=== PATIENT | female | born 1940 | race Caucasian/White ===

== ENCOUNTER 2020-02-05 12:45 | Outpatient (REF) | payer MEDICARE, SELFPAY ==
[2020-02-05 14:11] LABS: MANUAL DIFF FLAG NO
[2020-02-05 14:20] LABS: Basophils Percent Auto 0.7 % (0-2); Eosinophils Absolute Auto 0.3 X10*3/uL (0.0-0.4); Eosinophils Percent Auto 6.1 % (0-4); Hematocrit 43.8 % (37-47); Hemoglobin 13.8 g/dl (12.0-16.0); Imm Gran Abs Auto 0.02 X10*3/uL (0.00-0.03); Imm Gran Pct Auto 0.4 % (0.0-0.4); Lymphocytes Absolute Auto 1.1 X10*3/uL (1.2-4.9); Lymphocytes Percent Auto 19.9 % (20-40); Mean Corpuscular HGB Conc 31.5 g/dl (31.0-35.0); Mean Corpuscular Hemoglobin 29.6 pg (27.0-33.0); Mean Platelet Volume 9.9 fL (9.4-12.3); Monocytes Absolute Auto 0.6 X10*3/uL (0.1-1.2); Monocytes Percent Auto 10.8 % (2-11); Neutrophils Absolute Auto 3.5 X10*3/uL (2.0-8.3); Neutrophils Percent Auto 62.1 % (45-73); Platelet Count 244 X10*3/uL (160-400); Red Blood Count 4.66 X10*6/uL (4.20-5.50); Red Cell Distribution Width 13.2 % (11.0-16.0); White Blood Count 5.6 X10*3/uL (4.8-10.8)
[2020-02-05 14:34] LABS: Alanine Aminotransferase 16 U/L (0-31); Albumin Level 4.1 g/dL (3.5-5.0); Alkaline Phosphatase 67 U/L (39-117); Anion Gap 11 (12-20); Aspartate Amino Transferase 23 U/L (5-31); Bilirubin Total 0.5 mg/dL (0.0-1.0); Blood Urea Nitrogen 30 mg/dL (9-16); Calcium 8.9 mg/dL (8.4-10.2); Carbon Dioxide 28 mmol/L (22-29); Chloride 105 mmol/L (96-108); Cholesterol 236 mg/dL; Estimated Glomerular Filt Rate 53; Glucose Fasting 104 mg/dL (60-99); HDL Cholesterol 44 mg/dL; LDL Cholesterol Calculated 144 mg/dl; Potassium 4.4 mmol/l (3.3-5.1); Sodium 140 mmol/L (135-145); Total Protein 6.6 g/dL (6.5-8.0); Triglycerides 240 mg/dL
[2020-02-05 14:58] LABS: Thyroid Stimulating Hormone 2.05 uIU/mL (0.32-4.0); Vitamin D 25-OH Total 43.3 ng/mL (>30)
== END 2020-02-05 12:46 | disposition home or self-care (01) ==
LOC: HO.HMGCLDS 12:45
PROVIDERS: PCP Internal Medicine; Visit Provider Internal Medicine
DX: I48.0 Paroxysmal atrial fibrillation (principal); E03.9 Hypothyroidism, unspecified; M19.90 Unspecified osteoarthritis, unspecified site
CPT/HCPCS: 36415; 80053; 80061; 82306; 84443; 85025

== ENCOUNTER → 2020-02-19 13:22 | Outpatient (BNVA) | payer MEDICARE, SELFPAY | PROVIDERS: Visit Provider Orthopaedic Surgery | DX: M70.71 Other bursitis of hip, right hip (principal); M54.5 Low back pain | CPT/HCPCS: 20610; J1100 ==

== ENCOUNTER 2020-05-10 14:26 | Outpatient (REF) | payer MEDICARE, OTHER, SELFPAY ==
--- NOTE | ~2020-05-10 | MM_ITS ---
EXAMINATION: MM SCREENING DIGITAL BREAST TOMOSYNTHESIS, BILATERAL CLINICAL INFORMATION: Screening. Asymptomatic. The lifetime risk of breast cancer based on the Tyrer-Cuzick Model is 2%. COMPARISON: Mammography: 05/05/2019, 05/02/2018, 04/26/2017, 04/06/2017 TECHNIQUE: Digital breast tomosynthesis is performed in both the craniocaudal and mediolateral oblique views along with computer-aided detection (CAD). Synthesized 2D images are generated from the tomosynthesis. FINDINGS: There are scattered areas of fibroglandular density (ACR BI-RADS breast composition Category b). There are no significant masses, abnormal calcifications, or other abnormalities. There are scattered bilateral benign round and rim calcifications, greater in number on right. The axilla and skin contours are unremarkable. MM/MM tomosynthesis screening BI IMPRESSION: No mammographic evidence of malignancy. ASSESSMENT: BI-RADS 2: Benign RECOMMENDATION: Routine annual mammography screening. This patient's information was entered into a reminder system with a target due date for their next mammogram.
== END 2020-05-10 14:27 | disposition home or self-care (01) ==
LOC: HO.MAMMO 14:26
PROVIDERS: PCP Internal Medicine; Visit Provider Internal Medicine
DX: Z12.31 Encounter for screening mammogram for malignant neoplasm of breast (principal)
CPT/HCPCS: 77063; 77067

== ENCOUNTER → 2020-06-13 13:46 | Outpatient (REF) | payer BC, SELFPAY ==
--- NOTE | 2020-06-13 13:59 | ECG_ITS ---
Test Reason : H26.9 Blood Pressure : / mmHG Vent. Rate : 065 BPM Atrial Rate : 065 BPM P-R Int : 162 ms QRS Dur : 082 ms QT Int : 406 ms P-R-T Axes : 009 -09 020 degrees QTc Int : 422 ms Normal sinus rhythm Normal ECG When compared with ECG of 18-NOV-2016 11:44, No significant change was found Referred By: Fred Krause Electronically Signed By:JANINA PEREZ MD
== END ==
LOC: HO.CARD 13:46
PROVIDERS: PCP Internal Medicine; Visit Provider Internal Medicine
DX: I48.0 Paroxysmal atrial fibrillation (principal); H26.9 Unspecified cataract
CPT/HCPCS: 93005

== ENCOUNTER 2021-06-06 15:56 | Outpatient (REF) | payer OTHER, SELFPAY ==
--- NOTE | ~2021-06-06 | MM_ITS ---
EXAMINATION: MM SCREENING DIGITAL BREAST TOMOSYNTHESIS, BILATERAL CLINICAL INFORMATION: Screening. Asymptomatic. The lifetime risk of breast cancer based on the Tyrer-Cuzick Model is 1%. COMPARISON: Mammography: 05/10/2020, 05/05/2019, 05/02/2018 TECHNIQUE: Digital breast tomosynthesis is performed in both the craniocaudal and mediolateral oblique views along with computer-aided detection (CAD). Synthesized 2D images are generated from the tomosynthesis. Additional right MLO view is provided. FINDINGS: There are scattered areas of fibroglandular density (ACR BI-RADS breast composition Category b). There are no significant masses, abnormal calcifications, or other abnormalities. Parenchymal pattern is similar to prior studies. There are scattered bilateral punctate round and rim calcifications again seen. Skin contours are smooth. MM/MM tomosynthesis screening BI IMPRESSION: No mammographic evidence of malignancy. ASSESSMENT: BI-RADS 2: Benign RECOMMENDATION: Routine annual mammography screening. This patient's information was entered into a reminder system with a target due date for their next mammogram.
== END 2021-06-06 15:57 | disposition home or self-care (01) ==
LOC: HO.MAMMO 15:56
PROVIDERS: PCP Internal Medicine; Visit Provider Internal Medicine
DX: Z12.31 Encounter for screening mammogram for malignant neoplasm of breast (principal)
CPT/HCPCS: 77063; 77067

== ENCOUNTER 2021-07-04 13:54 | Outpatient (REF) | payer OTHER, SELFPAY ==
[2021-07-04 16:27] LABS: MANUAL DIFF FLAG NO
[2021-07-04 16:31] LABS: Basophils Percent Auto 0.5 % (0-2); Eosinophils Absolute Auto 0.2 X10*3/uL (0.0-0.4); Eosinophils Percent Auto 3.8 % (0-4); Hematocrit 41.4 % (37.0-47.0); Hemoglobin 13.2 g/dl (12.0-16.0); Imm Gran Abs Auto 0.01 X10*3/uL (0.00-0.03); Imm Gran Pct Auto 0.2 % (0.0-0.4); Lymphocytes Percent Auto 16.5 % (20-40); Mean Corpuscular HGB Conc 31.9 g/dl (31.0-35.0); Mean Corpuscular Hemoglobin 29.5 pg (27.0-33.0); Mean Corpuscular Volume 92.6 fL (80.0-98.0); Mean Platelet Volume 10.3 fL (9.4-12.3); Monocytes Absolute Auto 0.6 X10*3/uL (0.1-1.2); Monocytes Percent Auto 9.4 % (2-11); Neutrophils Absolute Auto 4.4 x10*3/uL (2.0-8.3); Neutrophils Percent Auto 69.6 % (45-73); Platelet Count 235 X10*3/uL (160-400); Red Blood Count 4.47 X10*6/uL (4.20-5.50); Red Cell Distribution Width 13.5 % (11.0-16.0); White Blood Count 6.3 X10*3/uL (4.8-10.8)
[2021-07-04 16:46] LABS: Alanine Aminotransferase 12 U/L (0-31); Albumin Level 4.2 g/dL (3.5-5.0); Alkaline Phosphatase 66 U/L (39-117); Anion Gap 10 (12-20); Aspartate Amino Transferase 19 U/L (5-31); Bilirubin Total 0.6 mg/dL (0.0-1.0); Blood Urea Nitrogen 27 mg/dL (9-16); Calcium 9.4 mg/dL (8.4-10.2); Carbon Dioxide 28 mmol/L (22-29); Chloride 108 mmol/L (96-108); Cholesterol 244 mg/dL; Estimated Glomerular Filt Rate 55; Glucose Fasting 106 mg/dL (60-99); HDL Cholesterol 44 mg/dL; LDL Cholesterol Calculated 145 mg/dl; Potassium 4.5 mmol/L (3.3-5.1); Sodium 141 mmol/L (135-145); Total Protein 6.7 g/dL (6.5-8.0); Triglycerides 275 mg/dL
[2021-07-04 17:08] LABS: Thyroid Stimulating Hormone 1.63 uIU/mL (0.32-4.0); Vitamin D 25-OH Total 58.8 ng/mL (>30)
== END 2021-07-04 13:55 | disposition home or self-care (01) ==
LOC: HO.HMGCLDS 13:54
PROVIDERS: PCP Internal Medicine; Visit Provider Internal Medicine
DX: I48.0 Paroxysmal atrial fibrillation (principal); E03.9 Hypothyroidism, unspecified; M19.90 Unspecified osteoarthritis, unspecified site
CPT/HCPCS: 36415; 80053; 80061; 82306; 84443; 85025

== ENCOUNTER 2021-10-19 18:45 | Emergency (ER) | payer OTHER, SELFPAY ==
--- NOTE | ~2021-10-19 | CT_ITS ---
EXAM: CT scan of the head and cervical spine. INDICATION: Reason for Exam fall, head strike TECHNIQUE: A noncontrast CT scan was performed from the skull base to the vertex. A noncontrast CT scan of the cervical spine was performed from the base of the skull through T1 at 2.5 mm and 1.25 mm collimation. Coronal and sagittal reformats were obtained at the acquisition workstation. This CT examination was performed using dose optimization techniques as appropriate, variously including the following: *Automated exposure control *Adjustment of mA and/or kV according to patient size (this includes techniques or standardized protocols for targeted exams where dose is matched to indication/reason for exam; i.e. extremities or head) *Use of iterative reconstruction technique DLP: 686 and 395 mGy-cm COMPARISON: None FINDINGS: Head: There is no evidence of acute intracranial hemorrhage or territorial infarction. Pack-white matter differentiation is preserved. No abnormal mass effect or midline shift. No extra-axial fluid collections. Relatively pronounced atrophy particularly frontal lobes. No abnormal attenuation is demonstrated within the brain parenchyma. Scattered periventricular and deep white matter hypodensities consistent with microangiopathy. The ventricles and sulcal spaces are proportional without hydrocephalus. Proportional prominence of the ventricles and sulcal spaces. No acute osseous or soft tissue abnormalities. The mastoid air cells and visualized portions of the paranasal sinuses are well aerated. Cervical Spine: Mild degenerative disc disease most pronounced at C6-C7. Narrowing. Apophyseal joints throughout without subluxation. Posterior elements appear intact. The atlantooccipital and atlantoaxial articulations remain well aligned. Straightening of the normal cervical lordosis. Otherwise, there is anatomic alignment of the vertebral bodies and posterior elements. No evidence of acute fracture or subluxation.. There is no prevertebral soft tissue swelling. The thyroid gland and remaining cervical soft tissues are normal in appearance. The lung apices demonstrate no abnormalities. CT/CT cervical spine wo con IMPRESSION: No acute intracranial pathology. No acute fracture subluxation cervical spine.
[2021-10-19 19:18] VITALS: BP 153/69; PULSE 58; RESP 18; TEMP 36.8; O2SAT 95; BMI 29.7
--- NOTE | 2021-10-19 20:16 | ED.GENADULT ---
HPI - General Adult General Chief complaint: Wound/Laceration Stated complaint: Finger Lac R Hand Injury 10/19/21 Time Seen by Provider: 10/19/21 19:01 Source: patient Mode of arrival: ambulatory Limitations: no limitations History of Present Illness HPI narrative: Patient is an 81 year old female presenting to the emergency department today with a right hand laceration after a fall. Patient states that she fell and struck her head and then caught the webbing between her 2nd and 3rd digits of her right hand on the corner of the door frame. Patient denies any loss of consciousness with the incident. Patient denies any dizziness, lightheadedness, abdominal pain, nausea, vomiting, fever, chills, blurry vision, double vision, loss of vision, chest pain, difficulty breathing, shortness of breath, back pain, night sweats, pain with urination, increased urinary frequency, increased urinary urgency, blood in her urine or stool, syncope or a near syncopal episode, bowel incontinence, bladder incontinence, bowel retention, bladder retention, or any other complaints at this time. Onset (ago): hour(s) Location: right and upper extremity Radiation: non-radiation Severity: mild Severity scale (1-10): 3 Quality: dull Pain Consistency: constant Relieving factors: none Exacerbating factors: none Associated symptoms: denies other symptoms Treatments prior to arrival: none Related Data Home Medications Medication Instructions Recorded Confirmed bupropion HCl 300 mg 24 hr tablet, 300 mg PO QAM 02/19/20 02/19/20 extended release celecoxib 200 mg capsule 200 mg PO DAILY 02/19/20 02/19/20 duloxetine 60 mg capsule,delayed 60 mg PO DAILY 02/19/20 02/19/20 release levothyroxine 75 mcg tablet 75 mcg PO DAILY 02/19/20 02/19/20 metoprolol succinate 100 mg 100 mg PO DAILY 02/19/20 02/19/20 tablet,extended release 24 hr warfarin 2.5 mg tablet 2.5 mg PO Q OTHER DAY 02/19/20 02/19/20 Previous Rx's Medication Instructions Recorded doxycycline hyclate 100 mg tablet 100 mg PO BID 7 days #14 tabs 10/19/21 Allergies Allergy/AdvReac Type Severity Reaction Status Date / Time hydromorphone [From DILAUDID] Allergy Unknown HOT FLASH Verified 10/19/21 19:18 meperidine [From DEMEROL] Allergy Unknown HOT FLASH Verified 10/19/21 19:18 penicillin V Allergy Unknown Unknown Verified 10/19/21 19:18 Penicillins [PENICILLINS] Allergy Unknown RASH Verified 10/19/21 19:18 Albuterol Allergy Unknown Unknown Uncoded 02/19/20 15:33 Review of Systems Constitutional: Constitutional: Reports no additional constitutional complaints, Denies chills, Denies fever(s) and Denies night sweats Eyes: Eyes: Reports no additional eye complaints, Denies blurry vision, Denies change in vision, Denies diplopia, Denies eye discharge, Denies loss of vision and Denies eye pain ENT: Denies dizziness Cardiovascular: Cardiovascular: Reports no additional cardiovascular complaints, Denies chest pain, Denies lightheadedness, Denies Loss of Consciousness and Denies dyspnea Respiratory: Respiratory: Reports no additional respiratory complaints and Denies dyspnea Gastrointestinal: Gastrointestinal: Reports no additional gastrointestinal complaints, Denies abdominal pain, Denies melena, Denies hematochezia, Denies change in bowel habits and Denies change in stool character Genitourinary: Genitourinary: Denies hematuria, Denies urinary frequency, Denies dysuria, Denies urinary incontinence, Denies urinary hesitancy and Denies urinary urgency Musculoskeletal: Musculoskeletal: Reports no additional musculoskeletal complaints, Denies numbness and Denies tingling Integumentary/Breasts: Comments: laceration to the right hand between the 2nd and 3rd digits Neurologic: Denies dizziness, Denies loss of vision, Denies numbness and Denies tingling Psychiatric: Psychiatric: Reports no additional psychiatric complaints Endocrine: Endocrine: Reports no additional endocrine complaints Hematologic/Lymphatic: Hematologic/Lymphatic: Reports no additional hematologic/lymphatic complaints Allergic/Immunologic: Allergic/Immunologic: Reports no additional allergic/immunologic complaints [facility] Past Medical History Attestation statement: The following information was validated with the patient. 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 right knee replacement (~2014) Social History Social History Advance Directives: No Advance Directives Information Provided: No Current occupational status: retired Current occupation: Right Handed Physical Exam ED Vital Signs: Vital Signs - 24 hr 10/19/21 19:18 Temperature 98.3 F Pulse Rate 58 Respiratory Rate 18 Blood Pressure 153/69 H Pulse Oximetry 95 Oxygen Delivery Method Room Air BMI result Body Mass Index 29.7 Const General: cooperative, no acute distress, alert and awake Nutritional Appearance: well nourished Orientation/consciousness: patient oriented x3 Limitations: no limitations HENMT Head: Yes normal to inspection and Yes atraumatic Ears: hearing grossly normal bilaterally and external ears normal General nose exam: Normal external nose present, no nasal discharge noted and no epistaxis Face and sinus: Yes normal facial exam, No abrasion and No laceration Mouth: Normal oral and palatal mucosa present, no drooling and no muffled voice Eyes General: appearance normal, both eyes and all related structures Periorbital: periorbital findings normal Eyelids: Yes eyelids normal Conjunctivae: conjunctivae normal Pupils: Equal, round and reactive pupils present EOM: EOMs intact bilaterally Neck Neck: Yes normal visual inspection, Yes full ROM and Yes no lymphadenopathy Chest Chest palpation & inspection: normal inspection of the chest Resp Effort & Inspection: normal respiratory effort and able to speak in complete sentences Auscultation: clear to auscultation bilaterally Cardio Rate: regular rate Rhythm: regular rhythm GI Inspection: Yes normal to inspection Skin Other: 3.5cm laceration to the web space between the 2nd and 3rd digits, no active bleeding Neuro General: patient oriented x3 and moves all extremities Cranial nerves: Yes Equal, round and reactive pupils present Cognition (Neuro): normal cognition Motor exam (neuro): 5/5 motor strength present throughout Sensory Exam: Normal double simultaneous stimulation for sensation Coordination: [id number] test normal Extrem General: Yes full ROM and Yes capillary refill normal Psych Appearance: grossly normal Mental Status: mental status grossly normal Affect: normal affect Attitude: cooperative Thought process: Normal thought process present Thought content: Normal thought content present Insight: Good insight present (Psych) Procedures Laceration Laceration 1: Site: other (hand) Side (If applicable): right Size (cm): 3.5 Description: linear Depth: simple, single layer Local Anesthetic: lidocaine 1% Amount of anesthesia used (mL): 5 Pre-repair: wound explored, irrigated extensively and deep structures intact Skin layer closed with: other (prolene) Size (cm): 6-0 Number of sutures: 7 Technique: simple, interrupted Medical Decision Making MDM Narrative Medical decision making narrative: Patient is an 81 year old female presenting to the emergency department today with a right hand laceration after a fall. Patient's physical exam showed a 3.5cm laceration to the web space between the 2nd and 3rd digits, with no active bleeding. Patient's head and C-Spine CTs showed no acute process. I explained my physical exam findings as well as all test results to the patient. I answered all questions asked by the patient. Patient's laceration was repaired, per procedure note, without incident. I stressed the importance of the patient taking her medication as prescribed. I stressed the importance of the patient following up with her primary care provider. I stressed the importance of the patient returning to the emergency department immediately if her symptoms were to worsen or if she were to develop any dizziness, shortness of breath, difficulty breathing, chest pain, blurry vision, loss of vision, nausea, vomiting, abdominal pain, fever, chills, back pain, or any other complaints. Patient verbalized agreement and understanding with this treatment plan and discharge. Differential Diagnosis Differential Diagnosis: laceration, fall Medical Records Medical records reviewed: Yes I reviewed the patient's medical records. Imaging Data Head and C-Spine CT: Attestation: I personally reviewed and interpreted this imaging study as follows: My impression: No acute process. Radiologist's impression: EXAM: CT scan of the head and cervical spine. INDICATION: Reason for Exam fall, head strike TECHNIQUE: A noncontrast CT scan was performed from the skull base to the vertex. A noncontrast CT scan of the cervical spine was performed from the base of the skull through T1 at 2.5 mm and 1.25 mm collimation. Coronal and sagittal reformats were obtained at the acquisition workstation. This CT examination was performed using dose optimization techniques as appropriate, variously including the following: *Automated exposure control *Adjustment of mA and/or kV according to patient size (this includes techniques or standardized protocols for targeted exams where dose is matched to indication/reason for exam; i.e. extremities or head) *Use of iterative reconstruction technique DLP: 686 and 395 ? mGy-cm COMPARISON: None FINDINGS: Head: There is no evidence of acute intracranial hemorrhage or territorial infarction. Pack-white matter differentiation is preserved. No abnormal mass effect or midline shift. No extra-axial fluid collections. Relatively pronounced atrophy particularly frontal lobes. No abnormal attenuation is demonstrated within the brain parenchyma. Scattered periventricular and deep white matter hypodensities consistent with microangiopathy.? The ventricles and sulcal spaces are proportional without hydrocephalus. ?Proportional prominence of the ventricles and sulcal spaces. No acute osseous or soft tissue abnormalities. The mastoid air cells and visualized portions of the paranasal sinuses are well aerated. Cervical Spine: Mild degenerative disc disease most pronounced at C6-C7. Narrowing. Apophyseal joints throughout without subluxation. Posterior elements appear intact. The atlantooccipital and atlantoaxial articulations remain well aligned. Straightening of the normal cervical lordosis. Otherwise, there is anatomic alignment of the vertebral bodies and posterior elements. No evidence of acute fracture or subluxation.. There is no prevertebral soft tissue swelling. The thyroid gland and remaining cervical soft tissues are normal in appearance. The lung apices demonstrate no abnormalities. CT/CT head/brain wo con IMPRESSION: No acute intracranial pathology. No acute fracture subluxation cervical spine. Dictated By: Garret Herrera MD Signed By: Electronically signed by Garret Herrera MD 10/19/212115 Discharge Plan Discharge Clinical Impression: Hand laceration Patient Disposition: Home, Self-Care Instructions: Care For Your Stitches (ED), Laceration (ED) Additional Instructions: Do NOT soak the sutured area. Perform daily dressing changes and daily wound checks. Have your sutures removed in 10-14 days. Follow up with your primary care provider. Return to the emergency department immediately if your symptoms worsen or if you develop any dizziness, shortness of breath, difficulty breathing, chest pain, blurry vision, loss of vision, nausea, vomiting, abdominal pain, fever, chills, back pain, or any other complaints. Prescriptions: New doxycycline hyclate 100 mg tablet 100 mg PO BID 7 Days Qty: 14 0RF No Action duloxetine 60 mg capsule,delayed release(DR/EC) 60 mg PO DAILY celecoxib 200 mg capsule 200 mg PO DAILY bupropion HCl 300 mg tablet extended release 24 hr 300 mg PO QAM levothyroxine 75 mcg tablet 75 mcg PO DAILY metoprolol succinate 100 mg tablet extended release 24 hr 100 mg PO DAILY warfarin 2.5 mg tablet 2.5 mg PO Q OTHER DAY Rx Instructions: on odd numbered days Referrals: Fred Krause DO [Primary Care Provider] - (Follow up with your PCP. ) Print Language: Greenlandic
--- NOTE | 2021-10-19 20:46 | PC.NURSE ---
Per verbal order from RADAMES Encinas, soak pt.'s hand in a small bucket of Sterile Water for ten minutes. Pt.'s hand just started to soak
[2021-10-19] MEDS: Lidocaine HCl 1 % MPF 5 ML VIAL SUBCUT (20:51)
--- NOTE | 2021-10-19 20:52 | PC.NURSE ---
Med scanned and left at bed side for provider. Pt's hand left to soak in sterile water until 2054.
--- NOTE | 2021-10-19 20:55 | PC.NURSE ---
Pt's hand removed from water. Provider made aware that pt is ready for procedure.
--- NOTE | 2021-10-19 21:21 | PC.NURSE ---
RADAMES Donovan at bedside right now suturing pt.'s finger
[2021-10-19] MEDS: Diphth,Pertus(ACell),Tet Adult 0.5 ML SYRINGE IM (21:40)
--- NOTE | 2021-10-19 22:16 | PC.NURSE ---
Pt. refused set of vitals prior to discharge
== END 2021-10-19 22:19 | disposition home or self-care (01) ==
PROVIDERS: Emergency Provider Internal Medicine; PCP Internal Medicine
DX: S61.411A Laceration without foreign body of right hand, initial encounter (principal); R51.9 Headache, unspecified; M54.2 Cervicalgia; S60.511A Abrasion of right hand, initial encounter; W01.0XXA Fall on same level from slipping, tripping and stumbling without subsequent striking against object, initial encounter; Y93.9 Activity, unspecified; Y92.9 Unspecified place or not applicable; Y99.9 Unspecified external cause status; Z79.899 Other long term (current) drug therapy
CPT/HCPCS: 12002; 70450; 72125; 90471; 90715; 96372; 99282; 99284

== ENCOUNTER 2021-10-28 14:21 | Emergency (ER) | payer OTHER, SELFPAY | END 2021-10-28 16:17 | disposition left against medical advice (07) | PROVIDERS: Emergency Provider Emergency Medicine; PCP Internal Medicine | DX: Z48.00 Encounter for change or removal of nonsurgical wound dressing (principal) ==

== ENCOUNTER 2022-01-13 15:38 | Outpatient (REF) | payer OTHER, SELFPAY ==
--- NOTE | ~2022-01-13 | XR_ITS ---
EXAMINATION: XR KNEE, RIGHT CLINICAL INFORMATION: Arthritis. Knee replacement. COMPARISON: Previous x-ray 2018 TECHNIQUE: Two views of the right knee. FINDINGS: There is a 2 component right knee replacement in satisfactory position. No fracture or dislocation or x-ray evidence of loosening. Small joint effusion. Mild atherosclerotic disease. XR/XR knee RT 2V IMPRESSION: Satisfactory appearance of right knee replacement.
== END 2022-01-13 15:39 | disposition home or self-care (01) ==
LOC: HO.HMGCX 15:38
PROVIDERS: PCP Internal Medicine; Visit Provider Internal Medicine
DX: M19.90 Unspecified osteoarthritis, unspecified site (principal)
CPT/HCPCS: 73560

== ENCOUNTER 2022-02-06 14:01 | Outpatient (REF) | payer OTHER, SELFPAY ==
[2022-02-06 16:23] LABS: MANUAL DIFF FLAG NO
[2022-02-06 16:25] LABS: Basophils Percent Auto 0.6 % (0-2); Eosinophils Absolute Auto 0.3 X10*3/uL (0.0-0.4); Eosinophils Percent Auto 5.5 % (0-4); Hematocrit 40.8 % (37.0-47.0); Hemoglobin 12.8 g/dl (12.0-16.0); Imm Gran Abs Auto 0.01 X10*3/uL (0.00-0.03); Imm Gran Pct Auto 0.2 % (0.0-0.4); Lymphocytes Absolute Auto 1.1 X10*3/uL (1.2-4.9); Lymphocytes Percent Auto 18.1 % (20-40); Mean Corpuscular HGB Conc 31.4 g/dl (31.0-35.0); Mean Corpuscular Hemoglobin 28.8 pg (27.0-33.0); Mean Corpuscular Volume 91.9 fL (80.0-98.0); Mean Platelet Volume 10.4 fL (9.4-12.3); Monocytes Absolute Auto 0.6 X10*3/uL (0.1-1.2); Monocytes Percent Auto 10.3 % (2-11); Neutrophils Absolute Auto 4.1 x10*3/uL (2.0-8.3); Neutrophils Percent Auto 65.3 % (45-73); Platelet Count 257 X10*3/uL (160-400); Red Blood Count 4.44 X10*6/uL (4.20-5.50); Red Cell Distribution Width 14.4 % (11.0-16.0); White Blood Count 6.2 X10*3/uL (4.8-10.8)
[2022-02-06 16:43] LABS: Alanine Aminotransferase 12 U/L (0-31); Alkaline Phosphatase 98 U/L (39-117); Anion Gap 13 (12-20); Aspartate Amino Transferase 20 U/L (5-31); Bilirubin Total 0.5 mg/dL (0.0-1.0); Blood Urea Nitrogen 26 mg/dL (9-16); Calcium 9.4 mg/dL (8.4-10.2); Carbon Dioxide 26 mmol/L (22-29); Chloride 108 mmol/L (96-108); Cholesterol 163 mg/dL; Estimated Glomerular Filt Rate 48; Glucose Fasting 106 mg/dL (60-99); HDL Cholesterol 48 mg/dL; LDL Cholesterol Calculated 96 mg/dl; Potassium 4.9 mmol/L (3.3-5.1); Sodium 142 mmol/L (135-145); Total Protein 6.7 g/dL (6.5-8.0); Triglycerides 98 mg/dL
[2022-02-06 17:02] LABS: Thyroid Stimulating Hormone 1.15 uIU/mL (0.32-4.0)
== END 2022-02-06 14:02 | disposition home or self-care (01) ==
LOC: HO.HMGCLDS 14:01
PROVIDERS: PCP Internal Medicine; Visit Provider Internal Medicine
DX: Z00.00 Encounter for general adult medical examination without abnormal findings (principal); I48.0 Paroxysmal atrial fibrillation; E03.9 Hypothyroidism, unspecified; E78.00 Pure hypercholesterolemia, unspecified; M19.90 Unspecified osteoarthritis, unspecified site; G31.84 Mild cognitive impairment of uncertain or unknown etiology
CPT/HCPCS: 36415; 80053; 80061; 84443; 85025

== ENCOUNTER → 2022-04-07 14:02 | Outpatient (BNVA) | payer OTHER, SELFPAY | PROVIDERS: PCP Internal Medicine; Visit Provider Student in an Organized Health Care Education/Training Program | DX: Z13.89 Encounter for screening for other disorder (principal) ==

== ENCOUNTER 2022-04-21 14:00 | Outpatient (RCR) | payer OTHER, SELFPAY ==
--- NOTE | 2022-04-14 14:21 | MHC.PT.EP ---
[facility] [place] Office [place] Office [place] Office [address] [phone] F: [phone] F: [phone] F: [phone] F: [phone] Physical Therapy Plan of Care Date of Evaluation: Date of Surgery: none Diagnosis: bilateral shoulder pain Assessment: Patient is an 81 year old R handed female who presents with s/s consistent with bilateral shoulder pain. She is retired but enjoys staying active around the house and in the community. Patient past medical history includes AFib. Current impairments include pain, posture, ROM, strength, activity tolerance and functional mobility. Functional limitations include decreased ability to sleep, reach, push, pull, carry, and lift. Patient is motivated with good rehab potential. Skilled PT will address impairments and functional limitations in order to achieve goals. Frequency and Duration: The patient will be seen 2x/week for 5 weeks Short Term Goals: I with HEP - 2 weeks AAROM full - 3 weeks improved postural awarensss - 3 weeks min pec tightness b/l - 3 weeks Correction Goals: AROM full - 5 weeks pain free ADLs - 5 weeks SPADI 40/130 or less - 5 weeks Treatment Plan: Modalities to reduce pain, spasms and effusion. Manual therapy to restore motion and function. Therapeutic exercise to improve strength and flexibility. Neuromuscular re-education for posture and balance. Therapeutic activities to return to functional activities of daily living. Electronically signed by: Dylan Barcenas PT Please sign and return to therapist. Thank you for your referral.
--- NOTE | 2022-06-05 09:16 | MHC.PT.DC ---
[facility] [place] Office [place] Office [place] Office [address] Brenda Echols [address] [phone] F: [phone] F: [phone] F: [phone] F: [phone] Physical Therapy Discharge Report Diagnosis: bilateral shoulder pain Date of Surgery: none Date of Evaluation: 04/14/22 Date of Discharge: 05/16/22 Treatments to Date: 2 Cancellations to Date: No Shows to Date: Discharge Status: Improved Function Independent with HEP Discharge Summary: 04/21/22: pt happy with progress and HEP thus far. needs redirection at times. 04/17: Pt reported she is feeling not to bad this afternoon; She presented with her bands and HEP. Pt demonstrates early compliance with home program; receptive to therapy. Pt declined HP. Reviewed and progressed HEP. Patient is an 81 year old R handed female who presents with s/s consistent with bilateral shoulder pain. She is retired but enjoys staying active around the house and in the community. Patient past medical history includes AFib. Current impairments include pain, posture, ROM, strength, activity tolerance and functional mobility. Functional limitations include decreased ability to sleep, reach, push, pull, carry, and lift. Patient is motivated with good rehab potential. Skilled PT will address impairments and functional limitations in order to achieve goals. Electronically signed by: Dylan Barcenas, PT Please sign and return to therapist. Thank you for your referral.
== END 2022-06-05 09:16 | disposition home or self-care (01) ==
LOC: HO.PTCHIC 14:00
PROVIDERS: PCP Internal Medicine; Visit Provider Student in an Organized Health Care Education/Training Program
DX: M12.811 Other specific arthropathies, not elsewhere classified, right shoulder (principal); M12.812 Other specific arthropathies, not elsewhere classified, left shoulder
CPT/HCPCS: 97110; 97162

== ENCOUNTER 2022-05-04 11:13 | Outpatient (REF) | payer OTHER, SELFPAY ==
--- NOTE | ~2022-05-04 | XR_ITS ---
EXAMINATION: XR KNEE, RIGHT XR KNEE, LEFT XR KNEE AP STANDING CLINICAL INFORMATION: Pain. COMPARISON: Prior radiographs, most recently 01/13/2022. TECHNIQUE: Four views of the right knee. Four views of the left knee. AP bilateral standing view of the knees was obtained. FINDINGS: Prosthetic components of the bilateral total knee arthroplasties are appropriately aligned, without periprosthetic fracture or lucency. No component migration. No joint effusion. XR/XR knee LT 2V IMPRESSION: Appropriate alignment of the bilateral total knee arthroplasties, without evidence of complications.
--- NOTE | ~2022-05-04 | XR_ITS ---
EXAMINATION: XR KNEE, RIGHT XR KNEE, LEFT XR KNEE AP STANDING CLINICAL INFORMATION: Pain. COMPARISON: Prior radiographs, most recently 01/13/2022. TECHNIQUE: Four views of the right knee. Four views of the left knee. AP bilateral standing view of the knees was obtained. FINDINGS: Prosthetic components of the bilateral total knee arthroplasties are appropriately aligned, without periprosthetic fracture or lucency. No component migration. No joint effusion. XR/XR knee RT 2V IMPRESSION: Appropriate alignment of the bilateral total knee arthroplasties, without evidence of complications.
--- NOTE | ~2022-05-04 | XR_ITS ---
EXAMINATION: XR KNEE, RIGHT XR KNEE, LEFT XR KNEE AP STANDING CLINICAL INFORMATION: Pain. COMPARISON: Prior radiographs, most recently 01/13/2022. TECHNIQUE: Four views of the right knee. Four views of the left knee. AP bilateral standing view of the knees was obtained. FINDINGS: Prosthetic components of the bilateral total knee arthroplasties are appropriately aligned, without periprosthetic fracture or lucency. No component migration. No joint effusion. XR/XR knee standing BI IMPRESSION: Appropriate alignment of the bilateral total knee arthroplasties, without evidence of complications.
== END 2022-05-04 11:14 | disposition home or self-care (01) ==
LOC: HO.HOSX 11:13
PROVIDERS: Visit Provider Orthopaedic Surgery
DX: M25.561 Pain in right knee (principal); Z96.653 Presence of artificial knee joint, bilateral
CPT/HCPCS: 73560; 73565

== ENCOUNTER 2022-05-04 13:54 | Outpatient (REF) | payer OTHER, SELFPAY ==
[2022-05-04 17:38] LABS: Vitamin B12 421 pg/mL (200-900)
== END 2022-05-04 13:55 | disposition home or self-care (01) ==
LOC: HO.HMGCLDS 13:54
PROVIDERS: PCP Internal Medicine; Visit Provider Internal Medicine
DX: E03.9 Hypothyroidism, unspecified (principal); G31.84 Mild cognitive impairment of uncertain or unknown etiology; E78.00 Pure hypercholesterolemia, unspecified; I48.0 Paroxysmal atrial fibrillation
CPT/HCPCS: 36415; 82607; 82746

== ENCOUNTER 2022-06-17 13:34 | Outpatient (REF) | payer OTHER, SELFPAY ==
--- NOTE | ~2022-06-17 | MM_ITS ---
EXAMINATION: MM SCREENING DIGITAL BREAST TOMOSYNTHESIS, BILATERAL CLINICAL INFORMATION: Screening. Asymptomatic. The lifetime risk of breast cancer based on the Tyrer-Cuzick Model is 1.2%. COMPARISON: Mammography: June 06, 2021 and studies dating back to April 06, 2017 TECHNIQUE: Digital breast tomosynthesis is performed in both the craniocaudal and mediolateral oblique views along with computer-aided detection (CAD). Synthesized 2D images are generated from the tomosynthesis. FINDINGS: There are scattered areas of fibroglandular density (ACR BI-RADS breast composition Category b). There are no significant masses, abnormal calcifications, or other abnormalities. MM/MM tomosynthesis screening BI IMPRESSION: No significant changes from prior exam. ASSESSMENT: BI-RADS 1: Negative RECOMMENDATION: Routine annual mammography screening. This patient's information was entered into a reminder system with a target due date for their next mammogram.
== END 2022-06-17 13:35 | disposition home or self-care (01) ==
LOC: HO.MAMMO 13:34
PROVIDERS: PCP Internal Medicine; Visit Provider Internal Medicine
DX: Z12.31 Encounter for screening mammogram for malignant neoplasm of breast (principal)
CPT/HCPCS: 77063; 77067

== ENCOUNTER 2022-10-29 14:02 | Outpatient (AMB) | payer OTHER, SELFPAY ==
--- NOTE | 2022-10-29 14:09 | MHC.OFFVIS ---
Intake Vital Signs 10/29/22 14:10 Height 5 ft 5 in Weight 180 lb BMI 30.0 Intake Visit Reasons: ov- Right knee pain Intake Note: Shira is an 82 year old female who presents today for a follow up of her right knee pain. Hx of bilateral TKAs. Patient reports that the right knee is very painful and feels that the pain is getting worse. She feels that there is grit under the patella, she has increased pain with use. She has pain even with simple ROM. Allergies hydromorphone [From DILAUDID] Allergy (Unknown, Verified 05/04/22 13:23) HOT FLASH meperidine [From DEMEROL] Allergy (Unknown, Verified 05/04/22 13:23) HOT FLASH penicillin V Allergy (Unknown, Verified 05/04/22 13:23) Unknown Penicillins [PENICILLINS] Allergy (Unknown, Verified 05/04/22 13:23) RASH Albuterol Allergy (Unknown, Uncoded 04/07/22 14:23) Unknown HPI ov- Right knee pain HPI Details Shira is an 81 year old woman here to discuss her ongoing right knee pain. She has a Hx of bilateral TKAs, her right in 2014 and her left on 12/08/16. She says her knee pain has worsened in the last few months, and she feels a sensation of grit under her kneecap. She says she cannot bear weight on her knee without pain, and she feels limited in her daily activity. She is unable to use stairs or stand from a seated position without pain, and she finds it difficult to walk her dog. She thinks this is affecting her gait as she has noticed some stiffness in her right hip, which wasnt present before. \ She is on Warfarin [facility] Medical History (Updated 04/07/22 @ 16:26 by Jamey Stevenson MD) Afib Bursitis of right hip Low back pain Pseudogout Surgical History (Updated 10/30/22 @ 15:24 by Wilner Gómez MD) History of bunionectomy History of total left knee replacement (~2017) History of total right knee replacement (~2014) Family History Mother No problems noted. Father Lung cancer Social History Household Members: None Alcohol intake: current Alcohol intake frequency: does not drink Patient Tobacco Use Status: Never used Tobacco Current occupational status: retired Current occupation: Right Handed Review of Systems Const All systems reviewed & are unremarkable except as noted in HPI and below Physical Exam Vital Signs: BMI result Body Mass Index 30.0 Const General: no acute distress and alert Orientation/consciousness: patient oriented x3 Neuro General: patient oriented x3 Extrem Other: Right Knee: Retropatellar TTP No effusion Psych Appearance: grossly normal Affect: normal affect Attitude: cooperative Results Reviewed Results Reviewed: I personally reviewed relevant radiographs. Bilaterl total knee arthroplasty in expected post operative position with no hardware complications or evidence of loosening. Unresurfaced right patella Assessment & Plan Assessment & Plan (1) Right knee pain: Code(s): M25.561 - Pain in right knee Plan: This is an 81 year old woman with ~9 months worsening right knee pain and a Hx of bilateral TKAs. 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 She has pain with weight-bearing activities, worse with using stairs, standing from a seated position, or walking her dog. She feels limited in her ADLs by her pain. I discussed treatment options, including surgery vs a referral to our non-operative colleagues in Pain Management. She would like to proceed with injections at this time. I referred her to Dr. Patel in Pain Management for further treatment. If her symptoms persist we can discuss surgery. She can follow up prn. (2) History of bilateral knee replacement: Comment: R - 2014, L - 2016 Code(s): Z96.653 - Presence of artificial knee joint, bilateral (3) History of total right knee replacement: Onset Date: ~2014 Code(s): Z96.651 - Presence of right artificial knee joint Plan Scribed for Wilner Gómez MD by Uday Francois, medical technician assistant, on 10/29/22 at 2:20 PM, EST. Orders: Referrals Pain Management Referral Z96.651 - Presence of right artificial knee joint Coding Level of Care Code Est Pt Level 4 (28443) Diagnoses Right knee pain M25.561 History of bilateral knee replacement Z96.653 History of total right knee replacement Z96.651
== END 2022-10-29 14:32 | disposition home or self-care (01) ==
PROVIDERS: PCP Internal Medicine; Visit Provider Orthopaedic Surgery
DX: M25.561 Pain in right knee (principal); Z96.653 Presence of artificial knee joint, bilateral
CPT/HCPCS: 99214

== ENCOUNTER → 2022-10-29 14:02 | Outpatient (BNVA) | payer OTHER, SELFPAY | PROVIDERS: PCP Internal Medicine; Visit Provider Orthopaedic Surgery ==

== ENCOUNTER 2022-11-23 14:55 | Outpatient (AMB) | payer OTHER, SELFPAY ==
[2022-11-23 14:58] VITALS: BP 105/62; PULSE 62; RESP 14; O2SAT 97; BMI 29.5
--- NOTE | 2022-11-23 14:58 | A.OFFVIS_ITS ---
Intake Vital Signs 11/23/22 14:58 Height 5 ft 5 in Weight 177 lb BMI 29.5 BP 105/62 Blood Pressure Location Lt radial Position Sitting Respiration 14 Pulse 62 Pulse Source Pulse Oximeter Pulse Oximetry (%) 97 Oxygen Delivery Method Room Air Intake Visit Reasons: RT KNEE NERVE BLOCK RER BY DR SWEENEY Allergies hydromorphone [From DILAUDID] Allergy (Unknown, Verified 11/23/22 15:03) HOT FLASH Penicillins [PENICILLINS] Allergy (Unknown, Verified 11/23/22 15:03) RASH Albuterol Allergy (Unknown, Uncoded 11/23/22 15:03) Unknown Medication List - Last Reconciled 11/23/22 by Venus Dupree LPN atorvastatin 10 mg PO DAILY bupropion HCl 300 mg PO QAM [CBD Drops PO .qd] celecoxib 200 mg PO BID cholecalciferol (vitamin D3) 25 mcg PO DAILY diclofenac sodium 1% (Voltaren Arthritis Pain) 2 grams topical QID duloxetine 60 mg PO DAILY levothyroxine 75 mcg PO DAILY metoprolol succinate ER 100 mg PO DAILY omeprazole 20 mg PO DAILY timolol maleate 0.5% 1 drp ophthalmic (eye) BID trazodone 50 mg PO BEDTIME warfarin 2.5 mg PO Q OTHER DAY HPI RT KNEE NERVE BLOCK RER BY DR SWEENEY HPI Details 82-year-old female is presenting today for an evaluation of knee pain. The patient had left knee replacement surgery by Dr. Sweeney on 12/08/16. She had a total right knee replacement in [address] Ramses Samuels at [place], [place]. The patient states that, per Dr. Sweeney, surgical interventions or nerve blocks are the possible treatment options at this point. The patient has been experiencing knee pain for the past few months. Her pain is localized on the lateral side of her leg and around her kneecap. She is unable to bear weight on her knee without pain. She states that her pain is limiting her daily activity. She is unable to use stairs or stand from seated positions. She has difficulty walking her dog. [facility] Medical History (Updated 04/07/22 @ 16:26 by Jamey Stevenson MD) Afib Bursitis of right hip Low back pain Pseudogout Surgical History (Updated 10/30/22 @ 15:24 by Wilner Sweeney MD) History of bunionectomy History of total left knee replacement (~2016) History of total right knee replacement (~2014) Family History Mother No problems noted. Father Lung cancer Social History Household Members: None Alcohol intake: current Alcohol intake frequency: does not drink Patient Tobacco Use Status: Never used Tobacco Current occupational status: retired Current occupation: Right Handed Review of Systems Const All systems reviewed & are unremarkable except as noted in HPI and below Physical Exam Vital Signs: Last Vital Signs Pulse 62 11/23/22 14:58 Resp 14 11/23/22 14:58 BP 105/62 11/23/22 14:58 Pulse Ox 97 11/23/22 14:58 Oxygen Delivery Method Room Air 11/23/22 14:58 BMI result Body Mass Index 29.5 General: Appears afebrile. Alert and oriented. Mood and affect appropriate. Follows and participates in conversation appropriately. Respiratory effort is unlabored. Able to transition from sit to stand unassisted. Ambulates with bilaterally normal heel strike and toe off. Manual manipulation of the patella reproduces a clicking/crepitus within the p atella that reproduces her usual pain. No particular tenderness to palpation around the right knee joint. Mild tenderness lateral to the patella. Office Procedures Nerve Block Details: Superior lateral genicular nerve block, Right - Ultrasound Guided After obtaining written consent, pre-procedure blood pressure and heart rate were stable and recorded in the nursing record. The patient was placed supine on the table. The area overlying the peripheral nerves was widely prepped with c hloraprep and allowed to dry. Using ultrasound, the appropriate landmarks were identified. A 25 gauge 1.5 inch hypodermic needle was advanced under ultrasound guidance to the appropriate landmark for the right lateral superior genicular nerve. Aspiration was negative for heme and synovial fluid. 2 cc of bupivacaine 0.5% was injected around the targeted nerve. The needle was removed, skin cleansed and a sterile bandage was applied. The patient tolerated the procedure well and no complications were encountered. Following the procedure the patient's vital signs were stable. The patient was discharged home in good condition with post-procedural instructions. Time Out: Immediately prior to the procedure, the following was verbally confirmed that there is a signed consent form and that the correct patient, planned procedure, site and side are consistent with documentation and that necessary equipment and/or blood products are available prior to the start of the case. A permanent ultrasound image was stored. Complications: none EBL: <5 cc 88010 - Geniculate (knee) Procedure code (CPT) selection complete Results Reviewed Results Reviewed: No imaging is available for review. Assessment & Plan Assessment & Plan (1) History of total right knee replacement: Onset Date: ~2014 Code(s): Z96.651 - Presence of right artificial knee joint (2) Right knee pain: Code(s): M25.561 - Pain in right knee Plan 82-year-old female with a prior history of right total knee arthroplasty with subsequent clicking and pain of her right patella referred to us for evaluation by Dr. Sweeney. I do not think she would benefit from nerve stimulation because of a very particular pain generator within her patella that is unlikely to respond to a neuropathic intervention. I did do a superolateral genicular nerve block to see how much pain relief she might get from that; if she gets excellent response to this 1 injection, we can consider ablation of the right superior lateral genicular nerve alone. However if she does not get a good diagnostic response, I told her that her options would be limited in the nonsurgical domain. We also discussed and agreed that we operating/revising a prior TKA could very well lead to new pain generators within the joint so careful consideration will need to be made regarding any decision to proceed with a revision surgery. Patient expressed understanding. Scribed for Dr. Patel by Jose Sampson, medical information officer, on 11/23/2022. I, Dr. Patel, have personally reviewed and agree with the information entered by the scribe. Coding Level of Care Code New Pt Level 4 (08014) Diagnoses History of total right knee replacement Z96.651 Right knee pain M25.561 CPT Codes Nerve Block - Nerve Block 8: 82017 - Geniculate (knee) ([id number])
== END 2022-11-23 15:57 | disposition home or self-care (01) ==
PROVIDERS: PCP Internal Medicine; Visit Provider Internal Medicine
DX: M25.561 Pain in right knee (principal); Z96.651 Presence of right artificial knee joint
CPT/HCPCS: 64450

== ENCOUNTER → 2022-11-23 14:55 | Outpatient (BNVA) | payer OTHER, SELFPAY | PROVIDERS: PCP Internal Medicine; Visit Provider Internal Medicine | DX: T84.84XA Pain due to internal orthopedic prosthetic devices, implants and grafts, initial encounter (principal); Z96.651 Presence of right artificial knee joint | CPT/HCPCS: 64450 ==

== ENCOUNTER 2022-12-28 13:50 | Outpatient (AMB) | payer OTHER, SELFPAY ==
--- NOTE | 2022-12-28 13:51 | A.OFFVIS_ITS ---
Intake Vital Signs 12/28/22 13:54 Height 5 ft 5 in Weight 171 lb BMI 28.5 BP 141/77 H Blood Pressure Location Lt radial Position Sitting Respiration 14 Pulse 67 Pulse Source Pulse Oximeter Pulse Oximetry (%) 94 Oxygen Delivery Method Room Air Intake Visit Reasons: Increasing Sharp Knee Pains Allergies hydromorphone [From DILAUDID] Allergy (Unknown, Verified 12/28/22 13:56) HOT FLASH Penicillins [PENICILLINS] Allergy (Unknown, Verified 12/28/22 13:56) RASH Albuterol Allergy (Unknown, Uncoded 12/28/22 13:56) Unknown Medication List - Last Reconciled 12/28/22 by Venus Dupree LPN atorvastatin 10 mg PO DAILY bupropion HCl 300 mg PO QAM [CBD Drops PO .qd] celecoxib 200 mg PO BID cholecalciferol (vitamin D3) 25 mcg PO DAILY diclofenac sodium 1% (Voltaren Arthritis Pain) 2 grams topical QID duloxetine 60 mg PO DAILY levothyroxine 75 mcg PO DAILY metoprolol succinate ER 100 mg PO DAILY omeprazole 20 mg PO DAILY timolol maleate 0.5% 1 drp ophthalmic (eye) BID trazodone 50 mg PO BEDTIME warfarin 2.5 mg PO Q OTHER DAY HPI Increasing Sharp Knee Pains HPI Details 82-year-old female who presents today to the office for an increasing sharp knee pain. The patient reports 80% relief from the diagnostic injection, lasting 1 day. She continued to have some clicking related pain under her patella that did not completely resolve. She is interested in trialing genicular nerve RFA at that right superior lateral site, even if it gives her 50% relief. Past procedure: 11/23/22: Superior lateral genicular ner ve block, Right - Ultrasound Guided: 80% relief. [facility] Medical History (Updated 12/29/22 @ 15:06 by Hans Patel MD) Pseudogout Low back pain Bursitis of right hip Afib Surgical History (Updated 10/30/22 @ 15:24 by Wilner Gómez MD) History of total right knee replacement (~2014) History of bunionectomy History of total left knee replacement (~2017) Family History Mother No problems noted. Father Lung cancer Social History Household Members: None Alcohol intake: current Alcohol intake frequency: does not drink Patient Tobacco Use Status: Never used Tobacco Current occupational status: retired Current occupation: Right Handed Review of Systems Const All systems reviewed & are unremarkable except as noted in HPI and below Physical Exam Vital Signs: Last Vital Signs Pulse 67 12/28/22 13:54 Resp 14 12/28/22 13:54 BP 141/77 H 12/28/22 13:54 Pulse Ox 94 12/28/22 13:54 Oxygen Delivery Method Room Air 12/28/22 13:54 BMI result Body Mass Index 28.5 General: Appears afebrile. Alert and oriented. Mood and affect appropriate. Follows and participates in conversation appropriately. Respiratory effort is unlabored. Able to transition from sit to stand unassisted. Ambulates with bilaterally normal heel strike and toe off. The patient continues to have a tender point at the superior lateral aspect of the patella Results Reviewed Results Reviewed: No imaging is available for review. Assessment & Plan Assessment & Plan (1) Right knee pain: Code(s): M25.561 - Pain in right knee Qualifiers: Chronicity: chronic Qualified Code(s): M25.561 - Pain in right knee; G89.29 - Other chronic pain Plan Will schedule her for a right superolateral genicular nerve ablation under local anesthesia. Discussed the risks and benefits of the procedure with the patient in detail. All questions were answered. The patient is on board with the plan. She does not have any medial knee tenderness or pain so I do not see a need for targeting the medial genicular nerves. Justification for interventional therapy: ? Patient with average pain > 6/10 ? Patient has exhausted conservative therapy ? Patient unable to tolerate physical therapy due to pain Scribed for Dr. Patel by Jose Sampson, medical center director, on 12/28/2022. I, Dr. Patel, have personally reviewed and agree with the information entered by the scribe. Coding Level of Care Code Est Pt Level 3 (40119) Diagnoses Chronic pain of right knee M25.561; G89.29 Chronicity: chronic
[2022-12-28 13:54] VITALS: BP 141/77; PULSE 67; RESP 14; O2SAT 94; BMI 28.5
== END 2022-12-28 14:19 | disposition home or self-care (01) ==
PROVIDERS: PCP Internal Medicine; Visit Provider Internal Medicine
DX: M25.561 Pain in right knee (principal); G89.29 Other chronic pain
CPT/HCPCS: 99213

== ENCOUNTER → 2022-12-28 13:50 | Outpatient (BNVA) | payer OTHER, SELFPAY | PROVIDERS: PCP Internal Medicine; Visit Provider Internal Medicine ==

== ENCOUNTER 2023-02-22 12:53 | Outpatient (REF) | payer OTHER, SELFPAY ==
[2023-02-22 16:12] LABS: MANUAL DIFF FLAG NO
[2023-02-22 16:26] LABS: Basophils Percent Auto 0.7 % (0-2); Eosinophils Absolute Auto 0.3 X10*3/uL (0.0-0.4); Eosinophils Percent Auto 5.3 % (0-4); Hematocrit 40.7 % (37.0-47.0); Hemoglobin 12.9 g/dl (12.0-16.0); Imm Gran Abs Auto 0.02 X10*3/uL (0.00-0.03); Imm Gran Pct Auto 0.4 % (0.0-0.4); Lymphocytes Percent Auto 17.3 % (20-40); Mean Corpuscular HGB Conc 31.7 g/dl (31.0-35.0); Mean Corpuscular Hemoglobin 29.6 pg (27.0-33.0); Mean Corpuscular Volume 93.3 fL (80.0-98.0); Mean Platelet Volume 10.3 fL (9.4-12.3); Monocytes Absolute Auto 0.6 X10*3/uL (0.1-1.2); Monocytes Percent Auto 10.2 % (2-11); Neutrophils Absolute Auto 3.8 x10*3/uL (2.0-8.3); Neutrophils Percent Auto 66.1 % (45-73); Platelet Count 223 X10*3/uL (160-400); Red Blood Count 4.36 X10*6/uL (4.20-5.50); Red Cell Distribution Width 13.5 % (11.0-16.0); White Blood Count 5.7 X10*3/uL (4.8-10.8)
[2023-02-22 16:51] LABS: Alanine Aminotransferase 13 U/L (0-31); Albumin Level 3.9 g/dL (3.5-5.0); Alkaline Phosphatase 58 U/L (39-117); Anion Gap 11 (12-20); Aspartate Amino Transferase 21 U/L (5-31); Bilirubin Total 0.5 mg/dL (0.0-1.0); Blood Urea Nitrogen 27 mg/dL (9-16); Calcium 9.5 mg/dL (8.4-10.2); Carbon Dioxide 25 mmol/L (22-29); Chloride 110 mmol/L (96-108); Cholesterol 150 mg/dL (<200); Estimated Glomerular Filt Rate 49; Glucose Fasting 114 mg/dL (60-99); HDL Cholesterol 38 mg/dL (>40); LDL Cholesterol Calculated 76 mg/dL (<100); Potassium 4.2 mmol/L (3.3-5.1); Sodium 142 mmol/L (135-145); Total Protein 6.7 g/dL (6.5-8.0); Triglycerides 182 mg/dL (<150)
[2023-02-22 17:00] LABS: Thyroid Stimulating Hormone 0.97 uIU/mL (0.32-4.0)
== END 2023-02-22 12:54 | disposition home or self-care (01) ==
LOC: HO.HMGCLDS 12:53
PROVIDERS: PCP Internal Medicine; Visit Provider Internal Medicine
DX: I48.0 Paroxysmal atrial fibrillation (principal); E03.9 Hypothyroidism, unspecified; E78.00 Pure hypercholesterolemia, unspecified; M19.90 Unspecified osteoarthritis, unspecified site
CPT/HCPCS: 36415; 80053; 80061; 82306; 84443; 85025

== ENCOUNTER 2023-03-10 11:56 | Day surgery (SDC) | payer OTHER, SELFPAY ==
--- NOTE | ~2023-03-10 | FL_ITS ---
EXAMINATION: XR FLUOROSCOPY WITH IMAGES CLINICAL INFORMATION: Right superior lateral genicular RFA. COMPARISON: Right knee x-ray April 2022 TECHNIQUE: Fluoroscopy Supervised By: Dr. Hans Patel. Fluoroscopy Time: 19.6 seconds. Cumulative Dose: 3.46 mGy. DAP: Not available on machine. Images: 6. FINDINGS: Images demonstrate needle placement adjacent to the distal lateral and anterior right femur. There is a right replacement. FL/FL guidance in OR IMPRESSION: Fluoroscopy guidance for pain management procedure
[2023-03-10 12:26] VITALS: BMI 32.0
[2023-03-10 12:30] VITALS: BP 136/86; PULSE 61; RESP 16; TEMP 37.1; O2SAT 96
[2023-03-10] MEDS: Clindamycin HCL 300 MG CAPSULE 600 MG PO (12:42)
[2023-03-10 13:40] VITALS: BP 149/56; PULSE 62; RESP 18; TEMP 36.8; O2SAT 96
--- NOTE | 2023-03-10 15:09 | MHC.SHP ---
Pre-Procedural Eval Section A Date of Service: 03/10/23 The patient is an INPATIENT: No Changes since office visit: Yes Patient answered all questions The History & Physical has been completed within 30 days and I have reviewed it.: No Section B Chief Complaint: Pain in right knee Relevant Family History (Specify if Yes): No Relevant Social History: None Present Medications: see Short Stay Collaborative assessment Medical History: No relevant PMH History of Previous Operations: Relevant previous surgery/procedure and date(s) (TKA) Allergies: Allergies Allergy/AdvReac Type Severity Reaction Status Date / Time hydromorphone [From DILAUDID] Allergy Unknown HOT FLASH Verified 03/10/23 12:29 Penicillins [PENICILLINS] Allergy Unknown RASH Verified 03/10/23 12:29 Albuterol Allergy Unknown FACE Uncoded 03/10/23 12:29 SWELLING Review of Systems Sugical H&P ROS: Negative: Constitution, Cardiovascular and Respiratory Exam Surgical H&P Exam: Normal: HEENT, Normal: Heart and Normal: Lungs Plan Diagnosis/Plan: Unchanged I have reviewed the history and physical and performed a pertinent physical examination on my patient. No changes have occurred unless specified. Time Spent With Patient Time: Total time managing care of this patient today ____ minutes.
--- NOTE | 2023-03-10 15:09 | PM.OP ---
Brief Operative Note Date of Service: 03/10/23 Pre-op diagnosis: Right knee pain Post-op diagnosis: same Procedure: Right superior lateral genicular nerve radiofrequency ablation Implants: None Surgeon: Hans Patel MD Anesthesia: local Was an [employer] Worker used for this Procedure?: No Estimated blood loss (mL): 1 Pathology: none sent Condition: stable Disposition: same day
--- NOTE | 2023-03-10 15:10 | W.PM.OPN ---
Operative Note Operative Note Date of Service: 03/10/23 Narrative: Genicular Nerve RFL - fluoroscopic guided - superior lateral genicular nerve radiofrequency lesioning After obtaining written consent, pre-procedure blood pressure and heart rate were stable and recorded in the nursing record. Standard monitors were applied. Oral clindamycin 600 mg was given prior to the procedure. The patient was placed supine on the fluoroscopy table. The area overlying the peripheral nerve was widely prepped with chloraprep, allowed to dry and sterilely draped. Using fluoroscopy, the appropriate landmarks were identified. The skin overlying the target was anesthetized with 0.5% lidocaine. A 18 gauge 100 mm radiofrequency needle was advanced under fluoroscopic guidance to the appropriate landmark of the peripheral nerve. Verification using lateral and AP views. Aspiration was negative for heme and synovial fluid. Impedences were verified under 600 ohms. Motor testing (2 Hz) confirmed needle placement within the appropriate voltage thresholds. The site was injected with 0.5 ml 2% preservative-free lidocaine. Radiofrequency lesioning was performed for 90 seconds at 90 deg Celcius. The needle was removed, skin cleansed and a sterile bandage was applied. The patient tolerated the procedure well and no complications were encountered. Following the procedure the patient's vital signs were stable. The patient was discharged home in good condition with post-procedural instructions. Time Out: Immediately prior to the procedure, the following was verbally confirmed that there is a signed consent form and that the correct patient, planned procedure, site and side are consistent with documentation and that necessary equipment and/or blood products are available prior to the start of the case. Complications: none EBL: <5 cc
== END 2023-03-10 14:17 | disposition home or self-care (01) ==
PROVIDERS: PCP Internal Medicine; Visit Provider Internal Medicine
PROC: (CPT 64624; principal; 2023-03-10 13:50)
DX: M25.561 Pain in right knee (principal); G89.29 Other chronic pain; M11.261 Other chondrocalcinosis, right knee; Z96.653 Presence of artificial knee joint, bilateral; M54.50 Low back pain, unspecified; M70.71 Other bursitis of hip, right hip; I48.91 Unspecified atrial fibrillation; Z79.01 Long term (current) use of anticoagulants; Z79.899 Other long term (current) drug therapy; Z88.0 Allergy status to penicillin; Z88.8 Allergy status to other drugs, medicaments and biological substances
CPT/HCPCS: 64624

== ENCOUNTER → 2023-03-10 11:56 | Outpatient (BNV) | payer OTHER, SELFPAY | PROVIDERS: PCP Internal Medicine; Visit Provider Internal Medicine | DX: M25.561 Pain in right knee (principal) | CPT/HCPCS: 64624 ==

== ENCOUNTER 2023-04-09 08:43 | Outpatient (AMB) | payer OTHER, SELFPAY ==
--- NOTE | 2023-04-09 08:46 | MHC.OFFVIS ---
Intake Vital Signs 04/09/23 08:48 Height 5 ft 2 in Weight 174 lb BMI 31.8 BP 127/64 Blood Pressure Location Lt brachial Position Sitting Respiration 12 Pulse 61 Pulse Source Pulse Oximeter Pulse Oximetry (%) 98 Oxygen Delivery Method Room Air Intake Visit Reasons: s/p Right superior lateral genicular RFA/lvm Allergies hydromorphone [From DILAUDID] Allergy (Unknown, Verified 04/09/23 08:49) HOT FLASH Penicillins [PENICILLINS] Allergy (Unknown, Verified 04/09/23 08:49) RASH Albuterol Allergy (Unknown, Uncoded 04/09/23 08:49) FACE SWELLING Medication List - Last Reconciled 04/09/23 by Venus Dupree LPN atorvastatin 10 mg PO DAILY bupropion HCl 300 mg PO QAM [CBD Drops PO .qd] celecoxib 200 mg PO BID cholecalciferol (vitamin D3) 25 mcg PO DAILY diclofenac sodium 1% (Voltaren Arthritis Pain) 2 grams topical QID duloxetine 60 mg PO DAILY levothyroxine 75 mcg PO DAILY metoprolol succinate ER 100 mg PO DAILY omeprazole 20 mg PO DAILY timolol maleate 0.5% 1 drp ophthalmic (eye) BID trazodone 50 mg PO BEDTIME warfarin 2.5 mg PO Q OTHER DAY HPI s/p Right superior lateral genicular RFA/lvm HPI Details 82-year-old female who presents today to the office for a status post right superior lateral genicular RFA. The patient reports 80% relief in her right knee pain following the procedure. Her excruciating pain is resolved. She continues to have some clicking sensations that is bothersome when she flexes her knee or climbing upstairs during walking. It is not as bothersome. Past procedures: 03/10/23: Genicular Nerve RFL - fluoroscopic guided - superior lateral genicular nerve radiofrequency lesionin-80% relief. 11/23/22: Superior lateral genicular nerve block, Right - Ultrasound Guided: 80% relief. [facility] Medical History (Updated 12/29/22 @ 15:06 by Hans Patel MD) Pseudogout Low back pain Bursitis of right hip Afib Surgical History (Updated 10/30/22 @ 15:24 by Wilner Gómez MD) History of total right knee replacement (~2014) History of bunionectomy History of total left knee replacement (~2017) Family History Mother No problems noted. Father Lung cancer Social History Household Members: None Alcohol intake: current Alcohol intake frequency: holidays/special occasions only Patient Tobacco Use Status: Former Tobacco user Tobacco use type: Cigarette Current occupational status: retired Current occupation: Right Handed Review of Systems Const All systems reviewed & are unremarkable except as noted in HPI and below Physical Exam Vital Signs: Last Vital Signs Pulse 61 04/09/23 08:48 Resp 12 04/09/23 08:48 BP 127/64 04/09/23 08:48 Pulse Ox 98 04/09/23 08:48 Oxygen Delivery Method Room Air 04/09/23 08:48 BMI result Body Mass Index 31.8 General: Appears afebrile. Alert and oriented. Mood and affect appropriate. Follows and participates in conversation appropriately. Respiratory effort is unlabored. Able to transition from sit to stand unassisted. Ambulates with bilaterally normal heel strike and toe off. Results Reviewed Results Reviewed: No imaging is available for review. Assessment & Plan Assessment & Plan (1) History of total right knee replacement: Onset Date: ~2014 Code(s): Z96.651 - Presence of right artificial knee joint (2) Right knee pain: Code(s): M25.561 - Pain in right knee Qualifiers: Chronicity: chronic Qualified Code(s): M25.561 - Pain in right knee; G89.29 - Other chronic pain Plan She is interested in managing residual symptoms expectantly, since they are not very bothersome. If her symptoms start to get worse in the terms of interfering with her activities, she will follow up as needed. Scribed for Dr. Patel by Jose Sampson, spanish medical interpreter, on 04/09/2023. I, Dr. Patel, have personally reviewed and agree with the information entered by the scribe. Coding Level of Care Code Est Pt Level 3 (07547) Diagnoses History of total right knee replacement Z96.651 Chronic pain of right knee M25.561; G89.29 Chronicity: chronic
[2023-04-09 08:48] VITALS: BP 127/64; PULSE 61; RESP 12; O2SAT 98; BMI 31.8
== END 2023-04-09 09:11 | disposition home or self-care (01) ==
PROVIDERS: PCP Internal Medicine; Visit Provider Internal Medicine
DX: Z96.651 Presence of right artificial knee joint (principal); M25.561 Pain in right knee; G89.29 Other chronic pain
CPT/HCPCS: 99213

== ENCOUNTER → 2023-04-09 08:43 | Outpatient (BNVA) | payer OTHER, SELFPAY | PROVIDERS: PCP Internal Medicine; Visit Provider Internal Medicine ==

== ENCOUNTER 2023-06-21 12:06 | Outpatient (REF) | payer OTHER, SELFPAY ==
--- NOTE | ~2023-06-21 | XR_ITS ---
X-ray bilateral knees CLINICAL HISTORY: Pain. COMPARISON: Radiograph bilateral knees to 09/15/2022. TECHNIQUE: Lateral and sunrise views of both knees, AP standing view of both knees. FINDINGS: Bilateral knee arthroplasties. No evidence of periprosthetic fracture or hardware complication. No acute fractures or malalignment. No joint effusion. Redemonstration of scattered vascular calcifications. XR/XR knee LT 3V IMPRESSION: 1. No acute fractures or malalignment. 2. Bilateral knee arthroplasties without evidence of hardware complication.
--- NOTE | ~2023-06-21 | XR_ITS ---
X-ray bilateral knees CLINICAL HISTORY: Pain. COMPARISON: Radiograph bilateral knees to 09/15/2022. TECHNIQUE: Lateral and sunrise views of both knees, AP standing view of both knees. FINDINGS: Bilateral knee arthroplasties. No evidence of periprosthetic fracture or hardware complication. No acute fractures or malalignment. No joint effusion. Redemonstration of scattered vascular calcifications. XR/XR knee RT 3V IMPRESSION: 1. No acute fractures or malalignment. 2. Bilateral knee arthroplasties without evidence of hardware complication.
== END 2023-06-21 12:07 | disposition home or self-care (01) ==
LOC: HO.HOSX 12:06
PROVIDERS: Visit Provider Orthopaedic Surgery
DX: Z96.653 Presence of artificial knee joint, bilateral (principal)
CPT/HCPCS: 73562; J0665; J1100

== ENCOUNTER 2023-06-21 13:29 | Outpatient (AMB) | payer OTHER, SELFPAY ==
--- NOTE | 2023-06-21 13:39 | MHC.OFFVIS ---
Intake Vital Signs 06/21/23 13:44 Height 5 ft 2 in Weight 174 lb BMI 31.8 Intake Visit Reasons: OV-right knee follow up-wants to get checked again Intake Note: Shira is an 82 year old female who presents today for a follow up of her right knee pain. Hx of bilateral TKAs. 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 She had a Geniculate RFL with Dr. Patel on 03/20/23 Patient reports that she is having pain with bending that has increased over the last year. She does not feel stable when walking. Allergies hydromorphone [From DILAUDID] Allergy (Unknown, Verified 06/21/23 13:45) HOT FLASH Penicillins [PENICILLINS] Allergy (Unknown, Verified 06/21/23 13:45) RASH Albuterol Allergy (Unknown, Uncoded 06/21/23 13:45) FACE SWELLING HPI OV-right knee follow up-wants to get checked again HPI Details Shira had a right TKA ~10 years ago at an [facility] and has ongoing anterior right knee pain. This has been present for years and is getting worse. She would like to continue to be active and engage in daily activities without pain. She has pain with standing from a seated position and pain with stairs. She feels it is limiting her daily activities and diminishes her quality of life. She did have a genicular done which was only minimally helpful. [facility] Medical History Pseudogout Low back pain Bursitis of right hip Afib Surgical History History of total right knee replacement (~2014) History of bunionectomy History of total left knee replacement (~2017) Family History Mother No problems noted. Father Lung cancer Social History Household Members: None Alcohol intake: current Alcohol intake frequency: holidays/special occasions only Patient Tobacco Use Status: Former Tobacco user Tobacco use type: Cigarette Current occupational status: retired Current occupation: Right Handed Physical Exam Vital Signs: BMI result Body Mass Index 31.8 Const General: cooperative, healthy appearing, no acute distress, well developed and alert HEENT Head: Yes normal to inspection, Yes normocephalic and Yes atraumatic Mouth: moist mucous membranes Eyes General: appearance normal, both eyes and all related structures EOM: EOMs intact bilaterally Chest Other: no audible wheezing. Resp Other: No audible wheezing Effort & Inspection: normal respiratory effort Back/Spine/Pelvis Cervical Spine: normal cervical lordosis Skin General skin exam: no rashes or lesions noted Neuro General: no focal motor deficits Extrem Other: Right knee retropatellar TTP that is not present on the left. Psych Appearance: grossly normal and well kempt Mental Status: mental status grossly normal Speech and movement: Normal speech and movement present Affect: normal affect Attitude: cooperative Results Reviewed Results Reviewed: I personally reviewed relevant radiographs. Progressive lateralization and degenerative changes of the patella on the right. The tibial and femoral components appear in satisfactory alignment with no evidence of loosening or hardware complications. 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 I recommend patellar resurfacing. This has been worsening and decreases her QOL. She has not improved with activity modification and NSAIDs and progressive radiographic deterioration is present. I discussed this with her. It is relatively straightforward and a far quicker recovery than with a TKA. She is worried about her age but I reassured her that the surgery is less significant that a TKA. I discussed the risks benefits and alternatives including but not limited to the risk of pain, infection, stiffness, need for further surgery as well as potential medical complications such as blood clots, pulmonary embolism and cardiac complications. She expressed understanding and we will proceed forward accordingly. We will begin the pre operative clearance process and I will see her back with our Nurse Navigator closer to surgery and when she has seen her PMD. Orders: Orders XR knee standing BI 06/21/23 M25.569 - Pain in unspecified knee Coding Level of Care Code Est Pt Level 4 (43926) Diagnoses History of total right knee replacement Z96.651
[2023-06-21 13:44] VITALS: BMI 31.8
== END 2023-06-21 14:12 | disposition home or self-care (01) ==
PROVIDERS: PCP Internal Medicine; Visit Provider Orthopaedic Surgery
DX: M25.561 Pain in right knee (principal); Z96.653 Presence of artificial knee joint, bilateral
CPT/HCPCS: 99214

== ENCOUNTER 2023-06-23 12:51 | Outpatient (REF) | payer OTHER, SELFPAY ==
--- NOTE | ~2023-06-23 | MM_ITS ---
EXAMINATION: MM SCREENING DIGITAL BREAST TOMOSYNTHESIS, BILATERAL CLINICAL INFORMATION: Screening. Asymptomatic. COMPARISON: Mammography: This study is compared with prior exams dating back to 2019. TECHNIQUE: Digital breast tomosynthesis is performed in both the craniocaudal and mediolateral oblique views along with computer-aided detection (CAD). Synthesized 2D images are generated from the tomosynthesis. FINDINGS: There are scattered areas of fibroglandular density (ACR BI-RADS breast composition Category b). There are no significant masses, abnormal calcifications, or other abnormalities. Bilateral, benign calcifications are present. MM/MM tomosynthesis screening BI IMPRESSION: No mammographic evidence of malignancy. ASSESSMENT: BI-RADS BI-RADS 2 - Benign Findings RECOMMENDATION: Routine annual mammography screening. 1 year F/U This examination should not preclude the clinical evaluation of a suspicious palpable abnormality. This patient's information was entered into a reminder system with a target due date for their next mammogram.
== END 2023-06-23 12:52 | disposition home or self-care (01) ==
LOC: HO.MAMMO 12:51
PROVIDERS: PCP Internal Medicine; Visit Provider Internal Medicine
DX: Z12.31 Encounter for screening mammogram for malignant neoplasm of breast (principal)
CPT/HCPCS: 77063; 77067

== ENCOUNTER → 2023-06-23 13:00 | Outpatient (BNV) | payer OTHER, SELFPAY | PROVIDERS: PCP Internal Medicine; Visit Provider Radiology Diagnostic Radiology | DX: Z12.31 Encounter for screening mammogram for malignant neoplasm of breast (principal) | CPT/HCPCS: 77063; 77067 ==

== ENCOUNTER → 2023-07-13 08:44 | Outpatient (BNVA) | payer OTHER, SELFPAY | PROVIDERS: PCP Internal Medicine; Visit Provider Orthopaedic Surgery ==

== ENCOUNTER 2023-07-21 09:53 | Outpatient (REF) | payer MEDICARE, SELFPAY | END 2023-07-21 09:54 | disposition home or self-care (01) | LOC: HO.HOSX 09:53 | PROVIDERS: Visit Provider Orthopaedic Surgery | DX: Z13.89 Encounter for screening for other disorder (principal) ==

== ENCOUNTER → 2023-08-03 13:52 | Outpatient (BNV) | payer MEDICARE, SELFPAY | PROVIDERS: Admitting Provider Orthopaedic Surgery; PCP Internal Medicine; Visit Provider Internal Medicine Cardiovascular Disease | DX: R00.1 Bradycardia, unspecified (principal) | CPT/HCPCS: 93010 ==

== ENCOUNTER 2023-08-05 14:42 | Outpatient (AMB) | payer OTHER, SELFPAY ==
--- NOTE | 2023-08-05 15:05 | MHC.OFFVIS ---
Intake Visit Reasons: R Pat Resurf w/NE 08/11/23 Intake Note: Shira is an 82 year old female who presnets today for a pre operative appointment for her right Patella Resurfacing 08/11/23 Allergies albuterol Allergy (Intermediate, Verified 08/03/23 12:41) extreme facial flushing hydromorphone [From DILAUDID] Allergy (Intermediate, Verified 08/03/23 12:41) extreme facial flushing Penicillins [PENICILLINS] Allergy (Intermediate, Verified 08/03/23 12:41) RASH (states can take ampicillin) acetaminophen [From Percocet] Adverse Reaction (Unknown, Verified 08/05/23 15:31) Unknown oxycodone [From Percocet] Adverse Reaction (Unknown, Verified 08/05/23 15:31) Unknown HPI HPI R Pat Resurf w/NE 08/11/23: Details: 82-year-old right hand dominant who presents in the office today for her preoperative history and physical exam prior to a right patella resurfacing to be performed on 08/26/[address] Wilner Gómez. Patient reports Percocet is not effective for pain management. She states Tylenol #3 works well for pain. Confirms Morphine was given for her left total knee replacement, which worked well. Patient has an allergy history, as follows: -Albuterol; extreme facial flushing -Hydromorphone; extreme facial flushing -Penicillin; rash Patient is currently taking, as follows: -Amoxicillin 2,000 mg PO once PRN -Atorvastatin 10 mg PO QAM -Bupropion HCI XL 300 mg PO QAM -Celecoxib 200 mg PO QAM -Cholecalciferol 25 mcg PO QAM -Diclofenac sodium 2 grams topical QID PRN -Duloxetine 60 mg PO QAM -Levothyroxine 75 mcg PO QAM -Melatonin 5 mg PO Bedtime -Metoprolol succinate ER 100 mg PO QAM -Omeprazole 20 mg PO QAM -Timolol maleate 0.5% 1 drop ophthalmic BID -Trazodone 50 mg PO Bedtime -Warfarin 2.5 mg PO Q other day Patient has a medical history, as follows: -Glaucoma -Anticoagulated -GERD -Renal Calculi -Forgetfulness -Pseudogout -Afib on Warfarin Patient has a surgical history, as follows: -Hx of bilateral cataract extraction -Hx of colonoscopy -Hx of tonsillectomy; childhood -Hx of back surgery; 1970's-X2 -Hx of hysterectomy; 1971 -Hx of total right knee replacement; [address] [place] and in 2014 -Hx of bunionectomy; right->15 years ago -Hx of total left knee replacement; [place] [place] Patient has a social history, as follows: -Former smoker; quit age 64 Percocet not effective for pain management Tylenol #3 works well for pain Morphine was given for knee replacements that worked well [facility] Medical History (Updated 08/03/23 @ 13:00 by Eliana Astorga RN) Glaucoma Arthritis Anticoagulated GERD (gastroesophageal reflux disease) Renal calculi Forgetfulness Pseudogout Low back pain Bursitis of right hip Afib Surgical History (Updated 08/03/23 @ 12:39 by Eliana Astorga RN) Hx of bilateral cataract extraction H/O colonoscopy Hx of tonsillectomy History of back surgery Hx of hysterectomy History of total right knee replacement (~2014) History of bunionectomy History of total left knee replacement (~2016) Family History Mother No problems noted. Father Lung cancer Social History Household Members: None Are you a primary critical care educator to a significant other at home: No Do you presently have visiting nurse or other home services: No Alcohol intake: current Alcohol intake frequency: holidays/special occasions only Comment: uses cane on occasion Patient Tobacco Use Status: Former Tobacco user Quit Date: age 64 Tobacco use type: Cigarette Years Smoked: 30 Current occupational status: retired Current occupation: Right Handed Review of Systems Const All systems reviewed & are unremarkable except as noted in HPI and below Physical Exam Const General: cooperative, healthy appearing, comfortable, no acute distress, well developed, alert and awake Orientation/consciousness: patient oriented x3 HEENT Head: Yes normal to inspection, Yes normocephalic and Yes atraumatic Mouth: moist mucous membranes Eyes General: appearance normal, both eyes and all related structures EOM: EOMs intact bilaterally Neck Neck: Yes normal visual inspection and Yes no lymphadenopathy Chest Other: no audible wheezing. Resp Other: No audible wheezing Effort & Inspection: normal respiratory effort and able to speak in complete sentences Cardio Rate: regular rate Peripheral pulses: Peripheral pulses 2+ throughout GI Inspection: Yes normal to inspection Palpation (GI): Soft to palpation Back/Spine/Pelvis Cervical Spine: normal cervical lordosis Skin General skin exam: no rashes or lesions noted Neuro General: patient oriented x3 Extrem Other: Right knee retropatellar TTP that is not present on the left. Psych Appearance: grossly normal and well kempt Mental Status: mental status grossly normal Speech and movement: Normal speech and movement present Affect: normal affect Attitude: cooperative Assessment & Plan Assessment & Plan (1) History of total right knee replacement: Onset Date: ~2014 Comment: [address] [place] Code(s): Z96.651 - Presence of right artificial knee joint Category: Surgical Plan Ms. Montero is an 82-year-old right hand dominant who presents in the office today for her preoperative history and physical exam prior to a right patella resurfacing to be performed on 08/26/[address] Wilner Gómez. Patient reports Percocet is not effective for pain management. She states Tylenol #3 works well for pain. Confirms Morphine was given for her left total knee replacement, which worked well. Patient has an allergy history, as follows: -Albuterol; extreme facial flushing -Hydromorphone; extreme facial flushing -Penicillin; rash Patient is currently taking, as follows: -Amoxicillin 2,000 mg PO once PRN -Atorvastatin 10 mg PO QAM -Bupropion HCI XL 300 mg PO QAM -Celecoxib 200 mg PO QAM -Cholecalciferol 25 mcg PO QAM -Diclofenac sodium 2 grams topical QID PRN -Duloxetine 60 mg PO QAM -Levothyroxine 75 mcg PO QAM -Melatonin 5 mg PO Bedtime -Metoprolol succinate ER 100 mg PO QAM -Omeprazole 20 mg PO QAM -Timolol maleate 0.5% 1 drop ophthalmic BID -Trazodone 50 mg PO Bedtime -Warfarin 2.5 mg PO Q other day Patient has a medical history, as follows: -Glaucoma -Anticoagulated -GERD -Renal Calculi -Forgetfulness -Pseudogout -Afib on Warfarin Patient has a surgical history, as follows: -Hx of bilateral cataract extraction -Hx of colonoscopy -Hx of tonsillectomy; childhood -Hx of back surgery; s-X2 -Hx of hysterectomy; 1972 -Hx of total right knee replacement; [address] [place] and in 2015 -Hx of bunionectomy; right->15 years ago -Hx of total left knee replacement; [place] [place] Patient has a social history, as follows: -Former smoker; quit age 64 I discussed in detail the procedure and what to expect pre and post operatively. We discussed the risks, benefits and alternatives to the surgery and the rehabilitation course. The risks include infection, bleeding, nerve injury, ongoing pain, swelling, and stiffness, perioperative risk of injury to bones and soft tissues, and blood clots. I have answered all questions and with their understanding they have consented to move forward with a right patella resurfacing to be performed on 08/11/[address] Wilner Gómez. Follow-up will be at the post operative appointment on 08/26/2023 at 9:30 am, or sooner if needed. Of note: Our nurse navigator will reach out to her PCP, Dr. Krause, tomorrow, 08/06/2023, to discuss the patient?s anticoagulation medication and the plan the PCP has for her to discontinue. This will be requested to be faxed to the office. The patient reports she was told to stop taking the Warfarin today. She has agreed to do this today, 08/05/2023. Please call daughter, Brittanie, after the procedure. . Percocet not effective for pain management Tylenol #3 works well for pain Morphine was given for knee replacements that worked well Patient Instructions: Scribed by Phoebe Cobos medical genetics director, for Radha Abreu PA-C on 08/05/2023 at 3:09 pm, EST. Coding Level of Care Code Global (96311) Diagnoses History of total right knee replacement Z96.651
== END 2023-08-05 15:38 | disposition home or self-care (01) ==
PROVIDERS: PCP Internal Medicine; Visit Provider Physician Assistant
DX: Z96.651 Presence of right artificial knee joint (principal); M17.11 Unilateral primary osteoarthritis, right knee
CPT/HCPCS: 99024

== ENCOUNTER → 2023-08-05 14:42 | Outpatient (BNVA) | payer OTHER, SELFPAY | PROVIDERS: PCP Internal Medicine; Visit Provider Physician Assistant ==

== ENCOUNTER 2023-08-11 08:11 | Inpatient (IN) | payer MEDICARE, SELFPAY ==
--- NOTE | 2023-08-03 | ECG_ITS ---
Test Reason : PREOP AFIB Blood Pressure : / mmHG Vent. Rate : 051 BPM Atrial Rate : 051 BPM P-R Int : 154 ms QRS Dur : 080 ms QT Int : 430 ms P-R-T Axes : -08 -12 014 degrees QTc Int : 396 ms Sinus bradycardia with sinus arrhythmia Otherwise normal ECG When compared with ECG of 13-JUN-2020 13:07, No significant change was found Referred By: Salena Cordova Electronically Signed By:Ge Rodriguez
[2023-08-03 12:47] VITALS: BP 130/62; PULSE 60; RESP 20; O2SAT 97; BMI 32.4
--- NOTE | 2023-08-03 13:13 | HO.ANESPROP2 ---
Documented by User: Salena Cordova NP 08/09/23 14:27 HPI - Anesthesia Eval Consult details Narrative: 82yo F for Right Patella Resurficing PCP cleared No recent illness. Constant PND No CP/SOB with walking dog Coumadin for afib s/p lumbar discectomy PMFSH Active Problems Active Problems: All Active Problems Osteoarthritis of hands, bilateral (Acute) Rotator cuff arthropathy of both shoulders (Acute) Right knee pain (Acute) History of bilateral knee replacement (Acute) Open wound, hand (Acute) History of total right knee replacement (Acute ~2014) Low back pain (Acute) Bursitis of right hip (Acute) Past Medical History Medical History Glaucoma Arthritis Anticoagulated GERD (gastroesophageal reflux disease) Renal calculi Forgetfulness Pseudogout Low back pain Bursitis of right hip Afib Family History Family History Mother No problems noted. Father Lung cancer Family history of problems with anesthesia: No Surgical History Surgical History Hx of bilateral cataract extraction H/O colonoscopy Hx of tonsillectomy History of back surgery Hx of hysterectomy History of total right knee replacement (~2014) History of bunionectomy History of total left knee replacement (~2016) History of Problems with Anesthesia: No Social History Social History Household Members: None Are you a primary resident care manager rn to a significant other at home: No Do you presently have visiting nurse or other home services: No Alcohol intake: current Alcohol intake frequency: holidays/special occasions only Comment: uses cane on occasion Patient Tobacco Use Status: Former Tobacco user Quit Date: age 64 Tobacco use type: Cigarette Years Smoked: 30 Use of substances other than those prescribed or required for medical reasons: No Have you been hit, kicked, punched, or otherwise hurt by someone within the past year? If so, by whom?: No Are you DNR?: No Advance Directives Information Provided: No Advance Directives on File: No Recently lost weight without trying: No Eating poorly because of decreased appetite: No Nutrition Risks: Surgical patient >75years Poor oral hygiene: No (extracted teeth) Current occupational status: retired Current occupation: Right Handed Meds Allergies Allergy/AdvReac Type Severity Reaction Status Date / Time albuterol Allergy Intermediate extreme Verified 08/03/23 12:41 facial flushing hydromorphone [From DILAUDID] Allergy Intermediate extreme Verified 08/03/23 12:41 facial flushing Penicillins [PENICILLINS] Allergy Intermediate RASH Verified 08/03/23 12:41 (states can take ampicillin) Home Medications ?Medication ?Instructions ?Recorded ?Confirmed ?Last Taken ?Type bupropion HCl 300 mg 24 hr tablet, 300 mg PO QAM 02/19/20 08/03/23 08/10/23 History extended release duloxetine 60 mg capsule,delayed 60 mg PO DAILY 02/19/20 08/11/23 08/10/23 History release levothyroxine 75 mcg tablet 75 mcg PO DAILY@0600 02/19/20 08/11/23 08/10/23 History metoprolol succinate 100 mg 100 mg PO DAILY 02/19/20 08/11/23 08/10/23 History tablet,extended release 24 hr warfarin 2.5 mg tablet 2.5 mg PO Q OTHER DAY 02/19/20 08/03/23 08/08/23 History atorvastatin 10 mg tablet 10 mg PO QAM 02/23/22 08/03/23 08/10/23 History timolol maleate 0.5 % eye drops 1 drp ophthalmic (eye) BID 02/23/22 08/03/23 08/10/23 History trazodone 50 mg tablet 50 mg PO BEDTIME 02/23/22 08/03/23 08/10/23 History celecoxib 200 mg capsule 200 mg PO QAM 04/07/22 08/03/23 07/28/23 History cholecalciferol (vitamin D3) 25 25 mcg PO QAM 04/07/22 08/03/23 08/10/23 History mcg (1,000 unit) capsule omeprazole 20 mg tablet,delayed 20 mg PO DAILY@0630 04/07/22 08/11/23 08/10/23 History release amoxicillin 500 mg tablet 2,000 mg PO ONCE PRN dental work 08/03/23 08/03/23 Unknown History diclofenac sodium 1 % topical gel 2 g topical QID PRN Pain 08/03/23 08/03/23 07/28/23 History (Voltaren Arthritis Pain) melatonin 5 mg tablet 5 mg PO BEDTIME 08/03/23 08/03/23 08/10/23 History Exam Height,Weight and Vital Signs: Height 5 ft 2 in Weight 80.286 kg Last Vital Signs Pulse 60 08/03/23 12:47 Resp 20 08/03/23 12:47 BP 130/62 08/03/23 12:47 Pulse Ox 97 08/03/23 12:47 O2 Del Method Room Air 08/03/23 12:47 Pertinent Lab Results Pertinent Lab Results: Lab Results 08/03/23 08/03/23 08/03/23 Range/Units 13:00 13:45 13:50 WBC 8.2 (4.8-10.8) X10*3/uL RBC 4.37 (4.20-5.50) X10*6/uL Hgb 13.1 (12.0-16.0) g/dl Hct 41.0 (37.0-47.0) % MCV 93.8 (80.0-98.0) fL MCH 30.0 (27.0-33.0) pg MCHC 32.0 (31.0-35.0) g/dl RDW 13.7 (11.0-16.0) % Plt Count 228 (160-400) X10*3/uL MPV 10.5 (9.4-12.3) fL Absolute Nucleated RBC 0.000 (0.0-0.012) X10*3/uL Nucleated RBC % (auto) 0.0 (0.0-0.2) /100WBC Sodium 143 (135-145) mmol/L Potassium 4.3 (3.3-5.1) mmol/L Chloride 108 (96-108) mmol/L Carbon Dioxide 26 (22-29) mmol/L Anion Gap 13 (12-20) BUN 26 H (9-16) mg/dL Creatinine 0.87 (0.5-1.4) mg/dL Estim Creat Clear Calc 48.0 Estimated GFR > 60 Random Glucose 100 (60-115) mg/dL Calcium 9.8 (8.4-10.2) mg/dL Nasal Screen MRSA (PCR) NEGATIVE (Negative) Nasal S. aureus Screen NEGATIVE (Negative) Nasal MRSA/S.aureus Interp SEE NOTE Blood Type O Positive Antibody Screen NEGATIVE Narrative Narrative: EKG 07/2023 Vent. Rate : 051 BPM Atrial Rate : 051 BPM P-R Int : 154 ms QRS Dur : 080 ms QT Int : 430 ms P-R-T Axes : -08 -12 014 degrees QTc Int : 396 ms Sinus bradycardia with sinus arrhythmia Otherwise normal ECG When compared with ECG of 13-JUN-2020 13:07, No significant change was found Airway Mallampati Class: II TM Dist: >3cm Neck ROM: Full Loose/Missing/Broken Teeth: Yes (missing molar, lower molar implants) Heart: RRR Lungs: CTAB Assessment and Plan Assessment Anesthesia Assessment: Anesthesia Plan Discussed and PAT Visit Final Anesthetic Review Family History of Problems with Anesthesia: No History of Problems with Anesthesia: No Documented by User: Norma Wilson MD 08/11/23 10:53 PMFSH Past Medical History Medical History Glaucoma Arthritis Anticoagulated GERD (gastroesophageal reflux disease) Renal calculi Forgetfulness Pseudogout Low back pain Bursitis of right hip Afib Family History Family History Mother No problems noted. Father Lung cancer Surgical History Surgical History Hx of bilateral cataract extraction H/O colonoscopy Hx of tonsillectomy History of back surgery Hx of hysterectomy History of total right knee replacement (~2014) History of bunionectomy History of total left knee replacement (~2017) Social History Social History Household Members: None Are you a primary resident care manager rn to a significant other at home: No Do you presently have visiting nurse or other home services: No Alcohol intake: current Alcohol intake frequency: holidays/special occasions only Comment: uses cane on occasion Patient Tobacco Use Status: Former Tobacco user Quit Date: age 64 Tobacco use type: Cigarette Years Smoked: 30 Use of substances other than those prescribed or required for medical reasons: No Have you been hit, kicked, punched, or otherwise hurt by someone within the past year? If so, by whom?: No Are you DNR?: No Advance Directives Information Provided: No Advance Directives on File: No Recently lost weight without trying: No Eating poorly because of decreased appetite: No Nutrition Risks: Surgical patient >75years Poor oral hygiene: No (extracted teeth) Current occupational status: retired Current occupation: Right Handed Meds Allergies Allergy/AdvReac Type Severity Reaction Status Date / Time albuterol Allergy Intermediate extreme Verified 08/03/23 12:41 facial flushing hydromorphone [From DILAUDID] Allergy Intermediate extreme Verified 08/03/23 12:41 facial flushing Penicillins [PENICILLINS] Allergy Intermediate RASH Verified 08/03/23 12:41 (states can take ampicillin) Home Medications ?Medication ?Instructions ?Recorded ?Confirmed ?Last Taken ?Type bupropion HCl 300 mg 24 hr tablet, 300 mg PO QAM 02/19/20 08/03/23 08/10/23 History extended release duloxetine 60 mg capsule,delayed 60 mg PO DAILY 02/19/20 08/11/23 08/10/23 History release levothyroxine 75 mcg tablet 75 mcg PO DAILY@0600 02/19/20 08/11/23 08/10/23 History metoprolol succinate 100 mg 100 mg PO DAILY 02/19/20 08/11/23 08/10/23 History tablet,extended release 24 hr warfarin 2.5 mg tablet 2.5 mg PO Q OTHER DAY 02/19/20 08/03/23 08/08/23 History atorvastatin 10 mg tablet 10 mg PO QAM 02/23/22 08/03/23 08/10/23 History timolol maleate 0.5 % eye drops 1 drp ophthalmic (eye) BID 02/23/22 08/03/23 08/10/23 History trazodone 50 mg tablet 50 mg PO BEDTIME 02/23/22 08/03/23 08/10/23 History celecoxib 200 mg capsule 200 mg PO QAM 04/07/22 08/03/23 07/28/23 History cholecalciferol (vitamin D3) 25 25 mcg PO QAM 04/07/22 08/03/23 08/10/23 History mcg (1,000 unit) capsule omeprazole 20 mg tablet,delayed 20 mg PO DAILY@0630 04/07/22 08/11/23 08/10/23 History release amoxicillin 500 mg tablet 2,000 mg PO ONCE PRN dental work 08/03/23 08/03/23 Unknown History diclofenac sodium 1 % topical gel 2 g topical QID PRN Pain 08/03/23 08/03/23 07/28/23 History (Voltaren Arthritis Pain) melatonin 5 mg tablet 5 mg PO BEDTIME 08/03/23 08/03/23 08/10/23 History Exam Airway Heart: chr A.FIB Assessment and Plan Final Anesthetic Review NPO: Yes ASA Class: III Final Preanesthetic Review: No Changes in Pt Med Stat, Meds/Allgs Chart Reviewed, Consent Obtained/Reviewed and Anes Risks/Benef Reviewed Patient Risk: Intermediate Procedure Risk: Intermediate Anesthetic Plan Anesthetic Plan: GA and Regional Block Disposition: Standard PACU
[2023-08-03 14:46] LABS: MRSA Nasal PCR NEGATIVE (Negative); SA Nasal PCR NEGATIVE (Negative)
[2023-08-03 16:52] LABS: Hemoglobin 13.1 g/dl (12.0-16.0); Mean Corpuscular Volume 93.8 fL (80.0-98.0); Mean Platelet Volume 10.5 fL (9.4-12.3); Platelet Count 228 X10*3/uL (160-400); Red Blood Count 4.37 X10*6/uL (4.20-5.50); Red Cell Distribution Width 13.7 % (11.0-16.0); White Blood Count 8.2 X10*3/uL (4.8-10.8)
[2023-08-03 17:07] LABS: Anion Gap 13 (12-20); Blood Urea Nitrogen 26 mg/dL (9-16); Calcium 9.8 mg/dL (8.4-10.2); Carbon Dioxide 26 mmol/L (22-29); Chloride 108 mmol/L (96-108); Estimated Glomerular Filt Rate > 60; Glucose Random 100 mg/dL (60-115); Potassium 4.3 mmol/L (3.3-5.1); Sodium 143 mmol/L (135-145)
[2023-08-11] VITALS (10 sets, daily range): BP systolic 114–159; BP diastolic 44–66; PULSE 48–65; RESP 16–18; TEMP 36.3–37.7; O2SAT 92–96
--- NOTE | ~2023-08-11 | XR_ITS ---
EXAMINATION: XR KNEE, RIGHT CLINICAL INFORMATION: Status post total knee arthroplasty COMPARISON: X-ray 06/21/2023 TECHNIQUE: Two views of the right knee. FINDINGS: Right total knee arthroplasty in position with usual position and alignment. No acute periprosthetic fractures. There is gas in the joint and soft tissues of the knee. Skin saba present. XR/XR knee RT 2V IMPRESSION: Right total knee arthroplasty with postsurgical changes.
--- OUTSIDE RECORDS SUMMARY | 2023-08-11 08:15 | XMS_ITS | Patient Health Record ---
Author Organization Fred Krause DO, FACP Address [address] [place] [address] [phone] Care Team Providers Care Scientific Editor Name Role Phone Fred Krause Primary Care Provider ALLERGIES Allergen (clinical drug ingredient) Drug/Non Drug Allergy documented on EMR Reaction Allergy Type Onset Date Status meperidine Demerol nausea Drug Allergy Active albuterol Albuterol adverse event Drug Allergy Act garrison Penicillin rash Drug Allergy Active RESULTS Component Value Reference Range Notes Complete Blood Count Auto Di ff Reviewed date:02/22/2023 09:26:50 PM Interpretation:Abnormal Performing Lab:[facility], [address] [place] [phone] Notes/Report: White Blood Count 5.7 4.8-10.8 X10*3/uL Red Blood Count 4.36 4.20-5.50 X10*6/uL Hemoglobin 12.9 12.0-16.0 g/dl Hematocrit 40.7 37.0-47.0 % Mean Corpuscular Volume 93.3 80.0-98.0 fL Mean Corpuscular Hemoglobin 29.6 27.0-33.0 pg Mean Corpuscular HGB Conc 31.7 31.0-35.0 g/dl Red Cell Distribution Width 13.5 11.0-16.0 % Platelet Count 223 160-400 X10*3/uL Mean Platelet Volume 10.3 9.4-12.3 fL Neutrophils Percent Auto 66.1 45-73 % Imm Gran Pct Auto 0.4 0.0-0.4 % Lymphocytes Percent Auto 17.3 20-40 % Monocytes Percent Auto 10.2 2-11 % Eosinophils Percent Auto 5.3 0-4 % Basophils Percent Auto 0.7 0-2 % NRBC Pct Auto 0.0 0.0-0.2 /100WBC Neutrophils Absolute Auto 3.8 2.0-8.3 x10*3/u L Imm Gran Abs Auto 0.02 0.00-0.03 X10*3/uL Lymphocytes Absolute Auto 1.0 1.2-4.9 X10*3/u L Monocytes Absolute Auto 0.6 0.1-1.2 X10*3/uL Eosinophils Absolute Auto 0.3 0.0-0.4 X10*3/u L Basophils Absolute Auto 0.0 0.0-0.2 X10*3/uL NRBC Abs Auto 0.000 0.0-0.012 X10*3/uL Comprehensive [place]. Panel Fa st Reviewed date:02/22/2023 09:26:50 PM Interpretation:Abnormal Performing Lab:[facility], [address] [place] [phone] Notes/Report: Sodium 142 135-145 mmol/L Potassium 4.2 3.3-5.1 mmol/L Chloride 110 96-108 mmol/L Carbon Dioxide 25 22-29 mmol/L Anion Gap 11 12-20 Blood Urea Nitrogen 27 9-16 mg/dL Creatinine 1.07 0.5-1.4 mg/dL Estimated Glomerular Filt Rate 49 NOTE: For -Sol[place] Islander individuals, multiply the result by 1.210. Chronic Kidney Disease: Estimated GFR < 60 mL/min/1.73m2 Severe Kidney Disease: Estimated GFR < 15 mL/min/1.73m2 Glucose Fasting 114 60-99 mg/dL A fasting glucose from 100-125 mg/dl is considered impaired (pre-diabetes). Calcium 9.5 8.4-10.2 mg/dL Bilirubin Total 0.5 0.0-1.0 mg/dL Aspartate Amino Transferase 21 5-31 U/L Alanine Aminotransferase 13 0-31 U/L Total Protein 6.7 6.5-8.0 g/dL Albumin Level 3.9 3.5-5.0 g/dL Alkaline Phosphatase 58 39-117 U/L Lipid Panel Reviewed date:02/22/2023 09:26:50 PM Interpretation:Abnormal Performing Lab:[facility] [phone] Notes/Report: Triglycerides 182 <150 mg/dL Desirable Triglyceride: less than 150 mg/dL Borderline High Triglyceride 150-199 mg/dL High Triglyceride: 200-499 mg/dL Very High Triglyceride: greater than or equal to 5OO mg/dL Cholesterol 150 <200 mg/dL Desirable Cholesterol: less than 200 mg/dL Borderline High Cholesterol: 200-239 mg/dL High Cholesterol: greater than 239 mg/dL LDL Cholesterol Calculated 76 <100 mg/dL Desirable LDL: less than 100 mg/dL Near Optimal/Above Optimal LDL: 110-129 mg/dL Borderline High LDL: 130-159 mg/dL High LDL: 160-189 mg/dL Very High LDL: greater than or equal to 190 mg/dL HDL Cholesterol 38 >40 mg/dL Desirable HDL: greater than 40 mg/dL Note: This HDL assay may give artificially low results in patients with liver disease. Vitamin D 25-OH Total Reviewed date:02/22/2023 09:26:50 PM Interpretation:Normal Performing Lab:[address] [phone] Notes/Report: Vitamin D 25-OH Total 56.0 >30 ng/mL Health Based Reference Values* < 20 ng/mL Deficient 20-30 ng/mL Insufficient > 30 ng/mL Sufficient *Kimberlee MOROCHO. N Engl J Med. 2007;357:266-280 Care must be taken in interpreting Vitamin D results from different laboratories and methodologies. Published data demonstrated that results from patients undergoing hemodialysis may show a negative bias when tested with various automated 25-OH vitamin D assays when compared to LC-MS/MS. When testing samples from patients whose predominant form of Vitamin D is Vitamin D2, such as patients receiving Vitamin D2 supplementation, results that are subtherapeutic should be confirmed with another method such as LC-MS/MS. Thyroid Stimulating Hormone Reviewed date:02/22/2023 09:27:05 PM Interpretation:Normal Performing Lab:[address] [address] Notes/Report: Thyroid Stimulating Hormone 0.97 0.32-4.0 uIU/ mL TSH 3rd Generation ([facility]) FL guidance in OR Reviewed date:03/12/2023 04:55:21 PM Interpretation:Fluoroscopy guidance Performing Lab: Notes/Report: [address] [place] [address] Fluoroscopy Report Signed Patient: Shira Montero MR#: [id number] : 1940 Acct:[id number] Age/Sex: 82 / F ADM Date: 03/10/23 Loc: HO.SSS Attending Dr: Hans Patel MD Ordering Physician: Hans Patel MD Date of Service: 03/10/23 Procedure(s): FL guidance in OR Accession Number(s): [id number] cc: Fred Krause DO; Hans Patel MD EXAMINATION: XR FLUOROSCOPY WITH IMAGES CLINICAL INFORMATION: Right superior lateral genicular RFA. COMPARISON: Right knee x-ray April 2022 TECHNIQUE: Fluoroscopy Supervised By: Dr. Hans Patel. Fluoroscopy Time: 19.6 seconds. Cumulative Dose: 3.46 mGy. DAP: Not available on machine. Images: 6. FINDINGS: Images demonstrate needle placement adjacent to the distal lateral and anterior right femur. There is a right replacement. FL/FL guidance in OR IMPRESSION: Fluoroscopy guidance for pain management procedure Dictated By: Yoli Miner MD Signed By: <Electronically signed by Yoli Miner MD in OV> 03/12/23 1409 DD/ 1330 TD/TT: Emt I/99: HEMAL BETHEA tomosynthesis screening B I Reviewed date:07/20/2023 09:55:18 AM Interpretation:Benign Performing Lab: Notes/Report: [facility] [address] [place] [address] Mammography Report Signed Patient: Shira Montero MR#: [id number] : 1940 Acct:[id number] Age/Sex: 82 / F ADM Date: 06/23/23 Loc: HO.MAMMO Attending Dr: Fred Krause DO Ordering Physician: Fred Krause DO Results: 2Benig n Findings Date of Service: 06/23/23 Follow Up: 1 Year From Orig inal Mammogram Procedure(s): MM tomosynthesis screening BI Accession Number(s): [id number] cc: JimiFred DO EXAMINATION: MM SCREENING DIGITAL BREAST TOMOSYNTHESIS, BILATERAL CLINICAL INFORMATION: Screening. Asymptomatic. COMPARISON: Mammography: This study is compared with prior exams dating back to 2019. TECHNIQUE: Digital breast tomosynthesis is performed in both the craniocaudal and mediolateral oblique views along with computer-aided detection (CAD). Synthesized 2D images are generated from the tomosynthesis. FINDINGS: There are scattered areas of fibroglandular density (ACR BI-RADS breast composition Category b). There are no significant masses, abnormal calcifications, or other abnormalities. Bilateral, benign calcifications are present. MM/MM tomosynthesis screening BI IMPRESSION: No mammographic evidence of malignancy. ASSESSMENT: BI-RADS BI-RADS 2 - Benign Findings RECOMMENDATION: Routine annual mammography screening. 1 year F/U This examination should not preclude the clinical evaluation of a suspicious palpable abnormality. This patient's information was entered into a reminder system with a target due date for their next mammogram. Dictated By: Garima Guerra MD Signed By: <Electronically signed by Garima Guerra MD in OV> 07/20/23 0558 DD/ 1310 TD/TT: Emt I/99: Complete Blood Count no Diff Reviewed date:08/03/2023 06:03:39 PM Interpretation:Normal Performing Lab:[facility], [address] [place] [phone] Notes/Report: White Blood Count 8.2 4.8-10.8 X10*3/uL Red Blood Count 4.37 4.20-5.50 X10*6/uL Hemoglobin 13.1 12.0-16.0 g/dl Hematocrit 41.0 37.0-47.0 % Mean Corpuscular Volume 93.8 80.0-98.0 fL Mean Corpuscular Hemoglobin 30.0 27.0-33.0 pg Mean Corpuscular HGB Conc 32.0 31.0-35.0 g/dl Red Cell Distribution Width 13.7 11.0-16.0 % Platelet Count 228 160-400 X10*3/uL Mean Platelet Volume 10.5 9.4-12.3 fL NRBC Pct Auto 0.0 0.0-0.2 /100WBC NRBC Abs Auto 0.000 0.0-0.012 X10*3/uL Basic Metabolic Panel Reviewed date:08/03/2023 06:03:39 PM Interpretation:Abnormal Performing Lab:[facility], [address] [place] [phone] Notes/Report: Sodium 143 135-145 mmol/L Potassium 4.3 3.3-5.1 mmol/L Chloride 108 96-108 mmol/L Carbon Dioxide 26 22-29 mmol/L Anion Gap 13 12-20 Blood Urea Nitrogen 26 9-16 mg/dL Creatinine 0.87 0.5-1.4 mg/dL Creatinine Clr Calc Pharmacy 48.0 Provided height and weight: 157.48 cm, 80.286 kg. eGFR (calculated from the MDRD study equation) and eCrCl (calculated from the Cockcroft-Gault equation) are based on different parameters and may not yield comparable results. If eCrCl result is absurd, please check patient's height/weight. Estimated Glomerular Filt Rate > 60 NOTE: For -[place] Islander individuals, multiply the result by 1.210. Chronic Kidney Disease: Estimated GFR < 60 mL/min/1.73m2 Severe Kidney Disease: Estimated GFR < 15 mL/min/1.73m2 Glucose Random 100 60-115 mg/dL Calcium 9.8 8.4-10.2 mg/dL MRSA Nasal Screen Reviewed date:08/03/2023 02:48:40 PM Interpretation:Negative Performing Lab:[facility], [address] [place] [phone] Notes/Report: MRSA Nasal PCR NEGATIVE Negative SA Nasal PCR NEGATIVE Negative MRSA Interpretation SEE NOTE MRSA target DNA not detected; SA target DNA not detected. A MRSA NEGATIVE, SA NEGATIVE test result does not preclude MRSA or SA nasal colonization. Type and Screen Reviewed date:08/03/2023 03:23:37 PM Interpretation:Negative Performing Lab:[facility], [address] [place] [phone] Notes/Report: WITNESSED BY [facility] NURSING: Call Blood Bank (ext. [phone]) to band patient on admission. Type and Screen in effect until 2300 on 08-11-2023 Spec expiration changed by JOHAN on 08/03/23 Reason: PAT SPEC Blood Type OP Antibody Screen NEGATIVE REASON FOR REFERRAL Reason Right hip pain Unste masoud gait Diagnosis 1 Right hip pain (M25. 551) Referral Organization Fred Hickey O, FACP Referring Provider First Name Fred Referring Provider Last Name Jimi Referring Provider Speciality Internal M edicine Referred Provider AT Physical Therapy Rafita Referred Provider Specialty Physical The rapist General Notes Page,Hawa 4 02:13:56 PM EST > Referral faxed and they will contact patient Referral Priority Routine MEDICATIONS Medication SIG (Take, Route, Frequency, Duration) Notes Start Date End Date Status Metoprolol Succinate ER 100 MG 1 tablet Orally Once a day Active Atorvastatin Calcium 10 MG 1 tablet Oral ly Once a day Active Celecoxib 200 MG 1 capsule with food as needed Orally Once a day Active Levothyroxine Sodium 75 MCG 1 tablet in the morning on an empty stomach Orally Once a day Active Acetaminophen-Codeine 300-30 MG 1 tablet as needed Orally every 6 hrs 02/09/2023 Active Vitamin D-3 1000 UNIT 1 capsule Orally O nce a day Active Amoxicillin 500 MG 4 capsules Orally On ce a day 05/26/2016 Active Warfarin Sodium 5 mg 1 tablet as directe d Orally Once a day Active Omeprazole 20 MG 1 capsule Orally Onc e a day Active DULoxetine HCl 60 MG 1 capsule Orally On ce a day Active buPROPion HCl ER (XL) 300 MG 1 tablet in the morning Orally Once a day Active traZODone HCl 50 MG 1 tablet at bedtime Orally Once a day Active Melatonin 5 MG 1 tablet at bedtime Orally Once a day Active Timolol Maleate 0.5 % 1 drop into affect ed eye Ophthalmic Twice a day Active IMMUNIZATIONS Vaccine Route Administration Date Status Comme nts Influenza Quad IM Intramuscular 01/06/2017 Administered Influenza High Dose IM Intramuscular 12/24/2017 Administer ed Td (adult) IM Intramuscular 11/02/2019 Administered Influenza High Dose IM Intramuscular 01/20/2019 Administer ed Influenza Quad IM Intramuscular 01/05/2020 Administered PCV 13 Unknown 10/31/2019 Administered TDaP Unknown 10/31/2019 Administered Influenza High Dose Unknown 12/11/2015 Administered COVID-19 Pfizer BioNTech Unknown 05/16/2020 Administere d COVID-19 Pfizer BioNTech Unknown 06/08/2020 Administere d Flu-aIIV4 Unknown 01/08/2021 Administered COVID-19 Pfizer BioNTech Unknown 12/23/2020 Administere d COVID-19 Pfizer Bivalent Unknown 12/04/2021 Administere d COVID-19 Pfizer BioNTech Unknown 07/20/2021 Administere d Influnza High Dose Quad Unknown 01/13/2022 Administered TDaP Unknown 10/19/2021 Administered Flu-aIIV4 Unknown 01/17/2023 Administered SOCIAL HISTORY Tobacco Use: Social History Observation Description Date Details (start date - stop date) Former Smoker NA - NA Sex Assigned At : Social History Observation Description Sex Assigned At Unknown Tobacco Use/Smoking Question Answer Notes Patient is a former smoker How long has it been since y ou last smoked? > 10 years Additional Findings: Tobacco Non-User Fo rmer smoker, currently using no form of tobacco Alcohol Screen Question Answer Notes Did you have a drink contain ing alcohol in the past year? Yes How often did you have a dri nk containing alcohol in the past year? Monthly or less (1 point) How many drinks did you have on a typical day when you were drinking in the past year? 1 or 2 drinks (0 point) How often did you have 6 or more drinks on one occasion in the past year? 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) Active confirmed 2814109048260 Problem MCI (mild cognitive impairment) with memory loss (G31.84) Active confirmed 578750147 Problem Cataract of both eye s, unspecified cataract type (H26.9) Active confirmed 53434021 Problem Tinea unguium (B35.1) Active confirmed Tinea unguium (636909122) Problem Hypercholesterolemia (E78.00) Active confirmed 45974053 Problem Status post right kn ee replacement (Z96.651) Active confirmed 0373150691890 Encounters Encounter Location Date Provider Diagnosis Fred Krause DO, [facility] [address] [place] [phone] 02/09/2023 Fred Krause Paroxysmal atrial fibrillation I48.0 ; Hypercholesterolemia E78.00 ; Acquired hypothyroidism E03.9 and Arthritis M19.90 Fred Krause DO, [facility] [address] [place], [place] [id number] 10/06/2022 Fred Krause DO, [address] [id number] 05/25/2023 Fred Krause Paroxysmal atrial fibrillation I48.0 ; Acquired hypothyroidism E03.9 ; Hypercholesterolemia E78.00 ; Rhinorrhea J34.89 ; Right hip pain M25.551 and Arthritis M19.90 Fred Krause DO, [address] [id number] 07/27/2023 Fred Krause Status post right kn ee replacement Z96.651 ; Paroxysmal atrial fibrillation I48.0 ; Hypercholesterolemia E78.00 ; Acquired hypothyroidism E03.9 and Arthritis M19.90 Fred Krause DO, [address] [id number] 08/14/2022 Fred Krause DO, [address] [id number] 09/23/2022 Fred Krause DO, [address] [id number] 10/06/2022 Fred Krause DO, [address] [id number] 10/23/2022 Fred Krause DO, [address] [id number] 12/28/2022 Fred Krause Arthritis M19.90 Fred Krause DO, [address] [id number] 03/02/2023 Fred Krause DO, [address] [id number] 05/14/2023 Fred Krause DO, [address] [id number] 06/08/2023 Fred Krause DO, [address] [id number] 06/21/2023 Fred Krause DO, [address] [id number] 06/21/2023 Fred Krause DO, [address] [id number] 08/06/2023 Fred Krause DO, [address] [id number] 05/18/2023 Fred Krause ASSESSMENTS Encounter Date Diagnosis Assessment Notes Treatment Notes Treatment Clinical Notes 02/09/2023 Paroxysmal atrial fibrillation (ICD-10 - I48.0) 02/09/2023 Hypercholesterolemia (ICD-10 - E78.00) 05/25/2023 Paroxysmal atrial fibrillation (ICD-10 - I48.0) 05/25/2023 Acquired hypothyroid ism (ICD-10 - E03.9) 07/27/2023 Paroxysmal atrial fibrillation (ICD-10 - I48.0) 07/27/2023 Status post right kn ee replacement (ICD-10 - Z96.651) If Shira's preoperative testing is reasonable she will be an appropriate candidate for the proposed surgical procedure and will be medically cleared for surgery. She has been instructed to stop the coumadin 5 days prior to surgery and to stop the celecoxib 7 days prior to surgery 12/28/2022 Arthritis (ICD-10 - M19.90) 02/09/2023 Acquired hypothyroid ism (ICD-10 - E03.9) 05/25/2023 Hypercholesterolemia (ICD-10 - E78.00) 07/27/2023 Hypercholesterolemia (ICD-10 - E78.00) 02/09/2023 Arthritis (ICD-10 - M19.90) 05/25/2023 Rhinorrhea (ICD-10 - J34.89) 07/27/2023 Acquired hypothyroid ism (ICD-10 - E03.9) 05/25/2023 Right hip pain (ICD- 10 - M25.551) 07/27/2023 Arthritis (ICD-10 - M19.90) 05/25/2023 Arthritis (ICD-10 - M19.90) PLAN OF TREATMENT Next Appt Details Provider Name:Fred Jones trery, 10/05/2023 01:30:00 PM, [address] [place] [address], [phone], Insurance Providers Payer Name Payer Address Payer Phone Subscriber Number Group Number Insured Name Patient Relationship to Insured Coverage Start Date Coverage End Date [facility] [address] [place] [address] [id number] Shira Montero Self - patient is the insured MEDICARE [address] [place] [phone] [id number] Shira Montero Self - patient is the insured MEDICAL (GENERAL) HISTORY Medical History History ICD Code Atrial fibrillation renal lithiasis arthritis gastroesophageal reflux disease (GERD) hypothyroidism bladder polyp MCI (mild cognitive impairment) with mem ory loss G31.84 Surgical History Surgery Date(Month/Year) lumbar disc surgery hysterectomy secondary to uterine prolap se right knee replacement 2011 bunionectomy right thumb surgery left knee replacement 11/2016 cataract-lens implants OU
--- OUTSIDE RECORDS SUMMARY | 2023-08-11 08:16 | XMS_ITS | Patient Health Record ---
Author Organization [facility] Address [address] [facility] [address] [facility] [place] [address] Care Team Providers Care Net Manager Name Role Phone Fred Krause MD Primary Care Provider Unavail able Mary Kelley Unavailable [phone] ALLERGIES Allergen (clinical drug ingredient) Drug/Non Drug Allergy documented on EMR Reaction Allergy Type Onset Date Status meperidine Demerol increase in blood pressure Drug Allergy Active albuterol Albuterol Unknown Drug Allergy Active Penicillin increase in blood pressure Drug Allergy Active REASON FOR REFERRAL No Information MEDICATIONS Medication SIG (Take, Route, Frequency, Duration) Notes Start Date End Date Status Melatonin 5 MG 1 tablet in the even ing Orally Once a day for 30 day(s) Active Levothyroxine Sodium 75 MCG 1 tablet in the morning on an empty stomach Orally Once a day for 30 day(s) Active Warfarin Sodium 5 MG 1 tablet Orally Onc e a day for 30 day(s) Active Vitamin E 400 UNIT 1 capsule Orally Onc e a day for 30 day(s) Unknown Omeprazole 20 MG 1 capsule 30 minutes before morning meal Orally Once a day for 30 day(s) Active Amoxicillin 500 MG 1 capsule Orally maura ry 8 hrs for 5 day(s) Unknown Timolol Maleate 0.5 % 1 drop into affect ed eye Ophthalmic Once a day Active CeleBREX 200 MG 1 capsule with food Orally Once a day for 30 day(s) Active DULoxetine HCl 60 MG 1 capsule Orally On ce a day for 30 day(s) Active Tylenol Active Ammonium Lactate 12 % 1 application Exte rnally Twice a day Active Metoprolol Succinate 100 MG 1 capsule Or ally Once a day for 30 day(s) Active Vitamin D3 25 MCG (1000 UT) 1 capsule Or ally Once a day for 30 day(s) Unknown buPROPion HCl ER (XL) 300 MG 1 tablet in the morning Orally Once a day for 30 day(s) Active Baby Oil Active traZODone HCl 50 MG 1 tablet at bedtime as needed Orally Once a day for 30 day(s) Active SOCIAL HISTORY Tobacco Use: Social History Observation Description Date Details (start date - stop date) Former Smoker NA - NA Sex Assigned At : Social History Observation Description Sex Assigned At Unknown Tobacco Use/Smoking Question Answer Notes Are you a: former smoker Additional Findings: Tobacco Non-User Current no n-smoker Alcohol Screen Question Answer Notes Did you [...] Never (0 point) Points 1 Interpretation Negative Tobacco use other than smoking: Question Answer Notes Are you an other tobacco user? No PLAN OF TREATMENT No Information Insurance Providers Payer Name Payer Address Payer Phone Subscriber Number Group Number Insured Name Patient Relationship to Insured Coverage Start Date Coverage End Date [facility] [id number] [address] [address] [place] [phone] [id number] Shira Montero Self - patient is the insured MEDICAL (GENERAL) HISTORY Medical History History ICD Code Cognitive impairment A fib Arthritis Cataracts Hypothyroidism renal lithiasis Reflux ( GERD) bladder polyp Back,Hip,and Knee pain Gall bladder problems Glaucoma Heart disease Osteoporosis chronic sinusitis Measles Mumps Chicken pox Bone implants/screws Surgical History Surgery Date(Month/Year) disc surgery- L5 1985,1987 hysterectomy right knee replacement 2012 bunionectomy x2 1991,1993 Thumb Surgery left knee replacement 2020 kidney stones 1967, cataract surgery left and right 2020 Anterior Posterior Vaginal Repair Hospitalization History Reason Date(Month/Year) x2 1967,1969
[2023-08-11] MEDS: Lactated Ringers 1,000 ML 100 ML IVCONT ×2 (09:18→21:24)
[2023-08-11 09:22] LABS: INTERNATIONAL NORM RATIO 0.9 (0.9-1.1); Prothrombin Time 11.4 SEC (11.1-13.3)
--- NOTE | 2023-08-11 10:13 | PHA.MEDREC ---
Pharmacy Consult ? Medication Reconciliation Pharmacy has completed the medication reconciliation. Reviewed med rec done by nursing
--- NOTE | 2023-08-11 10:17 | MHC.SHP ---
Pre-Procedural Eval Section A - 24 Hr Update-Section A only Date of Service: 08/11/23 The patient is an INPATIENT: No Changes since office visit: No Cold of Flu in the past 2 weeks, No New Medical Problems, No Changes in Medication and No Patient answered all questions The patient has been examined within 24 hours of the surgical procedure. The History & Physical has been completed within 30 days and I have reviewed it.: Yes Section B - Complete if H&P > 30 days Chief Complaint: Right Knee Patella Resurfacing Allergies: Allergies Allergy/AdvReac Type Severity Reaction Status Date / Time albuterol Allergy Intermediate extreme Verified 08/03/23 12:41 facial flushing hydromorphone [From DILAUDID] Allergy Intermediate extreme Verified 08/03/23 12:41 facial flushing Penicillins [PENICILLINS] Allergy Intermediate RASH Verified 08/03/23 12:41 (states can take ampicillin) Plan I have reviewed the history and physical and performed a pertinent physical examination on my patient. No changes have occurred unless specified. Time Spent With Patient Time: Total time managing care of this patient today ____ minutes.
--- NOTE | 2023-08-11 13:21 | PM.OP ---
Brief Operative Note Date of Service: 08/11/23 Pre-op diagnosis: PF OA right knee Post-op diagnosis: same Procedure: Patellar arthroplasty Implants: 29s Sidney cemented Surgeon: Wilner Gómez MD Anesthesia: GETA and regional Was an Switchboard Wire Worker Helper used for this Procedure?: Yes Switchboard Wire Worker Helper: Radha Abreu Estimated blood loss (mL): 0 Tourniquet time (min): 30 IV fluids (mL): 600 Pathology: none sent Condition: stable Disposition: PACU
--- NOTE | 2023-08-11 13:24 | P.OP_ITS ---
Operative Note Operative Note Date of Service: 08/11/23 Narrative: Date of Service: 08/11/23 Pre-op diagnosis: PF OA right knee Post-op diagnosis: same Procedure: Patellar arthroplasty Implants: 29s Sidney cemented Surgeon: Wilner Gómez MD Anesthesia: GETA and regional Was an Construction Technician used for this Procedure?: Yes Construction Technician: Radha Abreu Estimated blood loss (mL): 0 Tourniquet time (min): 30 IV fluids (mL): 600 Pathology: none sent Condition: stable Disposition: PACU Procedure in detail: The patient was brought to the operating room and prepped and draped in standard sterile fashion. A time-out was called to identify proper site proper procedure proper surgeon and IV antibiotics were administered. 1 g of IV tranexamic acid was administered. I began by making a midline incision to the retinaculum and performed a medial parapatellar arthrotomy. THe femoral tibial prosthesis and the liner were in place. There were no abnormal findings. The patella was entirely eburnated and there was lateral acetabularization of the patella. I removed 1 cm of the undersurface of the pateall with an oscillating saw. I sized and medialized a 29s patella. I mixed one bag of palacos bone cement on the back table. I then cemented the patella with a clamp. Once the cement was hard o nthe back table all excess cement was removed and I took the knee through a ROM. I was satified with the stability. The knee was then closed with a running Quill suture, a 3 0 Vicryl and saba on the skin. Patient was then placed in sterile dressing and brought to recovery room in stable condition there were no known complications.
[2023-08-11] MEDS: 0.9 % Sodium Chloride Flush 3 ML SYRINGE IVFLUSH ×2 (15:27→23:42)
[2023-08-11] MEDS: Melatonin 3 MG TABLET 6 MG PO (21:22)
[2023-08-11] MEDS: traZODone HCL 50 MG TABLET PO (21:22)
[2023-08-11] MEDS: oxyCODONE HCl ER 10 MG TAB.ER.12H PO (21:22)
[2023-08-11] MEDS: timoloL maleate 0.5 % Oph Sol 5 ML DRBTL 1 DROP EYE-BOTH (21:25)
[2023-08-11] MEDS: Clindamycin Phosphate/D5W 900 MG/50 ML PIGGYBACK 50 MG IV (23:42)
[2023-08-12 04:00] VITALS: BP 122/70; PULSE 64; RESP 16; TEMP 36; O2SAT 93
[2023-08-12] MEDS: Levothyroxine Sodium 75 MCG TABLET PO (05:33)
[2023-08-12] MEDS: Omeprazole 20 MG CAPSULE.DR PO (05:33)
[2023-08-12 06:38] LABS: MANUAL DIFF FLAG NO
[2023-08-12 06:53] LABS: Basophils Percent Auto 0.1 % (0-2); Hematocrit 32.7 % (37.0-47.0); Hemoglobin 10.6 g/dl (12.0-16.0); Imm Gran Abs Auto 0.07 X10*3/uL (0.00-0.03); Imm Gran Pct Auto 0.6 % (0.0-0.4); Lymphocytes Absolute Auto 0.9 X10*3/uL (1.2-4.9); Lymphocytes Percent Auto 7.8 % (20-40); Mean Corpuscular HGB Conc 32.4 g/dl (31.0-35.0); Mean Corpuscular Hemoglobin 30.2 pg (27.0-33.0); Mean Corpuscular Volume 93.2 fL (80.0-98.0); Mean Platelet Volume 9.7 fL (9.4-12.3); Monocytes Absolute Auto 0.9 X10*3/uL (0.1-1.2); Monocytes Percent Auto 7.8 % (2-11); Neutrophils Absolute Auto 9.2 x10*3/uL (2.0-8.3); Neutrophils Percent Auto 83.7 % (45-73); Platelet Count 198 X10*3/uL (160-400); Red Blood Count 3.51 X10*6/uL (4.20-5.50); Red Cell Distribution Width 13.7 % (11.0-16.0); White Blood Count 10.9 X10*3/uL (4.8-10.8)
[2023-08-12 07:01] LABS: Anion Gap 15 (12-20); Blood Urea Nitrogen 24 mg/dL (9-16); Calcium 8.9 mg/dL (8.4-10.2); Carbon Dioxide 24 mmol/L (22-29); Chloride 107 mmol/L (96-108); Creatinine Clr Calc Pharmacy 45.5; Estimated Glomerular Filt Rate 58; Glucose Fasting 132 mg/dL (60-99); Potassium 4.7 mmol/L (3.3-5.1); Sodium 141 mmol/L (135-145)
[2023-08-12] MEDS: Lactated Ringers 1,000 ML 100 ML IVCONT (07:47)
[2023-08-12] MEDS: oxyCODONE HCl ER 10 MG TAB.ER.12H PO (07:48)
[2023-08-12] MEDS: DULoxetine HCl 60 MG CAPSULE.DR PO (07:49)
[2023-08-12] MEDS: Cholecalciferol (Vitamin D3) 25 MCG TABLET PO (07:49)
[2023-08-12] MEDS: buPROPion HCl XL 300 MG TAB.ER.24H PO (07:49)
[2023-08-12] MEDS: 0.9 % Sodium Chloride Flush 3 ML SYRINGE IVFLUSH (07:49)
[2023-08-12] MEDS: oxyCODONE HCl Immed Release 5 MG TABLET PO ×2 (07:49→13:38)
[2023-08-12] MEDS: Celecoxib 200 MG CAPSULE PO (07:49)
[2023-08-12] MEDS: Atorvastatin Calcium 10 MG TABLET PO (07:49)
[2023-08-12 08:00] VITALS: BP 100/51; PULSE 57; RESP 16; TEMP 36.4; O2SAT 93
[2023-08-12 08:18] VITALS: BP 100/51; PULSE 57
--- NOTE | 2023-08-12 09:02 | P.PNOP_ITS ---
Subjective Subjective Date of Service: 08/12/23 Interval history: POD1 s/p Left knee patella resurfacing Patient is resting in bed comfortably No overnight events Pain is managed No additional complaints Physical Exam Vital Signs: Vital Signs: Last Vital Signs Temp 97.6 F 08/12/23 08:00 Pulse 57 08/12/23 08:18 Resp 16 08/12/23 08:00 BP 100/51 L 08/12/23 08:18 Pulse Ox 93 08/12/23 08:00 O2 Del Method Room Air 08/12/23 08:00 O2 Flow Rate 2 08/11/23 13:54 BMI result Body Mass Index 32.4 Const: General: cooperative, healthy appearing and no acute distress Resp: Effort & Inspection: normal respiratory effort and able to speak in co mplete sentences Cardio: Rate: regular rate Peripheral pulses: Peripheral pulses 2+ throughout GI: Palpation (GI): Soft to palpation Skin: Lesions: no lesions Rashes: no rashes Extrem: Other: left knee dressing is c/d/i. Able to dorsi/plantar flex. Calf is supple and nontender. Sensation intact. Pedal pulse intact. Procedures Date of Service Date of Service: 08/12/23 Progress Note: A&P Assessment and plan (1) History of total right knee replacement (TKR): Status: Acute (2) Osteoarthritis of right patellofemoral joint: Status: Acute Plan Continue pain mgmnt Begin Coumadin and lovenox dvt ppx Begin PT for Rt knee patella resurfacing Dispo planning-Pending PT eval Time Spent With Patient Time: Total time managing care of this patient today ____ minutes. Quality Stroke Does the patient have a stroke diagnosis?: No VTE Prior VTE?: Yes VTE Risk Level:: Medical - moderate - high VTE Device Contraindication: N/A - Device Ordered VTE Drug Contraindication: N/A - Med Ordered
--- NOTE | 2023-08-12 09:03 | HO.POSTANES ---
Post Anesthesia Evaluation Post Anesthesia Evaluation Date of Service: 08/12/23 Vital Signs: Vital Signs Temp Pulse Resp BP Pulse Ox O2 Del Method 08/12/23 08:18 57 100/51 L 08/12/23 08:00 97.6 F 57 16 100/51 L 93 Room Air 08/12/23 04:00 96.8 F 64 16 122/70 93 Room Air Anesthesia: General LMA Mental Status: Awake Pain Control: Satisfactory Nausea/Vomiting: None Hydration: Adequate Anesthesia-Related Issues: No Anes. Related Issues
[2023-08-12 09:20] VITALS: BP 100/51; PULSE 57
[2023-08-12 09:53] LABS: INTERNATIONAL NORM RATIO 0.9 (0.9-1.1); Prothrombin Time 11.3 SEC (11.1-13.3)
--- NOTE | 2023-08-12 10:43 | MHC.CM.PN ---
Addendum entered by Kassidy Mckeon 08/12/23 12:57: Patient is discharged today to home with [facility] SN+ PT Original Note: IMM 08/11/23 S/P R Knee Patella resurfacing. She lives by herself. Living will is on file. Patient states that she is independent with ADLs. [facility] is her home care preference. A referral and clinical update have been sent. Patient is anticipating discharge to home today. Message via [employer] text sent to Ortho team. Request sent to confirm discharge date. DP [facility] at home. Patient's daughter plans to pick her up at discharge. CM will follow.
[2023-08-12] MEDS: Enoxaparin Sodium 40 MG/0.4 ML SYRINGE SUBCUT (12:04)
[2023-08-12 12:29] VITALS: BP 100/51; PULSE 57
--- NOTE | 2023-08-12 12:34 | P.DS_ITS ---
DS: Providers Provider Date of Service: 08/12/23 Date of admission: 08/11/23 08:11 Primary care physician: Fred Krause DO DS: Diagnosis Discharge Diagnosis (1) History of total right knee replacement (TKR): Status: Acute (2) Osteoarthritis of right patellofemoral joint: Status: Acute DS: Summary Hospital Course Hospital Course: The patient underwent a successful right knee patella resurfacing, they were transferred to PACU and then to the floor to recover. During their stay, their vitals were stable, afebrile at 97.6. Labs were unremarkable, H/H . POD 1 they were started on Lovenox and Coumadin. The plan was to continue Lovenox until Coumadin is therapeutic. They also received Physical Therapy services twice a day. Prior to discharge, their dressing clean dry and intact and the plan was to be discharged home with [facility] services. Time Attestation Discharge Coordination Time (in mins): 30 Quality: Safe Use of Opioids Does Pt have an Active Cancer Diagnosis on the Problem List?: No Quality: Stroke Does the patient have a stroke diagnosis?: No Physical Exam Vital Signs: Vital Signs: Last Vital Signs Temp 97.6 F 08/12/23 08:00 Pulse 57 08/12/23 12:29 Resp 16 08/12/23 08:00 BP 100/51 L 08/12/23 12:29 Pulse Ox 93 08/12/23 08:00 O2 Del Method Room Air 08/12/23 08:00 O2 Flow Rate 2 08/11/23 13:54 BMI result Body Mass Index 32.4 Const: General: cooperative, healthy appearing and no acute distress Resp: Effort & Inspection: normal respiratory effort and able to speak in complete sentences Cardio: Rate: regular rate Peripheral pulses: Peripheral pulses 2+ throughout GI: Palpation (GI): Soft to palpation Skin: Lesions: no lesions Rashes: no rashes Extrem: Other: right knee dressing is c/d/i. Able to dorsi/plantar flex. Calf is supple and nontender. Sensation intact. Pedal pulse intact. DS: Data Data Completed and Pending Labs on day of discharge: Laboratory Results - last 24 hr 08/12/23 08/12/23 05:42 09:35 WBC 10.9 H RBC 3.51 L Hgb 10.6 L Hct 32.7 L D MCV 93.2 MCH 30.2 MCHC 32.4 RDW 13.7 Plt Count 198 MPV 9.7 Immature Gran % (Auto) 0.6 H Neut % (Auto) 83.7 H Lymph % (Auto) 7.8 L [place] % (Auto) 7.8 Eos % (Auto) 0.0 Baso % (Auto) 0.1 Lymph # (Auto) 0.9 L [place] # (Auto) 0.9 Eos # (Auto) 0.0 Baso # (Auto) 0.0 Abs Immat Gran (auto) 0.07 H Absolute Neuts (auto) 9.2 H Absolute Nucleated RBC 0.000 Nucleated RBC % (auto) 0.0 PT 11.3 INR 0.9 Sodium 141 Potassium 4.7 Chloride 107 Carbon Dioxide 24 Anion Gap 15 BUN 24 H Creatinine 0.92 Estim Creat Clear Calc 45.5 Estimated GFR 58 Fasting Glucose 132 H Calcium 8.9 D Discharge Plan Discharge Patient Disposition: Left Against Medical Advice Discharge Diagnosis: s/p rt patella resurfacing Referrals: Radha Abreu PA-C [Physician Manager Plumbing] - 08/26/23 9:30 am Discharge Medications: New oxycodone 5 mg Tablet 5 mg PO Q4H PRN (Reason: Pain, Moderate(Pain Scale 4-6)) 7 Days Qty: 42 0RF Rx Instructions: Partial Fill upon patient request. acetaminophen 325 mg Tablet 650 mg PO Q6H PRN (Reason: Pain, Mild (Pain Scale 1-3)) 30 Days Qty: 240 0RF enoxaparin 40 mg/0.4 mL Syringe 40 mg subcut Q24H 7 Days Qty: 2.8 0RF Continued diclofenac sodium [Voltaren Arthritis Pain] 1 % gel 2 g topical QID PRN (Reason: Pain) Rx Instructions: apply to both thumbs amoxicillin 500 mg Tablet 2,000 mg PO ONCE PRN (Reason: dental work) melatonin 5 mg Tablet 5 mg PO BEDTIME duloxetine 60 mg capsule,delayed release(DR/EC) 60 mg PO DAILY bupropion HCl 300 mg tablet extended release 24 hr 300 mg PO QAM levothyroxine 75 mcg tablet 75 mcg PO DAILY@0600 metoprolol succinate 100 mg tablet extended release 24 hr 100 mg PO DAILY warfarin 2.5 mg tablet 2.5 mg PO Q OTHER DAY Rx Instructions: on odd numbered days celecoxib 200 mg capsule 200 mg PO QAM atorvastatin 10 mg tablet 10 mg PO QAM timolol maleate 0.5 % drops 1 drp ophthalmic (eye) BID trazodone 50 mg tablet 50 mg PO BEDTIME cholecalciferol (vitamin D3) 25 mcg (1,000 unit) capsule 25 mcg PO QAM omeprazole 20 mg tablet,delayed release (DR/EC) 20 mg PO DAILY@0630 Discharge Orders: Discharge Order (Routine); Ordered 08/12/23 Ordered By: Radha Abreu Diet: Advance to usual diet Activity on Discharge: Use cane or walker Print Language: [place] Care Plan Goals: restore fxn to right knee Health Concerns: none Plan of Treatment: Physical Therapy for ROM 0-120, quad strength, gait training. Use walker for ambulation Limit stair climbing, No shower, No tub bath, No driving Continue anticoagulant Keep Aquacel dressing clean, dry and intact. Follow up with orthopedics in 2 weeks Assessment: stable for d/c
--- NOTE | 2023-08-12 12:37 | W.MHC.F2F ---
Service Date Service Date: 08/12/23 Encounter Date of encounter: 08/12/23 Reasons for Services Signs and symptoms assessed: s/p right knee patella resurfacing Pt. is considered homebound due to recent surgery. Unable to drive, poor balance, poor gait mechanics. Reason for physical therapy: home safety and mobility, therapeutic exercises, restore joint function, gait/transfer training, assess need for DME and ADL training Homebound: Leaving the home is medically contraindicated at this time without the asist of a device and/or another person due th the listed conditions above and below. Reason homebound: unsteady gait / fall risk, leg weakness, pain with ambulation, poor balance / fall risk and unable to drive Certification: Based on the above findings, I certify that this patient is confined to the home and needs intermittent prison care, physical therapy and/or speech therapy, or continues to need occupational therapy. The patient is under my care, and I have initiated the establishment of the plan of care. The patient will be followed by a physician who will periodically review the plan of care. Time Spent With Patient Time: Total time managing care of this patient today ____ minutes.
== END 2023-08-12 16:32 | disposition home health service (06) | DRG 468 ==
LOC: HO.SSSA 08:14 → HO.S3 14:13
PROVIDERS: Nurse Practitioner; Physician Assistant; Admitting Provider Orthopaedic Surgery; PCP Internal Medicine; Visit Provider Orthopaedic Surgery
PROC: 0SWC0JZ Revision of Synthetic Substitute in Right Knee Joint, Open Approach (ICD-10-PCS; principal; 2023-08-11 11:50)
DX: T84.84XA Pain due to internal orthopedic prosthetic devices, implants and grafts, initial encounter (principal); M22.2X1 Patellofemoral disorders, right knee; K21.9 Gastro-esophageal reflux disease without esophagitis; G89.18 Other acute postprocedural pain; Z87.891 Personal history of nicotine dependence; Z79.01 Long term (current) use of anticoagulants; Z79.890 Hormone replacement therapy; Z79.899 Other long term (current) drug therapy
CPT/HCPCS: 36415; 73560; 80048; 85025; 85027; 85610; 86850; 86900; 86901; 87640; 87641; 93005; 97110; 97116; 97162; C1713; C1776; J0131; J0665; J0736; J1100; J1650; J2405; J2704; J2795; J3010; J7120

== ENCOUNTER → 2023-08-11 08:11 | Outpatient (BNV) | payer MEDICARE, SELFPAY | PROVIDERS: Admitting Provider Orthopaedic Surgery; PCP Internal Medicine; Visit Provider Orthopaedic Surgery | DX: Z47.1 Aftercare following joint replacement surgery (principal); Z96.651 Presence of right artificial knee joint; M17.11 Unilateral primary osteoarthritis, right knee | CPT/HCPCS: 27438; 99024; 99212; G0180 ==

== ENCOUNTER 2023-08-13 14:25 | Outpatient (REF) | payer MEDICARE, SELFPAY ==
[2023-08-13 16:24] LABS: INTERNATIONAL NORM RATIO 0.9 (0.9-1.1); Prothrombin Time 10.9 SEC (11.1-13.3)
== END 2023-08-13 14:26 | disposition home or self-care (01) ==
LOC: HO.HMGCLDS 14:25
PROVIDERS: PCP Internal Medicine; Visit Provider Physician Assistant
DX: Z96.653 Presence of artificial knee joint, bilateral (principal); Z79.01 Long term (current) use of anticoagulants
CPT/HCPCS: 36415; 85610

== ENCOUNTER 2023-08-24 09:06 | Outpatient (REF) | payer MEDICARE, SELFPAY ==
--- NOTE | ~2023-08-24 | XR_ITS ---
EXAMINATION: XR HAND, RIGHT CLINICAL INFORMATION: Pain in right hand. COMPARISON: None available. TECHNIQUE: PA, lateral, and oblique views of the right hand. FINDINGS: Bones are severely demineralized. Moderate degenerative changes in the first carpometacarpal joint with joint space narrowing and hypertrophic change. Postsurgical changes with 2 screws identified at the base of the first proximal phalanx and adjacent carpals. Bracelet overlies the distal forearm. Mild degenerative changes in multiple MCP and IP joints. Narrowing of the radiocarpal space with ulnar minus variance. XR/XR hand RT min 3V IMPRESSION: 1. Moderate degenerative changes first carpometacarpal joint. 2. Postsurgical changes first carpometacarpal joint. 3. Mild degenerative changes in multiple MCP and IP joints. 4. Recommend follow-up imaging in 10-14 days if fracture is suspected.
== END 2023-08-24 09:07 | disposition home or self-care (01) ==
LOC: HO.HOSX 09:06
PROVIDERS: Visit Provider Orthopaedic Surgery
DX: M18.11 Unilateral primary osteoarthritis of first carpometacarpal joint, right hand (principal)
CPT/HCPCS: 73130; 99212

== ENCOUNTER 2023-08-24 15:33 | Outpatient (AMB) | payer MEDICARE, SELFPAY ==
--- NOTE | 2023-08-24 16:36 | A.OFFVIS_ITS ---
Vital Signs 08/24/23 16:40 Height 5 ft 2 in Weight 175 lb BMI 32.0 Handedness Right Intake Visit Reasons: Newprob-right hand pain Intake Note: Shira 82 yr old right hand dominant female presents today for a new problem visit for her right hand pain. No hx of injury. States pain is mainly on her dorsal aspect of the hand and the base of the thumb. Patient reports having off and on pain for a couple months. Pain is worse when she is doing her daily activities, however she doesn't feel pain when she is doing her dishes with the warm water. Denies numbness and tingling. Allergies albuterol Allergy (Intermediate, Verified 08/24/23 16:40) extreme facial flushing hydromorphone [From DILAUDID] Allergy (Intermediate, Verified 08/24/23 16:40) extreme facial flushing Penicillins [PENICILLINS] Allergy (Intermediate, Verified 08/24/23 16:40) RASH (states can take ampicillin) HPI HPI Newprob-right hand pain: Details: Shira is an 82 year old right hand dominant woman who presents with complaints of right hand pain. She complains of pain in her wrist, near the base of her thumb & the back of her hand. Her pain is worse with daily activities. She says her pain improves when doing dishes and soaking her hand in warm water. She has a hx of surgery in her wrist. She says she does not remember what the procedure was, but it happened in ~2003. She recently had a right patellar arthroplasty on 08/11/23. [facility], [facility] Medical History Glaucoma Arthritis Anticoagulated GERD (gastroesophageal reflux disease) Renal calculi Forgetfulness Pseudogout Low back pain Bursitis of right hip Afib Surgical History Hx of bilateral cataract extraction H/O colonoscopy Hx of tonsillectomy History of back surgery Hx of hysterectomy History of total right knee replacement (~2014) History of bunionectomy History of total left knee replacement (~2016) Family History Mother No problems noted. Father Lung cancer Social History Household Members: None Household Members Other:: home alone Housing: Condominium Are you a primary critical care physician assistant to a significant other at home: No Do you presently have visiting nurse or other home services: No Alcohol intake: current Alcohol intake frequency: holidays/special occasions only Comment: uses cane on occasion Patient Tobacco Use Status: Former Tobacco user Quit Date: age 64 Tobacco use type: Cigarette Years Smoked: 30 service: No Current occupational status: retired Current occupation: Right Handed Review of Systems Const All systems reviewed & are unremarkable except as noted in HPI and below Physical Exam Vital Signs: BMI result Body Mass Index 32.0 Const General: cooperative, healthy appearing and no acute distress Orientation/consciousness: patient oriented x3 HEENT Head: Yes normocephalic and Yes atraumatic Eyes EOM: EOMs intact bilaterally Resp Effort & Inspection: normal respiratory effort and able to speak in complete sentences Cardio Jugular venous distension: no JVD Skin General skin exam: turgor normal Rashes: no rashes Neuro General: patient oriented x3 Extrem Other: Evaluation of Right Upper Extremity: The patient is alert, oriented, and in no acute distress Neuro: Median, Ulnar, Radial nerves motor and sensory intact and sensation is normal to the tips of all digits Vascular: Cap refill brisk ROM: She can make a fist and extend all her digits No locking or catching She can oppose her thumb to the tips of all digits Skin: No lacerations or abrasions. General: No Ecchymosis. No Erythema or evidence of infection. Most tender to palpation over the dorsal aspect of the basal joint of the right thumb. Possible palpation of of the heads of both screws, though I would like to examine this area under the mini C-arm to be sure. She feels like she is most tender over the area of the screw that I believe is in the base of the 1st metacarpal. She also has some tenderness over the dorsal aspect of the basal joint but she is interestingly not particularly tender over the basal joint as I extend over the palm of the hand. Thus it is not clear whether most of her pain is from the basal joint or from the retained implants. Her CMC grind is not particularly bothersome. No tenderness over the 1st dorsal compartment or at the MCP joint. She has not particularly tender over the midcarpal joint, the radiocarpal joint or the DRUJ. She appears to have relatively symmetrical wrist flexion extension and prono- supination, and these motions are not particularly painful. Radiographs: 3 views of the right hand were taken and viewed by me today in clinic. There are 2 screws seen, one in the base of the 1st metacarpal and one that looks like it traverses between the trapezium & trapezoid, though this may not be clear on current radiographs.. 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 Right hand pain at base of her thumb - [address] from prior surgery, perhaps 20 years ago though the patient has no recollection of this procedure Pain could be secondary either to retained hardware, or her basal joint osteoarthritis I educated her about this condition I discussed operative & non-operative treatment options She may benefit from a injection in the future. If this does not improve her pain we may consider surgery to remove her retained hardware She will follow up prn for a 30 minute appointment using the mini C-arm to help us better visualize the heads of the screws and whether they might be symptomatic vs her basal joint arthritis being symptomatic. We may then inject the basal joint to see if this is helpful As she just has a right knee patellar resurfacing, she will follow up in 6 weeks when she is cleared to drive herself again. Scribed for Kiki Fleming MD by Uday Francois, nuclear medical technologist, on 08/24/23 at 5:00 PM, EST. 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
[2023-08-24 16:40] VITALS: BMI 32.0
== END 2023-08-24 17:10 | disposition home or self-care (01) ==
PROVIDERS: PCP Internal Medicine; Visit Provider Orthopaedic Surgery
DX: M79.641 Pain in right hand (principal); M18.11 Unilateral primary osteoarthritis of first carpometacarpal joint, right hand
CPT/HCPCS: 99214

== ENCOUNTER 2023-08-26 09:32 | Outpatient (AMB) | payer OTHER, SELFPAY ==
--- NOTE | 2023-08-26 09:35 | MHC.OFFVIS ---
Intake Visit Reasons: 2 WK PO: 08/11/23 Pat Resurf w/NE Intake Note: Shira an 82 year old female who presents today for a post operative visit s/p right patella arthroplasty on 08/11/23 NE. Patient reports she is doing well, states soreness around her knee. She will attend her first outpatient therapy today. Allergies albuterol Allergy (Intermediate, Verified 08/26/23 09:42) extreme facial flushing hydromorphone [From DILAUDID] Allergy (Intermediate, Verified 08/26/23 09:42) extreme facial flushing Penicillins [PENICILLINS] Allergy (Intermediate, Verified 08/26/23 09:42) RASH (states can take ampicillin) HPI HPI 2 WK PO: 08/11/23 Pat Resurf w/NE: Details: 82-year-old female who returns to the office today for post-op right patellar resurfacing, 08/11/[address] Gómez. She states she has soreness around her knee however she is doing well overall. She is working on home physical therapy and she is scheduled for first outpatient therapy tomorrow. She takes Tylenol and codeine for her pain at night as needed. She finds no relief with oxycodone. She has no other concerns. [facility] Medical History Glaucoma Arthritis Anticoagulated GERD (gastroesophageal reflux disease) Renal calculi Forgetfulness Pseudogout Low back pain Bursitis of right hip Afib Surgical History Hx of bilateral cataract extraction H/O colonoscopy Hx of tonsillectomy History of back surgery Hx of hysterectomy History of total right knee replacement (~2014) History of bunionectomy History of total left knee replacement (~2017) Family History Mother No problems noted. Father Lung cancer Social History Household Members: None Household Members Other:: home alone Housing: Condominium Are you a primary critical care physician to a significant other at home: No Do you presently have visiting nurse or other home services: No Alcohol intake: current Alcohol intake frequency: holidays/special occasions only Comment: uses cane on occasion Patient Tobacco Use Status: Former Tobacco user Tobacco use type: Cigarette Years Smoked: 30 service: No Current occupational status: retired Current occupation: Right Handed Review of Systems Const All systems reviewed & are unremarkable except as noted in HPI and below Physical Exam Extrem Other: Right knee: Incision clean, dry and intact. No erythema or joint effusion. ROM is 0-95 degrees. Calf supple, nontender. NVI. Assessment & Plan Assessment & Plan (1) History of arthroplasty of right knee: Code(s): Z96.651 - Presence of right artificial knee joint Category: Surgical Plan Glenny removed, steri strips applied. She will begin to transition to Outpatient PT to continue working on Gait training, ROM and quad strength. No driving for another 4 weeks. She will require ppx abx for dental procedures. She will f/u in 4 weeks, sooner if needed. Patient Instructions: Scribed for Pro Fong PA-C, by Jose F Mariscal medical receptionist biller, on 08/26/2023 at 9:30 AM EST.? I, Pro Fong PA-C, have personally reviewed and agree with the information entered by the scribe. Coding Level of Care Code Global (33987) Diagnoses History of arthroplasty of right knee Z96.651
== END 2023-08-26 10:27 | disposition home or self-care (01) ==
PROVIDERS: PCP Internal Medicine; Visit Provider Physician Assistant
DX: Z96.651 Presence of right artificial knee joint (principal)
CPT/HCPCS: 99024

== ENCOUNTER → 2023-08-26 09:32 | Outpatient (BNVA) | payer OTHER, SELFPAY | PROVIDERS: PCP Internal Medicine; Visit Provider Physician Assistant ==

== ENCOUNTER 2023-09-14 13:00 | Outpatient (RCR) | payer MEDICARE, SELFPAY ==
--- NOTE | 2023-08-27 13:59 | MHC.PT.EP ---
[facility] [place] [facility] [place] [facility] [place] [facility] [address] Brenda Echols [address] [phone] F: [phone] F: [phone] F: [phone] F: [phone] Physical Therapy Plan of Care Date of Evaluation: 08/27/23 Date of Surgery: 08/11/23 Diagnosis: This is a 82 yo female presenting to skilled PT with a script for R TKA/R patella resurfacing. Assessment: This is a 82 yo female presenting to skilled PT with a script for R TKA/R patella resurfacing. Patient is post-op 08/11/[address] Dalia Saucedo patella resurfacing (TKR on the R was performed in 2014). She saw ortho yesterday, notes states: [place] removed, steri strips applied. She will begin to transition to Outpatient PT to continue working on Gait training, ROM and quad strength. No driving for another 4 weeks. She had no post op complications, spent 1 day inpatient and was DC'd from [facility] on the 16th home with [facility] services (3 times). Patient is reporting that she is a little sore now. Pain is located at the medial and lateral joint lines and at the incision off to the side. She takes tylenol with codeine now as needed as well as ice. She feels limited with endurance. She reports that she has not been doing her HEP. Assessment reveals pain that ranges from up to a 2/10 at the worst. Patient demos decreased R knee and hip ROM, strength of knee and hip, TTP at joint line medial and lateral, patella. She demos impaired posture with forward head and rounded shoulders, impaired gait and resting position as well as impaired balance due to pain all expected s/p knee surgery. Based on functional limitations, impaired QOL and pain tolerance patient is a good candidate for skilled PT 2x/wk for 4wks. Frequency and Duration: The patient will be seen 2x/wk for 4 wks Short Term Goals: 1. 0-5-100 degrees R knee ROM 2. Symmetrical weight bearing BLEs with UE support 3. Pt will demo reciprical gait on stairs with BUE support Handkerchief Maker Goals: 1. LEFI: at least 40/80 2. Pt to demonstrate ability to ambulate without AD again safely and without evidence of LOB and demo ability to walk her dog again 3. Pt to demonstrate independence with HEP 4. 0-120 R knee 5. Improve LE MMT to at least 4+/5 Treatment Plan: Modalities to reduce pain, spasms and effusion. Manual therapy to restore motion and function. Therapeutic exercise to improve strength and flexibility. Neuromuscular re-education for posture and balance. Therapeutic activities to return to functional activities of daily living. Electronically signed by: Alisa Andrew, PT Please sign and return to therapist. Thank you for your referral.
--- NOTE | 2023-09-17 09:26 | MHC.PT.DC ---
[facility] [place] Office [place] Office [place] Office [address] Brenda Echols [address] [phone] F: [phone] F: [phone] F: [phone] F: [phone] Physical Therapy Discharge Report Diagnosis: This is a 82 yo female presenting to skilled PT with a script for R TKA/R patella resurfacing. Date of Surgery: 08/11/23 Date of Evaluation: 08/27/23 Date of Discharge: 09/17/23 Treatments to Date: 6 Cancellations to Date: 0 No Shows to Date: 0 Discharge Status: Improved Function Independent with HEP Patient Elected to Stop Discharge Summary: At the last tx session note states: Today we reviewed stairs and transfers. I educated her on not avoiding use of the RLE as this will not help her get better. I encouraged her to do more at home as well. Additionally, she felt relief from pain after manual so I educated her on how to do this at home as well. Ended with ice. She saw her surgeon yesterday and called today reporting that she saw the surgeon and was ready for DC. DC to HEP. Electronically signed by: Alisa Andrew PT Please sign and return to therapist. Thank you for your referral.
== END 2023-09-17 09:27 | disposition home or self-care (01) ==
LOC: HO.PTCHIC 13:00
PROVIDERS: PCP Internal Medicine; Visit Provider Orthopaedic Surgery
DX: Z47.89 Encounter for other orthopedic aftercare (principal); Z96.651 Presence of right artificial knee joint
CPT/HCPCS: 97110; 97162

== ENCOUNTER 2023-09-16 12:10 | Outpatient (AMB) | payer OTHER, SELFPAY ==
--- NOTE | 2023-09-16 12:12 | MHC.OFFVIS ---
Intake Visit Reasons: 6 WK PO: 08/11/23 Pat Resurf w/NE Intake Note: Shira an 82 year old female who presents today for a post operative visit s/p right patella arthroplasty on 08/11/23 NE. Patient reports she is doing well, states soreness around her knee. Allergies albuterol Allergy (Intermediate, Verified 08/26/23 09:42) extreme facial flushing hydromorphone [From DILAUDID] Allergy (Intermediate, Verified 08/26/23 09:42) extreme facial flushing Penicillins [PENICILLINS] Allergy (Intermediate, Verified 08/26/23 09:42) RASH (states can take ampicillin) HPI HPI 6 WK PO: 08/11/23 Pat Resurf w/NE: Details: Shira an 82 year old female who presents today for a post operative visit s/p right patella arthroplasty on 08/11/23 NE. Patient reports she is doing well, states soreness around her knee. [facility] Medical History Glaucoma Arthritis Anticoagulated GERD (gastroesophageal reflux disease) Renal calculi Forgetfulness Pseudogout Low back pain Bursitis of right hip Afib Surgical History Hx of bilateral cataract extraction H/O colonoscopy Hx of tonsillectomy History of back surgery Hx of hysterectomy History of total right knee replacement (~2014) History of bunionectomy History of total left knee replacement (~2017) Family History Mother No problems noted. Father Lung cancer Social History Household Members: None Household Members Other:: home alone Housing: Condominium Are you a primary human services care specialist to a significant other at home: No Do you presently have visiting nurse or other home services: No Alcohol intake: current Alcohol intake frequency: holidays/special occasions only Comment: uses cane on occasion Patient Tobacco Use Status: Former Tobacco user Tobacco use type: Cigarette Years Smoked: 30 service: No Current occupational status: retired Current occupation: Right Handed Physical Exam Extrem Other: Incision clean dry and intact 0-125 degrees motion Assessment & Plan Assessment & Plan (1) History of total right knee replacement: Onset Date: ~2014 Comment: [address] [place] Code(s): Z96.651 - Presence of right artificial knee joint Category: Surgical Plan: Status post patellar resurfacing right knee. Overall she is doing very well. She can follow-up as needed. Coding Level of Care Code Global (92711) Diagnoses History of total right knee replacement Z96.651
== END 2023-09-16 12:59 | disposition home or self-care (01) ==
PROVIDERS: PCP Internal Medicine; Visit Provider Orthopaedic Surgery
DX: Z96.651 Presence of right artificial knee joint (principal)
CPT/HCPCS: 99024

== ENCOUNTER → 2023-09-16 12:10 | Outpatient (BNVA) | payer OTHER, SELFPAY | PROVIDERS: PCP Internal Medicine; Visit Provider Orthopaedic Surgery ==

== ENCOUNTER 2023-10-13 10:37 | Outpatient (REF) | payer OTHER, SELFPAY ==
[2023-10-13 13:02] LABS: MANUAL DIFF FLAG NO
[2023-10-13 13:10] LABS: Basophils Absolute Auto 0.1 X10*3/uL (0.0-0.2); Basophils Percent Auto 0.7 % (0-2); Eosinophils Absolute Auto 0.3 X10*3/uL (0.0-0.4); Eosinophils Percent Auto 4.2 % (0-4); Hematocrit 40.8 % (37.0-47.0); Hemoglobin 12.7 g/dl (12.0-16.0); Imm Gran Abs Auto 0.02 X10*3/uL (0.00-0.03); Imm Gran Pct Auto 0.3 % (0.0-0.4); Lymphocytes Absolute Auto 1.1 X10*3/uL (1.2-4.9); Lymphocytes Percent Auto 15.3 % (20-40); Mean Corpuscular HGB Conc 31.1 g/dl (31.0-35.0); Mean Corpuscular Hemoglobin 29.7 pg (27.0-33.0); Mean Corpuscular Volume 95.3 fL (80.0-98.0); Mean Platelet Volume 9.7 fL (9.4-12.3); Monocytes Absolute Auto 0.6 X10*3/uL (0.1-1.2); Monocytes Percent Auto 8.5 % (2-11); Neutrophils Absolute Auto 5.1 x10*3/uL (2.0-8.3); Platelet Count 273 X10*3/uL (160-400); Red Blood Count 4.28 X10*6/uL (4.20-5.50); Red Cell Distribution Width 14.3 % (11.0-16.0); White Blood Count 7.1 X10*3/uL (4.8-10.8)
[2023-10-13 13:24] LABS: INTERNATIONAL NORM RATIO 5.3 (0.9-1.1)
[2023-10-13 13:39] LABS: Alanine Aminotransferase 15 U/L (0-31); Albumin Level 3.9 g/dL (3.5-5.0); Alkaline Phosphatase 68 U/L (39-117); Anion Gap 12 (12-20); Aspartate Amino Transferase 20 U/L (5-31); Bilirubin Total 0.4 mg/dL (0.0-1.0); Blood Urea Nitrogen 29 mg/dL (9-16); Calcium 9.7 mg/dL (8.4-10.2); Carbon Dioxide 28 mmol/L (22-29); Chloride 108 mmol/L (96-108); Cholesterol 143 mg/dL (<200); Estimated Glomerular Filt Rate 45; Glucose Fasting 119 mg/dL (60-99); HDL Cholesterol 42 mg/dL (>40); LDL Cholesterol Calculated 77 mg/dL (<100); Potassium 4.8 mmol/L (3.3-5.1); Sodium 143 mmol/L (135-145); Total Protein 6.6 g/dL (6.5-8.0); Triglycerides 120 mg/dL (<150)
[2023-10-13 13:51] LABS: Erythrocyte Sedimentation Rate 19 MM/HR (0-20)
[2023-10-13 14:33] LABS: Thyroid Stimulating Hormone 5.29 uIU/mL (0.32-4.0)
== END 2023-10-13 10:38 | disposition home or self-care (01) ==
LOC: HO.HMGCLDS 10:37
PROVIDERS: PCP Internal Medicine; Visit Provider Internal Medicine
DX: M19.90 Unspecified osteoarthritis, unspecified site (principal); I48.0 Paroxysmal atrial fibrillation; E03.9 Hypothyroidism, unspecified; E78.00 Pure hypercholesterolemia, unspecified; Z96.651 Presence of right artificial knee joint
CPT/HCPCS: 36415; 80053; 80061; 84443; 85025; 85610; 85652; 86140

== ENCOUNTER 2023-11-24 21:52 | Emergency (ER) | payer OTHER, SELFPAY ==
--- NOTE | ~2023-11-24 | CT_ITS ---
EXAMINATION: HEAD CT WITHOUT CONTRAST CERVICAL SPINE CT WITHOUT CONTRAST CLINICAL INFORMATION: Fall. Pain. COMPARISON: 10/19/2021 TECHNIQUE: Contiguous axial imaging of the head was performed without the administration of IV contrast. Axial multidetector volumetric images were also performed through the cervical spine without intravenous contrast. Multiplanar reconstructed images in coronal and sagittal orientations were submitted. This CT examination was performed using dose optimization techniques as appropriate, variously including the following: *Automated exposure control *Adjustment of mA and/or kV according to patient size (this includes techniques or standardized protocols for targeted exams where dose is matched to indication/reason for exam; i.e. extremities or head) *Use of iterative reconstruction technique DOSE: 1786 mGy-cm FINDINGS: HEAD: A thin layer of hyperdense blood products overlying the left tentorial leaflet adjacent to the left temporal lobe, measuring up to 4 mm in thickness. No additional sites of intracranial hemorrhage are identified. A separate extra-axial fluid collections. No evidence of territorial infarction. No abnormal mass-effect or midline shift. Pack to white matter differentiation is well preserved. Marked enlargement of the ventricles, sulci, and extra-axial CSF spaces is indicative of parenchymal volume loss. A few foci of hypoattenuation in the subcortical and periventricular white matter are most consistent with chronic microangiopathic changes. Multiple small bilateral lacunar infarcts in the basal ganglia and thalamus. Calcific atherosclerosis is present within the cavernous segments of the internal carotid arteries. There is a small region of soft tissue contusion at the right posterolateral soft tissues over the parietal and occipital calvarium in the region of the lambdoid suture. No scalp hematomas. There is complete opacification of the left maxillary sinus with remodeling of the medial wall near the maxillary antrum, potentially due to chronic sinusitis or a mucocele. The sinuses and mastoid air cells are otherwise clear. CERVICAL SPINE: There is leftward tilt and turning of the head, change in the alignment at the junction of the occiput and cervical spine. Vertebral body heights are normal. No fractures of the vertebral bodies or posterior elements. There is anterolisthesis of C4 on C5 by 2 mm, likely related to facet arthropathy, left side greater than right. Degenerative changes are present at the craniocervical and atlantoaxial articulations, though normal alignment is maintained. Moderate degenerative disc disease at C6-C7, mild degenerative disc disease at the levels of the cervical spine. Facet arthropathy is most severe on the left at C3-C4 and C4-C5. There is ankylosis of the left C5 and C6 facet joints. Posterior disc osteophyte complex at C6-C7 produces at least mild central canal narrowing. Uncovertebral and facet osteophytes produce neural foraminal encroachment on the left multiple levels from C3-C4 through C6-C7. No significant paravertebral soft tissue swelling. Atherosclerotic calcifications are present in the carotid arteries. Thyroid gland is atrophic. Imaged portions of the lung apices are clear. CT/CT cervical spine wo IV con IMPRESSION: 1. Thin layer of acute subdural hemorrhage overlying the left tentorial leaflet. No additional sites of intracranial hemorrhage. 2. No acute fracture or acute malalignment in the cervical spine. 3. Marked cerebral atrophy and mild chronic white matter microangiopathy. 4. Multilevel degenerative spondylosis in the cervical spine. 5. Complete opacification of the left maxillary sinus with remodeling of the medial wall, new as compared to the prior study from 10/19/2021. This could be due to chronic sinusitis or mucocele. Consider ENT follow-up.. This critical result was discussed by telephone with Dr. Sims on 11/24/2023 at 11:53 PM. Electronically signed by: Andre Carrasco MD 11/25/2023 12:00 AM EDT
[2023-11-24 22:13] VITALS: BP 144/46; PULSE 145; RESP 18; TEMP 36.8; O2SAT 97; BMI 27.7
[2023-11-24 23:33] LABS: Hematocrit 40.3 % (37.0-47.0); Mean Corpuscular HGB Conc 32.3 g/dl (31.0-35.0); Mean Corpuscular Hemoglobin 30.1 pg (27.0-33.0); Mean Corpuscular Volume 93.3 fL (80.0-98.0); Mean Platelet Volume 9.6 fL (9.4-12.3); Platelet Count 236 X10*3/uL (160-400); Red Blood Count 4.32 X10*6/uL (4.20-5.50); Red Cell Distribution Width 14.2 % (11.0-16.0); White Blood Count 9.3 X10*3/uL (4.8-10.8)
[2023-11-24 23:41] LABS: Prothrombin Time 36.3 SEC (11.1-13.3)
--- NOTE | 2023-11-24 23:41 | ECG_ITS ---
Test Reason : FALL Blood Pressure : / mmHG Vent. Rate : 135 BPM Atrial Rate : 000 BPM P-R Int : 000 ms QRS Dur : 084 ms QT Int : 294 ms P-R-T Axes : 000 -27 019 degrees QTc Int : 441 ms Atrial fibrillation with rapid ventricular response Minimal voltage criteria for LVH, may be normal variant ( Jama product ) Abnormal ECG When compared with ECG of 03-AUG-2023 13:52, Atrial fibrillation has replaced Sinus rhythm Vent. rate has increased BY 84 BPM Non-specific change in ST segment in Lateral leads Nonspecific T wave abnormality now evident in Anterolateral leads Referred By: Emily Sims Electronically Signed By:ELISABETH QUIJANO
[2023-11-24 23:47] LABS: Alanine Aminotransferase 14 U/L (0-31); Albumin Level 3.8 g/dL (3.5-5.0); Alkaline Phosphatase 74 U/L (39-117); Anion Gap 12 (12-20); Aspartate Amino Transferase 20 U/L (5-31); Bilirubin Total 0.5 mg/dL (0.0-1.0); Blood Urea Nitrogen 27 mg/dL (9-16); Calcium 9.8 mg/dL (8.4-10.2); Carbon Dioxide 28 mmol/L (22-29); Chloride 106 mmol/L (96-108); Creatinine Clr Calc Pharmacy 40.5; Estimated Glomerular Filt Rate 50; Glucose Random 111 mg/dL (60-115); Magnesium 2.2 mg/dL (1.6-2.6); Potassium 4.8 mmol/L (3.3-5.1); Sodium 141 mmol/L (135-145); Total Protein 6.7 g/dL (6.5-8.0)
[2023-11-24 23:53] LABS: Troponin-I High Sensitivity 7.1 ng/L (<3.5-17.0)
[2023-11-25 00:31] VITALS: BP 119/93; PULSE 149
[2023-11-25] MEDS: Labetalol HCL 100 MG/20 ML VIAL IVPUSH (00:31)
--- NOTE | 2023-11-25 00:39 | ED.FALL ---
HPI - Fall General Chief Complaint: Fall Stated Complaint: head bleeding s/p fall Time Seen by Provider: 11/24/23 23:39 Source: patient and EMS Mode of arrival: EMS Limitations: no limitations History of Present Illness ED Provider: Dr. Emily Sims HPI Narrative: Patient comes to the emergency room complaining of a fall. Patient states that she was in her house, in the backyard walking her dog. Patient states that she took a few steps backwards, fell, landed on her head. Patient states that she sustained a laceration to the scalp, otherwise she has no pain. Patient was able to get up by herself. Patient complaining only of localized discomfort, no headache, no neck pain, no other injuries. Patient takes Coumadin for history of atrial fibrillation. Related Data Home Medications ?Medication ?Instructions ?Recorded ?Confirmed bupropion HCl 300 mg 24 hr tablet, 300 mg PO QAM 02/19/20 08/03/23 extended release duloxetine 60 mg capsule,delayed 60 mg PO DAILY 02/19/20 08/11/23 release levothyroxine 75 mcg tablet 75 mcg PO DAILY@0600 02/19/20 08/11/23 metoprolol succinate 100 mg 100 mg PO DAILY 02/19/20 08/11/23 tablet,extended release 24 hr warfarin 2.5 mg tablet 2.5 mg PO Q OTHER DAY 02/19/20 08/03/23 atorvastatin 10 mg tablet 10 mg PO QAM 02/23/22 08/03/23 timolol maleate 0.5 % eye drops 1 drp ophthalmic (eye) BID 02/23/22 08/03/23 trazodone 50 mg tablet 50 mg PO BEDTIME 02/23/22 08/03/23 celecoxib 200 mg capsule 200 mg PO QAM 04/07/22 08/03/23 cholecalciferol (vitamin D3) 25 25 mcg PO QAM 04/07/22 08/03/23 mcg (1,000 unit) capsule omeprazole 20 mg tablet,delayed 20 mg PO DAILY@0630 04/07/22 08/11/23 release amoxicillin 500 mg tablet 2,000 mg PO ONCE PRN dental work 08/03/23 08/03/23 diclofenac sodium 1 % topical gel 2 g topical QID PRN Pain 08/03/23 08/03/23 (Voltaren Arthritis Pain) melatonin 5 mg tablet 5 mg PO BEDTIME 08/03/23 08/03/23 acetaminophen 300 mg-codeine 30 mg 1 tab PO Q6H PRN 08/26/23 tablet Previous Rx's ?Medication ?Instructions ?Recorded acetaminophen 325 mg tablet 650 mg (2 x 325 mg) PO Q6H PRN 08/12/23 Pain, Mild (Pain Scale 1-3) 30 days #240 tabs enoxaparin 40 mg/0.4 mL 40 mg (0.4 mL) subcut Q24H 7 days 08/12/23 subcutaneous syringe #2.8 mL oxycodone 5 mg tablet 5 mg PO Q4H PRN Pain, 08/12/23 Moderate(Pain Scale 4-6) 7 days #42 tabs Allergies Allergy/AdvReac Type Severity Reaction Status Date / Time albuterol Allergy Intermediate extreme Verified 11/24/23 22:16 facial flushing hydromorphone [From DILAUDID] Allergy Intermediate extreme Verified 11/24/23 22:16 facial flushing Penicillins [PENICILLINS] Allergy Intermediate RASH Verified 11/24/23 22:16 (states can take ampicillin) Review of Systems Review of Systems: Constitutional : No Weight loss, No Fever, No Chills, No Night Sweats, No Fatigue, No Malaise ENT/Mouth : No Hearing loss, No Ear Pain, No Nasal Congestion, No Sinus Pain, No Hoarseness, No sore throat, No Rhinorrhea, No Swallowing Difficulty Eyes: No Eye Pain, No Swelling, No Redness, No Foreign Body, No Discharge, No Vision Changes Cardiovascular : No Chest Pain, No SOB, No Dyspnea on Exertion, No Orthopnea, No Edema, No Palpitations Respiratory : No Cough, No Sputum, No Wheezing, No Smoke Exposure, No Dyspnea Gastrointestinal : No Nausea, No Vomiting, No Diarrhea, No Constipation, No abdominal Pain, No Hematochezia, No Melena Genitourinary : no irregular bleeding, No Dysuria, No Urinary Frequency, No Hematuria, No Urinary Incontinence, No Urgency, No Flank Pain, No Urinary Flow Changes, No Hesitancy Musculoskeletal : No joint pain, No Myalgias, No Joint Swelling Skin : Complaining of a laceration to the scalp Neuro : No Weakness, No Numbness, No Paresthesias, No Loss of Consciousness, No Dizziness, No Headache Psych : No Anxiety/Panic, No Depression, No SI/HI/AH/VH, No Social Issues, Heme/Lymph: No Bruising, No Bleeding,No Lymphadenopathy Endocrine : No Polyuria, No Polydipsia, No Temperature Intolerance [facility] Past Medical History Medical History Glaucoma Arthritis Anticoagulated GERD (gastroesophageal reflux disease) Renal calculi Forgetfulness Pseudogout Low back pain Bursitis of right hip Afib Surgical History Hx of bilateral cataract extraction H/O colonoscopy Hx of tonsillectomy History of back surgery Hx of hysterectomy History of total right knee replacement (~2014) History of bunionectomy History of total left knee replacement (~2017) Family History Family History Mother No problems noted. Father Lung cancer Social History Social History Household Members: None Household Members Other:: home alone [facility] Are you a primary direct care professional to a significant other at home: No Do you presently have visiting nurse or other home services: No Alcohol intake: current Alcohol intake frequency: holidays/special occasions only Comment: uses cane on occasion Patient Tobacco Use Status: Former Tobacco user Tobacco use type: Cigarette Years Smoked: 30 Smoked in Last 30 Days: No Use of substances other than those prescribed or required for medical reasons: No Advance Directives: No Advance Directives Information Provided: No Do you have a plan to hurt others: No Plan service: No Current occupational status: retired Current occupation: Right Handed Physical Exam Vital Signs: Vital Signs: Last Vital Signs Temp 98.2 F 11/24/23 22:13 Pulse 149 H 11/25/23 00:31 Resp 18 11/24/23 22:13 BP 119/93 H 11/25/23 00:31 Pulse Ox 97 11/24/23 22:13 O2 Del Method Room Air 11/24/23 22:13 BMI result Body Mass Index 27.7 Const: Other: Appearance: Alert. Oriented X3. No acute distress. Eyes: Pupils equal, round and reactive to light. ENT: Pharynx normal. Neck: Normal inspection. Neck supple. No lymph nodes noted. No crepitus CVS: Heart is irregularly irregular with a heart rate in the 140s Pulses normal. Normal S1 and S2 Respiratory: No respiratory distress. Breath sounds normal. No Wheezing. No rales Abdomen: Soft and nontender. No rigidity. No distention. Skin: 2 cm laceration to the back of the scalp, actively bleeding Extremities: No lower extremity edema. No Lacerations. No Rash Neuro: Oriented X 3. No motor deficit. No sensory deficit. Moving all extremities. No slurred speech. CN 2 through 12 grossly intact Psych: calm, cooperative, normal affect Course Course Course Narrative: Patient's wound was thoroughly cleaned, 3 saba were applied, bleeding stopped -on physical exam, it was noted that patient is tachycardic with an irregularly irregular heart rate. -EKG shows atrial fibrillation with a heart rate of 135, no ST segment depression or elevation, no T-wave inversion, QTC 441 -patient states that at home she usually takes metoprolol, states she is compliant with her medications -here in the ED, patient received a dose of 5 mg IV of metoprolol -last set of vitals: Patient's heart rate 149, blood pressure 119/93, respirations 18, temperature 98.2 degrees, oxygen saturation 97% on room air. -patient is neurologically intact, has no complaints, GCS 15 -I discussed the patient with Dr. Boles from the trauma team at [facility]. Patient will be transferred from ED to ED with a trauma consult -I discussed the above-mentioned with the patient and her daughter, both agree with the plan Medications Administered Discontinued Medications Generic Name Dose Route Start Last Admin Trade Name Freq PRN Reason Stop Dose Admin Labetalol HCl 5 mg 11/25/23 00:07 11/25/23 00:31 Labetalol Hcl 100 Mg/20 Ml Vial IVPUSH 11/25/23 00:08 5 mg ONCE ONE Administration Lidocaine HCl 5 ml 11/24/23 23:56 11/25/23 00:12 Lidocaine Hcl 2 % Mpf 5 Ml Vial INFILTRATI 11/24/23 23:57 Not Given ONCE ONE Procedures Laceration Laceration 1: Site: scalp Size (cm): 2 Description: linear Local Anesthetic: lidocaine 1% Amount of anesthesia used (mL): 3 Pre-repair: wound explored Skin layer closed with: other (Saba) Number of sutures: 3 Technique: simple, interrupted Medical Decision Making Medical Decision Making [facility] Narrative: I discussed the patient with Dr. Boles from the trauma team. Requesting to have the patient get a dose of Kcentra prior to transfer Differential Diagnosis Differential Diagnoses: The differential diagnosis associated with the presentation includes (Subdural hematoma, epidural hematoma, cervical spine injury, atrial fibrillation with RVR) Admission/Observation Consideration of admission/observation: Escalation of care including admission/observation considered Consult Healthcare Provider Management of the patient was discussed with: Employment Security Officer Lab Data [facility] Lab Attestation statement: I reviewed the patient's lab results. 11/24/23 23:21 11/24/23 23:21 Labs: Lab Results 11/24/23 Range/Units 23:21 WBC 9.3 (4.8-10.8) X10*3/uL RBC 4.32 (4.20-5.50) X10*6/uL Hgb 13.0 (12.0-16.0) g/dl Hct 40.3 (37.0-47.0) % MCV 93.3 (80.0-98.0) fL MCH 30.1 (27.0-33.0) pg MCHC 32.3 (31.0-35.0) g/dl RDW 14.2 (11.0-16.0) % Plt Count 236 (160-400) X10*3/uL MPV 9.6 (9.4-12.3) fL Absolute Nucleated RBC 0.000 (0.0-0.012) X10*3/uL Nucleated RBC % (auto) 0.0 (0.0-0.2) /100WBC PT 36.3 H D (11.1-13.3) SEC INR 3.0 H D (0.9-1.1) Sodium 141 (135-145) mmol/L Potassium 4.8 (3.3-5.1) mmol/L Chloride 106 (96-108) mmol/L Carbon Dioxide 28 (22-29) mmol/L Anion Gap 12 (12-20) BUN 27 H (9-16) mg/dL Creatinine 1.05 (0.5-1.4) mg/dL Estim Creat Clear Calc 40.5 Estimated GFR 50 Random Glucose 111 (60-115) mg/dL Calcium 9.8 (8.4-10.2) mg/dL Magnesium 2.2 (1.6-2.6) mg/dL Total Bilirubin 0.5 (0.0-1.0) mg/dL AST 20 (5-31) U/L ALT 14 (0-31) U/L Alkaline Phosphatase 74 (39-117) U/L Troponin I High Sens 7.1 (<3.5-17.0) ng/L Total Protein 6.7 (6.5-8.0) g/dL Albumin 3.8 (3.5-5.0) g/dL Independent Interpretation I performed an independent interpretation of an: CT Scan Interpretation: HEAD: A thin layer of hyperdense blood products overlying the left tentorial leaflet adjacent to the left temporal lobe, measuring up to 4 mm in thickness. No additional sites of intracranial hemorrhage are identified. A separate extra-axial fluid collections. No evidence of territorial infarction. No abnormal mass-effect or midline shift. Pack to white matter differentiation is well preserved. Marked enlargement of the ventricles, sulci, and extra-axial CSF spaces is indicative of parenchymal volume loss. A few foci of hypoattenuation in the subcortical and periventricular white matter are most consistent with chronic microangiopathic changes. Multiple small bilateral lacunar infarcts in the basal ganglia and thalamus. Calcific atherosclerosis is present within the cavernous segments of the internal carotid arteries. There is a small region of soft tissue contusion at the right posterolateral soft tissues over the parietal and occipital calvarium in the region of the lambdoid suture. No scalp hematomas. There is complete opacification of the left maxillary sinus with remodeling of the medial wall near the maxillary antrum, potentially due to chronic sinusitis or a mucocele. The sinuses and mastoid air cells are otherwise clear. CERVICAL SPINE: There is leftward tilt and turning of the head, change in the alignment at the junction of the occiput and cervical spine. Vertebral body heights are normal. No fractures of the vertebral bodies or posterior elements. There is anterolisthesis of C4 on C5 by 2 mm, likely related to facet arthropathy, left side greater than right. Degenerative changes are present at the craniocervical and atlantoaxial articulations, though normal alignment is maintained. Moderate degenerative disc disease at C6-C7, mild degenerative disc disease at the levels of the cervical spine. Facet arthropathy is most severe on the left at C3-C4 and C4-C5. There is ankylosis of the left C5 and C6 facet joints. Posterior disc osteophyte complex at C6-C7 produces at least mild central canal narrowing. Uncovertebral and facet osteophytes produce neural foraminal encroachment on the left multiple levels from C3-C4 through C6-C7. No significant paravertebral soft tissue swelling. Atherosclerotic calcifications are present in the carotid arteries. Thyroid gland is atrophic. Imaged portions of the lung apices are clear. CT/CT cervical spine wo IV con IMPRESSION: 1. Thin layer of acute subdural hemorrhage overlying the left tentorial leaflet. No additional sites of intracranial hemorrhage. 2. No acute fracture or acute malalignment in the cervical spine. 3. Marked cerebral atrophy and mild chronic white matter microangiopathy. 4. Multilevel degenerative spondylosis in the cervical spine. 5. Complete opacification of the left maxillary sinus with remodeling of the medial wall, new as compared to the prior study from 10/19/2021. This could be due to chronic sinusitis or mucocele. Consider ENT follow-up.. Radiology Impression Discussion of test interpretation with radiology: I have reviewed the radiologist's reading. Critical Care Time Critical Care Time Critical Care Time: Yes Total Critical Care Time: 45 Attestation: I have personally provided critical care time. Time includes review of lab data, radiology results, discussion with consultants, and monitoring for potential decompensation. Intervention performed as documented. Discharge Plan Discharge Clinical Impression: Subdural hemorrhage, Fall, Laceration of scalp Patient Disposition: [facility] Transfer Details: [facility], ED to ED, Dr. Boles from the trauma team Prescriptions: No Action diclofenac sodium [Voltaren Arthritis Pain] 1 % gel 2 g topical QID PRN (Reason: Pain) Rx Instructions: apply to both thumbs amoxicillin 500 mg Tablet 2,000 mg PO ONCE PRN (Reason: dental work) melatonin 5 mg Tablet 5 mg PO BEDTIME acetaminophen 325 mg Tablet 650 mg PO Q6H PRN (Reason: Pain, Mild (Pain Scale 1-3)) 30 Days Qty: 240 0RF enoxaparin 40 mg/0.4 mL Syringe 40 mg subcut Q24H 7 Days Qty: 2.8 0RF oxycodone 5 mg Tablet 5 mg PO Q4H PRN (Reason: Pain, Moderate(Pain Scale 4-6)) 7 Days Qty: 42 0RF Rx Instructions: Partial Fill upon patient request. duloxetine 60 mg capsule,delayed release(DR/EC) 60 mg PO DAILY bupropion HCl 300 mg tablet extended release 24 hr 300 mg PO QAM levothyroxine 75 mcg tablet 75 mcg PO DAILY@0600 metoprolol succinate 100 mg tablet extended release 24 hr 100 mg PO DAILY warfarin 2.5 mg tablet 2.5 mg PO Q OTHER DAY Rx Instructions: on odd numbered days celecoxib 200 mg capsule 200 mg PO QAM atorvastatin 10 mg tablet 10 mg PO QAM timolol maleate 0.5 % drops 1 drp ophthalmic (eye) BID trazodone 50 mg tablet 50 mg PO BEDTIME cholecalciferol (vitamin D3) 25 mcg (1,000 unit) capsule 25 mcg PO QAM omeprazole 20 mg tablet,delayed release (DR/EC) 20 mg PO DAILY@0630 acetaminophen-codeine 300-30 mg tablet 1 tab PO Q6H PRN Print Language: Greenlandic
[2023-11-25 01:02] LABS: COVID-19 Test Negative (Negative); IDNOW Serial# 152EDE1D
[2023-11-25] MEDS: Hum Prothrombin Cplx(PCC)4Fact 2,000 UNIT in Container,Empty 0 ML 480 UNIT IV (01:18)
[2023-11-25 01:19] VITALS: BP 139/85; PULSE 133; RESP 20; O2SAT 97
[2023-11-25] MEDS: Lidocaine HCl 1 % MPF 2 ML VIAL INFILTRATI (01:19)
--- NOTE | 2023-11-25 01:41 | PC.NURSE ---
Pt A&Ox3, forgetful, [place], reports 4/10 [place]. Pt reports falling backwards, + head strike, +thinners. Pt reports she was walking backwards on uneven grass and fell on to the sidewalk. Unsure about LOC, prolonged down time. Abrasion/laceration noted to back of head and right upper FA. Fall happened at approximately 7:30PM. Pt reports unsteady gait at baseline, and walks with cane.
[2023-11-25 01:43] VITALS: BP 139/85; PULSE 133; RESP 20; TEMP 36.7; O2SAT 97
== END 2023-11-25 01:45 | disposition short-term general hospital (02) ==
PROVIDERS: Emergency Provider Emergency Medicine; PCP Internal Medicine
DX: S06.5X0A Traumatic subdural hemorrhage without loss of consciousness, initial encounter (principal); S01.01XA Laceration without foreign body of scalp, initial encounter; W18.39XA Other fall on same level, initial encounter; R00.0 Tachycardia, unspecified; I48.91 Unspecified atrial fibrillation; Z87.891 Personal history of nicotine dependence; Y93.K1 Activity, walking an animal; Y92.017 Garden or yard in single-family (private) house as the place of occurrence of the external cause; Y99.9 Unspecified external cause status; Z79.01 Long term (current) use of anticoagulants; Z79.899 Other long term (current) drug therapy
CPT/HCPCS: 12001; 36415; 70450; 72125; 80053; 83735; 84484; 85027; 85610; 87635; 93005; 96365; 96375; 99285; J1920; J7168

== ENCOUNTER 2023-12-05 19:40 | Inpatient (IN) | payer MEDICARE, SELFPAY ==
[2023-12-05] VITALS (7 sets, daily range): BP systolic 99–164; BP diastolic 64–119; PULSE 111–149; RESP 12–18; TEMP 36.3–36.7; O2SAT 92–98; BMI 25.0
--- NOTE | ~2023-12-05 | CT_ITS ---
EXAMINATION: CT HEAD WITHOUT CONTRAST CT CERVICAL SPINE WITHOUT CONTRAST CLINICAL INFORMATION: Subdural hematoma. COMPARISON: CT head and cervical spine from 11/24/2023. TECHNIQUE: Contiguous axial imaging was performed from the skull base to vertex without intravenous administration of contrast. Contiguous axial imaging was performed from the upper chest through the skull base without intravenous administration of contrast. Coronal and sagittal reformats were obtained at the acquisition workstation. This CT examination was performed using dose optimization techniques as appropriate, variously including the following: *Automated exposure control. *Adjustment of mA and/or kV according to patient size (this includes techniques or standardized protocols for targeted exams where dose is matched to indication/reason for exam; i.e. extremities or head). *Use of iterative reconstruction technique. DLP: 979 mGy-cm FINDINGS: Head: Stable small volume left tentorial subdural hematoma, measuring up to 0.2 cm in depth. There is also trace hypoattenuating expansion of left hemispheric subdural space with slight lifting of the cerebral veins from the inner table of the calvarium. No evidence of interval hemorrhagic expansion. No evidence of acute edematous territorial infarction. Chronic lacunar infarcts of the bilateral caudate heads/anterior limbs of the internal capsules and bilateral lentiform nuclei. No new loss of calzada-white matter demonstration. Scattered and partially confluent hypoattenuation in the periventricular and deep white matter are consistent with moderate microangiopathy. Proportional prominence of the ventricles and sulcal spaces without evidence of obstructive hydrocephalus. No abnormal mass effect or midline shift. No acute soft tissue or osseous abnormalities. Complete opacification of the left maxillary sinus with remodeled expansion of the left ostium/infundibulum. Mild mucosal thickening of the remaining paranasal sinuses. The mastoid air cells and middle ear cavities are clear. Moderate degenerative arthropathy of the left temporomandibular joint. Bilateral lens extractions. Cervical Spine: The atlantooccipital and atlantoaxial articulations remain well aligned. Moderate degenerative arthropathy at the atlantodental articulation. Straightening of the normal cervical lordosis. Mild degenerative supplies anterolistheses of C4-C6. Otherwise, there is anatomic alignment of the vertebral bodies and posterior elements. Congenital nonunion of the posterior arch of C1. No evidence of acute fracture or subluxation. The vertebral body heights are maintained. Advanced degenerative disc disease at C6-C7. Moderate degenerative disease at C2-C3, C5-C6, and C7-T1. Facet and uncovertebral joint arthropathy leads to osseous encroachment on the neural foramina from C2-C6. There is no prevertebral soft tissue swelling. Atrophy of the thyroid gland. The remaining cervical soft tissues are within normal limits. The lung apices demonstrate no abnormalities. CT/CT cervical spine wo IV con IMPRESSION: 1. Stable small volume left tentorial and hemispheric subdural hematomas. No evidence of interval hemorrhagic expansion. 2. No evidence of acute edematous territorial infarction. Moderate underlying microangiopathy and generalized cerebral volume loss. 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 3. No evidence of acute fracture or traumatic subluxation of the cervical spine. Moderate multilevel degenerative spondyloarthropathy of the cervical spine. 4. Chronic left maxillary sinus disease. Electronically signed by: Filemon Wetzel DO 12/05/2023 09:58 PM EDT
--- NOTE | 2023-12-05 19:50 | ED.GENADULT ---
HPI - General Adult General Chief complaint: Fall Stated complaint: LT hand inj s/p fall Time Seen by Provider: 12/05/23 20:06 Source: patient and family Mode of arrival: ambulatory Limitations: no limitations History of Present Illness ED Provider: Dr. Emily Sims HPI narrative: Patient comes to the emergency room complaining of multiple falls. Patient states that this time she was going up the stairs, slipped and landed forward hitting her head. Patient did not lose consciousness. of note, patient has sustained significant fall couple of weeks ago, patient had a subdural hematoma, transferred to [facility] from this hospital. Patient remained at [facility] for 5 days due to AFib with RVR that was difficult to control. Patient's daughter states that the patient was taken of warfarin, no blood thinners were continued. Also, patient's daughter states that after she was discharged from the hospital, they did not have prescriptions for heart rate control. And patient has not been taking any meds for about a week. At this time, patient states that she has no headache, no neck pain, complaining of a skin tear to the dorsum of the left hand. Related Data Home Medications ?Medication ?Instructions ?Recorded ?Confirmed bupropion HCl 300 mg 24 hr tablet, 300 mg PO QAM 02/19/20 08/03/23 extended release duloxetine 60 mg capsule,delayed 60 mg PO DAILY 02/19/20 08/11/23 release levothyroxine 75 mcg tablet 75 mcg PO DAILY@0600 02/19/20 08/11/23 metoprolol succinate 100 mg 100 mg PO DAILY 02/19/20 08/11/23 tablet,extended release 24 hr warfarin 2.5 mg tablet 2.5 mg PO Q OTHER DAY 02/19/20 08/03/23 atorvastatin 10 mg tablet 10 mg PO QAM 02/23/22 08/03/23 timolol maleate 0.5 % eye drops 1 drp ophthalmic (eye) BID 02/23/22 08/03/23 trazodone 50 mg tablet 50 mg PO BEDTIME 02/23/22 08/03/23 celecoxib 200 mg capsule 200 mg PO QAM 04/07/22 08/03/23 cholecalciferol (vitamin D3) 25 25 mcg PO QAM 04/07/22 08/03/23 mcg (1,000 unit) capsule omeprazole 20 mg tablet,delayed 20 mg PO DAILY@0630 04/07/22 08/11/23 release amoxicillin 500 mg tablet 2,000 mg PO ONCE PRN dental work 08/03/23 08/03/23 diclofenac sodium 1 % topical gel 2 g topical QID PRN Pain 08/03/23 08/03/23 (Voltaren Arthritis Pain) melatonin 5 mg tablet 5 mg PO BEDTIME 08/03/23 08/03/23 acetaminophen 300 mg-codeine 30 mg 1 tab PO Q6H PRN 08/26/23 tablet Previous Rx's ?Medication ?Instructions ?Recorded acetaminophen 325 mg tablet 650 mg (2 x 325 mg) PO Q6H PRN 08/12/23 Pain, Mild (Pain Scale 1-3) 30 days #240 tabs enoxaparin 40 mg/0.4 mL 40 mg (0.4 mL) subcut Q24H 7 days 08/12/23 subcutaneous syringe #2.8 mL oxycodone 5 mg tablet 5 mg PO Q4H PRN Pain, 08/12/23 Moderate(Pain Scale 4-6) 7 days #42 tabs Allergies Allergy/AdvReac Type Severity Reaction Status Date / Time albuterol Allergy Intermediate extreme Verified 12/05/23 19:57 facial flushing hydromorphone [From DILAUDID] Allergy Intermediate extreme Verified 12/05/23 19:57 facial flushing Penicillins [PENICILLINS] Allergy Intermediate RASH Verified 12/05/23 19:57 (states can take ampicillin) Review of Systems Review of Systems: Constitutional : No Weight loss, No Fever, No Chills, No Night Sweats, No Fatigue, No Malaise ENT/Mouth : No Hearing loss, No Ear Pain, No Nasal Congestion, No Sinus Pain, No Hoarseness, No sore throat, No Rhinorrhea, No Swallowing Difficulty Eyes: No Eye Pain, No Swelling, No Redness, No Foreign Body, No Discharge, No Vision Changes Cardiovascular : No Chest Pain, No SOB, No Dyspnea on Exertion, No Orthopnea, No Edema, No Palpitations Respiratory : No Cough, No Sputum, No Wheezing, No Smoke Exposure, No Dyspnea Gastrointestinal : No Nausea, No Vomiting, No Diarrhea, No Constipation, No abdominal Pain, No Hematochezia, No Melena Genitourinary : no irregular bleeding, No Dysuria, No Urinary Frequency, No Hematuria, No Urinary Incontinence, No Urgency, No Flank Pain, No Urinary Flow Changes, No Hesitancy Musculoskeletal : No joint pain, No Myalgias, No Joint Swelling Skin : Complaining of abrasion/skin flap to the left hand on the dorsum, multiple ecchymosis Neuro : No Weakness, No Numbness, No Paresthesias, No Loss of Consciousness, No Dizziness, No Headache Psych : No Anxiety/Panic, No Depression, No SI/HI/AH/VH, No Social Issues, Heme/Lymph: No Bruising, No Bleeding,No Lymphadenopathy Endocrine : No Polyuria, No Polydipsia, No Temperature Intolerance [facility] Past Medical History Medical History Glaucoma Arthritis Anticoagulated GERD (gastroesophageal reflux disease) Renal calculi Forgetfulness Pseudogout Low back pain Bursitis of right hip Afib Surgical History History of total right knee replacement (TKR) Hx of bilateral cataract extraction H/O colonoscopy Hx of tonsillectomy History of back surgery Hx of hysterectomy History of total right knee replacement (~2014) History of bunionectomy History of total left knee replacement (~2017) Family History Family History Mother No problems noted. Father Lung cancer Social History Social History Household Members: None Household Members Other:: home alone [facility]: [facility] Are you a primary career development engineer to a significant other at home: No Do you presently have visiting nurse or other home services: No Alcohol intake: current Alcohol intake frequency: holidays/special occasions only Comment: uses cane on occasion Patient Tobacco Use Status: Former Tobacco user Tobacco use type: Cigarette Years Smoked: 30 Smoked in Last 30 Days: No Use of substances other than those prescribed or required for medical reasons: No Advance Directives: Yes Advance Directives Information Provided: No Advance Directives on File: No Do you have a plan to hurt others: No Plan service: No Current occupational status: retired Current occupation: Right Handed Physical Exam ED Vital Signs: Vital Signs - 24 hr 12/05/23 19:51 12/05/23 20:06 12/05/23 20:06 Temperature 97.3 F 97.9 F 97.9 F Pulse Rate 140 H 145 H 149 H Respiratory Rate 16 17 15 Blood Pressure 99/64 154/119 H 164/107 H Pulse Oximetry 97 97 98 Oxygen Delivery Method Room Air Room Air 12/05/23 20:43 12/05/23 20:50 12/05/23 21:45 Temperature Pulse Rate 140 H 125 H 121 H Respiratory Rate 12 13 17 Blood Pressure 141/93 H 130/90 H 152/105 H Pulse Oximetry 94 93 95 Oxygen Delivery Method Room Air Room Air Room Air 12/05/23 21:59 12/05/23 23:15 Temperature 98.0 F Pulse Rate 111 H 135 H Respiratory Rate 18 Blood Pressure 149/93 H 150/90 H Pulse Oximetry 92 Oxygen Delivery Method Room Air BMI result Body Mass Index 25.0 Const Other: Appearance: Alert. Oriented X3. No acute distress. well-appearing Eyes: Pupils equal, round and reactive to light. ENT: Pharynx normal. Neck: Normal inspection. Neck supple. No lymph nodes noted. No crepitus CVS: heart rate irregularly regular between 140 and 150 beats per minute.. Pulses normal. Normal S1 and S2 Respiratory: No respiratory distress. Breath sounds normal. No Wheezing. No rales Abdomen: Soft and nontender. No rigidity. No distention. Skin: S Small skin tear to the dorsum of the left hand Extremities: No lower extremity edema. No Lacerations. No Rash Neuro: Oriented X 3. No motor deficit. No sensory deficit. Moving all extremities. No slurred speech. CN 2 through 12 grossly intact Psych: calm, cooperative, normal affect Course Course Course Narrative: RME performed by Venus Paula PA-C. Patient is an 83 year old assigned female at presenting to the emergency department after a fall. Patient states that she had a recent fall and had a brain bleed. Patient states that she was seen here and transferred. Patient states that she is supposed to be on medications for her atrial fib but is now not on any medications for that, including an anti-coag or rate litigation support analyst. Detailed physical exam and review of systems are deferred to the program clinician. EKG, labs, imaging ordered. RN made aware of the patient. Medications Administered Discontinued Medications Generic Name Dose Route Start Last Admin Trade Name Freq PRN Reason Stop Dose Admin Digoxin 0.25 mg 12/05/23 21:34 12/05/23 21:42 Digoxin 0.5 Mg/2 Ml Ampul IVPUSH 12/05/23 21:35 0.25 mg ONCE ONE Administration Protocol Diltiazem HCl 10 mg 12/05/23 23:10 12/05/23 23:15 Diltiazem Hcl 50 Mg/10 Ml Vial IVPUSH 12/05/23 23:11 10 mg STAT STA Administration Metoprolol Tartrate 5 mg 12/05/23 20:20 12/05/23 20:41 Metoprolol Tartrate 5 Mg/5 Ml Vial IVPUSH 12/05/23 20:21 5 mg ONCE ONE Administration Protocol Medical Decision Making Medical Decision Making MDM Narrative: - patient still has the saba on her head from her previous visit, the 3 saba were removed - my interpretation of EKG: Atrial fibrillation with RVR, heart rate 142, no ST segment depression or elevation, no T-wave inversion, QTC 455 - patient is in AFib with RVR: patient's blood pressure 152/105, received 1 dose of 5 mg IV metoprolol - after the metoprolol, heart rate improved to the 120s, patient was given a dose of digoxin 0.25 mg - IV digoxin did not have significant effect on patient's heart rate. Patient still in the 140s to 150s. Blood pressure in the 150s systolic. Patient asymptomatic - patient receiving a dose of IV Cardizem push. 10 mg. I discussed with the patient and her daughter that if this does not work, we will have to start a drip and admit the patient. - After a push of Cardizem, patient's heart rate decreased to the mid 90s. Blood pressure in the 140 systolic. Patient walked a few steps as her of a room with her walker, patient remained asymptomatic but her heart rate went back to the 130s to 150s. Patient is now on a Cardizem drip - I discussed the patient with Dr. Preston Differential Diagnosis Differential Diagnoses: The differential diagnosis associated with the presentation includes ( Contusion, concussion, subdural hematoma, cervical spine injury, AFib with RVR) Admission/Observation Consideration of admission/observation: Escalation of care including admission/observation considered ( given patient's heart rate/ rhythm, admission has been considered.) Lab Data MDM Lab Attestation statement: I reviewed the patient's lab results. 12/05/23 20:16 12/05/23 20:16 Labs: Lab Results 12/05/23 Range/Units 20:16 WBC 8.5 (4.8-10.8) X10*3/uL RBC 4.60 (4.20-5.50) X10*6/uL Hgb 13.6 (12.0-16.0) g/dl Hct 42.1 (37.0-47.0) % MCV 91.5 (80.0-98.0) fL MCH 29.6 (27.0-33.0) pg MCHC 32.3 (31.0-35.0) g/dl RDW 14.2 (11.0-16.0) % Plt Count 327 D (160-400) X10*3/uL MPV 9.1 L (9.4-12.3) fL Immature Gran % (Auto) 0.4 (0.0-0.4) % Neut % (Auto) 74.7 H (45-73) % Lymph % (Auto) 10.6 L (20-40) % Coffey % (Auto) 11.0 (2-11) % Eos % (Auto) 2.8 (0-4) % Baso % (Auto) 0.5 (0-2) % Lymph # (Auto) 0.9 L (1.2-4.9) X10*3/uL Coffey # (Auto) 0.9 (0.1-1.2) X10*3/uL Eos # (Auto) 0.2 (0.0-0.4) X10*3/uL Baso # (Auto) 0.0 (0.0-0.2) X10*3/uL Abs Immat Gran (auto) 0.03 (0.00-0.03) X10*3/uL Absolute Neuts (auto) 6.3 (2.0-8.3) x10*3/uL Absolute Nucleated RBC 0.000 (0.0-0.012) X10*3/uL Nucleated RBC % (auto) 0.0 (0.0-0.2) /100WBC PT 12.1 D (11.1-13.3) SEC INR 1.0 D (0.9-1.1) APTT 32.1 (26.0-36.8) SEC Sodium 139 (135-145) mmol/L Potassium 4.6 (3.3-5.1) mmol/L Chloride 102 (96-108) mmol/L Carbon Dioxide 26 (22-29) mmol/L Anion Gap 16 (12-20) BUN 25 H (9-16) mg/dL Creatinine 1.31 (0.5-1.4) mg/dL Estim Creat Clear Calc 28.7 Estimated GFR 39 Random Glucose 106 (60-115) mg/dL Calcium 10.4 H D (8.4-10.2) mg/dL Magnesium 2.1 (1.6-2.6) mg/dL Total Bilirubin 0.7 (0.0-1.0) mg/dL AST 19 (5-31) U/L ALT 12 (0-31) U/L Alkaline Phosphatase 78 (39-117) U/L B-Natriuretic Peptide 107 H (<100) pg/mL Total Protein 7.4 (6.5-8.0) g/dL Albumin 3.9 (3.5-5.0) g/dL Independent Interpretation I performed an independent interpretation of an: CT Scan Radiology Impression Discussion of test interpretation with radiology: I have reviewed the radiologist's reading. Radiologist Impression: Head: Stable small volume left tentorial subdural hematoma, measuring up to 0.2 cm in depth. There is also trace hypoattenuating expansion of left hemispheric subdural space with slight lifting of the cerebral veins from the inner table of the calvarium. No evidence of interval hemorrhagic expansion. No evidence of acute edematous territorial infarction. Chronic lacunar infarcts of the bilateral caudate heads/anterior limbs of the internal capsules and bilateral lentiform nuclei. No new loss of calzada-white matter demonstration. Scattered and partially confluent hypoattenuation in the periventricular and deep white matter are consistent with moderate microangiopathy. Proportional prominence of the ventricles and sulcal spaces without evidence of obstructive hydrocephalus. No abnormal mass effect or midline shift. No acute soft tissue or osseous abnormalities. Complete opacification of the left maxillary sinus with remodeled expansion of the left ostium/infundibulum. Mild mucosal thickening of the remaining paranasal sinuses. The mastoid air cells and middle ear cavities are clear. Moderate degenerative arthropathy of the left temporomandibular joint. Bilateral lens extractions. Cervical Spine: The atlantooccipital and atlantoaxial articulations remain well aligned. Moderate degenerative arthropathy at the atlantodental articulation. Straightening of the normal cervical lordosis. Mild degenerative supplies anterolistheses of C4-C6. Otherwise, there is anatomic alignment of the vertebral bodies and posterior elements. Congenital nonunion of the posterior arch of C1. No evidence of acute fracture or subluxation. The vertebral body heights are maintained. Advanced degenerative disc disease at C6-C7. Moderate degenerative disease at C2-C3, C5-C6, and C7-T1. Facet and uncovertebral joint arthropathy leads to osseous encroachment on the neural foramina from C2-C6. There is no prevertebral soft tissue swelling. Atrophy of the thyroid gland. The remaining cervical soft tissues are within normal limits. The lung apices demonstrate no abnormalities. CT/CT head/brain wo IV con IMPRESSION: 1. Stable small volume left tentorial and hemispheric subdural hematomas. No evidence of interval hemorrhagic expansion. 2. No evidence of acute edematous territorial infarction. Moderate underlying microangiopathy and generalized cerebral volume loss. 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 3. No evidence of acute fracture or traumatic subluxation of the cervical spine. Moderate multilevel degenerative spondyloarthropathy of the cervical spine. 4. Chronic left maxillary sinus disease. Independent Historian Clinical information obtained from an independent historian. History obtained from or confirmed by: Other ( patient's daughter) Critical Care Time Critical Care Time Critical Care Time: Yes Total Critical Care Time: 75 Attestation: I have personally provided critical care time. Time includes review of lab data, radiology results, discussion with consultants, and monitoring for potential decompensation. Intervention performed as documented. Discharge Plan Discharge Clinical Impression: Atrial fibrillation with RVR, Fall, Contusion of head, Skin tear of upper extremity Patient Disposition: Admitted As Inpatient Prescriptions: No Action diclofenac sodium [Voltaren Arthritis Pain] 1 % gel 2 g topical QID PRN (Reason: Pain) Rx Instructions: apply to both thumbs amoxicillin 500 mg Tablet 2,000 mg PO ONCE PRN (Reason: dental work) melatonin 5 mg Tablet 5 mg PO BEDTIME acetaminophen 325 mg Tablet 650 mg PO Q6H PRN (Reason: Pain, Mild (Pain Scale 1-3)) 30 Days Qty: 240 0RF enoxaparin 40 mg/0.4 mL Syringe 40 mg subcut Q24H 7 Days Qty: 2.8 0RF oxycodone 5 mg Tablet 5 mg PO Q4H PRN (Reason: Pain, Moderate(Pain Scale 4-6)) 7 Days Qty: 42 0RF Rx Instructions: Partial Fill upon patient request. duloxetine 60 mg capsule,delayed release(DR/EC) 60 mg PO DAILY bupropion HCl 300 mg tablet extended release 24 hr 300 mg PO QAM levothyroxine 75 mcg tablet 75 mcg PO DAILY@0600 metoprolol succinate 100 mg tablet extended release 24 hr 100 mg PO DAILY warfarin 2.5 mg tablet 2.5 mg PO Q OTHER DAY Rx Instructions: on odd numbered days celecoxib 200 mg capsule 200 mg PO QAM atorvastatin 10 mg tablet 10 mg PO QAM timolol maleate 0.5 % drops 1 drp ophthalmic (eye) BID trazodone 50 mg tablet 50 mg PO BEDTIME cholecalciferol (vitamin D3) 25 mcg (1,000 unit) capsule 25 mcg PO QAM omeprazole 20 mg tablet,delayed release (DR/EC) 20 mg PO DAILY@0630 acetaminophen-codeine 300-30 mg tablet 1 tab PO Q6H PRN Print Language: Nepali
--- NOTE | 2023-12-05 19:52 | ECG_ITS ---
Test Reason : AFIB Blood Pressure : / mmHG Vent. Rate : 142 BPM Atrial Rate : 000 BPM P-R Int : 000 ms QRS Dur : 084 ms QT Int : 296 ms P-R-T Axes : 000 -26 038 degrees QTc Int : 455 ms Atrial fibrillation with rapid ventricular response Minimal voltage criteria for LVH, may be normal variant ( R in aVL ) Abnormal ECG When compared with ECG of 24-NOV-2023 23:54, No significant change was found Referred By: Venus Paula Electronically Signed By:ELISABETH QUIJANO
[2023-12-05 20:27] LABS: MANUAL DIFF FLAG NO
[2023-12-05 20:30] LABS: Basophils Percent Auto 0.5 % (0-2); Eosinophils Absolute Auto 0.2 X10*3/uL (0.0-0.4); Eosinophils Percent Auto 2.8 % (0-4); Hematocrit 42.1 % (37.0-47.0); Hemoglobin 13.6 g/dl (12.0-16.0); Imm Gran Abs Auto 0.03 X10*3/uL (0.00-0.03); Imm Gran Pct Auto 0.4 % (0.0-0.4); Lymphocytes Absolute Auto 0.9 X10*3/uL (1.2-4.9); Lymphocytes Percent Auto 10.6 % (20-40); Mean Corpuscular HGB Conc 32.3 g/dl (31.0-35.0); Mean Corpuscular Hemoglobin 29.6 pg (27.0-33.0); Mean Corpuscular Volume 91.5 fL (80.0-98.0); Mean Platelet Volume 9.1 fL (9.4-12.3); Monocytes Absolute Auto 0.9 X10*3/uL (0.1-1.2); Neutrophils Absolute Auto 6.3 x10*3/uL (2.0-8.3); Neutrophils Percent Auto 74.7 % (45-73); Platelet Count 327 X10*3/uL (160-400); Red Cell Distribution Width 14.2 % (11.0-16.0); White Blood Count 8.5 X10*3/uL (4.8-10.8)
[2023-12-05 20:39] LABS: Prothrombin Time 12.1 SEC (11.1-13.3)
[2023-12-05] MEDS: Metoprolol Tartrate 5 MG/5 ML VIAL IVPUSH (20:41)
[2023-12-05 20:42] LABS: Partial Thromboplastin Time 32.1 SEC (26.0-36.8)
[2023-12-05 20:46] LABS: Alanine Aminotransferase 12 U/L (0-31); Albumin Level 3.9 g/dL (3.5-5.0); Alkaline Phosphatase 78 U/L (39-117); Anion Gap 16 (12-20); Aspartate Amino Transferase 19 U/L (5-31); Bilirubin Total 0.7 mg/dL (0.0-1.0); Blood Urea Nitrogen 25 mg/dL (9-16); Calcium 10.4 mg/dL (8.4-10.2); Carbon Dioxide 26 mmol/L (22-29); Chloride 102 mmol/L (96-108); Creatinine Clr Calc Pharmacy 28.7; Estimated Glomerular Filt Rate 39; Glucose Random 106 mg/dL (60-115); Magnesium 2.1 mg/dL (1.6-2.6); Potassium 4.6 mmol/L (3.3-5.1); Sodium 139 mmol/L (135-145); Total Protein 7.4 g/dL (6.5-8.0)
--- NOTE | 2023-12-05 20:49 | PC.NURSE ---
ice applied to left cheek bone due to swelling and tenderness
[2023-12-05 21:14] LABS: B Type Natriuretic Peptide 107 pg/mL (<100)
[2023-12-05] MEDS: Digoxin 0.5 MG/2 ML AMPUL 0.25 MG IVPUSH (21:42)
[2023-12-05] MEDS: dilTIAZem HCL 50 MG/10 ML VIAL 10 MG IVPUSH (23:15)
[2023-12-06] VITALS (14 sets, daily range): BP systolic 111–168; BP diastolic 57–95; PULSE 75–126; RESP 12–22; TEMP 36.3–37.4; O2SAT 90–97; BMI 27.4
--- NOTE | 2023-12-06 00:11 | MHC.EDTECH ---
PER THIS TECH WAS ASK TO WALK PT TO SEE HOW HER HEART RATE WAS WHEN WALKING PT HEAT RATE WAS 140 O2% was 95%
--- NOTE | 2023-12-06 00:20 | P.HPHOSP_ITS ---
History of Present Illness Date of Service: 12/06/23 Chief Complaint: Fall This is a 83-year-old female with pertinent history of atrial fibrillation not on anticoagulation, recently diagnosed subdural hematoma, mixed hyperlipidemia, mood disorder, hypothyroidism, gastroesophageal reflux disease who presents to the emergency department for evaluation after a fall. Of note, patient was seen in the ER on 11/24 after a fall when CT revealed acute subdural hematoma and patient was transferred to [facility]. Patient was at [facility] for about 5 days and does state that she had difficult to control heart rate while at the hospital. Patient did not receive any prescriptions while being discharged from [facility] and hence has not taken any home prescription medications in the last 5-6 days. On the day of presentation, patient states she was wearing shoes that were slippery. Her shoes slid on the 1st step and she fell. Admits to hitting her head. Did not lose consciousness prior to the fall. No lightheadedness or dizziness prior to the fall. No chest pain or palpitations prior to the fall. No rhythmic jerking movement of extremities. She denies fever, chills, shortness of breath, abdominal pain, changes in urinary or bowel habits. In the emergency department, patient was found to be in AFib with RVR and initiated on IV diltiazem drip. Review of Systems 2 Constitutional: Constitutional: Reports no additional constitutional complaints Cardiovascular: Cardiovascular: Reports rapid heart rate Respiratory: Respiratory: Reports no additional respiratory complaints Gastrointestinal: Gastrointestinal: Reports no additional gastrointestinal complaints Genitourinary: Genitourinary: Reports no additional female genitourinary complaints [facility] Medical History Glaucoma Arthritis Anticoagulated GERD (gastroesophageal reflux disease) Renal calculi Forgetfulness Pseudogout Low back pain Bursitis of right hip Afib Family History Mother No problems noted. Father Lung cancer Surgical History History of total right knee replacement (TKR) Hx of bilateral cataract extraction H/O colonoscopy Hx of tonsillectomy History of back surgery Hx of hysterectomy History of total right knee replacement (~2014) History of bunionectomy History of total left knee replacement (~2017) Social History Household Members: None Household Members Other:: home alone Housing: Condominium Are you a primary managed care manager to a significant other at home: No Do you presently have visiting nurse or other home services: No Alcohol intake: current Alcohol intake frequency: holidays/special occasions only Comment: uses cane on occasion Patient Tobacco Use Status: Former Tobacco user Tobacco use type: Cigarette Years Smoked: 30 Smoked in Last 30 Days: No Use of substances other than those prescribed or required for medical reasons: No Advance Directives: Yes Advance Directives Information Provided: No Advance Directives on File: No Do you have a plan to hurt others: No Plan service: No Current occupational status: retired Current occupation: Right Handed Meds Allergies Allergy/AdvReac Type Severity Reaction Status Date / Time albuterol Allergy Intermediate extreme Verified 12/05/23 19:57 facial flushing hydromorphone [From DILAUDID] Allergy Intermediate extreme Verified 12/05/23 19:57 facial flushing Penicillins [PENICILLINS] Allergy Intermediate RASH Verified 12/05/23 19:57 (states can take ampicillin) Active Medications: Current Medications Diltiazem HCl 125 mg/ Sodium (Chloride) 125 mls @ 0 mls/hr IVCONT .Q0M COUNTS INCLUDE 234 BEDS AT THE [facility]; Protocol Home Medications ?Medication ?Instructions ?Recorded ?Confirmed ?Last Taken ?Type bupropion HCl 300 mg 24 hr tablet, 300 mg PO QAM 02/19/20 08/03/23 08/10/23 History extended release duloxetine 60 mg capsule,delayed 60 mg PO DAILY 02/19/20 08/11/23 08/10/23 History release levothyroxine 75 mcg tablet 75 mcg PO DAILY@0600 02/19/20 08/11/23 08/10/23 History metoprolol succinate 100 mg 100 mg PO DAILY 02/19/20 08/11/23 08/10/23 History tablet,extended release 24 hr warfarin 2.5 mg tablet 2.5 mg PO Q OTHER DAY 02/19/20 08/03/23 08/08/23 History atorvastatin 10 mg tablet 10 mg PO QAM 02/23/22 08/03/23 08/10/23 History timolol maleate 0.5 % eye drops 1 drp ophthalmic (eye) BID 02/23/22 08/03/23 08/10/23 History trazodone 50 mg tablet 50 mg PO BEDTIME 02/23/22 08/03/23 08/10/23 History celecoxib 200 mg capsule 200 mg PO QAM 04/07/22 08/03/23 07/28/23 History cholecalciferol (vitamin D3) 25 25 mcg PO QAM 04/07/22 08/03/23 08/10/23 History mcg (1,000 unit) capsule omeprazole 20 mg tablet,delayed 20 mg PO DAILY@0630 04/07/22 08/11/23 08/10/23 History release amoxicillin 500 mg tablet 2,000 mg PO ONCE PRN dental work 08/03/23 08/03/23 Unknown History diclofenac sodium 1 % topical gel 2 g topical QID PRN Pain 08/03/23 08/03/23 07/28/23 History (Voltaren Arthritis Pain) melatonin 5 mg tablet 5 mg PO BEDTIME 08/03/23 08/03/23 08/10/23 History acetaminophen 300 mg-codeine 30 mg 1 tab PO Q6H PRN 08/26/23 Unknown History tablet Physical Exam 2 Vital Signs and Narrative: Vital Signs: Last Vital Signs Temp 98.0 F 12/05/23 21:59 Pulse 112 H 12/06/23 00:11 Resp 18 12/06/23 00:11 BP 140/95 H 12/06/23 00:11 Pulse Ox 95 12/06/23 00:11 O2 Del Method Room Air 12/06/23 00:11 BMI result Body Mass Index 25.0 Elderly male lying in bed in no distress Neck supple, no JVD Irregularly irregular, S1-S2 heard Regular breath sounds bilaterally, no wheezing or crackles appreciated Abdomen soft nontender, no guarding, no rigidity Patient is awake, alert and oriented to self, place, time and person ; no focal motor deficit Psych: Normal mood No pedal edema Results Labs 12/06/23 04:35 12/06/23 04:35 Labs: Laboratory Results - last 24 hr 12/05/23 20:16 MCV 91.5 MCH 29.6 MCHC 32.3 RDW 14.2 Plt Count 327 D MPV 9.1 L Immature Gran % (Auto) 0.4 Neut % (Auto) 74.7 H Lymph % (Auto) 10.6 L [place] % (Auto) 11.0 Eos % (Auto) 2.8 Baso % (Auto) 0.5 Lymph # (Auto) 0.9 L [place] # (Auto) 0.9 Eos # (Auto) 0.2 Baso # (Auto) 0.0 Abs Immat Gran (auto) 0.03 Absolute Neuts (auto) 6.3 Absolute Nucleated RBC 0.000 Nucleated RBC % (auto) 0.0 PT 12.1 D INR 1.0 D APTT 32.1 Anion Gap 16 Estim Creat Clear Calc 28.7 Estimated GFR 39 Random Glucose 106 Calcium 10.4 H D Magnesium 2.1 Total Bilirubin 0.7 AST 19 ALT 12 Alkaline Phosphatase 78 B-Natriuretic Peptide 107 H Total Protein 7.4 Albumin 3.9 Imaging Radiologist's Impressions: Impressions Cervical Spine CT 12/05/23 20:45 IMPRESSION: 1. Stable small volume left tentorial and hemispheric subdural hematomas. No evidence of interval hemorrhagic expansion. 2. No evidence of acute edematous territorial infarction. Moderate underlying microangiopathy and generalized cerebral volume loss. 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 3. No evidence of acute fracture or traumatic subluxation of the cervical spine. Moderate multilevel degenerative spondyloarthropathy of the cervical spine. 4. Chronic left maxillary sinus disease. Electronically signed by: Filemon Wetzel DO 12/05/2023 09:58 PM EDT RP Head CT 12/05/23 20:45 IMPRESSION: 1. Stable small volume left tentorial and hemispheric subdural hematomas. No evidence of interval hemorrhagic expansion. 2. No evidence of acute edematous territorial infarction. Moderate underlying microangiopathy and generalized cerebral volume loss. 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 3. No evidence of acute fracture or traumatic subluxation of the cervical spine. Moderate multilevel degenerative spondyloarthropathy of the cervical spine. 4. Chronic left maxillary sinus disease. Electronically signed by: Filemon Wetzel DO 12/05/2023 09:58 PM EDT RP Assessment and Plan (1) Atrial fibrillation with RVR: Status: Acute Plan This is a 83-year-old female with pertinent history of atrial fibrillation not on anticoagulation, recently diagnosed subdural hematoma, mixed hyperlipidemia, mood disorder, hypothyroidism, gastroesophageal reflux disease who presents to the emergency department for evaluation after a fall. #. AFib with RVR: As she has not taken home beta-coco dosage in the last 5- 6 days since being discharged from [facility]. Will admit patient with cardiac monitoring. Obtaining TSH. Initiated on IV diltiazem drip in the ER. Resume home metoprolol dose and consulting Cardiology. Not on anticoagulation due to subdural hematoma. #. Subdural hematoma: Diagnosed on CT scan from 11/23 in the ER when patient was transferred to [facility] and recently admitted at [facility] for the same. Is stable. Continue to monitor and avoid anticoagulation #. Hypothyroidism: Resume home Synthroid. TSH pending #. Mixed hyperlipidemia: Resume statin #. Mood disorder: Resume home mood stabilizers once med rec is complete #. Gastroesophageal reflux disease: On PPI Med rec pending DVT prophylaxis: Mechanical Full code. Discussed with patient at bedside Admit as inpatient and will require two night minimum hospital stay for close monitoring of heart rate (as above), which is not possible in a lesser acute setting. Quality Stroke Does the patient have a stroke diagnosis?: No VTE Prior VTE?: No VTE Risk Level:: Medical - moderate - high VTE Device Contraindication: N/A - Device Ordered VTE Drug Contraindication: Treatment Not Indicated
[2023-12-06] MEDS: dilTIAZem HCL 125 MG in 0.9 % Sodium Chloride 100 ML 10 MG IVCONT (00:22)
[2023-12-06 05:01] LABS: Hematocrit 40.7 % (37.0-47.0); Hemoglobin 12.8 g/dl (12.0-16.0); Mean Corpuscular HGB Conc 31.4 g/dl (31.0-35.0); Mean Corpuscular Volume 92.1 fL (80.0-98.0); Mean Platelet Volume 9.3 fL (9.4-12.3); Platelet Count 280 X10*3/uL (160-400); Red Blood Count 4.42 X10*6/uL (4.20-5.50); Red Cell Distribution Width 14.1 % (11.0-16.0); White Blood Count 7.8 X10*3/uL (4.8-10.8)
[2023-12-06 05:16] LABS: Anion Gap 16 (12-20); Blood Urea Nitrogen 25 mg/dL (9-16); Calcium 9.8 mg/dL (8.4-10.2); Carbon Dioxide 24 mmol/L (22-29); Chloride 104 mmol/L (96-108); Estimated Glomerular Filt Rate 45; Glucose Random 87 mg/dL (60-115); Potassium 4.1 mmol/L (3.3-5.1); Sodium 140 mmol/L (135-145)
[2023-12-06 05:34] LABS: Thyroid Stimulating Hormone 1.33 uIU/mL (0.32-4.0)
[2023-12-06] MEDS: Labetalol HCL 100 MG/20 ML VIAL 10 MG IVPUSH (07:27)
--- NOTE | 2023-12-06 10:53 | PHA.MEDREC ---
Addendum entered by Sabrina Espinoza RPh 12/06/23 11:26: reviewed by [facility]. Original Note: Pharmacy Consult ? Medication Reconciliation Pharmacy has completed the medication reconciliation. Confirmed medications with patient and patient daughter (Brittanie) over the phone. The patient was able to confirm her medications with confirmation from daughter Brittanie. Patient stated to me she was taking Metoprolol 100mg once daily but has not has in a few months due to the patient running out and doesn't know why it was never filled again, when I talked to the daughter she verified the patient is no longer taking that medication and does not remember seeing that with her moms pill bottles at home. The patient confirmed she was taking Warfarin 2.5mg but daughter confirmed since 11/23 due to a fall which patient sustained a brain bleed the patient stopped that medication per DR and was suppose to have a follow up appointment tomorrow with PCP but since she is being admitted the patient daughter is calling to re-schedule that. Patient's daughter confirmed as well that her mom takes her Levothyroxine 75mcg @1200 every day so that she can make sure its far enough away from her other medications and she can take it on an empty stomach then. Patient and daughter confirmed she is taking a Vitamin E tablet but is not sure the dosing of the medication. The daughter confirmed her mom last took her medications yesterday at 1200.
--- NOTE | 2023-12-06 11:15 | P.EN_ITS ---
Event Note Date of Service: 12/06/23 Event Note: This is a 83-year-old female with pertinent history of atrial fibrillation not on anticoagulation, recently diagnosed subdural hematoma, mixed hyperlipidemia, mood disorder, hypothyroidism, gastroesophageal reflux disease who presents to the emergency department for evaluation after a fall. AFib with RVR off home beta-coco dosage in the last 5-6 days, was stopped since being discharged from [facility]. Initiated on IV diltiazem drip in the ER hr now in the 70's will stop Resume home metoprolol succ dose 100mg daily consulting Cardiology. Not on anticoagulation due to subdural hematoma. Subdural hematoma Diagnosed on CT scan from 11/23 in the ER when patient was transferred to [facility] and recently admitted at [facility] for the same. stable. Continue to monitor and avoid anticoagulation Hypothyroidism Resume home Synthroid. TSH pending Mixed hyperlipidemia statin Mood disorder Resume home mood stabilizers Gastroesophageal reflux disease On PPI DVT prophylaxis: Mechanical Attending Dr. Baumann Full code. Discussed with patient at bedside Admit as inpatient and will require two night minimum hospital stay for close monitoring of heart rate (as above), which is not possible in a lesser acute settin Time Spent With Patient Time: Total time managing care of this patient today ____ minutes.
--- NOTE | 2023-12-06 11:20 | PC.NURSE ---
per [employer] Cardizem is to be held. HR is consistently in the 70 s.
[2023-12-06] MEDS: Metoprolol Succinate ER 100 MG TAB.ER.24H PO (12:27)
[2023-12-06] MEDS: buPROPion HCl XL 300 MG TAB.ER.24H PO (12:28)
[2023-12-06] MEDS: Levothyroxine Sodium 75 MCG TABLET PO (12:28)
[2023-12-06] MEDS: Cholecalciferol (Vitamin D3) 25 MCG TABLET PO (12:28)
[2023-12-06] MEDS: timoloL maleate 0.5 % Oph Sol 5 ML DRBTL 1 DROP EYE-BOTH ×2 (12:28→21:07)
[2023-12-06] MEDS: DULoxetine HCl 60 MG CAPSULE.DR PO (12:28)
--- NOTE | 2023-12-06 12:28 | P.CONCA_ITS ---
History of Present Illness History of Present Illness Date of Service: 12/06/23 Requesting physician: Aaliyah Beltre Chief complaint: Fall, Afib Narrative: 83-year-old female presenting with mechanical fall. She also had recent fall with subdural hematoma and was transferred to [facility] where she was monitored and discharged home. She was noticed to be in AFib with RVR on this admission. She is saying that she is in AFib all the time. She is currently rate controlled and has no symptoms. In particular no chest pain or shortness of breath. No palpitations. After this fall she has abrasion in the left hand as well as the right rogers. [facility] Past Medical History Medical History Glaucoma Arthritis Anticoagulated GERD (gastroesophageal reflux disease) Renal calculi Forgetfulness Pseudogout Low back pain Bursitis of right hip Afib Family History Family History Mother No problems noted. Father Lung cancer Surgical History Surgical History History of total right knee replacement (TKR) Hx of bilateral cataract extraction H/O colonoscopy Hx of tonsillectomy History of back surgery Hx of hysterectomy History of total right knee replacement (~2014) History of bunionectomy History of total left knee replacement (~2017) Social History Social History Household Members: None Household Members Other:: home alone [facility] Are you a primary palliative care nurse practitioner to a significant other at home: No Do you presently have visiting nurse or other home services: No Alcohol intake: current Alcohol intake frequency: holidays/special occasions only Comment: uses cane on occasion Patient Tobacco Use Status: Former Tobacco user Tobacco use type: Cigarette Years Smoked: 30 Smoked in Last 30 Days: No Use of substances other than those prescribed or required for medical reasons: No Advance Directives: Yes Advance Directives Information Provided: No Advance Directives on File: No Do you have a plan to hurt others: No Plan service: No Current occupational status: retired Current occupation: Right Handed Meds Allergies Allergy/AdvReac Type Severity Reaction Status Date / Time albuterol Allergy Intermediate extreme Verified 12/05/23 19:57 facial flushing hydromorphone [From DILAUDID] Allergy Intermediate extreme Verified 12/05/23 19:57 facial flushing Penicillins [PENICILLINS] Allergy Intermediate RASH Verified 12/05/23 19:57 (states can take ampicillin) Active Medications: Current Medications Acetaminophen (Acetaminophen 325 Mg Tablet) 650 mg PO Q6H PRN PRN Reason: Pain, Mild (Pain Scale 1-3), fever or headache Atorvastatin Calcium (Atorvastatin Calcium 10 Mg Tablet) 10 mg PO DAILY [facility] Bupropion HCl (Bupropion Hcl Xl 300 Mg Tab.Er.24h) 300 mg PO DAILY [facility] Last Admin: 12/06/23 12:28 Dose: 300 mg Calcium Carbonate (Calcium Carbonate 750 Mg Tab.Chew) 750 mg PO Q4H PRN PRN Reason: Heartburn Duloxetine HCl (Duloxetine Hcl 60 Mg Capsule.Dr) 60 mg PO DAILY [facility] Last Admin: 12/06/23 12:28 Dose: 60 mg Diltiazem HCl 125 mg/ Sodium (Chloride) 125 mls @ 0 mls/hr IVCONT .Q0M [facility]; Protocol Last Titration: 12/06/23 11:22 Dose: 0 mg/hr, 0 mls/hr Levothyroxine Sodium (Levothyroxine Sodium 75 Mcg Tablet) 75 mcg PO DAILY@1200 RAFITA Last Admin: 12/06/23 12:28 Dose: 75 mcg Magnesium Hydroxide (Milk Of Magnesia 30 Ml Oral.Susp) 30 ml PO DAILY PRN PRN Reason: Constipation Melatonin (Melatonin 3 Mg Tablet) 6 mg PO BEDTIME [facility] Metoprolol Succinate (Metoprolol Succinate Er 100 Mg Tab.Er.24h) 100 mg PO DAILY [facility]; Protocol Last Admin: 12/06/23 12:27 Dose: 100 mg Omeprazole (Omeprazole 20 Mg Capsule.Dr) 20 mg PO DAILY@0630 [facility] Ondansetron HCl (Ondansetron Hcl 4 Mg/2 Ml Vial) 4 mg IVPUSH Q8H PRN PRN Reason: Nausea and Vomiting Sodium Chloride (0.9 % Sodium Chloride Flush 3 Ml Syringe) 3 ml IVFLUSH QSHIFT [facility] Last Admin: 12/06/23 12:22 Dose: Not Given Timolol Maleate (Timolol Maleate 0.5 % Oph Sosa 5 Ml Drbtl) 1 drop EYE-BOTH BID [facility] Last Admin: 12/06/23 12:28 Dose: 1 drop Trazodone HCl (Trazodone Hcl 50 Mg Tablet) 50 mg PO BEDTIME [facility] Vitamin D (Cholecalciferol (Vitamin D3) 25 Mcg Tablet) 25 mcg PO DAILY [facility] Last Admin: 12/06/23 12:28 Dose: 25 mcg Home Medications ?Medication ?Instructions ?Recorded ?Confirmed ?Last Taken ?Type bupropion HCl 300 mg 24 hr tablet, 300 mg PO DAILY 02/19/20 12/06/23 12/05/23 12:00 History extended release duloxetine 60 mg capsule,delayed 60 mg PO DAILY 02/19/20 12/06/23 12/05/23 12:00 History release levothyroxine 75 mcg tablet 75 mcg PO DAILY@1200 02/19/20 12/06/23 12/05/23 12:00 History atorvastatin 10 mg tablet 10 mg PO DAILY 02/23/22 12/06/23 12/05/23 12:00 History timolol maleate 0.5 % eye drops 1 drp ophthalmic (eye) BID 02/23/22 12/06/23 12/05/23 12:00 History trazodone 50 mg tablet 50 mg PO BEDTIME 02/23/22 12/06/23 12/04/23 History cholecalciferol (vitamin D3) 25 25 mcg PO DAILY 04/07/22 12/06/23 12/05/23 12:00 History mcg (1,000 unit) capsule omeprazole 20 mg tablet,delayed 20 mg PO DAILY@0630 04/07/22 12/06/23 12/05/23 12:00 History release diclofenac sodium 1 % topical gel 2 g topical QID PRN Pain 08/03/23 12/06/23 12/05/23 12:00 History (Voltaren Arthritis Pain) melatonin 5 mg tablet 5 mg PO BEDTIME 08/03/23 12/06/23 12/04/23 History acetaminophen 300 mg-codeine 30 mg 1 tab PO Q6H PRN Pain (Scale Score 08/26/23 12/06/23 12/05/23 12:00 History tablet 7-10) vitamin E 670 mg (1,000 unit) 670 mg PO DAILY 12/06/23 12/06/23 12/04/23 History capsule Physical Exam 2 Vital Signs: Vital Signs: Last Vital Signs Temp 97.3 F 12/06/23 11:36 Pulse 90 12/06/23 12:27 Resp 21 H 12/06/23 11:37 BP 111/71 12/06/23 12:27 Pulse Ox 91 L 12/06/23 11:37 O2 Del Method Room Air 12/06/23 11:37 BMI result Body Mass Index 25.0 GENERAL APPEARANCE: in no acute distress, pleasant. NECK: no carotid bruit, no jugular venous distention. SKIN: Left hand dressed after recent injury. HEART: no murmurs, irregular rate and rhythm. LUNGS: clear to auscultation bilaterally. ABDOMEN: soft, nontender. EXTREMITIES: no edema. PERIPHERAL PULSES: equal. NEUROLOGIC: No gross deficits, AAO X 3 Objective Labs and Meds 12/06/23 04:35 12/06/23 04:35 Lab results: Laboratory Results - last 24 hr 12/05/23 12/06/23 20:16 04:35 WBC 8.5 7.8 RBC 4.60 4.42 Hgb 13.6 12.8 Hct 42.1 40.7 MCV 91.5 92.1 MCH 29.6 29.0 MCHC 32.3 31.4 RDW 14.2 14.1 Plt Count 327 D 280 MPV 9.1 L 9.3 L Immature Gran % (Auto) 0.4 Neut % (Auto) 74.7 H Lymph % (Auto) 10.6 L [place] % (Auto) 11.0 Eos % (Auto) 2.8 Baso % (Auto) 0.5 Lymph # (Auto) 0.9 L [place] # (Auto) 0.9 Eos # (Auto) 0.2 Baso # (Auto) 0.0 Abs Immat Gran (auto) 0.03 Absolute Neuts (auto) 6.3 Absolute Nucleated RBC 0.000 0.000 Nucleated RBC % (auto) 0.0 0.0 PT 12.1 D INR 1.0 D APTT 32.1 Sodium 139 140 Potassium 4.6 4.1 Chloride 102 104 Carbon Dioxide 26 24 Anion Gap 16 16 BUN 25 H 25 H Creatinine 1.31 1.14 Estim Creat Clear Calc 28.7 33.0 Estimated GFR 39 45 Random Glucose 106 87 Calcium 10.4 H D 9.8 Magnesium 2.1 Total Bilirubin 0.7 AST 19 ALT 12 Alkaline Phosphatase 78 B-Natriuretic Peptide 107 H Total Protein 7.4 Albumin 3.9 TSH 1.33 Imaging Radiologist's impression: Impressions Cervical Spine CT 12/05/23 20:45 IMPRESSION: 1. Stable small volume left tentorial and hemispheric subdural hematomas. No evidence of interval hemorrhagic expansion. 2. No evidence of acute edematous territorial infarction. Moderate underlying microangiopathy and generalized cerebral volume loss. 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 3. No evidence of acute fracture or traumatic subluxation of the cervical spine. Moderate multilevel degenerative spondyloarthropathy of the cervical spine. 4. Chronic left maxillary sinus disease. Electronically signed by: Filemon Wetzel DO 12/05/2023 09:58 PM EDT RP Head CT 12/05/23 20:45 IMPRESSION: 1. Stable small volume left tentorial and hemispheric subdural hematomas. No evidence of interval hemorrhagic expansion. 2. No evidence of acute edematous territorial infarction. Moderate underlying microangiopathy and generalized cerebral volume loss. 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 3. No evidence of acute fracture or traumatic subluxation of the cervical spine. Moderate multilevel degenerative spondyloarthropathy of the cervical spine. 4. Chronic left maxillary sinus disease. Electronically signed by: Filemon Wetzel DO 12/05/2023 09:58 PM EDT RP Assessment and Plan (1) Permanent atrial fibrillation: Status: Acute Plan [age] year female with mechanical falls and atrial fibrillation. Heart rate is well controlled. She is completely asymptomatic. We will treat her with rate control strategy. Not an anticoagulation candidate currently due to mechanical falls. If clinical situation improves in the future then can consider anticoagulation. Alternatively a discussion about Watchman can be done in the future too. She will follow-up with our office. Thank you for allowing me to participate in the care of your patient. Please feel free to contact me if you have any questions. Procedures Date of Service Date of Service: 12/06/23
--- NOTE | 2023-12-06 13:04 | MHC.CM.PN ---
Addendum entered by Katia Krishnamurthy 12/06/23 13:46: Patient is active with [facility]. Original Note: CM met with Patient at bedside, in the ED. Patient lives alone in a condo, she uses both a cane and a walker to assist with mobility and she believes she is active with a [facility]NA, but unsure of which agency. Home/resume said services is the goal and CM has initiated and will follow for dc planning. Patient states that she has filled out a HCP naming her Daughter/Brittanie as her Agent; she agreed to provide CM with a copy and declined doing a new HCP today (blank HCP form was left with her). PCP is Dr. Fred Krause and her Daughter will transport to home.
[2023-12-06 13:05] LABS: Appearance Urine Clear; Color Urine Dark Yellow; Glucose Urine UA Negative (Negative); Leukocyte Esterase Urine Trace (Negative); Nitrite Urine Negative (Negative); UMIC TRIGGER UACC YES; Urine Blood Negative (Negative); Urine Ketones 40 mg/dL (Negative); Urine Protein Negative (Neg-Trace)
[2023-12-06 13:16] LABS: Bacteria Urine Trace (None Seen); Hyaline Casts Urine 0-2 /LPF (0-2); RBC Urine 0-2 /HPF (0-2); WBC Urine 0-5 /HPF (0-5)
--- NOTE | 2023-12-06 16:55 | PC.NURSE ---
patient was found out of bed and very confused, was not orientated at all, she thought she was at [facility] and waiting for her daughter, redirected quickly and reorientated. Ambulated with walker with building tech without difficulty. Oxygen on RA was 93-94 percent. She had taken off all her cardiac monitoring leads and BP cuff
--- NOTE | 2023-12-06 17:48 | MHC.EDTECH ---
Patient walked to bathroom with walker
[2023-12-06] MEDS: 0.9 % Sodium Chloride Flush 3 ML SYRINGE IVFLUSH ×2 (18:19→22:23)
[2023-12-06] MEDS: traZODone HCL 50 MG TABLET PO (21:06)
[2023-12-06] MEDS: Melatonin 3 MG TABLET 6 MG PO (21:06)
--- NOTE | 2023-12-06 21:11 | PC.NURSE ---
on bedside monitor, pt has runs of AFIB which then self corrects into SR, then back to AFIB
[2023-12-07] VITALS (8 sets, daily range): BP systolic 110–182; BP diastolic 62–83; PULSE 87–92; RESP 16–20; TEMP 36.1–37.2; O2SAT 93–96
[2023-12-07] MEDS: Omeprazole 20 MG CAPSULE.DR PO (05:35)
[2023-12-07] MEDS: Cholecalciferol (Vitamin D3) 25 MCG TABLET PO (08:28)
[2023-12-07] MEDS: Atorvastatin Calcium 10 MG TABLET PO (08:28)
[2023-12-07] MEDS: Metoprolol Succinate ER 100 MG TAB.ER.24H PO (08:28)
[2023-12-07] MEDS: DULoxetine HCl 60 MG CAPSULE.DR PO (08:28)
[2023-12-07] MEDS: buPROPion HCl XL 300 MG TAB.ER.24H PO (08:28)
[2023-12-07] MEDS: timoloL maleate 0.5 % Oph Sol 5 ML DRBTL 1 DROP EYE-BOTH (08:28)
[2023-12-07] MEDS: 0.9 % Sodium Chloride Flush 3 ML SYRINGE IVFLUSH ×2 (08:34→16:00)
--- NOTE | 2023-12-07 09:16 | P.PNIM_ITS ---
Subjective Subjective Date of Service: 12/07/23 Review of Systems Follow up fall, afib feeling well, no pain or discomfort Physical Exam 2 Vital Signs: Vital Signs: Last Vital Signs Temp 98.9 F 12/07/23 07:25 Pulse 90 12/07/23 07:25 Resp 20 12/07/23 07:25 BP 114/62 12/07/23 07:25 Pulse Ox 93 12/07/23 07:25 O2 Del Method Room Air 12/07/23 07:25 BMI result Body Mass Index 27.4 Appearing in no acute distress lung sounds are clear to auscultation heart regular rate rhythm, clear S1, S2 positive bowel sounds, abdomen is soft, nontender neuro patient is alert x3, no focal deficits Objective Data Active Medications Acetaminophen (Acetaminophen 325 Mg Tablet) 650 mg PO Q6H PRN PRN Reason: Pain, Mild (Pain Scale 1-3), fever or headache Atorvastatin Calcium (Atorvastatin Calcium 10 Mg Tablet) 10 mg PO DAILY [facility] Last Admin: 12/07/23 08:28 Dose: 10 mg Documented By: JOSE Bupropion HCl (Bupropion Hcl Xl 300 Mg Tab.Er.24h) 300 mg PO DAILY [facility] Last Admin: 12/07/23 08:28 Dose: 300 mg Documented By: JOSE Calcium Carbonate (Calcium Carbonate 750 Mg Tab.Chew) 750 mg PO Q4H PRN PRN Reason: Heartburn Duloxetine HCl (Duloxetine Hcl 60 Mg Capsule.Dr) 60 mg PO DAILY [facility] Last Admin: 12/07/23 08:28 Dose: 60 mg Documented By: JOSE Diltiazem HCl 125 mg/ Sodium (Chloride) 125 mls @ 0 mls/hr IVCONT .Q0M [facility]; Protocol Last Titration: 12/06/23 11:22 Dose: 0 mg/hr, 0 mls/hr Documented By: HUMBERTO Levothyroxine Sodium (Levothyroxine Sodium 75 Mcg Tablet) 75 mcg PO DAILY@1200 [facility] Last Admin: 12/06/23 12:28 Dose: 75 mcg Documented By: HUMBERTO Magnesium Hydroxide (Milk Of Magnesia 30 Ml Oral.Susp) 30 ml PO DAILY PRN PRN Reason: Constipation Melatonin (Melatonin 3 Mg Tablet) 6 mg PO BEDTIME [facility] Last Admin: 12/06/23 21:06 Dose: 6 mg Documented By: ANA Metoprolol Succinate (Metoprolol Succinate Er 100 Mg Tab.Er.24h) 100 mg PO DAILY [facility]; Protocol Last Admin: 12/07/23 08:28 Dose: 100 mg Documented By: JOSE Omeprazole (Omeprazole 20 Mg Capsule.Dr) 20 mg PO DAILY@0630 [facility] Last Admin: 12/07/23 05:35 Dose: 20 mg Documented By: ARYAN Ondansetron HCl (Ondansetron Hcl 4 Mg/2 Ml Vial) 4 mg IVPUSH Q8H PRN PRN Reason: Nausea and Vomiting Sodium Chloride (0.9 % Sodium Chloride Flush 3 Ml Syringe) 3 ml IVFLUSH QSHIFT [facility] Last Admin: 12/07/23 08:34 Dose: 3 ml Documented By: JOSE Timolol Maleate (Timolol Maleate 0.5 % Oph Sosa 5 Ml Drbtl) 1 drop EYE-BOTH BID [facility] Last Admin: 12/07/23 08:28 Dose: 1 drop Documented By: JOSE Trazodone HCl (Trazodone Hcl 50 Mg Tablet) 50 mg PO BEDTIME [facility] Last Admin: 12/06/23 21:06 Dose: 50 mg Documented By: ANA Vitamin D (Cholecalciferol (Vitamin D3) 25 Mcg Tablet) 25 mcg PO DAILY [facility] Last Admin: 12/07/23 08:28 Dose: 25 mcg Documented By: JOSE Labs 12/06/23 04:35 12/06/23 04:35 Labs: Laboratory Results - last 24 hr 12/06/23 12:56 Urine Color Dark Yellow Urine Appearance Clear Urine pH 6.0 Ur Specific Ora 1.020 Urine Protein Negative Urine Glucose (UA) Negative Urine Ketones 40 Urine Blood Negative Urine Nitrite Negative Ur Leukocyte Esterase Trace H Urine RBC 0-2 Urine WBC 0-5 Ur Squamous Epith Cells 3-5 Urine Bacteria Trace Hyaline Casts 0-2 Assessment and Plan (1) Permanent atrial fibrillation: Status: Acute Plan This is a 83-year-old female with pertinent history of atrial fibrillation not on anticoagulation, recently diagnosed subdural hematoma, mixed hyperlipidemia, mood disorder, hypothyroidism, gastroesophageal reflux disease who presents to the emergency department for evaluation after a fall. AFib with RVR off home beta-coco dosage in the last 5-6 days, was stopped since being discharged from [facility]. s/p IV diltiazem drip continue home metoprolol succ dose 100mg daily consulting Cardiology>not ac candidate due to falls and subdural hematoma, ? watchmans device in the future Subdural hematoma Diagnosed on CT scan from 11/23 in the ER when patient was transferred to [facility] and recently admitted at [facility] for the same. stable. Continue to monitor and avoid anticoagulation Hypothyroidism Resume home Synthroid. TSH pending Mixed hyperlipidemia statin Mood disorder Resume home mood stabilizers Gastroesophageal reflux disease On PPI DVT prophylaxis: Mechanical Attending Dr. Baumann Full code. Discussed with patient at bedside DISPO PT rec STR Quality Stroke Does the patient have a stroke diagnosis?: No VTE Prior VTE?: No VTE Risk Level:: Medical - moderate - high VTE Device Contraindication: N/A - Device Ordered VTE Drug Contraindication: Treatment Not Indicated
--- NOTE | 2023-12-07 10:30 | MHC.CM.PN ---
PT originally recommended STR and is now recommending home with home PT. CM spoke with Patient this morning early and just now with Daughter/HCP/Brittanie at listed #. Brittanie feels strongly that STR is needed and she has asked CM to attempt to find a SNF/STR bed offer that is willing to attempt C auth with the new home with services recommendation. Referrals have been made and CM will follow.
[2023-12-07] MEDS: Levothyroxine Sodium 75 MCG TABLET PO (12:05)
--- NOTE | 2023-12-07 14:25 | PM.DS ---
DS: Providers Provider Date of Service: 12/07/23 Date of admission: 12/06/23 00:18 Primary care physician: Fred Krause DO Consults: 12/06/23 00:18 Consult to Cardiology Routine Consulting Provider: [facility] Reason for consultation: Afib with rvr DS: Diagnosis Discharge Diagnosis (1) Permanent atrial fibrillation: Status: Acute DS: Summary Hospital Course Hospital Course: History and physical as per admitting provider. This is a 83-year-old female with pertinent history of atrial fibrillation not on anticoagulation, recently diagnosed subdural hematoma, mixed hyperlipidemia, mood disorder, hypothyroidism, gastroesophageal reflux disease who presents to the emergency department for evaluation after a fall. Of note, patient was seen in the ER on 11/24 after a fall when CT revealed acute subdural hematoma and patient was transferred to [facility]. Patient was at [facility] for about 5 days and does state that she had difficult to control heart rate while at the hospital. Patient did not receive any prescriptions while being discharged from [facility] and hence has not taken any home prescription medications in the last 5-6 days. On the day of presentation, patient states she was wearing shoes that were slippery. Her shoes slid on the 1st step and she fell. Admits to hitting her head. Did not lose consciousness prior to the fall. No lightheadedness or dizziness prior to the fall. No chest pain or palpitations prior to the fall. No rhythmic jerking movement of extremities. She denies fever, chills, shortness of breath, abdominal pain, changes in urinary or bowel habits. In the emergency department, patient was found to be in AFib with RVR and initiated on IV diltiazem drip. 83-year-old woman treated for atrial fibrillation with rapid ventricular response. She had been hospitalized at [facility] and was discharged home without her beta-coco and therefore was without it for about 5-6 days. She did receive IV diltiazem drip initially and was transitioned to metoprolol succinate 100 mg daily. She was seen by Cardiology who reported that she is obviously not a candidate for anticoagulation due to her history of falls and subdural hematoma but a watchman's device might be a possibility in the future. Patient is stable, was seen evaluated by Physical therapy with recommendation for short-term rehab. Subdural hematoma. Diagnosed 11/24/2023, treated at [facility] Hypothyroidism. Continue levothyroxine Hyperlipidemia. Continue statin Mental health. Continue mood stabilizers GERD. Continue PPI Less than 30 day stay Time Attestation Discharge Coordination Time (in mins): 30 Quality: Safe Use of Opioids Does Pt have an Active Cancer Diagnosis on the Problem List?: No Quality: Stroke Does the patient have a stroke diagnosis?: No Physical Exam Vital Signs: Vital Signs: Last Vital Signs Temp 97.9 F 12/07/23 12:00 Pulse 92 12/07/23 12:00 Resp 20 12/07/23 12:00 BP 120/71 12/07/23 12:00 Pulse Ox 93 12/07/23 12:00 O2 Del Method Room Air 12/07/23 12:00 BMI result Body Mass Index 27.4 Appearing in no acute distress head is normocephalic atraumatic eyes pupils are PERRLA sclera is anicteric mouth throat mucous membranes are intact and moist neck is supple no lymphadenopathy, no JVD noted lung sounds are clear to auscultation heart regular rate rhythm, clear S1, S2 positive bowel sounds, abdomen is soft, nontender neuro patient is alert x3, no focal deficits DS: Data Data Completed and Pending Completed studies during hospitalization [Text1]: Procedures Introduction of Anesthetic Agent into Peripheral Nerves and Plexi, Percutaneous Approach (08/11/23) Revision of Synthetic Substitute in Right Knee Joint, Open Approach (08/11/23) Discharge Plan Discharge Anticipated Discharge Date/Time: 12/07/23 14:23 Patient Disposition: Xfer SNF Discharge Diagnosis: Atrial fibrillation with rapid ventricular response Fall Referrals: Kailash Alberto [Outside] - 1 Week Fred Krause DO [Primary Care Provider] - 1 Week Discharge Medications: New metoprolol succinate 100 mg Tablet Extended Release 24 Hr 100 mg PO DAILY Qty: 30 0RF Protocol: Hold for SBP/HR < HOLD for SBP < : 90 HOLD for HR < : 60 Continued vitamin E 670 mg (1,000 unit) Capsule 670 mg PO DAILY diclofenac sodium [Voltaren Arthritis Pain] 1 % gel 2 g topical QID PRN (Reason: Pain) Rx Instructions: apply to both thumbs melatonin 5 mg Tablet 5 mg PO BEDTIME acetaminophen 325 mg Tablet 650 mg PO Q6H PRN (Reason: Pain, Mild (Pain Scale 1-3)) 30 Days Qty: 240 0RF duloxetine 60 mg capsule,delayed release(DR/EC) 60 mg PO DAILY bupropion HCl 300 mg tablet extended release 24 hr 300 mg PO DAILY levothyroxine 75 mcg tablet 75 mcg PO DAILY@1200 atorvastatin 10 mg tablet 10 mg PO DAILY timolol maleate 0.5 % drops 1 drp ophthalmic (eye) BID trazodone 50 mg tablet 50 mg PO BEDTIME cholecalciferol (vitamin D3) 25 mcg (1,000 unit) capsule 25 mcg PO DAILY omeprazole 20 mg tablet,delayed release (DR/EC) 20 mg PO DAILY@0630 acetaminophen-codeine 300-30 mg tablet 1 tab PO Q6H PRN (Reason: Pain (Scale Score 7-10)) Discharge Orders: Discharge Order (Routine); Ordered 12/07/23 Ordered By: Aaliyah Beltre Diet: Advance to usual diet Activity on Discharge: As tolerated Stand Alone Forms: Patient Portal Discharge page Print Language: Romanian Care Plan Goals: Take safety precautions to prevent falls Health Concerns: Atrial fibrillation with rapid ventricular response Fall Plan of Treatment: Follow-up with primary care provider as needed Take all medications as prescribed Assessment: See discharge summary
--- NOTE | 2023-12-07 14:27 | MHC.CM.PN ---
Per [employer]PER[employer] HELPER, Patient is medically cleared for dc to SNF/STR today.Patient will be dc'd to [facility] today at 6PM, via [facility]. BAKARI completed a HCP with Patient and discussed dc planning. BAKARI spoke with daughter/HCP/Brittanie @ [phone] her [address] in to discuss the dc plan further, with Patient. Last IMM addressed yesterday.
== END 2023-12-07 19:25 | disposition skilled nursing facility (03) | DRG 310 ==
LOC: HO.ED 12-06 00:11 → HO.EDOVER 12-06 00:52 → HO.IMC 12-06 20:04
PROVIDERS: Physician Assistant Medical; Admitting Provider Student in an Organized Health Care Education/Training Program; Emergency Provider Emergency Medicine; PCP Internal Medicine; Visit Provider Nurse Practitioner Acute Care
DX: I48.21 Permanent atrial fibrillation (principal); E03.9 Hypothyroidism, unspecified; F39 Unspecified mood [affective] disorder; E78.2 Mixed hyperlipidemia; R29.6 Repeated falls; K21.9 Gastro-esophageal reflux disease without esophagitis; Z91.81 History of falling; T46.2X6A Underdosing of other antidysrhythmic drugs, initial encounter; Z87.891 Personal history of nicotine dependence; Z79.890 Hormone replacement therapy; Z79.899 Other long term (current) drug therapy
CPT/HCPCS: 36415; 70450; 72125; 80048; 80053; 81001; 81003; 83735; 83880; 84443; 85025; 85027; 85610; 85730; 93005; 97116; 97162; 99222; 99285; J1160; J1920

== ENCOUNTER → 2023-12-06 00:18 | Outpatient (BNV) | payer OTHER, SELFPAY | PROVIDERS: Admitting Provider Student in an Organized Health Care Education/Training Program; Emergency Provider Emergency Medicine; PCP Internal Medicine; Visit Provider Student in an Organized Health Care Education/Training Program | DX: I48.21 Permanent atrial fibrillation (principal) | CPT/HCPCS: 99222; 99239; 99499 ==

== ENCOUNTER → 2023-12-06 00:18 | Outpatient (BNV) | payer OTHER, SELFPAY | PROVIDERS: Admitting Provider Student in an Organized Health Care Education/Training Program; Emergency Provider Emergency Medicine; PCP Internal Medicine; Visit Provider Internal Medicine Cardiovascular Disease | DX: I48.21 Permanent atrial fibrillation (principal) | CPT/HCPCS: 99222 ==

== ENCOUNTER 2023-12-13 06:13 | Outpatient (REF) | payer MEDICARE, SELFPAY ==
[2023-12-13 06:18] LABS: MANUAL DIFF FLAG NO
[2023-12-13 07:01] LABS: Basophils Absolute Auto 0.1 X10*3/uL (0.0-0.2); Basophils Percent Auto 0.7 % (0-2); Eosinophils Absolute Auto 0.4 X10*3/uL (0.0-0.4); Eosinophils Percent Auto 4.8 % (0-4); Hematocrit 39.1 % (37.0-47.0); Hemoglobin 12.4 g/dl (12.0-16.0); Imm Gran Abs Auto 0.03 X10*3/uL (0.00-0.03); Imm Gran Pct Auto 0.4 % (0.0-0.4); Lymphocytes Absolute Auto 1.3 X10*3/uL (1.2-4.9); Mean Corpuscular HGB Conc 31.7 g/dl (31.0-35.0); Mean Corpuscular Hemoglobin 29.6 pg (27.0-33.0); Mean Corpuscular Volume 93.3 fL (80.0-98.0); Mean Platelet Volume 9.7 fL (9.4-12.3); Monocytes Absolute Auto 0.8 X10*3/uL (0.1-1.2); Monocytes Percent Auto 10.2 % (2-11); Neutrophils Absolute Auto 5.1 x10*3/uL (2.0-8.3); Neutrophils Percent Auto 66.9 % (45-73); Platelet Count 270 X10*3/uL (160-400); Red Blood Count 4.19 X10*6/uL (4.20-5.50); Red Cell Distribution Width 14.4 % (11.0-16.0); White Blood Count 7.7 X10*3/uL (4.8-10.8)
[2023-12-13 07:23] LABS: Anion Gap 14 (12-20); Blood Urea Nitrogen 21 mg/dL (9-16); Calcium 9.5 mg/dL (8.4-10.2); Carbon Dioxide 24 mmol/L (22-29); Chloride 110 mmol/L (96-108); Estimated Glomerular Filt Rate 49; Glucose Random 89 mg/dL (60-115); Potassium 4.5 mmol/L (3.3-5.1); Sodium 143 mmol/L (135-145)
== END 2023-12-13 06:14 | disposition home or self-care (01) ==
LOC: HO.MMNH2L 06:13
PROVIDERS: Visit Provider Hospitalist
DX: I48.91 Unspecified atrial fibrillation (principal); E03.9 Hypothyroidism, unspecified; S06.5X9D Traumatic subdural hemorrhage with loss of consciousness of unspecified duration, subsequent encounter
CPT/HCPCS: 36415; 80048; 85025

== ENCOUNTER 2023-12-31 11:41 | Emergency (ER) | payer MEDICARE, SELFPAY ==
--- NOTE | 2023-12-31 11:45 | ECG_ITS ---
Test Reason : ?aFIB/TACHYCARDIA Blood Pressure : / mmHG Vent. Rate : 110 BPM Atrial Rate : 000 BPM P-R Int : 000 ms QRS Dur : 086 ms QT Int : 330 ms P-R-T Axes : 000 -18 155 degrees QTc Int : 446 ms Atrial fibrillation with rapid ventricular response Minimal voltage criteria for LVH, may be normal variant ( R in aVL ) Nonspecific T wave abnormality Abnormal ECG When compared with ECG of 05-DEC-2023 19:54, Nonspecific T wave abnormality now evident in Anterolateral leads Referred By: Generic ED Physician Electronically Signed By:ELISABETH QUIJANO
[2023-12-31 11:47] VITALS: BP 110/72; BP 120/86; PULSE 120; PULSE 62; RESP 18; TEMP 36.5; O2SAT 94; O2SAT 95; BMI 31.5
--- NOTE | 2023-12-31 11:49 | ED_ITS ---
HPI - General Adult General Chief complaint: Arrhythmia/Palpitations Stated complaint: Tach HR 120 for hrs. Hx Afib, now HR 60 CAOx4 Time Seen by Provider: 12/31/23 11:49 Source: patient, family (patient's daughter) and EMS Mode of arrival: EMS Limitations: no limitations History of Present Illness ED Provider: Venus Paula PA-C HPI narrative: 83 yo female coming from home via ambulance presents for evaluation. During [facility] visit at 1100 this AM she was told she was in A. Fib and EMS was initiated. She denies symptoms including dizziness, palpitations, chest pain or dyspnea. Denies leg swelling, fever, chills or medication changes. Denies extremity edema. She says she is always in a. fib and that she is not currently anticoagulated. According to chart review, was not anti-coagulated due to mechanical falls. She does take 100mg of metoprolol for rate control, and took it this morning. Onset (ago): hour(s) Associated symptoms: denies other symptoms Related Data Home Medications ?Medication ?Instructions ?Recorded ?Confirmed bupropion HCl 300 mg 24 hr tablet, 300 mg PO DAILY 02/19/20 12/06/23 extended release duloxetine 60 mg capsule,delayed 60 mg PO DAILY 02/19/20 12/06/23 release levothyroxine 75 mcg tablet 75 mcg PO DAILY@1200 02/19/20 12/06/23 atorvastatin 10 mg tablet 10 mg PO DAILY 02/23/22 12/06/23 timolol maleate 0.5 % eye drops 1 drp ophthalmic (eye) BID 02/23/22 12/06/23 trazodone 50 mg tablet 50 mg PO BEDTIME 02/23/22 12/06/23 cholecalciferol (vitamin D3) 25 25 mcg PO DAILY 04/07/22 12/06/23 mcg (1,000 unit) capsule omeprazole 20 mg tablet,delayed 20 mg PO DAILY@0630 04/07/22 12/06/23 release diclofenac sodium 1 % topical gel 2 g topical QID PRN Pain 08/03/23 12/06/23 (Voltaren Arthritis Pain) melatonin 5 mg tablet 5 mg PO BEDTIME 08/03/23 12/06/23 acetaminophen 300 mg-codeine 30 mg 1 tab PO Q6H PRN Pain (Scale Score 08/26/23 12/06/23 tablet 7-10) vitamin E 670 mg (1,000 unit) 670 mg PO DAILY 12/06/23 12/06/23 capsule Previous Rx's ?Medication ?Instructions ?Recorded acetaminophen 325 mg tablet 650 mg (2 x 325 mg) PO Q6H PRN 08/12/23 Pain, Mild (Pain Scale 1-3) 30 days #240 tabs metoprolol succinate 100 mg 100 mg PO DAILY #30 tabs 12/07/23 tablet,extended release 24 hr metoprolol succinate 50 mg capsule 50 mg PO .nightly #30 ea 12/31/23 sprinkle, ext. release 24 hr Allergies Allergy/AdvReac Type Severity Reaction Status Date / Time albuterol Allergy Intermediate extreme Verified 12/31/23 11:47 facial flushing hydromorphone [From DILAUDID] Allergy Intermediate extreme Verified 12/31/23 11:47 facial flushing Penicillins [PENICILLINS] Allergy Intermediate RASH Verified 12/31/23 11:47 (states can take ampicillin) Review of Systems 2 Constitutional: Constitutional: Reports no additional constitutional complaints, Denies chills, Denies fatigue, Denies fever(s), Denies headache(s), Denies night sweats and Denies weakness Eyes: Eyes: Reports no additional eye complaints, Denies blurry vision, Denies change in vision, Denies diplopia, Denies eye discharge, Denies loss of vision, Denies eye pain and Denies seeing flashes ENT: Denies dizziness and Denies headache(s) Cardiovascular: Cardiovascular: Reports no additional cardiovascular complaints, Denies chest pain, Denies rapid heart rate, Reports irregular heart rhythm, Denies leg edema, Denies lightheadedness, Denies Loss of Consciousness, Denies palpitations and Denies dyspnea Respiratory: Respiratory: Reports no additional respiratory complaints and Denies dyspnea Gastrointestinal: Gastrointestinal: Reports no additional gastrointestinal complaints, Denies abdominal pain, Denies melena, Denies hematochezia, Denies change in bowel habits and Denies change in stool character Genitourinary: Genitourinary: Denies hematuria, Denies urinary frequency, Denies dysuria, Denies urinary incontinence, Denies urinary hesitancy and Denies urinary urgency Musculoskeletal: Musculoskeletal: Reports no additional musculoskeletal complaints, Denies numbness and Denies tingling Neurologic: Denies dizziness, Denies headache(s), Denies loss of vision, Denies numbness, Denies tingling and Denies weakness Psychiatric: Psychiatric: Reports no additional psychiatric complaints Endocrine: Endocrine: Reports no additional endocrine complaints, Denies fatigue and Denies palpitations Hematologic/Lymphatic: Hematologic/Lymphatic: Reports no additional hematologic/lymphatic complaints Allergic/Immunologic: Allergic/Immunologic: Reports no additional allergic/immunologic complaints PMFSH Past Medical History Attestation statement: The following information was validated with the patient. (all information validated with the patient's daughter) Source: old records reviewed, obtained from family (patient's daughter provided additional history and confirmed the history provided by the patient.) and nursing notes reviewed Medical History Permanent atrial fibrillation Skin tear of upper extremity Contusion of head Fall Atrial fibrillation with RVR Glaucoma Arthritis Anticoagulated GERD (gastroesophageal reflux disease) Renal calculi Forgetfulness Pseudogout Low back pain Bursitis of right hip Afib Surgical History History of total right knee replacement (TKR) Hx of bilateral cataract extraction H/O colonoscopy Hx of tonsillectomy History of back surgery Hx of hysterectomy History of total right knee replacement (~2014) History of bunionectomy History of total left knee replacement (~2017) Family History Family History Mother No problems noted. Father Lung cancer Social History Social History Household Members: None Household Members Other:: home alone [facility] Are you a primary director day care center to a significant other at home: No Do you presently have visiting nurse or other home services: No Alcohol intake: current Alcohol intake frequency: a few times a week Comment: uses cane on occasion Patient Tobacco Use Status: Former Tobacco user Tobacco use type: Cigarette Years Smoked: 30 Second Hand Smoke Exposure: No service: No Current occupational status: retired Current occupation: Right Handed Physical Exam ED Vital Signs: Vital Signs - 24 hr 12/31/23 11:47 12/31/23 13:23 12/31/23 13:25 Temperature 97.7 F Pulse Rate 120 H 111 H 111 H Respiratory Rate 18 19 Blood Pressure 110/72 127/80 127/80 Pulse Oximetry 94 97 Oxygen Delivery Method Room Air Room Air 12/31/23 13:46 Temperature 98.2 F Pulse Rate 105 H Respiratory Rate 18 Blood Pressure 126/68 Pulse Oximetry 98 Oxygen Delivery Method Room Air BMI result Body Mass Index 31.5 Const General: cooperative, no acute distress, alert and awake Nutritional Appearance: well nourished Orientation/consciousness: patient oriented x3 Limitations: no limitations HENMT Head: Yes normal to inspection and Yes atraumatic Ears: hearing grossly normal bilaterally and external ears normal General nose exam: Normal external nose present, no nasal discharge noted and no epistaxis Face and sinus: Yes normal facial exam, No abrasion and No laceration Mouth: Normal oral and palatal mucosa present, no drooling and no muffled voice Eyes General: appearance normal, both eyes and all related structures Periorbital: periorbital findings normal Eyelids: Yes eyelids normal Conjunctivae: conjunctivae normal Pupils: Equal, round and reactive pupils present EOM: EOMs intact bilaterally Neck Neck: Yes normal visual inspection, Yes full ROM and Yes no lymphadenopathy Chest Chest palpation & inspection: normal inspection of the chest Resp Effort & Inspection: normal respiratory effort and able to speak in complete sentences Auscultation: clear to auscultation bilaterally Cardio Jugular venous distension: no JVD Rate: tachycardic Rhythm: abnormal rhythm irregularly irregular Heart sounds: S1 normal heart sound present and S2 normal heart sound present GI Inspection: Yes normal to inspection Neuro General: patient oriented x3 and moves all extremities Cranial nerves: Yes CN's II-XII intact bilaterally and Yes Equal, round and reactive pupils present Cognition (Neuro): normal cognition Motor exam (neuro): 5/5 motor strength present throughout Extrem General: Yes normal to inspection, Yes full ROM and Yes capillary refill normal Psych Appearance: grossly normal Mental Status: mental status grossly normal Affect: normal affect Attitude: cooperative Thought process: Normal thought process present Thought content: Normal thought content present Insight: Good insight present (Psych) Medications Administered Discontinued Medications Generic Name Dose Route Start Last Admin Trade Name Freq PRN Reason Stop Dose Admin Diltiazem HCl 15 mg 12/31/23 13:01 12/31/23 13:25 Diltiazem Hcl 30 Mg Tablet PO 12/31/23 13:02 15 mg ONCE ONE Administration Protocol Medical Decision Making Medical Decision Making MDM Narrative: Patient is an 83 year old assigned female at with a history of atrial fibrillation (not on anti-coagulation secondary to multiple mechanical falls) and OA presenting to the emergency department today with rapid atrial fibrillation. Patient's physical exam showed atrial fibrillation with RVR but was otherwise unremarkable. Patient's blood work was unremarkable. Patient's EKG showed atrial fib with RVR. I explained my physical exam findings as well as all test results to the patient and the patient's daughter. I answered all questions asked by the patient and the patient's daughter. Patient received PO Cardizem while in the department. I consulted with Dr. Rodriguez, the cotton bag sewer sales professional, who evaluated the patient in the department and recommended discharging her on 50mg of additional Metoprolol to be given at night. I stressed the importance of the patient taking her medication as directed (either prescribed or as the over the counter packaging recommends). I stressed the importance of the patient following up with her primary care provider and her cotton bag sewer. I stressed the importance of the patient returning to the emergency department immediately if she were to develop any dizziness, shortness of breath, difficulty breathing, chest pain, blurry vision, loss of vision, nausea, vomiting, abdominal pain, fever, chills, back pain, or any other complaints. Patient and the patient's daughter verbalized agreement and understanding with this treatment plan and discharge. Differential Diagnosis Differential Diagnoses: The differential diagnosis associated with the presentation includes Atrial fib with RVR Admission/Observation Consideration of admission/observation: Escalation of care including admission/observation considered Patient would have been admitted to the hospital had her work up had any findings where hospital admission was appropriate and her clinical presentation warranted hospital admission. Consult Healthcare Provider Management of the patient was discussed with: Project Eng (spoke to the cotton bag sewer as noted in the MDM Rationale portion of this note) Lab Data [facility] Lab Attestation statement: I reviewed the patient's lab results. My interpretation of these results are in the MDM Rationale portion of this note. 12/31/23 12:21 12/31/23 12:21 Labs: Lab Results 12/31/23 Range/Units 12:21 WBC 6.3 (4.8-10.8) X10*3/uL RBC 3.80 L (4.20-5.50) X10*6/uL Hgb 11.5 L (12.0-16.0) g/dl Hct 35.8 L (37.0-47.0) % MCV 94.2 (80.0-98.0) fL MCH 30.3 (27.0-33.0) pg MCHC 32.1 (31.0-35.0) g/dl RDW 15.1 (11.0-16.0) % Plt Count 251 (160-400) X10*3/uL MPV 9.9 (9.4-12.3) fL Immature Gran % (Auto) 0.5 H (0.0-0.4) % Neut % (Auto) 77.8 H (45-73) % Lymph % (Auto) 9.4 L (20-40) % [place] % (Auto) 7.6 (2-11) % Eos % (Auto) 4.1 H (0-4) % Baso % (Auto) 0.6 (0-2) % Lymph # (Auto) 0.6 L (1.2-4.9) X10*3/uL [place] # (Auto) 0.5 (0.1-1.2) X10*3/uL Eos # (Auto) 0.3 (0.0-0.4) X10*3/uL Baso # (Auto) 0.0 (0.0-0.2) X10*3/uL Abs Immat Gran (auto) 0.03 (0.00-0.03) X10*3/uL Absolute Neuts (auto) 4.9 (2.0-8.3) x10*3/uL Absolute Nucleated RBC 0.000 (0.0-0.012) X10*3/uL Nucleated RBC % (auto) 0.0 (0.0-0.2) /100WBC PT 11.2 (10.9-12.4) SEC INR 1.0 (0.9-1.1) APTT 29.5 (26.0-36.8) SEC Sodium 142 (135-145) mmol/L Potassium 4.8 (3.3-5.1) mmol/L Chloride 109 H (96-108) mmol/L Carbon Dioxide 26 (22-29) mmol/L Anion Gap 12 (12-20) BUN 27 H (9-16) mg/dL Creatinine 1.23 (0.5-1.4) mg/dL Estim Creat Clear Calc 36.8 Estimated GFR 42 Random Glucose 125 H (60-115) mg/dL Calcium 9.3 (8.4-10.2) mg/dL Magnesium 2.2 (1.6-2.6) mg/dL Total Bilirubin 0.6 (0.0-1.0) mg/dL AST 21 (5-31) U/L ALT 13 (0-31) U/L Alkaline Phosphatase 66 (39-117) U/L Troponin I High Sens < 2.7 D (<3.5-17.0) ng/L Total Protein 6.3 L (6.5-8.0) g/dL Albumin 3.3 L (3.5-5.0) g/dL Influenza Type A (PCR) NEGATIVE (Negative) Influenza Type B (PCR) NEGATIVE (Negative) RSV RNA Qual (PCR) NEGATIVE (Negative) SARS-CoV-2 RNA (RT-PCR) NEGATIVE (Negative) Independent Interpretation I performed an independent interpretation of an: EKG Interpretation: Vent. Rate: 110 BPM Atrial Rate: 000 BPM P-R Int: 000 ms QRS Dur: 086 ms QT Int: 330 ms P-R-T Axes: 000 -18 155 degrees QTc Int: 446 ms Atrial fibrillation with rapid ventricular response Minimal voltage criteria for LVH, may be normal variant (R in aVL) Nonspecific T wave abnormality Abnormal ECG When compared with ECG of 05-DEC-2023 19:54, Nonspecific T wave abnormality now evident in Anterolateral leads Electronically Signed By:ELISABETH MALLORY Dictated By: Elisabeth Krause DO Signed By: Electronically signed by Elisabeth Krause DO 12/31/23 1253 Vent. Rate: 106 BPM Atrial Rate: 000 BPM P-R Int: 000 ms QRS Dur: 086 ms QT Int: 336 ms P-R-T Axes: 000 -16 103 degrees QTc Int: 446 ms Atrial fibrillation with rapid ventricular response Nonspecific T wave abnormality Abnormal ECG When compared with ECG of 31-DEC-2023 11:52, Nonspecific T wave abnormality, improved in Anterior leads DD/ [id number] Independent Historian Clinical information obtained from an independent historian. History obtained from or confirmed by: EMS (EMS provided additional history and confirmed the history provided by the patient.) and Other (patient's daughter provided additional history and confirmed the history provided by the patient.) Critical Care Time Critical Care Time Critical Care Time: Yes Total Critical Care Time: 34 Attestation: I spent 34 minutes of Critical Care Time with this patient. This does not include time spent on separately reported billable procedures. Discharge Plan Discharge Clinical Impression: Atrial fibrillation with RVR Patient Disposition: Home, Self-Care Instructions: A-fib (Atrial Fibrillation) (DC) Additional Instructions: Follow up with your primary care provider and your cotton bag sewer. Return to the emergency department immediately if your symptoms worsen or if you develop any dizziness, shortness of breath, difficulty breathing, chest pain, blurry vision, loss of vision, nausea, vomiting, abdominal pain, fever, chills, back pain, or any other complaints. Prescriptions: New metoprolol succinate 50 mg capsule,sprinkle,ER 24hr 50 mg PO .nightly Qty: 30 0RF No Action vitamin E 670 mg (1,000 unit) Capsule 670 mg PO DAILY metoprolol succinate 100 mg Tablet Extended Release 24 Hr 100 mg PO DAILY Qty: 30 0RF Protocol: Hold for SBP/HR < HOLD for SBP < : 90 HOLD for HR < : 60 diclofenac sodium [Voltaren Arthritis Pain] 1 % gel 2 g topical QID PRN (Reason: Pain) Rx Instructions: apply to both thumbs melatonin 5 mg Tablet 5 mg PO BEDTIME acetaminophen 325 mg Tablet 650 mg PO Q6H PRN (Reason: Pain, Mild (Pain Scale 1-3)) 30 Days Qty: 240 0RF duloxetine 60 mg capsule,delayed release(DR/EC) 60 mg PO DAILY bupropion HCl 300 mg tablet extended release 24 hr 300 mg PO DAILY levothyroxine 75 mcg tablet 75 mcg PO DAILY@1200 atorvastatin 10 mg tablet 10 mg PO DAILY timolol maleate 0.5 % drops 1 drp ophthalmic (eye) BID trazodone 50 mg tablet 50 mg PO BEDTIME cholecalciferol (vitamin D3) 25 mcg (1,000 unit) capsule 25 mcg PO DAILY omeprazole 20 mg tablet,delayed release (DR/EC) 20 mg PO DAILY@0630 acetaminophen-codeine 300-30 mg tablet 1 tab PO Q6H PRN (Reason: Pain (Scale Score 7-10)) Referrals: [facility] [place] Group] (Call to establish and follow up with a primary care provider. If you already have a primary care provider, please follow up with them.) [facility] [place] [Provider Group] (Call to establish and follow up with a primary care provider. If you already have a primary care provider, please follow up with them.) [facility] [[facility]] (Call to establish and follow up with a primary care provider. If you already have a primary care provider, please follow up with them.) Interventions: ED Discharge Assessment Last Done: 12/31/23 15:29 Print Language: Persian
--- NOTE | 2023-12-31 12:22 | PC.NURSE ---
PIV placed, labs drawn/sent. Pt given extra blankets per request.
[2023-12-31 12:27] LABS: MANUAL DIFF FLAG NO
[2023-12-31 12:29] LABS: Basophils Percent Auto 0.6 % (0-2); Eosinophils Absolute Auto 0.3 X10*3/uL (0.0-0.4); Eosinophils Percent Auto 4.1 % (0-4); Hematocrit 35.8 % (37.0-47.0); Hemoglobin 11.5 g/dl (12.0-16.0); Imm Gran Abs Auto 0.03 X10*3/uL (0.00-0.03); Imm Gran Pct Auto 0.5 % (0.0-0.4); Lymphocytes Absolute Auto 0.6 X10*3/uL (1.2-4.9); Lymphocytes Percent Auto 9.4 % (20-40); Mean Corpuscular HGB Conc 32.1 g/dl (31.0-35.0); Mean Corpuscular Hemoglobin 30.3 pg (27.0-33.0); Mean Corpuscular Volume 94.2 fL (80.0-98.0); Mean Platelet Volume 9.9 fL (9.4-12.3); Monocytes Absolute Auto 0.5 X10*3/uL (0.1-1.2); Monocytes Percent Auto 7.6 % (2-11); Neutrophils Absolute Auto 4.9 x10*3/uL (2.0-8.3); Neutrophils Percent Auto 77.8 % (45-73); Platelet Count 251 X10*3/uL (160-400); Red Cell Distribution Width 15.1 % (11.0-16.0); White Blood Count 6.3 X10*3/uL (4.8-10.8)
[2023-12-31 12:34] LABS: Prothrombin Time 11.2 SEC (10.9-12.4)
[2023-12-31 12:36] LABS: Partial Thromboplastin Time 29.5 SEC (26.0-36.8)
[2023-12-31 12:59] LABS: Alanine Aminotransferase 13 U/L (0-31); Albumin Level 3.3 g/dL (3.5-5.0); Alkaline Phosphatase 66 U/L (39-117); Anion Gap 12 (12-20); Aspartate Amino Transferase 21 U/L (5-31); Bilirubin Total 0.6 mg/dL (0.0-1.0); Blood Urea Nitrogen 27 mg/dL (9-16); Calcium 9.3 mg/dL (8.4-10.2); Carbon Dioxide 26 mmol/L (22-29); Chloride 109 mmol/L (96-108); Creatinine Clr Calc Pharmacy 36.8; Estimated Glomerular Filt Rate 42; Glucose Random 125 mg/dL (60-115); Magnesium 2.2 mg/dL (1.6-2.6); Potassium 4.8 mmol/L (3.3-5.1); Sodium 142 mmol/L (135-145); Total Protein 6.3 g/dL (6.5-8.0); Troponin-I High Sensitivity < 2.7 ng/L (<3.5-17.0)
[2023-12-31 13:04] LABS: Influenza A PCR NEGATIVE (Negative); Influenza B PCR NEGATIVE (Negative); Resp Syncy Virus RNA Qual PCR NEGATIVE (Negative); SARS COV2 PCR INHOUSE NEGATIVE (Negative)
[2023-12-31 13:23] VITALS: BP 127/80; PULSE 111; RESP 19; O2SAT 97
[2023-12-31 13:25] VITALS: BP 127/80; PULSE 111
[2023-12-31] MEDS: dilTIAZem HCL 30 MG TABLET 15 MG PO (13:25)
[2023-12-31 13:46] VITALS: BP 126/68; PULSE 105; RESP 18; TEMP 36.8; O2SAT 98
--- NOTE | 2023-12-31 14:14 | ECG_ITS ---
Test Reason : REPEAT EKG Blood Pressure : / mmHG Vent. Rate : 106 BPM Atrial Rate : 000 BPM P-R Int : 000 ms QRS Dur : 086 ms QT Int : 336 ms P-R-T Axes : 000 -16 103 degrees QTc Int : 446 ms Atrial fibrillation with rapid ventricular response Nonspecific T wave abnormality Abnormal ECG When compared with ECG of 31-DEC-2023 11:52, Nonspecific T wave abnormality, improved in Anterior leads Referred By: Venus Paula Electronically Signed By:ELISABETH QUIJANO
--- NOTE | 2023-12-31 14:58 | PM.CNCAR ---
History of Present Illness History of Present Illness Date of Service: 12/31/23 Requesting physician: Venus Paula Chief complaint: Afib Narrative: 83-year-old female who is here for AFib with RVR. Apparently 1 of the visiting nurses saw her today and noticed her heart rate to be up and she advised her to come to the emergency department. She has no symptoms. No chest pain or shortness of breath. She is saying that she felt some palpitations at home but currently has no palpitations. EKGs showing atrial fibrillation. Her daughter is at bedside who added that she is in AFib all the time. She was previously on warfarin but apparently had a fall and since then she has been falling frequently. The patient is saying that her legs give way while walking and she falls. She has never had syncope. Heart rate control is okay and heart rates are anywhere 100-120 beats per minute. She is on metoprolol succinate 100 mg daily at home. As mentioned not on anticoagulation. [facility] Past Medical History Medical History Glaucoma Arthritis Anticoagulated GERD (gastroesophageal reflux disease) Renal calculi Forgetfulness Pseudogout Low back pain Bursitis of right hip Afib Family History Family History Mother No problems noted. Father Lung cancer Surgical History Surgical History History of total right knee replacement (TKR) Hx of bilateral cataract extraction H/O colonoscopy Hx of tonsillectomy History of back surgery Hx of hysterectomy History of total right knee replacement (~2014) History of bunionectomy History of total left knee replacement (~2017) Social History Social History Household Members: None Household Members Other:: home alone Housing: Condominium Are you a primary day care attendant to a significant other at home: No Do you presently have visiting nurse or other home services: No Alcohol intake: current Alcohol intake frequency: a few times a week Comment: uses cane on occasion Patient Tobacco Use Status: Former Tobacco user Tobacco use type: Cigarette Years Smoked: 30 Smoked in Last 30 Days: No Second Hand Smoke Exposure: No Use of substances other than those prescribed or required for medical reasons: No Advance Directives: No Advance Directives Information Provided: No Do you have a plan to hurt others: No Plan service: No Current occupational status: retired Current occupation: Right Handed Meds Allergies Allergy/AdvReac Type Severity Reaction Status Date / Time albuterol Allergy Intermediate extreme Verified 12/31/23 11:47 facial flushing hydromorphone [From DILAUDID] Allergy Intermediate extreme Verified 12/31/23 11:47 facial flushing Penicillins [PENICILLINS] Allergy Intermediate RASH Verified 12/31/23 11:47 (states can take ampicillin) Home Medications ?Medication ?Instructions ?Recorded ?Confirmed ?Last Taken ?Type bupropion HCl 300 mg 24 hr tablet, 300 mg PO DAILY 02/19/20 12/06/23 12/05/23 12:00 History extended release duloxetine 60 mg capsule,delayed 60 mg PO DAILY 02/19/20 12/06/23 12/05/23 12:00 History release levothyroxine 75 mcg tablet 75 mcg PO DAILY@1200 02/19/20 12/06/23 12/05/23 12:00 History atorvastatin 10 mg tablet 10 mg PO DAILY 02/23/22 12/06/23 12/05/23 12:00 History timolol maleate 0.5 % eye drops 1 drp ophthalmic (eye) BID 02/23/22 12/06/23 12/05/23 12:00 History trazodone 50 mg tablet 50 mg PO BEDTIME 02/23/22 12/06/23 12/04/23 History cholecalciferol (vitamin D3) 25 25 mcg PO DAILY 04/07/22 12/06/23 12/05/23 12:00 History mcg (1,000 unit) capsule omeprazole 20 mg tablet,delayed 20 mg PO DAILY@0630 04/07/22 12/06/23 12/05/23 12:00 History release diclofenac sodium 1 % topical gel 2 g topical QID PRN Pain 08/03/23 12/06/23 12/05/23 12:00 History (Voltaren Arthritis Pain) melatonin 5 mg tablet 5 mg PO BEDTIME 08/03/23 12/06/23 12/04/23 History acetaminophen 300 mg-codeine 30 mg 1 tab PO Q6H PRN Pain (Scale Score 05/30/24 09/09/24 09/08/24 12:00 History tablet 7-10) vitamin E 670 mg (1,000 unit) 670 mg PO DAILY 12/06/23 12/06/23 12/04/23 History capsule Physical Exam Vital Signs: Vital Signs: Last Vital Signs Temp 98.2 F 12/31/23 13:46 Pulse 105 H 12/31/23 13:46 Resp 18 12/31/23 13:46 BP 126/68 12/31/23 13:46 Pulse Ox 98 12/31/23 13:46 O2 Del Method Room Air 12/31/23 13:46 BMI result Body Mass Index 31.5 GENERAL APPEARANCE: in no acute distress, pleasant. NECK: no carotid bruit, no jugular venous distention. SKIN: no suspicious lesions, warm and dry. HEART: no murmurs, irregular rate and rhythm. LUNGS: clear to auscultation bilaterally. ABDOMEN: soft, nontender. EXTREMITIES: no edema. PERIPHERAL PULSES: equal. NEUROLOGIC: No gross deficits, AAO X 3 Objective Labs and Meds 12/31/23 12:21 12/31/23 12:21 Lab results: Laboratory Results - last 24 hr 12/31/23 12:21 WBC 6.3 RBC 3.80 L Hgb 11.5 L Hct 35.8 L MCV 94.2 MCH 30.3 MCHC 32.1 RDW 15.1 Plt Count 251 MPV 9.9 Immature Gran % (Auto) 0.5 H Neut % (Auto) 77.8 H Lymph % (Auto) 9.4 L [place] % (Auto) 7.6 Eos % (Auto) 4.1 H Baso % (Auto) 0.6 Lymph # (Auto) 0.6 L [place] # (Auto) 0.5 Eos # (Auto) 0.3 Baso # (Auto) 0.0 Abs Immat Gran (auto) 0.03 Absolute Neuts (auto) 4.9 Absolute Nucleated RBC 0.000 Nucleated RBC % (auto) 0.0 PT 11.2 INR 1.0 APTT 29.5 Sodium 142 Potassium 4.8 Chloride 109 H Carbon Dioxide 26 Anion Gap 12 BUN 27 H Creatinine 1.23 Estim Creat Clear Calc 36.8 Estimated GFR 42 Random Glucose 125 H Calcium 9.3 Magnesium 2.2 Total Bilirubin 0.6 AST 21 ALT 13 Alkaline Phosphatase 66 Troponin I High Sens < 2.7 D Total Protein 6.3 L Albumin 3.3 L Influenza Type A (PCR) NEGATIVE Influenza Type B (PCR) NEGATIVE RSV RNA Qual (PCR) NEGATIVE SARS-CoV-2 RNA (RT-PCR) NEGATIVE Assessment and Plan (1) Atrial fibrillation with RVR: Status: Acute Plan Pleasant 83 year female presenting for AFib with RVR. She has permanent atrial fibrillation. Clinically asymptomatic right now and not in heart failure. Blood pressure is well controlled. She is taking Toprol-XL 100 mg daily. I have advised her to take 100 mg in the morning and 50 in the afternoon. We will provide her with the 50 mg Toprol-XL script and I have explained to the daughter that the 100 mg tablet should not be cut in half. Not on anticoagulation due to multiple falls. She uses a walker off and on but does not fall with the use a walker and this should be encouraged. We will arrange follow-up in the office. Thank you for allowing me to participate in the care of your patient. Please feel free to contact me if you have any questions. Procedures Date of Service Date of Service: 12/31/23
[2023-12-31 15:29] VITALS: BP 126/60; PULSE 102; RESP 18; TEMP 36.7; O2SAT 98
== END 2023-12-31 15:30 | disposition home or self-care (01) ==
PROVIDERS: Physician Assistant Medical; Emergency Provider Student in an Organized Health Care Education/Training Program
DX: I48.91 Unspecified atrial fibrillation (principal); I48.20 Chronic atrial fibrillation, unspecified; Z03.818 Encounter for observation for suspected exposure to other biological agents ruled out; Z79.899 Other long term (current) drug therapy
CPT/HCPCS: 0241U; 80053; 83735; 84484; 85025; 85610; 85730; 93005; 99283; 99285

== ENCOUNTER → 2023-12-31 13:23 | Outpatient (BNV) | payer MEDICARE, SELFPAY | PROVIDERS: Emergency Provider Student in an Organized Health Care Education/Training Program; Visit Provider Internal Medicine Cardiovascular Disease | DX: I48.91 Unspecified atrial fibrillation (principal); R29.6 Repeated falls | CPT/HCPCS: 99282 ==

== ENCOUNTER 2024-01-24 13:16 | Outpatient (AMB) | payer MEDICARE, SELFPAY ==
[2024-01-24 13:19] VITALS: BP 120/68; PULSE 88; BMI 26.8
--- NOTE | 2024-01-24 13:19 | MHC.OFFVIS ---
Vital Signs 01/24/24 13:19 Height 5 ft 5 in Weight 160 lb 14.999 oz BMI 26.8 BP 120/68 Blood Pressure Location Lt brachial Position Sitting Pulse 88 Pulse Source Pulse Oximeter Intake [place] [facility] [place] Allergies albuterol Allergy (Intermediate, Verified 12/31/23 11:47) extreme facial flushing hydromorphone [From DILAUDID] Allergy (Intermediate, Verified 12/31/23 11:47) extreme facial flushing Penicillins [PENICILLINS] Allergy (Intermediate, Verified 12/31/23 11:47) RASH (states can take ampicillin) Medication List - Last Reconciled 01/24/24 by Arnulfo Alatorre MD acetaminophen 650 mg (2 x 325 mg) PO Q6H PRN 30 days acetaminophen-codeine 300-30 mg 1 tab PO Q6H PRN atorvastatin 10 mg PO DAILY betamethasone dipropionate 0.05% appl topical bupropion HCl XL 300 mg PO DAILY celecoxib 200 mg PO DAILY cholecalciferol (vitamin D3) 25 mcg PO DAILY diclofenac sodium 1% (Voltaren Arthritis Pain) 2 grams topical QID PRN duloxetine 60 mg PO DAILY levothyroxine 75 mcg PO DAILY@1200 melatonin 5 mg PO BEDTIME metoprolol succinate ER 50 mg PO .nightly metoprolol succinate ER 100 mg See Protocol PO DAILY omeprazole 20 mg PO DAILY@0630 timolol maleate 0.5% 1 drp ophthalmic (eye) BID trazodone 50 mg PO BEDTIME vitamin E 670 mg PO DAILY HPI Comments Details: Shira returns for follow-up. I had last seen her in 2017 but she has been admitted recently with atrial fibrillation concerns. Per last note in 2017, had paroxysmal atrial fibrillation maintained on metoprolol and warfarin. Daughter is here for the appointment. She states that patient probably stopped the metoprolol few months back, possibly from forgetfulness. She was still on anticoagulation. There have been some falls in the summer months. Then an additional fall in October 2023 which led to ER evaluation and required [facility] transfer. Imaging had shown a subdural hematoma. After that, she has been taken off anticoagulation. Patient herself states she feels okay. No clear-cut cardiac symptoms. Of note, in the past she had paroxysmal atrial fibrillation but for the last few months, seems like she has been in persistent atrial fibrillation. However, no clear-cut symptoms. Otherwise, per daughter, patient has memory issues and pending neurology appointment for assessment. [facility] Medical History (Updated 01/24/24 @ 14:32 by Arnulfo Alatorre MD) Atrial fibrillation with RVR Permanent atrial fibrillation Skin tear of upper extremity Contusion of head Fall Glaucoma Arthritis Anticoagulated GERD (gastroesophageal reflux disease) Renal calculi Forgetfulness Pseudogout Low back pain Bursitis of right hip Afib Surgical History History of total right knee replacement (TKR) Hx of bilateral cataract extraction H/O colonoscopy Hx of tonsillectomy History of back surgery Hx of hysterectomy History of total right knee replacement (~2014) History of bunionectomy History of total left knee replacement (~2017) Family History Mother No problems noted. Father Lung cancer Social History Household Members: None Household Members Other:: home alone Housing: [facility] Are you a primary child day care center worker to a significant other at home: No Do you presently have visiting nurse or other home services: No Alcohol intake: current Alcohol intake frequency: a few times a week Comment: uses cane on occasion Patient Tobacco Use Status: Former Tobacco user Tobacco use type: Cigarette Years Smoked: 30 Second Hand Smoke Exposure: No service: No Current occupational status: retired Current occupation: Right Handed Review of Systems Const Denies weakness ENT Denies dizziness Card Denies chest pain, Denies chest pain with activity, Denies syncope, Denies rapid heart rate, Denies pedal edema, Denies edema, Denies leg edema, Denies lightheadedness, Denies palpitations, Denies dyspnea, Denies dyspnea on exertion and Denies orthopnea Resp Denies cough, Denies dyspnea and Denies dyspnea on exertion GI Denies hematochezia and Denies change in stool character Musc Denies abnormal gait, Denies muscle cramps, Denies muscle weakness, Denies numbness, Denies radiating pain into limb and Denies tingling Neuro Denies abnormal gait, Denies dizziness, Denies syncope, Denies numbness, Denies tingling and Denies weakness Endo Denies palpitations Physical Exam Vital Signs: Last Vital Signs Pulse 88 01/24/24 13:19 BP 120/68 01/24/24 13:19 BMI result Body Mass Index 26.8 Const General: comfortable and no acute distress Orientation/consciousness: patient oriented x3 HEENT Other: Unremarkable Head: Yes normal to inspection Neck Neck: Yes normal visual inspection Chest Chest palpation & inspection: normal inspection of the chest Resp Auscultation: clear to auscultation bilaterally Cardio Palpation: normal PMI Heart sounds: S1 normal heart sound present, S2 normal heart sound present, no gallops, no murmurs and no rubs GI Palpation (GI): Soft to palpation Back/Spine/Pelvis Other: unremarkable Skin General skin exam: no rashes or lesions noted Neuro General: patient oriented x3 Extrem General: Yes normal to inspection Psych Mental Status: mental status grossly normal Office Procedures EKG Details: EKG with atrial fibrillation with rapid rate at 112/Min. [id number], Complete Assessment & Plan Assessment & Plan (1) Atrial fibrillation with RVR: Code(s): I48.91 - Unspecified atrial fibrillation Category: Medical (2) Subdural hematoma: Code(s): S06.5XAA - Traumatic subdural hemorrhage with loss of consciousness status unknown, initial encounter Category: Medical Plan Overall, persistent atrial fibrillation, recurrent falls, recent subdural hematoma, off anticoagulation. She used to be on metoprolol ER 100 mg daily but now on 150 mg daily. As she is still having rapid rate, add digoxin. We can check digoxin levels in a few weeks' time. We will do a Holter monitor once adequately digoxin loaded. Otherwise, with regard to anticoagulation, poor candidate because of recurrent falls. Hence discussed about Watchman and gave them reading material. If they agree, we can refer. Plan discussed with daughter. We will follow up in about 6 weeks' time. Echocardiogram from [facility]-LVEF 50%, in the setting of atrial fibrillation. No wall motion abnormalities. Calcified aortic valve with mild regurgitation. Mild mitral annular calcification. Left atrium mildly dilated. Total time spent including review of all the hospitalization records, [facility] documentation, counseling, documentation, coordination of care-47 minutes. Orders: Orders ECG 3 day holter monitor 4 Weeks I48.91 - Unspecified atrial fibrillation Digoxin Today I48.19 - Other persistent atrial fibrillation Medications: New digoxin 125 mcg PO DAILY 90 tabs 1RF Coding Level of Care Code Est Pt Level 5 (35144) Diagnoses Atrial fibrillation with RVR I48.91 Subdural hematoma S06.5XAA CPT Codes EKG - CPT: 33382-[id number], Complete ([id number])
== END 2024-01-24 14:24 | disposition home or self-care (01) ==
LOC: HO.HCS 13:16
PROVIDERS: Visit Provider Internal Medicine
DX: I48.91 Unspecified atrial fibrillation (principal); S06.5XAA Traumatic subdural hemorrhage with loss of consciousness status unknown, initial encounter; R29.6 Repeated falls
CPT/HCPCS: 93010; 99215

== ENCOUNTER → 2024-01-24 13:16 | Outpatient (BNVA) | payer MEDICARE, SELFPAY | PROVIDERS: Visit Provider Internal Medicine | DX: I48.19 Other persistent atrial fibrillation (principal); S06.5XAA Traumatic subdural hemorrhage with loss of consciousness status unknown, initial encounter; X58.XXXA Exposure to other specified factors, initial encounter; Z87.891 Personal history of nicotine dependence; Z79.899 Other long term (current) drug therapy | CPT/HCPCS: 93005; 99212 ==

== ENCOUNTER → 2024-02-21 07:00 | Outpatient (REF) | payer MEDICARE, SELFPAY ==
--- NOTE | 2024-02-21 07:02 | HM_ITS ---
Conclusion: 1. Patient was monitored for total period of 3 days 2. Baseline was atrial fibrillation with average heart rate of 70 beats per minute with adequate rate control without significant pauses 3. No patient reported events MTDD
== END ==
LOC: HO.CARD 07:00
PROVIDERS: PCP Internal Medicine; Visit Provider Internal Medicine
DX: I48.91 Unspecified atrial fibrillation (principal)
CPT/HCPCS: 93242

== ENCOUNTER → 2024-02-21 07:02 | Outpatient (BNV) | payer MEDICARE, SELFPAY | PROVIDERS: PCP Internal Medicine; Visit Provider Internal Medicine Cardiovascular Disease | DX: I48.91 Unspecified atrial fibrillation (principal) | CPT/HCPCS: 93244 ==

== ENCOUNTER 2024-03-01 15:18 | Outpatient (AMB) | payer MEDICARE, SELFPAY ==
--- NOTE | 2024-03-01 15:19 | MHC.OFFVIS ---
Vital Signs 03/01/24 15:20 Height 5 ft 5 in Weight 162 lb 11.218 oz BMI 27.1 BP 110/60 Blood Pressure Location Lt brachial Position Sitting Pulse 56 Pulse Source Pulse Oximeter Intake Visit Reasons: 6 week follow-up after holter Hospital Clerk Required: No Accompanied by: Daughter Allergies albuterol Allergy (Intermediate, Verified 12/31/23 11:47) extreme facial flushing hydromorphone [From DILAUDID] Allergy (Intermediate, Verified 12/31/23 11:47) extreme facial flushing Penicillins [PENICILLINS] Allergy (Intermediate, Verified 12/31/23 11:47) RASH (states can take ampicillin) Medication List - Last Reconciled 03/01/24 by Arnulfo Alatorre MD acetaminophen 650 mg (2 x 325 mg) PO Q6H PRN 30 days atorvastatin 10 mg PO DAILY betamethasone dipropionate 0.05% appl topical bupropion HCl XL 300 mg PO DAILY celecoxib 200 mg PO DAILY cholecalciferol (vitamin D3) 25 mcg PO DAILY diclofenac sodium 1% (Voltaren Arthritis Pain) 2 grams topical QID PRN digoxin 125 mcg PO DAILY duloxetine 60 mg PO DAILY levothyroxine 75 mcg PO DAILY@1200 melatonin 5 mg PO BEDTIME metoprolol succinate ER 50 mg PO .nightly metoprolol succinate ER 100 mg See Protocol PO DAILY omeprazole 20 mg PO DAILY@0630 timolol maleate 0.5% 1 drp ophthalmic (eye) BID trazodone 50 mg PO BEDTIME vitamin E 670 mg PO DAILY HPI Comments Details: Shira returns for follow-up. We had seen her in the past around 2018. At that time, she had paroxysmal atrial fibrillation on metoprolol and warfarin. Due to forgetfulness, she has not taken metoprolol recently but still taking the warfarin. Then it seems that she had recurrent falls and that led to hospitalization. Imaging had shown subdural hematoma. After that, off anticoagulation. Daughter states that she has not had any further falls but she is still unstable and at risk of falls. From the atrial fibrillation standpoint, no specific symptoms. Beta-coco dose has been recently increased and she is also on digoxin. [facility] Medical History (Updated 01/24/24 @ 14:32 by Arnulfo Alatorre MD) Atrial fibrillation with RVR Permanent atrial fibrillation Skin tear of upper extremity Contusion of head Fall Glaucoma Arthritis Anticoagulated GERD (gastroesophageal reflux disease) Renal calculi Forgetfulness Pseudogout Low back pain Bursitis of right hip Afib Surgical History History of total right knee replacement (TKR) Hx of bilateral cataract extraction H/O colonoscopy Hx of tonsillectomy History of back surgery Hx of hysterectomy History of total right knee replacement (~2014) History of bunionectomy History of total left knee replacement (~2017) Family History Mother No problems noted. Father Lung cancer Social History Household Members: None Household Members Other:: home alone [facility] Are you a primary palliative care physician to a significant other at home: No Do you presently have visiting nurse or other home services: No Alcohol intake: current Alcohol intake frequency: a few times a week Comment: uses cane on occasion Patient Tobacco Use Status: Former Tobacco user Tobacco use type: Cigarette Years Smoked: 30 Second Hand Smoke Exposure: No service: No Current occupational status: retired Current occupation: Right Handed Review of Systems Const Denies chills, Denies fatigue, Denies fever(s), Denies weight gain and Denies weight loss ENT Denies dizziness Card Denies chest pain, Denies leg edema, Denies lightheadedness, Denies palpitations, Denies dyspnea on exertion, Denies orthopnea and Denies other Resp Denies cough and Denies dyspnea on exertion GI Denies hematochezia and Denies change in stool character Musc Denies abnormal gait, Denies muscle weakness, Denies numbness, Denies radiating pain into limb and Denies tingling Neuro Denies abnormal gait, Denies dizziness, Denies numbness and Denies tingling Endo Denies fatigue and Denies palpitations Physical Exam Vital Signs: Last Vital Signs Pulse 56 03/01/24 15:20 BP 110/60 03/01/24 15:20 BMI result Body Mass Index 27.1 Const General: comfortable and no acute distress Orientation/consciousness: patient oriented x3 HEENT Other: Unremarkable Head: Yes normal to inspection Neck Neck: Yes normal visual inspection Chest Chest palpation & inspection: normal inspection of the chest Resp Auscultation: clear to auscultation bilaterally Cardio Palpation: normal PMI Heart sounds: S1 normal heart sound present, S2 normal heart sound present, no gallops, no murmurs and no rubs GI Palpation (GI): Soft to palpation Back/Spine/Pelvis Other: unremarkable Skin General skin exam: no rashes or lesions noted Neuro General: patient oriented x3 Extrem General: Yes normal to inspection Psych Mental Status: mental status grossly normal Assessment & Plan Assessment & Plan (1) Atrial fibrillation with RVR: Code(s): I48.91 - Unspecified atrial fibrillation Category: Medical (2) Subdural hematoma: Code(s): S06.5XAA - Traumatic subdural hemorrhage with loss of consciousness status unknown, initial encounter Category: Medical Plan Overall, persistent atrial fibrillation, recurrent falls, recent subdural hematoma, off anticoagulation. Currently on a combination of metoprolol ER 150 mg daily, digoxin. Check digoxin levels. Holter is pending at this time. With regard to anticoagulation, not a good candidate because of recurring falls and recent subdural hematoma. Discussed about Watchman device and she is agreeable. Referral made for the same. Otherwise, stable and we will see her back in 6 months' time. Echocardiogram from [facility]-LVEF 50%, in the setting of atrial fibrillation. No wall motion abnormalities. Calcified aortic valve with mild regurgitation. Mild mitral annular calcification. Left atrium mildly dilated. Total time spent including review of all the hospitalization records, [facility] documentation, counseling, documentation, coordination of care-47 minutes. Orders: Referrals Cardiac Electrophysiology Referral I48.91 - Unspecified atrial fibrillation Coding Level of Care Code Est Pt Level 4 (66937) Diagnoses Atrial fibrillation with RVR I48.91 Subdural hematoma S06.5XAA
[2024-03-01 15:20] VITALS: BP 110/60; PULSE 56; BMI 27.1
== END 2024-03-01 15:51 | disposition home or self-care (01) ==
PROVIDERS: PCP Internal Medicine; Visit Provider Internal Medicine
DX: I48.91 Unspecified atrial fibrillation (principal); S06.5XAA Traumatic subdural hemorrhage with loss of consciousness status unknown, initial encounter
CPT/HCPCS: 99214

== ENCOUNTER → 2024-03-01 15:18 | Outpatient (BNVA) | payer MEDICARE, SELFPAY | PROVIDERS: PCP Internal Medicine; Visit Provider Internal Medicine | DX: I48.91 Unspecified atrial fibrillation (principal); S06.5XAA Traumatic subdural hemorrhage with loss of consciousness status unknown, initial encounter; W18.30XA Fall on same level, unspecified, initial encounter; Y93.9 Activity, unspecified; Y92.9 Unspecified place or not applicable; Y99.9 Unspecified external cause status | CPT/HCPCS: 99212 ==

== ENCOUNTER 2024-03-04 10:28 | Outpatient (REF) | payer MEDICARE, SELFPAY ==
[2024-03-04 12:00] LABS: Digoxin 1.1 ng/mL (0.8-2.0)
== END 2024-03-04 10:29 | disposition home or self-care (01) ==
LOC: HO.HMGCLDS 10:28
PROVIDERS: PCP Internal Medicine; Visit Provider Internal Medicine
DX: I48.19 Other persistent atrial fibrillation (principal)
CPT/HCPCS: 36415; 80162

== ENCOUNTER 2024-06-06 15:15 | Outpatient (AMB) | payer MEDICARE, SELFPAY ==
--- NOTE | 2024-06-06 15:17 | A.OFFPC_ITS ---
Vital Signs 06/06/24 15:18 Height 5 ft 5 in Weight 156 lb BMI 26.0 BP 140/80 H Respiration 16 Pulse 62 Pulse Source Pulse Oximeter Temp 97.6 F Temp Source Temporal Artery Scan Pulse Oximetry (%) 93 Oxygen Delivery Method Room Air Intake Visit Reasons: 3 month follow up [employer] Inspector Required: No Accompanied by: Daughter Allergies albuterol Allergy (Intermediate, Verified 06/06/24 15:25) extreme facial flushing hydromorphone [From DILAUDID] Allergy (Intermediate, Verified 06/06/24 15:25) extreme facial flushing Penicillins [PENICILLINS] Allergy (Intermediate, Verified 06/06/24 15:25) RASH (states can take ampicillin) meperidine [From Demerol] Allergy (Verified 06/06/24 15:25) Nausea Tobacco use date assessed: 06/06/24 Fall risk assessment: 2 + Falls in past year Last assessed Fall Risk: 06/06/24 Dental Screening Dental Screen Date: 06/06/24 Did you have a dental visit in the last 12 months?: Yes Did you have a dental problem in the last 6 months where you did not have access to dental care?: No PFSH Medical History Atrial fibrillation with RVR Permanent atrial fibrillation Skin tear of upper extremity Contusion of head Fall Glaucoma Arthritis Anticoagulated GERD (gastroesophageal reflux disease) Renal calculi Forgetfulness Pseudogout Low back pain Bursitis of right hip Afib Surgical History History of total right knee replacement (TKR) Hx of bilateral cataract extraction H/O colonoscopy Hx of tonsillectomy History of back surgery Hx of hysterectomy History of total right knee replacement (~2014) History of bunionectomy History of total left knee replacement (~2017) Family History Mother No problems noted. Father Lung cancer Social History Household Members: None Household Members Other:: home alone Housing: Condominium Are you a primary pet caregiver to a significant other at home: No Do you presently have visiting nurse or other home services: No Alcohol intake: current Alcohol intake frequency: a few times a week Comment: uses cane on occasion Patient Tobacco Use Status: Former Tobacco user Tobacco use type: Cigarette Years Smoked: 30 Second Hand Smoke Exposure: No service: No Current occupational status: retired Current occupation: Right Handed Cognitive needs: Yes (cane and walker) Hearing needs: No Vision needs: Yes (rx glasses) Questionnaire PHQ-9 Over the last 2 weeks, how often have you been bothered by any of the following problems? 1. Little interest or pleasure in doing things: not at all 2. Feeling down, depressed, or hopeless: not at all 3. Trouble falling or staying asleep, or sleeping too much: not at all 4. Feeling tired or having little energy: not at all 5. Poor appetite or overeating: not at all 6. Feeling bad about yourself - or that you are a failure or have let yourself or your family down: not at all 7. Trouble concentrating on things, such as reading the newspaper or watching television: not at all 8. Moving or speaking so slowly that other people could have noticed. Or the opposite - being so fidgety or restless that you have been moving around a lot more than usual: not at all 9. Thoughts that you would be better off or of hurting yourself in some way: not at all Total score: 0 Source: Developed by Drs. Fred Cabezas, Oxana Shaikh, Yosef Jamison and colleagues, with an educational ondina from [employer]. Thrive Questionnaire Date Thrive assessed: 06/06/24 I am a: Patient What is your living situation today?: I have a steady place to live Within the past 12 months, did the food you bought not last and you didn't have the money to get more?: Never true Within the past 12 months, did you worry whether your food would run out before you got money to buy more?: Never true Do you have trouble paying for medicines?: No Do you have trouble getting transportation to medical appointments?: No Do you have trouble paying your heating and electricity bill?: No Do you have trouble taking care of your child, family member or friend?: No Do you have trouble with day-to-day activities such as bathing, preparing meals, shopping, managing finances, etc.?: No Are you currently unemployed and looking for a job?: No Are you interested in more education?: No THRIVE Score: 0 AUDIT C Alcohol Use Questionnaire (AUDIT-C) 1. How often do you have a drink containing alcohol?: Never 3. How often do you have six or more drinks on one occasion?: Never Total Score: 0 NANCI-7 AMB Questionnaire NANCI-7 Date NANCI - 7 assessed: 06/06/24 Feeling nervous, anxious, or on edge: 0 = Not at all Not being able to stop or control worryin = Not at all Worrying too much about different things: 0 = Not at all Trouble relaxin = Not at all Being so restless that it is hard to sit still: 0 = Not at all Becoming easily annoyed or irritable: 0 = Not at all Feeling afraid as if something awful might happen: 0 = Not at all Total NANCI-7 score (0-4 normal; 5-9 mild; 10-14 moderate; 15-21 severe): 0 Source: Developed by Drs. Fred Cabezas, Oxana Shaikh, Yosef Jamison and colleagues, with an educational ondina from [employer]. Physical exam (Primary Care) Vital Signs: Last Vital Signs Temp 97.6 F 06/06/24 15:18 Pulse 62 06/06/24 15:18 Resp 16 06/06/24 15:18 BP 140/80 H 06/06/24 15:18 Pulse Ox 93 06/06/24 15:18 Oxygen Delivery Method Room Air 06/06/24 15:18 BMI result Body Mass Index 26.0 Tobacco/Smoking Status: Tobacco use Status Tobacco use date assessed 06/06/24 06/06/24 15:30 Patient Tobacco Use Status Former Tobacco user 06/06/24 15:18 Tobacco use type Cigarette 06/06/24 15:18 PHQ-9: PHQ-9 Score PHQ-9: Total score 0 06/06/24 15:32 Thrive Assessment: Date of Thrive Assessment Date Thrive assessed 06/06/24 06/06/24 15:30 Coding Level of Care Code New Pt Level 4 (80126) Complex EM visit Add On G2211 Diagnoses Afib I48.91 Assessment & Plan Assessment & Plan (1) Afib: Code(s): I48.91 - Unspecified atrial fibrillation Category: Medical Plan: Not on anticoagulation. Being considered for the watchman procedure. Plan History of Present Illness The patient is an 83-year-old female presenting with a history of concussion and brain hemorrhage following a fall at the end of September. She was hospitalized for 10 days, experiencing significant cognitive effects in the form of short-term memory loss, which vary in intensity. Her ambulatory abilities are restricted due to arthritis in her hips, knees, and wrists, and she uses a walker for safety when walking. There is also a noted history of Atrial Fibrillation, with current discussions around a Watchman device for stroke prevention. Despite these health issues, she manages her activities of daily living with the help of a caregiver and a meal delivery service. Her cognitive fluctuations necessitate vigilant safety precautions, particularly concerning her risk of falling and her cardiac condition. Social History - Lives alone in a condo with a dog. - Former high school home economics teacher. - Has a daughter, Brittanie, who assists with her care logistics. - Receives Meals on Wheels due to decreased appetite and safety concerns. - Employs a caregiver twice a week for household tasks and assistance. - Refrains from driving; utilizes a walker for mobility. - Maintains cognitive acuity about her surroundings despite reported short-term memory issues. Review of Systems - Neurological: Reports short-term memory loss. - Musculoskeletal: Reports arthritis in hips, knees, and wrists. Physical Exam General: Appearance normal, both eyes and all related structures Nutritional Appearance: Well nourished Orientation/consciousness: Patient oriented x3 Limitations: Uses a walker with four wheels and a seat for mobility due to arthritis in hips, knees, and wrists Head: Normal to inspection Neck: Normal visual inspection Chest: Normal palpation of entire chest wall Respiratory: Normal respiratory effort Neurology: Patient oriented x3, short-term memory issues noted, no confusion at night Results - Tests and Diagnostics: Discussion of a potential Watchman device for Atrial Fibrillation management. Plan Management includes consideration of the Watchman device for stroke prevention due to Atrial Fibrillation, given the patient's fall risk. Emphasizing safety measures at home is critical; the patient should continue using a walker and is advised against driving. Her chronic conditions, including arthritis, necessitate monitoring and adaptation of daily activities to prevent falls. Nutritional needs are met through Meals on Wheels, while a caregiver offers routine support. Neurological and cardiovascular follow-up will address cognitive inconsistencies and monitor the effects of brain injury and heart health. Patient was informed and verbally consented to the use of an ambient scribe for clinic note documentation during this visit. Discussion Notes I discussed with the patient the risks associated with her Atrial Fibrillation, particularly given her recent fall and the resultant concussion and brain hemorrhage. We explored the possibility of implanting a Watchman device to manage the risk of stroke, considering her challenges with anticoagulant therapy. I emphasized the importance of safety in her home environment, recommending the continued use of a walker to mitigate fall risk and advising against driving due to cognitive and safety concerns. The patient was informed about the significance of closely monitoring her medical conditions to prevent complications, thus maintaining her functional independence. The importance of follow-up appointments with her neurologist and chip drier was stressed to manage her current health challenges effectively. Patient Instructions - Continue using the walker for stability when walking. - Avoid driving to ensure safety and prevent accidents. - Maintain current arrangements with Meals on Wheels for nutrition. - Utilize the medical alert system for emergencies. - Attend follow-up appointments with neurology and cardiology. - Understand the importance of safety and fall prevention measures at home. - Remain engaged with caregiving support for assistance with daily activities.
[2024-06-06 15:18] VITALS: BP 140/80; PULSE 62; RESP 16; TEMP 36.4; O2SAT 93; BMI 26.0
--- OUTSIDE RECORDS SUMMARY | 2024-06-06 18:28 | XMS_ITS | Encounter Summary ---
Author Organization [facility] and [facility] Address [address] [place] [phone] Care Team Providers Care Reinforcer Name Role Phone Elias Santana MD Primary Care Provider + Encounter Details Date Type Department Care Team (Latest Contact Info) Description 04/04/2013 Transcribed [place] [address] Chris Stephens MD [address] [place] [phone] Atrial fibrillation (HC Code) (Primary Dx); Dysuria Social History Tobacco Use Types Packs/Day Years Used Date Smoking Tobacco: Former Comments:Quit 2001 Alcohol Use Standard Drinks/Week Comments Not Asked 0 (1 standard drink = 0.6 oz pur e alcohol) Comments Unknown Sex and Gender Information Value Date Recorded Sex Assigned at Not on file Legal Sex Female 9:19 AM EST Gender Identity Not on file Sexual Orientation Not on file documented as of this encounter Plan of Treatment Not on file documented as of this encounter Results * Urine culture (04/04/2013 2:00 PM EST) Urine Culture, Routine Less than 10,000 cfu/mL [facility] Culture URINE SPECIMEN OBTAINED BY CLEAN CATCH PROCEDURE / Unknown 04/04/2013 2:00 PM EST us Chris Stephens MD MICROBIOLOGY - GENERAL ORDERA BLES Final Result [facility] [address] [place] [id number] * (ABNORMAL) Urinalysis-macroscopic w/reflex microscopic (YH) (04/04/2013 2:00 PM EST) Urinalysis See Below [facility] Clarity, UA CLOUDY(A) CLEAR [facility] Color, UA YELLOW YELLOW [facility] Specific [place], UA 1.026 1.005 - 1.030 [facility] pH, UA 6.0 5.5 - 7.5 [facility] Protein, UA 2+(A) NEGATIVE [facility] Glucose, UA NEGATIVE NEGATIVE [facility] Ketones, UA NEGATIVE NEGATIVE [facility] Blood, UA LARGE(A) NEGATIVE [facility] Bilirubin, UA NEGATIVE NEGATIVE [facility] Leukocyte Esterase, UA POSITIVE(A) NEGATIVE [facility] Nitrite, UA NEGATIVE NEGATIVE [facility] Urobilinogen, UA 0.2 <=2.0 EU/DL [facility] 04/04/2013 2:00 PM EST us Chris Stephens MD URINE ORDERABLES Final Result Performing Organization Address City/State/[facility] Co de Phone Number [facility] [address] [place] [phone] documented in this encounter Visit Diagnoses Diagnosis Atrial fibrillation (HC Code) (HC CODE) (HC Code)- Primary Atrial fibrillation Dysuria documented in this encounter Care Teams Reinforcer Relationship Specialty Start Date End Date Elias Santana MD [address] [phone] PCP - General Gastroenterology 01/10/13 06/15/19 documented as of this encounter
--- OUTSIDE RECORDS SUMMARY | 2024-06-06 18:29 | XMS_ITS | Patient Health Record ---
Author Organization [facility] Address [address] [facility] [place] [address] Care Team Providers Care Corporate Statistical Financial Analyst Name Role Phone Fred Krause MD Primary Care Provider Unavail able Mary Kelley Unavailable [phone] Allergies Allergen (clinical drug ingredient) Drug/Non Drug Allergy documented on EMR Reaction Allergy Type Onset Date Status meperidine Demerol increase in blood pressure Drug Allergy Active albuterol Albuterol Unknown Drug Allergy Active Penicillin increase in blood pressure Drug Allergy Active Reason For Referral No Information Medications Medication SIG (Take, Route, Frequency, Duration) Notes [...] Once a day for 30 day(s) Active Social History Tobacco Use: Social History Observation Description Date Details (start date - stop date) Former Smoker NA - NA Tobacco Use/Smoking Question Answer Notes Are you [...] Are you an other tobacco user? No Plan Of Treatment No Information Insurance Providers Payer Name Payer Address Payer Phone Subscriber Number Group Number Insured Name Patient Relationship to Insured Coverage Start Date Coverage End Date [facility] [id number] [address] [address] [place] [phone] [id number] Shira Montero Self - patient is the insured Medical (General) History Medical History History ICD Code Cognitive impairment [...]
--- OUTSIDE RECORDS SUMMARY | 2024-06-06 18:29 | XMS_ITS | Encounter Summary ---
Author Organization [facility] and [facility] Address [address] [place] [phone] Care Team Providers Care Cellophane Press Operator Name Role Phone Elias Santana MD Primary Care Provider + Encounter Details Date Type Department Care Team (Late st Contact Info) Description 09/19/2014 Scanned Document Cardiovascular Medicine at [address] [place], [place] [phone] Chris Stephens MD [address] [place] [phone] Social History Tobacco Use Types Packs/Day Years Used Date Smoking Tobacco: Former Comments:Quit 2001 Alcohol Use Standard Drinks/Week Comments Yes 0 (1 standard drink = 0.6 oz pur e alcohol) once in a while Comments Unknown Sex and Gender Information Value Date Recorded Sex Assigned at Not on file Legal Sex Female 9:19 AM EST Gender Identity Not on file Sexual Orientation Not on file documented as of this encounter Plan of Treatment Not on file documented as of this encounter Procedures Procedure Name Priority Date/Time Associated Diagnosis Comments LAB SCAN Routine 09/18/2014 LAB SCAN Routine 09/18/2014 documented in this encounter Results * Lab Scan (09/18/2014) Blood specimen (specimen) us Chris Stephens MD LAB BLOOD ORDERABLES Final Re sult [facility] [place], [place], [place] * Lab Scan (09/18/2014) Blood specimen (specimen) us Chris Stephens MD LAB BLOOD ORDERABLES Final Re sult [facility] [place], [place], [facility] documented in this encounter Visit Diagnoses Not on filedocumented in this encounter Care Teams Cellophane Press Operator Relationship Specialty Start Date End Date Elias Santana MD 5 Krishna Blanco [address] [phone] PCP - General Gastroenterology 01/10/13 06/15/19 documented as of this encounter
--- OUTSIDE RECORDS SUMMARY | 2024-06-06 18:29 | XMS_ITS | Clinical Summary ---
Author Organization [address] Address [address] [place] [phone] Phone Care Team Providers Care Ophthalmic Medical Technician Name Role Phone Unavailable Primary Care Provider Unavailabl e Allergies Active Allergy Reactions Criticality Noted Date Comments Albuterol 01/10/2013 Pressure in Face , A-fib Meperidine 01/10/2013 Hives,upset stomach Penicillins 01/10/2013 Rash Medications * This document contains information received from the source organization and may not represent a complete record from that organization. levothyroxine (SYNTHROID, LEVOTHROID) 25 MCG tablet Take 25 mcg by mouth daily. Active estradiol (VIVELLE-DOT) 0.025 mg/[address] 0.025 mg onto the skin twice a week. Active acetaminophen-c odeine (TYLENOL #3) 300-30 mg per tablet Take 1 tablet by mouth daily. Active traZODone (DESYREL) 50 MG tablet Take 50 mg by mouth nightly. Active pregabalin (LYRICA) 50 MG capsule Take 50 mg by mouth 2 times daily (0900, 1700). Active meloxicam (MOBIC) 15 MG tablet Take 15 mg by mouth daily. Active venlafaxine (EFFEXOR XR) 75 MG Cp24 Take 75 mg by mouth daily. Active loratadine (CLARITIN) 10 mg tablet Take 10 mg by mouth as needed for Allergies. Active TRIAMCINOLONE ACETONIDE (NASACORT NASL) by Nasal route as needed. Active warfarin (COUMADIN) 5 MG tablet Take one tablet daily except 2.5 mg on mon or as directed by CC 90 tablet 3 06/04/2015 Active Active Problems Problem Noted Date Diagnosed Date Atrial fibrillation (HC Code) (HC CODE) 10/15/20 13 Resolved Problems Problem Noted Date Diagnosed Date Resolved Date PAF (paroxysmal atrial fibri llation) (HC Code) (HC CODE) 12/12/2014 11/13/2015 Social History Tobacco Use Types Packs/Day Years [...] on file Sexual Orientation Not on file Last Filed Vital Signs Vital Sign Reading Time Taken Comments Blood Pressure 134/90 08/28/2014 1:03 PM EDT Pulse 60 08/28/2014 1:03 PM EDT Temperature - - Respiratory Rate 15 08/28/2014 1:03 PM EDT Oxygen Saturation - - Inhaled Oxygen Concentration - - Weight 88.5 kg (195 lb) 08/28/2014 1:03 PM EDT Height 165.1 cm (5' 5 ) 08/28/2014 1:03 PM EDT Body Mass Index 32.45 08/28/2014 1:03 PM EDT Plan of Treatment Health Maintenance Due Date Last Done Comments HIV screening 08/30/1953 Tetanus adult (Td q 10,TDAP once) 1959 Lipid disorder screening 1979 Diabetes screening 08/30/1984 Shingles vaccine (Shingrix) (1 of 2 - Shingrix (RZV) 2 Dose Standard Series) 08/30/1989 Osteoporosis screening (bone density) 08/30/2004 Pneumococcal Vaccine (50+ ye ars) (1 of 1 - PCV) 08/30/2004 RSV Discussion (1 - 1-dose 7 5+ series) 08/30/2014 Influenza vaccine 10/28/2023 Covid-19 vaccine series (2023- season) 2023 Breast cancer screening Discontinued Cervical cancer screening Discontinued Meningococcal Vaccine Aged Out No dora brigitte eligible based on patient's age to complete this topic Insurance MEDICARE 90 DEGREE BENEFITS on file MEDICARE 90 DEGREE BENEFITS on file MEDICARE 90 DEGREE BENEFITS on file MEDICARE 90 DEGREE BENEFITS on file
--- OUTSIDE RECORDS SUMMARY | 2024-06-06 18:29 | XMS_ITS | Encounter Summary ---
Author Organization [facility] Address [address] [place] [phone] Care Team Providers Care Banquet Bartender Name Role Phone Elias Santana MD Primary Care Provider + Encounter Details Date Type Department Care Team (Late st Contact Info) Description 01/09/2013 Scanned Document Cardiovascular Medicine at [address] [place] [phone] External, Provider Social History Tobacco Use Types Packs/Day Years Used Date Smoking Tobacco: Never Assessed Comments Unknown Sex and Gender Information Value Date Recorded Sex Assigned at Not on file Legal Sex Female 9:19 AM EST Gender Identity Not on file Sexual Orientation Not on file documented as of this encounter Plan of Treatment Not on file documented as of this encounter Visit Diagnoses Not on filedocumented in this encounter Care Teams Banquet Bartender Relationship Specialty Start Date End Date Elias Santana MD [address] [place] [phone] PCP - General Gastroenterology 01/10/13 06/15/19 [facility] 01/04/13 01/09/13 documented as of this encounter
--- OUTSIDE RECORDS SUMMARY | 2024-06-06 18:29 | XMS_ITS | Encounter Summary ---
Author Organization [facility] and [facility] Address [address] [place] [phone] Care Team Providers Care Fur Vault Attendant Name Role Phone Elias Santana MD Primary Care Provider + Encounter Details Date Type Department Care Team (Late st Contact Info) Description 02/04/2013 Abstract [facility] Cardiovascular Medicine at [address] [facility] [address] [facility] [address] [place], [place] [phone] Chris Stephens MD [address] [place] [phone] Social History Tobacco Use Types Packs/Day Years [...] on filedocumented in this encounter Care Teams Fur Vault Attendant Relationship Specialty Start Date End Date Elias Santana MD [address] [place] [address] [address] [place] [phone] PCP - General Gastroenterology 01/10/13 06/15/19 documented as of this encounter
== END 2024-06-06 16:07 | disposition home or self-care (01) ==
LOC: HO.HMCSH 15:15
PROVIDERS: PCP Internal Medicine; Visit Provider Internal Medicine
DX: I48.91 Unspecified atrial fibrillation (principal)

== ENCOUNTER → 2024-06-06 15:15 | Outpatient (BNVA) | payer MEDICARE, SELFPAY | PROVIDERS: PCP Internal Medicine; Visit Provider Internal Medicine | DX: I48.91 Unspecified atrial fibrillation (principal) | CPT/HCPCS: 99202 ==

== ENCOUNTER 2024-08-27 14:16 | Outpatient (REF) | payer MEDICARE, SELFPAY | END 2024-08-27 14:17 | disposition home or self-care (01) | LOC: HO.MRI 14:16 | PROVIDERS: PCP Internal Medicine; Visit Provider Psychiatry & Neurology Neurology | DX: G31.84 Mild cognitive impairment of uncertain or unknown etiology (principal) | CPT/HCPCS: 70551 ==

== ENCOUNTER → 2024-08-27 14:30 | Outpatient (BNV) | payer MEDICARE, SELFPAY | PROVIDERS: PCP Internal Medicine; Visit Provider Specialist | DX: I62.00 Nontraumatic subdural hemorrhage, unspecified (principal); K11.0 Atrophy of salivary gland; J34.89 Other specified disorders of nose and nasal sinuses | CPT/HCPCS: 70551 ==

== ENCOUNTER 2024-09-05 14:44 | Outpatient (AMB) | payer MEDICARE, SELFPAY ==
[2024-09-05 14:46] VITALS: BP 128/68; PULSE 78; BMI 26.0
--- NOTE | 2024-09-05 14:46 | A.OFFVIS_ITS ---
Vital Signs 09/05/24 14:46 Height 5 ft 5 in Weight 156 lb 8.451 oz BMI 26.0 BP 128/68 Blood Pressure Location Lt brachial Position Sitting Pulse 78 Pulse Source Pulse Oximeter Intake Visit Reasons: 6 mth f/up Allergies albuterol Allergy (Intermediate, Verified 06/06/24 15:25) extreme facial flushing hydromorphone [From DILAUDID] Allergy (Intermediate, Verified 06/06/24 15:25) extreme facial flushing Penicillins [PENICILLINS] Allergy (Intermediate, Verified 06/06/24 15:25) RASH (states can take ampicillin) meperidine [From Demerol] Allergy (Verified 06/06/24 15:25) Nausea Medication List - Last Reconciled 09/05/24 by Arnulfo Alatorre MD acetaminophen 650 mg (2 x 325 mg) PO Q6H PRN 30 days atorvastatin 10 mg PO DAILY 90 days betamethasone dipropionate 0.05% appl topical bupropion HCl XL 300 mg PO DAILY 90 days celecoxib 200 mg PO DAILY 90 days cholecalciferol (vitamin D3) 25 mcg PO DAILY diclofenac sodium 1% (Voltaren Arthritis Pain) 2 grams topical QID PRN digoxin 125 mcg PO DAILY duloxetine 60 mg PO DAILY 90 days levothyroxine 75 mcg PO DAILY@1200 melatonin 5 mg PO BEDTIME metoprolol succinate ER 100 mg See Protocol PO DAILY metoprolol succinate ER 50 mg PO .nightly omeprazole 20 mg PO DAILY@0630 timolol maleate 0.5% 1 drp ophthalmic (eye) BID trazodone 50 mg PO BEDTIME vitamin E 670 mg PO DAILY HPI Comments Details: Shira returns for follow-up. We had seen her in the past around 2018. At that time, she had paroxysmal atrial fibrillation on metoprolol and warfarin. Due to forgetfulness, she has not taken metoprolol recently but still taking the warfarin. Then it seems that she had recurrent falls and that led to hospitalization. Imaging had shown subdural hematoma. After that, off anticoagulation. Daughter states that she has not had any further falls but she is still unstable and at risk of falls. From the atrial fibrillation standpoint, no specific symptoms. Beta-coco dose has been recently increased and she is also on digoxin. After this, she went to see EP and to discuss Watchman placement. It seems that she decided against it. Otherwise, no new concerns. She is feeling okay. [facility] Medical History Atrial fibrillation with RVR Permanent atrial fibrillation Skin tear of upper extremity Contusion of head Fall Glaucoma Arthritis Anticoagulated GERD (gastroesophageal reflux disease) Renal calculi Forgetfulness Pseudogout Low back pain Bursitis of right hip Afib Surgical History History of total right knee replacement (TKR) Hx of bilateral cataract extraction H/O colonoscopy Hx of tonsillectomy History of back surgery Hx of hysterectomy History of total right knee replacement (~2014) History of bunionectomy History of total left knee replacement (~2017) Family History Mother No problems noted. Father Lung cancer Social History Household Members: None Household Members Other:: home alone Housing: [facility] Are you a primary neonatal intensive care nurse to a significant other at home: No Do you presently have visiting nurse or other home services: No Alcohol intake: current Alcohol intake frequency: a few times a week Comment: uses cane on occasion Patient Tobacco Use Status: Former Tobacco user Tobacco use type: Cigarette Years Smoked: 30 Second Hand Smoke Exposure: No service: No Current occupational status: retired Current occupation: Right Handed Cognitive needs: Yes (cane and walker) Hearing needs: No Vision needs: Yes (rx glasses) Review of Systems Const Denies weakness ENT Denies dizziness Card Denies chest pain, Denies chest pain with activity, Denies syncope, Denies rapid heart rate, Denies pedal edema, Denies edema, Denies leg edema, Denies lightheadedness, Denies palpitations, Denies dyspnea, Denies dyspnea on exertion and Denies orthopnea Resp Denies cough, Denies dyspnea and Denies dyspnea on exertion GI Denies hematochezia and Denies change in stool character Musc Denies abnormal gait, Denies muscle cramps, Denies muscle weakness, Denies numbness, Denies radiating pain into limb and Denies tingling Neuro Denies abnormal gait, Denies dizziness, Denies syncope, Denies numbness, Denies tingling and Denies weakness Endo Denies palpitations Physical Exam Vital Signs: Last Vital Signs Pulse 78 09/05/24 14:46 BP 128/68 09/05/24 14:46 BMI result Body Mass Index 26.0 Const General: comfortable and no acute distress Orientation/consciousness: patient oriented x3 HEENT Other: Unremarkable Head: Yes normal to inspection Neck Neck: Yes normal visual inspection Chest Chest palpation & inspection: normal inspection of the chest Resp Auscultation: clear to auscultation bilaterally Cardio Palpation: normal PMI Heart sounds: S1 normal heart sound present, S2 normal heart sound present, no gallops, no murmurs and no rubs GI Palpation (GI): Soft to palpation Back/Spine/Pelvis Other: unremarkable Skin General skin exam: no rashes or lesions noted Neuro General: patient oriented x3 Extrem General: Yes normal to inspection Psych Mental Status: mental status grossly normal Assessment & Plan Assessment & Plan (1) Persistent atrial fibrillation: Code(s): I48.19 - Other persistent atrial fibrillation Category: Medical (2) Subdural hematoma: Code(s): S06.5XAA - Traumatic subdural hemorrhage with loss of consciousness status unknown, initial encounter Category: Medical Plan Overall, persistent atrial fibrillation, recurrent falls, subdural hematoma, off anticoagulation. In the Holter monitor, underlying rhythm is atrial fibrillation with an average rate of 70/Min. Thought to be adequately rate controlled. Echocardiogram from [facility] 50%, in the setting of atrial fibrillation. No wall motion abnormalities. Calcified aortic valve with mild regurgitation. Mild mitral annular calcification. Left atrium mildly dilated. Currently on a combination of metoprolol ER 150 mg daily, digoxin. Check digoxin levels. With regard to anticoagulation, not a good candidate because of recurring falls and recent subdural hematoma. Already seen EP for Watchman assessment but decided against it. We again discussed the pros and cons of anticoagulation and as she is quite unstable and at risk of falls, decided to keep her off. Discussion Notes I discussed with the patient the option of a Watchman implant due to her ongoing atrial fibrillation. We reviewed the risks without anticoagulation, namely an increased stroke risk, and compared this with bleeding risk if she were to fall while on anticoagulants. The Watchman device offers an alternative to mitigate stroke risk without the bleeding risks associated with anticoagulation. The patient expressed a wish to defer this decision, feeling stable and not in crisis. Routine monitoring of her Digoxin levels was emphasized, requiring testing before her midday dose to keep levels therapeutic. We arranged for a follow-up in six months, with the patient aware of her ability to contact for additional consultation on the Watchman. Patient was informed and verbally consented to the use of an ambient scribe for clinic note documentation during this visit. Orders: Orders Basic Metabolic Panel Today I48.91 - Unspecified atrial fibrillation Digoxin Today I48.91 - Unspecified atrial fibrillation Patient Instructions: - Continue taking Metoprolol and Digoxin as prescribed. - Schedule blood tests for Digoxin levels before taking the dose. - Be cautious of falls due to elevated risk. - Consider discussing the Watchman implant when ready. - Follow up in six months or sooner if you decide to proceed with the Watchman implant. Coding Level of Care Code Est Pt Level 4 (58631) Complex EM visit Add On G2211 Diagnoses Persistent atrial fibrillation I48.19 Subdural hematoma S06.5XAA
--- OUTSIDE RECORDS SUMMARY | 2024-09-05 17:45 | XMS_ITS | Encounter Summary ---
Author Organization [facility] and [facility] Address [address] [place] [phone] Care Team Providers Care Corner Trimmer Operator Name Role Phone Elias Santana MD Primary Care Provider + Encounter Details Date Type Department Care Team (Latest Contact Info) Description 04/04/2013 Transcribed [place] [address] Chris Stephens MD [address] [place] [phone] Atrial fibrillation (Primary Dx); Dysuria Social History Tobacco Use [...] Urine Culture, Routine Less than 10,000 cfu/mL [facility] Culture URINE SPECIMEN OBTAINED BY CLEAN CATCH PROCEDURE / Unknown 04/04/2013 2:00 PM EST us Chris Stephens MD MICROBIOLOGY - GENERAL ORDERA BLES Final Result [facility] [address] [place] [phone] * (ABNORMAL) Urinalysis-macroscopic w/reflex microscopic ([facility]H) (04/04/2013 2:00 PM EST) Urinalysis See Below [facility] Clarity, UA CLOUDY(A) CLEAR [facility] Color, UA YELLOW YELLOW [facility] Specific [place], UA 1.026 1.005 - 1.030 [facility] pH, UA 6.0 5.5 - 7.5 [facility] Protein, UA 2+(A) NEGATIVE [facility] Glucose, UA NEGATIVE NEGATIVE [facility] Ketones, UA NEGATIVE NEGATIVE [facility] Blood, UA LARGE(A) NEGATIVE [facility] Bilirubin, UA NEGATIVE NEGATIVE [facility] Leukocyte Esterase, UA POSITIVE(A) NEGATIVE [facility] Nitrite, UA NEGATIVE NEGATIVE [facility] Urobilinogen, UA 0.2 <=2.0 EU/DL [facility] 04/04/2013 2:00 PM EST us Chris Stephens MD URINE ORDERABLES Final Result Performing Organization Address [facility]/State/ZIP Co de Phone Number [facility] [address] [place] [phone] documented in this encounter Visit Diagnoses Diagnosis Atrial fibrillation (HC Code)- Primary Atrial fibrillation Dysuria documented in this encounter Care Teams Corner Trimmer Operator Relationship Specialty Start Date End Date Elias Santana MD [address] [phone] PCP - General Gastroenterology 01/10/13 06/15/19 documented as of this encounter
== END 2024-09-05 15:14 | disposition home or self-care (01) ==
PROVIDERS: PCP Internal Medicine; Visit Provider Internal Medicine
DX: I48.19 Other persistent atrial fibrillation (principal); S06.5XAA Traumatic subdural hemorrhage with loss of consciousness status unknown, initial encounter
CPT/HCPCS: 99214; G2211

== ENCOUNTER → 2024-09-05 14:44 | Outpatient (BNVA) | payer MEDICARE, SELFPAY | PROVIDERS: PCP Internal Medicine; Visit Provider Internal Medicine | DX: I48.19 Other persistent atrial fibrillation (principal); S06.5XAA Traumatic subdural hemorrhage with loss of consciousness status unknown, initial encounter; Z79.899 Other long term (current) drug therapy | CPT/HCPCS: 99212 ==

== ENCOUNTER 2024-09-12 15:47 | Outpatient (AMB) | payer MEDICARE, SELFPAY ==
[2024-09-12 15:50] VITALS: BP 130/59; PULSE 66; RESP 16; TEMP 36.6; O2SAT 95; BMI 27.0
--- NOTE | 2024-09-12 15:50 | MHC.PC.OV ---
Vital Signs 09/12/24 15:50 Height 5 ft 5 in Weight 162 lb BMI 27.0 BP 130/59 L Respiration 16 Pulse 66 Pulse Source Pulse Oximeter Temp 97.8 F Temp Source Temporal Artery Scan Pulse Oximetry (%) 95 Oxygen Delivery Method Room Air Intake Visit Reasons: 3 month f/u Ambulatory Analyst Required: No Accompanied by: Daughter Allergies albuterol Allergy (Intermediate, Verified 09/12/24 15:51) extreme facial flushing hydromorphone [From DILAUDID] Allergy (Intermediate, Verified 09/12/24 15:51) extreme facial flushing Penicillins [PENICILLINS] Allergy (Intermediate, Verified 09/12/24 15:51) RASH (states can take ampicillin) meperidine [From Demerol] Allergy (Verified 09/12/24 15:51) Nausea Tobacco use date assessed: 09/12/24 Dental Screening Dental Screen Date: 06/06/24 [facility] Medical History Atrial fibrillation with RVR Permanent atrial fibrillation Skin tear of upper extremity Contusion of head Fall Glaucoma Arthritis Anticoagulated GERD (gastroesophageal reflux disease) Renal calculi Forgetfulness Pseudogout Low back pain Bursitis of right hip Afib Surgical History History of total right knee replacement (TKR) Hx of bilateral cataract extraction H/O colonoscopy Hx of tonsillectomy History of back surgery Hx of hysterectomy History of total right knee replacement (~2014) History of bunionectomy History of total left knee replacement (~2017) Family History Mother No problems noted. Father Lung cancer Social History Household Members: None Household Members Other:: home alone Housing: Condominium Are you a primary family member caretaker to a significant other at home: No Do you presently have visiting nurse or other home services: No Alcohol intake: current Alcohol intake frequency: a few times a week Comment: uses cane on occasion Patient Tobacco Use Status: Former Tobacco user Tobacco use type: Cigarette Years Smoked: 30 Second Hand Smoke Exposure: No service: No Current occupational status: retired Current occupation: Right Handed Cognitive needs: Yes (cane and walker) Hearing needs: No Vision needs: Yes (rx glasses) Questionnaire PHQ-9 Over the last 2 weeks, how often have you been bothered by any of the following problems? 1. Little interest or pleasure in doing things: not at all 2. Feeling down, depressed, or hopeless: not at all 3. Trouble falling or staying asleep, or sleeping too much: not at all 4. Feeling tired or having little energy: not at all 5. Poor appetite or overeating: not at all 6. Feeling bad about yourself - or that you are a failure or have let yourself or your family down: not at all 7. Trouble concentrating on things, such as reading the newspaper or watching television: not at all 8. Moving or speaking so slowly that other people could have noticed. Or the opposite - being so fidgety or restless that you have been moving around a lot more than usual: not at all 9. Thoughts that you would be better off or of hurting yourself in some way: not at all Total score: 0 Source: Developed by Drs. Fred Cabezas, Oxana Shaikh, Yosef Jamison and colleagues, with an educational ondina from [employer] Thrive Questionnaire Date Thrive assessed: 06/06/24 I am a: Patient What is your living situation today?: I have a steady place to live Within the past 12 months, did the food you bought not last and you didn't have the money to get more?: Never true Within the past 12 months, did you worry whether your food would run out before you got money to buy more?: Never true Do you have trouble paying for medicines?: No Do you have trouble getting transportation to medical appointments?: No Do you have trouble paying your heating and electricity bill?: No Do you have trouble taking care of your child, family member or friend?: No Do you have trouble with day-to-day activities such as bathing, preparing meals, shopping, managing finances, etc.?: No Are you currently unemployed and looking for a job?: No Are you interested in more education?: No THRIVE Score: 0 AUDIT C Alcohol Use Questionnaire (AUDIT-C) 1. How often do you have a drink containing alcohol?: Never 3. How often do you have six or more drinks on one occasion?: Never Total Score: 0 NANCI-7 AMB Questionnaire NANCI-7 Date NANCI - 7 assessed: 06/06/24 Feeling nervous, anxious, or on edge: 0 = Not at all Not being able to stop or control worryin = Not at all Worrying too much about different things: 0 = Not at all Trouble relaxin = Not at all Being so restless that it is hard to sit still: 0 = Not at all Becoming easily annoyed or irritable: 0 = Not at all Feeling afraid as if something awful might happen: 0 = Not at all Total NANCI-7 score (0-4 normal; 5-9 mild; 10-14 moderate; 15-21 severe): 0 Source: Developed by Drs. Fred Cabezas, Oxana Shaikh, Yosef Jamison and colleagues, with an educational ondina from [employer] Physical exam (Primary Care) Vital Signs: Last Vital Signs Temp 97.8 F 09/12/24 15:50 Pulse 66 09/12/24 15:50 Resp 16 09/12/24 15:50 BP 130/59 L 09/12/24 15:50 Pulse Ox 95 09/12/24 15:50 Oxygen Delivery Method Room Air 09/12/24 15:50 BMI result Body Mass Index 27.0 Tobacco/Smoking Status: Tobacco use Status Tobacco use date assessed 09/12/24 09/12/24 16:04 Patient Tobacco Use Status Former Tobacco user 09/12/24 16:04 Tobacco use type Cigarette 09/12/24 16:04 PHQ-9: PHQ-9 Score PHQ-9: Total score 0 09/12/24 16:04 Thrive Assessment: Date of Thrive Assessment Date Thrive assessed 06/06/24 09/12/24 16:04 Coding Level of Care Code Est Pt Level 4 (35315) Complex EM visit Add On G2211 Diagnoses Afib I48.91 Assessment & Plan Assessment & Plan (1) Afib: Code(s): I48.91 - Unspecified atrial fibrillation Category: Medical Plan: Patient has now agreed to get the watchman procedure. She is in the process of getting it scheduled. Plan History of Present Illness - The patient is an 84-year-old female presenting with chronic sinusitis. - Chronic sinusitis characterized by long-standing sinus congestion, sometimes leading to teeth pain. - Previous dental assessments and medications like Claritin and Flonase offer some relief. - The patient is an 84-year-old female presenting with considerations for atrial fibrillation management. - Discussion of potential Watchman procedure due to atrial fibrillation; initially deferred but now reconsidered. Social History - Lives alone in a condo with a pet dog, Alexander. - Active engagement with neighbors and regular walks with dog. - Receives Meals on Wheels and has scheduled help for house chores and companionship. - Utilizes a cane or walker for support due to instability in walking and double vision upon standing. Review of Systems - Respiratory: Reports long-standing sinus congestion, worsened by allergies. - Musculoskeletal: Reports occasional unsteadiness, requires cane or walker. - Cardiovascular: Past discussion on atrial fibrillation management considerations. - Vision: Denies significant visual impairment, but reports double vision upon standing up. Physical Exam General: Cooperative and healthy appearing Nutritional Appearance: Well nourished Orientation/consciousness: Patient oriented x3 Limitations: No limitations Head: Normal to inspection General: Appearance normal, both eyes and all related structures Neck: Normal visual inspection Chest: Normal palpation of entire chest wall Respiratory: N ormal respiratory effort Neurology: Patient oriented x3, reports occasional double vision when getting up, uses a cane and a walker for stability. Results Plan 1. Chronic Sinusitis - Continue [id number] Flonase. - Monitor symptoms; consider alternative treatments if necessary. 2. Atrial Fibrillation - Assess readiness for Watchman procedure. - Follow up with appropriate specialists for scheduling and evaluation. Discussion Notes During the consultation, we discussed Ms. Miles's ongoing complaints of chronic sinusitis and reviewed her current management strategies, including the use of Flonase and Claritin. We plan to monitor her symptoms and explore additional treatment options if necessary. She raised concerns regarding her atrial fibrillation and the potential Watchman procedure. Following consultations with Dr. Gann and a recent follow-up with Dr. Alatorre, she decided to proceed with the procedure. We discussed the benefits of this intervention, including reducing stroke risks associated with atrial fibrillation. I emphasized the importance of proceeding with the necessary preparations and appointments to move forward with this plan. Future follow-ups will focus on refining her management strategy and ensuring comprehensive care for her chronic conditions. Patient Instructions - Continue using Flonase as directed for sinus relief. - Contact us if sinus symptoms worsen or do not improve. - Use the cane or walker for stability to prevent falls. - Gradually rise from sitting or lying positions to prevent dizziness. - Prepare for the Watchman procedure by attending all specialist appointments. Medications: New fluticasone propionate 50 mcg/actuation (Flonase Allergy Relief) administer into each nostril 1 spray intranasal DAILY 9.9 mL 1RF
--- OUTSIDE RECORDS SUMMARY | 2024-09-12 18:14 | XMS_ITS | Encounter Summary ---
Author Organization [facility] Address [address] [place] [phone] Care Team Providers Care Airplane Gas Tank Liner Assembler Name Role Phone Elias Santana MD Primary Care Provider + Encounter Details Date Type Department Care Team (Latest Contact Info) Description 04/04/2013 Transcribed [place] [address] Chris Stephens MD [address] [place] [phone] Atrial fibrillation (Primary Dx); Dysuria Social History [...] Urine Culture, Routine Less than 10,000 cfu/mL [facility] Culture URINE SPECIMEN OBTAINED BY CLEAN CATCH PROCEDURE / Unknown 04/04/2013 2:00 PM EST us Chris Stephens MD MICROBIOLOGY - GENERAL ORDERA BLES Final Result [facility] [address] [place] [phone] * (ABNORMAL) Urinalysis-macroscopic w/reflex microscopic (YH) (04/04/2013 2:00 PM EST) Urinalysis See Below [facility] Clarity, UA CLOUDY(A) CLEAR [facility] Color, UA YELLOW YELLOW [facility] Specific [place], UA 1.026 1.005 - 1.030 [facility] pH, UA 6.0 5.5 - 7.5 [facility] Protein, UA 2+(A) NEGATIVE [facility] Glucose, UA NEGATIVE NEGATIVE [facility] Ketones, UA NEGATIVE NEGATIVE [facility] Blood, UA LARGE(A) NEGATIVE [facility] Bilirubin, UA NEGATIVE NEGATIVE [facility] Leukocyte Esterase, UA POSITIVE(A) NEGATIVE [facility] Nitrite, UA NEGATIVE NEGATIVE [facility] Urobilinogen, UA 0.2 <=2.0 EU/DL [facility] 04/04/2013 2:00 PM EST us Chris Stephens MD URINE ORDERABLES Final Result Performing Organization Address [facility]/State/ZIP Co de Phone Number [facility] [address] [place] [phone] documented in this encounter Visit Diagnoses Diagnosis Atrial fibrillation (HC Code)- Primary Atrial fibrillation Dysuria documented in this encounter Care Teams Airplane Gas Tank Liner Assembler Relationship Specialty Start Date End Date Elias Santana MD [address] [phone] PCP - General Gastroenterology 01/10/13 06/15/19 documented as of this encounter
== END 2024-09-12 16:23 | disposition home or self-care (01) ==
LOC: HO.HMCSH 15:47
PROVIDERS: PCP Internal Medicine; Visit Provider Internal Medicine
DX: I48.91 Unspecified atrial fibrillation (principal)

== ENCOUNTER → 2024-09-12 15:47 | Outpatient (BNVA) | payer MEDICARE, SELFPAY | PROVIDERS: PCP Internal Medicine; Visit Provider Internal Medicine | DX: I48.91 Unspecified atrial fibrillation (principal) | CPT/HCPCS: 99212 ==

== ENCOUNTER 2024-09-26 12:59 | Outpatient (REF) | payer MEDICARE, SELFPAY ==
--- OUTSIDE RECORDS SUMMARY | 2024-09-26 13:58 | XMS_ITS | Encounter Summary ---
Author Organization [facility] Address [address] [place] [phone] Care Team Providers Care Heel Sander Name Role Phone Elias Santana MD Primary Care Provider + Encounter Details Date Type Department Care Team (Latest Contact Info) Description 04/04/2013 Transcribed [place] [address] Chris Stephens MD [address] [place] [phone] Atrial fibrillation (Primary Dx); Dysuria Social History [...] Urine Culture, Routine Less than 10,000 cfu/mL [facility] Culture URINE SPECIMEN OBTAINED BY CLEAN CATCH PROCEDURE / Unknown 04/04/2013 2:00 PM EST us Chris Stephens MD MICROBIOLOGY - GENERAL ORDERA BLES Final Result [facility] [address] [place] [phone] * (ABNORMAL) Urinalysis-macroscopic w/reflex microscopic (YH) (04/04/2013 2:00 PM EST) Urinalysis See Below [facility] Clarity, UA CLOUDY(A) CLEAR [facility] Color, UA YELLOW YELLOW [facility] Specific [place], UA 1.026 1.005 - 1.030 [facility] pH, UA 6.0 5.5 - 7.5 [facility] Protein, UA 2+(A) NEGATIVE [facility] Glucose, UA NEGATIVE NEGATIVE [facility] Ketones, UA NEGATIVE NEGATIVE [facility] Blood, UA LARGE(A) NEGATIVE [facility] Bilirubin, UA NEGATIVE NEGATIVE [facility] Leukocyte Esterase, UA POSITIVE(A) NEGATIVE [facility] Nitrite, UA NEGATIVE NEGATIVE [facility] Urobilinogen, UA 0.2 <=2.0 EU/DL [facility] 04/04/2013 2:00 PM EST us Chris Stephens MD URINE ORDERABLES Final Result Performing Organization Address [facility]/State/ZIP Co de Phone Number [facility] [address] [place] [phone] documented in this encounter Visit Diagnoses Diagnosis Atrial fibrillation (HC Code)- Primary Atrial fibrillation Dysuria documented in this encounter Care Teams Heel Sander Relationship Specialty Start Date End Date Elias Santana MD [address] [phone] PCP - General Gastroenterology 01/10/13 06/15/19 documented as of this encounter
== END 2024-09-26 13:00 | disposition home or self-care (01) ==
LOC: HO.MAMMO 12:59
PROVIDERS: PCP Internal Medicine; Visit Provider Internal Medicine
DX: Z12.31 Encounter for screening mammogram for malignant neoplasm of breast (principal)
CPT/HCPCS: 77063; 77067

== ENCOUNTER → 2024-09-26 13:00 | Outpatient (BNV) | payer MEDICARE, SELFPAY | PROVIDERS: PCP Internal Medicine; Visit Provider Internal Medicine | DX: Z12.31 Encounter for screening mammogram for malignant neoplasm of breast (principal) | CPT/HCPCS: 77063; 77067 ==

== ENCOUNTER 2024-10-06 15:42 | Outpatient (AMB) | payer MEDICARE, SELFPAY ==
--- OUTSIDE RECORDS SUMMARY | 2024-10-06 15:44 | XMS_ITS | Encounter Summary ---
Author Organization [facility] Address [address] [place] [phone] Care Team Providers Care Program Advocate Name Role Phone Elias Santana MD Primary Care Provider + Encounter Details Date Type Department Care Team (Latest Contact Info) Description 04/04/2013 Transcribed [place] [address] Chris Stephens MD [address] [place] [phone] Atrial fibrillation (Primary Dx); Dysuria Social History [...] Urine Culture, Routine Less than 10,000 cfu/mL [facility] Culture URINE SPECIMEN OBTAINED BY CLEAN CATCH PROCEDURE / Unknown 04/04/2013 2:00 PM EST us Chris Stephens MD MICROBIOLOGY - GENERAL ORDERA BLES Final Result [facility] [address] [place] [phone] * (ABNORMAL) Urinalysis-macroscopic w/reflex microscopic (YH) (04/04/2013 2:00 PM EST) Urinalysis See Below [facility] Clarity, UA CLOUDY(A) CLEAR [facility] Color, UA YELLOW YELLOW [facility] Specific [place], UA 1.026 1.005 - 1.030 [facility] pH, UA 6.0 5.5 - 7.5 [facility] Protein, UA 2+(A) NEGATIVE [facility] Glucose, UA NEGATIVE NEGATIVE [facility] Ketones, UA NEGATIVE NEGATIVE [facility] Blood, UA LARGE(A) NEGATIVE [facility] Bilirubin, UA NEGATIVE NEGATIVE [facility] Leukocyte Esterase, UA POSITIVE(A) NEGATIVE [facility] Nitrite, UA NEGATIVE NEGATIVE [facility] Urobilinogen, UA 0.2 <=2.0 EU/DL [facility] 04/04/2013 2:00 PM EST us Chris Stephens MD URINE ORDERABLES Final Result Performing Organization Address [facility]/State/ZIP Co de Phone Number [facility] [address] [place] [phone] documented in this encounter Visit Diagnoses Diagnosis Atrial fibrillation (HC Code)- Primary Atrial fibrillation Dysuria documented in this encounter Care Teams Program Advocate Relationship Specialty Start Date End Date Elias Santana MD [address] [phone] PCP - General Gastroenterology 01/10/13 06/15/19 documented as of this encounter
--- NOTE | 2024-10-06 15:47 | MHC.OFFVIS ---
Intake Visit Reasons: cognitive testing Allergies albuterol Allergy (Intermediate, Verified 10/06/24 15:58) extreme facial flushing hydromorphone (From DILAUDID) Allergy (Intermediate, Verified 10/06/24 15:58) extreme facial flushing Penicillins (PENICILLINS) Allergy (Intermediate, Verified 10/06/24 15:58) RASH (states can take ampicillin) meperidine (From Demerol) Allergy (Verified 10/06/24 15:58) Nausea Medication List - Last Reconciled 10/06/24 by Vibha Luis CNP acetaminophen 650 mg (2 x 325 mg) PO Q6H PRN 30 days atorvastatin 10 mg PO DAILY 90 days bupropion HCl XL 300 mg PO DAILY 90 days celecoxib 200 mg PO DAILY 90 days cholecalciferol (vitamin D3) 25 mcg PO DAILY digoxin 125 mcg PO DAILY donepezil 5 mg PO QPM duloxetine 60 mg PO DAILY 90 days fluticasone propionate 50 mcg/actuation (Flonase Allergy Relief) 1 spray intranasal DAILY levothyroxine 75 mcg PO DAILY@1200 melatonin 5 mg PO BEDTIME metoprolol succinate ER 100 mg See Protocol PO DAILY metoprolol succinate ER 50 mg PO .nightly omeprazole 20 mg PO DAILY@0630 timolol maleate 0.5% 1 drp ophthalmic (eye) BID trazodone 50 mg PO BEDTIME triamcinolone acetonide 0.1% 1 appl topical BID-TID vitamin E 670 mg PO DAILY HPI Comments Details: She was here today for cognitive testing with MMSE and MoCA. She has a master's degree. She was a high school social science teacher for 37-years. She was taking donepezil 5mg, no medication side effects. She fell onto grass when trying to get walker, her dog, and hold door open in 08/2024 without injuries. She was walking with cane or walker. Daughter has noticed decline in memory over the last year, especially since fall in 10/2023. She was living alone with her 13-year-old dog (Alexander) and had Meals on Wheels. She had [employer] for a few hours twice a week to help with housework. Her daughter manages her finances. Sleep was up and down, but she was napping during the day. She had trouble remembering how to use the computer. She had 8 falls between 07/2023 - 01/2024. She had fall in 10/2023 that resulted in a small subdural hematoma and was seen at [facility], no evacuation was done. She fell again in 11/2023. She has been noted to have more short-term memory problems since the falls and has not driven since 10/2023. Mental status fluctuated, and there are some inconsistencies. She walks her dog about 1 mile/day. She had a breakdown from stress in 09/2016 when she moved from [place] to [place] to live near her daughter. [facility] Medical History (Updated 10/06/24 @ 15:54 by Vibha Luis CNP) MCI (mild cognitive impairment) Atrial fibrillation with RVR Permanent atrial fibrillation Skin tear of upper extremity Contusion of head Fall Glaucoma Arthritis Anticoagulated GERD (gastroesophageal reflux disease) Renal calculi Forgetfulness Pseudogout Low back pain Bursitis of right hip Afib Surgical History History of total right knee replacement (TKR) Hx of bilateral cataract extraction H/O colonoscopy Hx of tonsillectomy History of back surgery Hx of hysterectomy History of total right knee replacement (~2014) History of bunionectomy History of total left knee replacement (~2016) Family History Mother No problems noted. Father Lung cancer Social History Household Members: None Household Members Other:: home alone [facility] Are you a primary vision care associate to a significant other at home: No Do you presently have visiting nurse or other home services: No Alcohol intake: current Alcohol intake frequency: a few times a week Comment: uses cane on occasion Patient Tobacco Use Status: Former Tobacco user Tobacco use type: Cigarette Years Smoked: 30 Second Hand Smoke Exposure: No service: No Current occupational status: retired Current occupation: Right Handed Cognitive needs: Yes (cane and walker) Hearing needs: No Vision needs: Yes (rx glasses) Review of Systems Const Denies chills, Denies daytime sleepiness, Reports difficulty sleeping, Denies fatigue, Denies fever(s), Reports frequent falls, Denies headache(s), Denies increased appetite, Denies poor appetite, Denies snoring, Denies weakness, Denies weight gain and Denies weight loss Eyes Denies loss of vision ENT Denies vertigo, Denies dizziness, Denies headache(s) and Reports neck pain Card Denies chest pain at rest, Denies chest pain with activity, Denies syncope, Denies leg edema, Denies palpitations, Denies dyspnea and Denies dyspnea on exertion Resp Denies cough, Denies dyspnea, Denies dyspnea on exertion and Denies snoring GI Denies abdominal pain, Denies constipation, Denies heartburn, Denies diarrhea and Denies nausea Denies urinary frequency, Denies urinary incontinence and Denies urinary urgency Musc Denies abnormal gait, Denies back pain, Denies myalgias, Reports arthralgias, Reports neck pain, Denies numbness, Denies stiffness and Denies tingling Neuro Denies abnormal gait, Denies vertigo, Denies dizziness, Denies syncope, Reports frequent falls, Denies headache(s), Denies lack of coordination, Denies loss of vision, Reports memory loss, Denies numbness, Denies Other visual disturbances, Denies restless legs, Denies seizure-like activity, Denies tingling, Denies paresthesias, Denies tremor(s) and Denies weakness Psych Reports anxiety, Reports depression, Denies auditory hallucinations, Reports memory loss and Denies visual hallucinations Endo Denies fatigue and Denies palpitations Physical Exam Neuro Other: Abnormal Neurological Findings:?MMSE 23/30, MoCA 1723/30 with 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 Mental Status: alert Cranial Nerves: Pupils are equal, round, and reactive to light. External ocular muscles are intact. Visual dixon are full, no ptosis. Face is symmetrical, no facial weakness or droop. Facial sensations are normal. Tongue protrudes in midline. Palate elevates symmetrically. Shoulder shrugging is normal Motor Examination: Normal muscle tone, bulk and strength. No atrophy or fasciculations. No drift of the extended upper extremities. DTR 2+. Plantars are flexor. Straight Leg Raisin degrees. Sensory Exam: Normal light touch, temperature, pinprick, vibration, and joint-position sensations. Rhomberg sign is absent. Coordination: No ataxia. No titubation. Lcrsjd-zj-ggct, ssls-yedx-kjvg test, and rapid alternating movements were normal. Gait Exam: Within normal limits. Cerebellar Signs: Iecqpi-tq-fznr and dfcx-yd-ikpt is normal. No dysdiadochokinesia. Extrapyramidal System: No tremor, rigidity with normal facial expressions. No bradykinesia. No bradyphrenia. Normal arm swing and posture. No propulsion or retropulsion. Speech: Normal. No dysphasia or dysarthria. Assessment & Plan Assessment & Plan (1) MCI (mild cognitive impairment): Code(s): G31.84 - Mild cognitive impairment of uncertain or unknown etiology Category: Medical Plan: Increase donepezil 10mg 1 tablet at bedtime. Follow up with Dr. Guadalupe as previously scheduled. Medications: New donepezil 10 mg PO BEDTIME 90 tabs 1RF 90 days Coding Level of Care Code Est Pt Level 4 (64724) Diagnoses MCI (mild cognitive impairment) G31.84
== END 2024-10-06 16:25 | disposition home or self-care (01) ==
LOC: HO.HSM 15:42
PROVIDERS: PCP Internal Medicine; Referring Provider Internal Medicine; Visit Provider Registered Nurse
DX: G31.84 Mild cognitive impairment of uncertain or unknown etiology (principal)
CPT/HCPCS: 99214

== ENCOUNTER → 2024-10-06 15:42 | Outpatient (BNVA) | payer MEDICARE, SELFPAY | PROVIDERS: PCP Internal Medicine; Referring Provider Internal Medicine; Visit Provider Registered Nurse | DX: G31.84 Mild cognitive impairment of uncertain or unknown etiology (principal); Z87.891 Personal history of nicotine dependence | CPT/HCPCS: 99212 ==

== ENCOUNTER 2024-10-07 09:51 | Outpatient (REF) | payer MEDICARE, SELFPAY ==
--- OUTSIDE RECORDS SUMMARY | 2024-10-07 09:53 | XMS_ITS | Encounter Summary ---
Author Organization [facility] and [facility] Address [address] [place] [phone] Care Team Providers Care Broadcasting Equipment Mechanic Name Role Phone Elias Santana MD Primary Care Provider + Encounter Details Date Type Department Care Team (Latest Contact Info) Description 04/04/2013 Trans[place] [address] Chris Stephens MD [address] [place] [phone] Atrial fibrillation (Primary Dx); Dysuria Social History [...] Urine Culture, Routine Less than 10,000 cfu/mL [facility] Culture URINE SPECIMEN OBTAINED BY CLEAN CATCH PROCEDURE / Unknown 04/04/2013 2:00 PM EST us Chris Stephens MD MICROBIOLOGY - GENERAL ORDERA BLES Final Result [facility] [address] [place] [phone] * (ABNORMAL) Urinalysis-macroscopic w/reflex microscopic (YH) (04/04/2013 2:00 PM EST) Urinalysis See Below [facility] Clarity, UA CLOUDY(A) CLEAR [facility] Color, UA YELLOW YELLOW [facility] Specific [place], UA 1.026 1.005 - 1.030 [facility] pH, UA 6.0 5.5 - 7.5 [facility] Protein, UA 2+(A) NEGATIVE [facility] Glucose, UA NEGATIVE NEGATIVE [facility] Ketones, UA NEGATIVE NEGATIVE [facility] Blood, UA LARGE(A) NEGATIVE [facility] Bilirubin, UA NEGATIVE NEGATIVE [facility] Leukocyte Esterase, UA POSITIVE(A) NEGATIVE [facility] Nitrite, UA NEGATIVE NEGATIVE [facility] Urobilinogen, UA 0.2 <=2.0 EU/DL [facility] 04/04/2013 2:00 PM EST us Chris Stephens MD URINE ORDERABLES Final Result Performing Organization Address [facility]/State/ZIP Co de Phone Number [facility] [address] [place] [phone] documented in this encounter Visit Diagnoses Diagnosis Atrial fibrillation (HC Code)- Primary Atrial fibrillation Dysuria documented in this encounter Care Teams Broadcasting Equipment Mechanic Relationship Specialty Start Date End Date Elias Santana MD [address] [phone] PCP - General Gastroenterology 01/10/13 06/15/19 documented as of this encounter
[2024-10-07 14:01] LABS: Anion Gap 12 (12-20); Blood Urea Nitrogen 30 mg/dL (9-16); Calcium 9.0 mg/dL (8.4-10.2); Carbon Dioxide 27 mmol/L (22-29); Chloride 104 mmol/L (96-108); Estimated Glomerular Filt Rate 43; Potassium 4.7 mmol/L (3.3-5.1); Sodium 138 mmol/L (135-145)
[2024-10-07 14:44] LABS: Digoxin 1.5 ng/mL (0.8-2.0)
== END 2024-10-07 09:52 | disposition home or self-care (01) ==
LOC: HO.HMGCLDS 09:51
PROVIDERS: PCP Internal Medicine; Visit Provider Internal Medicine
DX: I48.91 Unspecified atrial fibrillation (principal)
CPT/HCPCS: 36415; 80048; 80162

== ENCOUNTER 2024-11-21 15:11 | Outpatient (AMB) | payer MEDICARE, SELFPAY ==
--- NOTE | 2024-11-21 15:38 | A.OFFVIS_ITS ---
Intake Visit Reasons: follow up Allergies albuterol Allergy (Intermediate, Verified 10/06/24 15:58) extreme facial flushing hydromorphone (From DILAUDID) Allergy (Intermediate, Verified 10/06/24 15:58) extreme facial flushing Penicillins (PENICILLINS) Allergy (Intermediate, Verified 10/06/24 15:58) RASH (states can take ampicillin) meperidine (From Demerol) Allergy (Verified 10/06/24 15:58) Nausea HPI Comments Details: She was here with her daughter. According to daughter, her day to day memory is worse. Daughter has noticed decline in memory over the last year. No further falls. Using cane and walker. She was living alone with her 13-year-old dog (Alexander) and had Meals on Wheels. She thought her dog was 11. She had [employer] for a few hours twice a week to help with housework. Sleep was up and down, but she was napping during the day. She had trouble remembering how to use the computer. She started Donepezil 5 mg . She had 8 falls between 07/2023 - 01/2024. She had fall in 10/2023 that resulted in a small subdural hematoma and [place] [facility] [place]. She fell again in 11/2023. She has been noted to have more short-term memory problems since the falls and has not driven since 10/2023. Mental status fluctuated, and there are some inconsistencies. She was living independently with her dog and has meals on wheels. Occasionally cooks. She has given over bill payments to her daughter. She walks her dog about 1 mile/day. She had a breakdown from stress in 09/2016 when she moved from [place] to [place] to live near her daughter. [facility] Medical History (Updated 10/06/24 @ 15:54 by Vibha Luis CNP) MCI (mild cognitive impairment) Atrial fibrillation with RVR Permanent atrial fibrillation Skin tear of upper extremity Contusion of head Fall Glaucoma Arthritis Anticoagulated GERD (gastroesophageal reflux disease) Renal calculi Forgetfulness Pseudogout Low back pain Bursitis of right hip Afib Surgical History History of total right knee replacement (TKR) Hx of bilateral cataract extraction H/O colonoscopy Hx of tonsillectomy History of back surgery Hx of hysterectomy History of total right knee replacement (~2014) History of bunionectomy History of total left knee replacement (~2017) Family History Mother No problems noted. Father Lung cancer Social History Household Members: None Household Members Other:: home alone [facility] Are you a primary healthcare prof to a significant other at home: No Do you presently have visiting nurse or other home services: No Alcohol intake: current Alcohol intake frequency: a few times a week Comment: uses cane on occasion Patient Tobacco Use Status: Former Tobacco user Tobacco use type: Cigarette Years Smoked: 30 Second Hand Smoke Exposure: No service: No Current occupational status: retired Current occupation: Right Handed Cognitive needs: Yes (cane and walker) Hearing needs: No Vision needs: Yes (rx glasses) Physical Exam Neuro Other: Neurological: Abnormal Neurological Findings:?MMSE 23/30, 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 Walking with cane.?Mental Status:??alert, as below..?Cranial Nerves:??Pupils are equal, round and reactive to light. Fundoscopy shows normal disc bilaterally. External occular muscles are intact. Visual dixon are full, no ptosis. Face is symmetrical, no facial weakness or droop. Facial sensations are normal. Tongue protrudes in midline. Palate elevates symmetrically. Shoulder shrugging is normal..?Motor Examination:??Normal muscle tone, bulk and strength,?No atrophy or fasciculations,?No drift of the extended upper extremities,?Deep tendon reflexes are 2+?,?Plantars are flexor?.?Straight Leg Raising:??90 degrees.?Sensory Exam:??Normal light touch, temperature, pinprick, vibration and joint-position sensations?,?Rhomberg sign is absent.?Coordination:??no ataxia,?no titubation,?kvksgt-nz-knpp, omtq-ohqq-jajc test and rapid alternating movements were normal.?Gait Exam:??walking with cane.?Cerebellar Signs:??Fdhuvb-rx-gbmh and bmpm-je-cklt is normal,?no dysdiadochokinesia?.?Extrapyramidal System:??No tremor, rigidity with normal facial expressions,?No bradykinesia, no bradyphrenia. Normal arm swing and posture. No propulsion or retropulsion.?Speech:??Normal,?no dysphasia or dysarthria..? Mini Mental Status Exam: Level of Consciousness:??Alert.?Orientation:??Knows correct year, month, and season, and Wednesday. Not exact date.?Knows correct city, county and state. Knows correct location and floor.?Registration:??Able to register 3 objects.?Attention:??Serial 7's performed accurately to 93.?Recall:??Able to recall 0 out of 3 objects.?Language:??Normal spontaneous speech, fluency, re petition,naming, comprehension, reading and writing.?Total Score:??.? General Examination: GENERAL APPEARANCE:??normal,?in no acute distress.?HEART:??S1, S2 normal,?no murmurs.?LUNGS:??clear anteriorly and posteriorly.?MUSCULOSKELETAL:??normal.?EXTREMITIES:??no edema.?PSYCH:??alert, as above.? Results Reviewed Results Reviewed: 10/06/24 MOCA 23, MMSE 23, Memory Index Score 07/11 Assessment & Plan Assessment & Plan (1) MCI (mild cognitive impairment): Code(s): G31.84 - Mild cognitive impairment of uncertain or unknown etiology Category: Medical (2) Subdural hematoma: Code(s): S06.5XAA - Traumatic subdural hemorrhage with loss of consciousness status unknown, initial encounter Category: Medical Plan Increase Donepezil to 10mg a day . Will add Memantine 10mg bid on next visit. She needs additional help with her homehealth aide. Will repeat MOCA and MMSE in 6 months. Coding Level of Care Code Est Pt Level 4 (70695) Diagnoses MCI (mild cognitive impairment) G31.84 Subdural hematoma S06.5XAA
--- OUTSIDE RECORDS SUMMARY | 2024-11-21 16:08 | XMS_ITS | Encounter Summary ---
Author Organization [facility] and [facility] Address [address] [place] [phone] Care Team Providers Care Smocking Machine Operator Name Role Phone Elias Santana MD Primary Care Provider + Encounter Details Date Type Department Care Team (Late st Contact Info) Description 01/09/2013 Scanned Document Cardiovascular Medicine at [address] [place] [address] [phone] External, Provider Social History Tobacco Use Types [...] on filedocumented in this encounter Care Teams Smocking Machine Operator Relationship Specialty Start Date End Date Elias Santana MD [address] [place] [phone] PCP - General Gastroenterology 01/10/13 06/15/19 HILLARY HUDSON 01/04/13 01/09/13 documented as of this encounter
--- OUTSIDE RECORDS SUMMARY | 2024-11-21 16:08 | XMS_ITS | Encounter Summary ---
Author Organization [facility] and [facility] Address [address] [place] [phone] Care Team Providers Care Ruffler Name Role Phone Elias Santana MD Primary Care Provider + Encounter Details Date Type Department Care Team (Latest Contact Info) Description 04/04/2013 Transcribed [place] [address] Chris Stephens MD [address] [place] [phone] Atrial fibrillation (Primary Dx); Dysuria Social History [...] Urine Culture, Routine Less than 10,000 cfu/mL [facility] Culture URINE SPECIMEN OBTAINED BY CLEAN CATCH PROCEDURE / Unknown 04/04/2013 2:00 PM EST us Chris Stephens MD MICROBIOLOGY - GENERAL ORDERA BLES Final Result [facility] [address] [place] [phone] * (ABNORMAL) Urinalysis-macroscopic w/reflex microscopic (YH) (04/04/2013 2:00 PM EST) Urinalysis See Below [facility] Clarity, UA CLOUDY(A) CLEAR [facility] Color, UA YELLOW YELLOW [facility] Specific [place], UA 1.026 1.005 - 1.030 [facility] pH, UA 6.0 5.5 - 7.5 [facility] Protein, UA 2+(A) NEGATIVE [facility] Glucose, UA NEGATIVE NEGATIVE [facility] Ketones, UA NEGATIVE NEGATIVE [facility] Blood, UA LARGE(A) NEGATIVE [facility] Bilirubin, UA NEGATIVE NEGATIVE [facility] Leukocyte Esterase, UA POSITIVE(A) NEGATIVE [facility] Nitrite, UA NEGATIVE NEGATIVE [facility] Urobilinogen, UA 0.2 <=2.0 EU/DL [facility] 04/04/2013 2:00 PM EST us Chris Stephens MD URINE ORDERABLES Final Result Performing Organization Address [facility]/State/ZIP Co de Phone Number [facility] [address] [place] [phone] documented in this encounter Visit Diagnoses Diagnosis Atrial fibrillation (HC Code)- Primary Atrial fibrillation Dysuria documented in this encounter Care Teams Ruffler Relationship Specialty Start Date End Date Elias Santana MD [address] [phone] PCP - General Gastroenterology 01/10/13 06/15/19 documented as of this encounter
--- OUTSIDE RECORDS SUMMARY | 2024-11-21 16:08 | XMS_ITS | Clinical Summary ---
Author Organization [address] Address [address] [place] [phone] Phone Care Team Providers Care Senior Software Manager Name Role Phone Unavailable Primary Care Provider [...] Date Diagnosed Date Atrial fibrillation (HC Code) 01/10/2013 Resolved Problems Problem Noted Date Diagnosed Date Resolved Date PAF (paroxysmal atrial fibri llation) (HC Code) 12/12/2014 11/13/2015 Social History Tobacco Use Types [...] Lipid disorder screening 1979 Diabetes screening 08/30/1984 Pneumococcal Vaccine (50+ ye ars) (1 of 1 - PCV) 08/30/1989 Shingles vaccine (Shingrix) (1 of 2 - Shingrix (RZV) 2 Dose Standard Series) 08/30/1989 Osteoporosis screening (bone density) 08/30/2004 RSV Immunization (1 - 1-dose 75+ series) 08/30/2014 Covid-19 vaccine series ( - season) 2023 Influenza vaccine 11/27/2024 Breast cancer screening Discontinued Cervical cancer screening Discontinued Colon cancer screening, Colonoscopy Discontinued Meningococcal Vaccine Aged Out No dora brigitte eligible based on patient's age to complete this topic Insurance MEDICARE 90 DEGREE BENEFITS on file MEDICARE 90 DEGREE BENEFITS on file MEDICARE 90 DEGREE BENEFITS on file MEDICARE 90 DEGREE BENEFITS on file
--- OUTSIDE RECORDS SUMMARY | 2024-11-21 16:08 | XMS_ITS | Encounter Summary ---
Author Organization [facility] and [facility] Address [address] [place] [phone] Care Team Providers Care Diagnostic Imaging Manager Name Role Phone Elias Santana MD Primary Care Provider + Encounter Details Date Type Department Care Team (Late st Contact Info) Description 09/19/2014 Scanned Document Cardiovascular Medicine at [address] [place], [place] [address] Chris Stephens MD [address] [place] [phone] Social History Tobacco Use Types Packs/Day [...] Scan (09/18/2014) Blood specimen (specimen) us Chris Setphens MD LAB BLOOD ORDERABLES Final Re sult [facility] [place], [place], [place] * Lab Scan (09/18/2014) Blood specimen (specimen) us Chris Stephens MD LAB BLOOD ORDERABLES Final Re sult [facility] [place], [facility] documented in this encounter Visit Diagnoses Not on filedocumented in this encounter Care Teams Diagnostic Imaging Manager Relationship Specialty Start Date End Date Elias Santana MD [address] [phone] PCP - General Gastroenterology 01/10/13 06/15/19 documented as of this encounter
--- OUTSIDE RECORDS SUMMARY | 2024-11-21 16:08 | XMS_ITS | Encounter Summary ---
Author Organization [facility] and [facility] Address [address] [place] [phone] Care Team Providers Care Software Database Architect Name Role Phone Elias Santana MD Primary Care Provider + Encounter Details Date Type Department Care Team (Late st Contact Info) Description 02/04/2013 Abstract [facility] Cardiovascular Medicine at [address] [facility] [address] [facility] [address] [place], [place] [address] Chris Stephens MD [address] [place] [phone] Social History Tobacco Use Types Packs/Day Years [...] on filedocumented in this encounter Care Teams Software Database Architect Relationship Specialty Start Date End Date Elias Santana MD [address] [place] [address] [address] [place] [phone] PCP - General Gastroenterology 01/10/13 06/15/19 documented as of this encounter
== END 2024-11-21 16:07 | disposition home or self-care (01) ==
LOC: HO.HSM 15:12
PROVIDERS: PCP Internal Medicine; Referring Provider Internal Medicine; Visit Provider Psychiatry & Neurology Neurology
DX: S06.5XAA Traumatic subdural hemorrhage with loss of consciousness status unknown, initial encounter (principal); G31.84 Mild cognitive impairment of uncertain or unknown etiology
CPT/HCPCS: 99214

== ENCOUNTER → 2024-11-21 15:11 | Outpatient (BNVA) | payer MEDICARE, SELFPAY | PROVIDERS: PCP Internal Medicine; Referring Provider Internal Medicine; Visit Provider Psychiatry & Neurology Neurology | DX: G31.84 Mild cognitive impairment of uncertain or unknown etiology (principal); S06.5XAD Traumatic subdural hemorrhage with loss of consciousness status unknown, subsequent encounter | CPT/HCPCS: 99212 ==

== ENCOUNTER 2024-11-25 11:06 | Outpatient (REF) | payer MEDICARE, SELFPAY ==
--- OUTSIDE RECORDS SUMMARY | 2024-11-25 11:11 | XMS_ITS | Encounter Summary ---
Author Organization [facility] and [facility] Address [address] [place] [phone] Care Team Providers Care Bit Sharpener Operator Name Role Phone Elias Santana MD Primary Care Provider + Encounter Details Date Type Department Care Team (Latest Contact Info) Description 04/04/2013 Transcribed [place] [address] Chris Stephens MD [address] [place] [phone] Atrial fibrillation (Primary Dx); Dysuria Social History [...] Urine Culture, Routine Less than 10,000 cfu/mL [facility] Culture URINE SPECIMEN OBTAINED BY CLEAN CATCH PROCEDURE / Unknown 04/04/2013 2:00 PM EST us Chris Stephens MD MICROBIOLOGY - GENERAL ORDERA BLES Final Result [facility] [address] [place] [phone] * (ABNORMAL) Urinalysis-macroscopic w/reflex microscopic (YH) (04/04/2013 2:00 PM EST) Urinalysis See Below [facility] Clarity, UA CLOUDY(A) CLEAR [facility] Color, UA YELLOW YELLOW [facility] Specific [place], UA 1.026 1.005 - 1.030 [facility] pH, UA 6.0 5.5 - 7.5 [facility] Protein, UA 2+(A) NEGATIVE [facility] Glucose, UA NEGATIVE NEGATIVE [facility] Ketones, UA NEGATIVE NEGATIVE [facility] Blood, UA LARGE(A) NEGATIVE [facility] Bilirubin, UA NEGATIVE NEGATIVE [facility] Leukocyte Esterase, UA POSITIVE(A) NEGATIVE [facility] Nitrite, UA NEGATIVE NEGATIVE [facility] Urobilinogen, UA 0.2 <=2.0 EU/DL [facility] 04/04/2013 2:00 PM EST us Chris Stephens MD URINE ORDERABLES Final Result Performing Organization Address [facility]/State/ZIP Co de Phone Number [facility] [address] [place] [phone] documented in this encounter Visit Diagnoses Diagnosis Atrial fibrillation (HC Code)- Primary Atrial fibrillation Dysuria documented in this encounter Care Teams Bit Sharpener Operator Relationship Specialty Start Date End Date Elias Santana MD [address] [phone] PCP - General Gastroenterology 01/10/13 06/15/19 documented as of this encounter
--- OUTSIDE RECORDS SUMMARY | 2024-11-25 11:11 | XMS_ITS | Encounter Summary ---
Author Organization [facility] Address [address] [place] [phone] Care Team Providers Care Internet Cafe Manager Name Role Phone Elias Santana MD Primary Care Provider + Encounter Details Date Type Department Care Team (Late st Contact Info) Description 09/19/2014 Scanned Document Cardiovascular Medicine at [address] [place], [place] [address] Chris Stephens MD [address] [place] [phone] Social History Tobacco Use Types Packs/Day [...] MD LAB BLOOD ORDERABLES Final Re sult [facility] [place], [place], [place] * Lab Scan (09/18/2014) Blood specimen (specimen) us Chris Stephens MD LAB BLOOD ORDERABLES Final Re sult [facility] [place], [facility] documented in this encounter Visit Diagnoses Not on filedocumented in this encounter Care Teams Internet Cafe Manager Relationship Specialty Start Date End Date Elias Santana MD 5 Krishna Blanco [address] [phone] PCP - General Gastroenterology 01/10/13 06/15/19 documented as of this encounter
--- OUTSIDE RECORDS SUMMARY | 2024-11-25 11:11 | XMS_ITS | Clinical Summary ---
Author Organization [address] Address [address] [place] [phone] Phone Care Team Providers Care Regulatory Affairs Strategy Specialist Name Role Phone Unavailable Primary Care Provider [...]
--- OUTSIDE RECORDS SUMMARY | 2024-11-25 11:11 | XMS_ITS | Encounter Summary ---
Author Organization [facility] and [facility] Address [address] [place] [phone] Care Team Providers Care Cafeteria Associate Name Role Phone Elias Santana MD Primary Care Provider + Encounter Details Date Type Department Care Team (Late st Contact Info) Description 02/04/2013 Abstract [facility] Cardiovascular Medicine at 5 [facility] [address] [facility] [address] [place], [place] [address] Chris Stephens MD [address] [place] [phone] Social History Tobacco Use Types Packs/Day Years [...] on filedocumented in this encounter Care Teams Cafeteria Associate Relationship Specialty Start Date End Date Elias Santana MD [address] [place] [address] 301 [place] [phone] PCP - General Gastroenterology 01/10/13 06/15/19 documented as of this encounter
--- OUTSIDE RECORDS SUMMARY | 2024-11-25 11:11 | XMS_ITS | Encounter Summary ---
Author Organization [facility] and [facility] Address [address] [place] [phone] Care Team Providers Care Prefabricator Name Role Phone Elias Santana MD Primary Care Provider + Encounter Details Date Type Department Care Team (Late st Contact Info) Description 01/09/2013 Scanned Document Cardiovascular Medicine at [address] [place] [address] [phone] External, Provider Social History Tobacco Use Types [...] on filedocumented in this encounter Care Teams Prefabricator Relationship Specialty Start Date End Date Elias Santana MD [address] [place] [phone] PCP - General Gastroenterology 01/10/13 06/15/19 HILLARY HUDSON 01/04/13 01/09/13 documented as of this encounter
[2024-11-28 14:33] LABS: Free T4 (Free Thyroxine) 0.97 ng/dL (0.71-1.85)
== END 2024-11-25 11:07 | disposition home or self-care (01) ==
LOC: HO.HMGCLDS 11:06
PROVIDERS: PCP Internal Medicine; Visit Provider Physician Assistant Medical
DX: L20.89 Other atopic dermatitis (principal); Z13.29 Encounter for screening for other suspected endocrine disorder
CPT/HCPCS: 36415; 84439; 84443

== ENCOUNTER 2024-12-16 11:52 | Outpatient (REF) | payer MEDICARE, SELFPAY ==
--- OUTSIDE RECORDS SUMMARY | 2024-12-16 11:55 | XMS_ITS | Clinical Summary ---
Author Organization [address] Address [address] [place] [phone] Phone Care Team Providers Care Drinking Water Technician Name Role Phone Unavailable Primary Care [...] Immunization (1 - 1-dose 75+ series) 08/30/2014 Influenza vaccine 10/27/2024 Covid-19 vaccine series ( season) 2024 Breast cancer screening Discontinued Cervical cancer screening Discontinued Colon cancer screening, Colonoscopy Discontinued Meningococcal B Vaccine Aged Out No l onger eligible based on patient's age to complete this topic Meningococcal Vaccine Aged Out No dora brigitte eligible based on patient's age to complete this topic Insurance MEDICARE 90 DEGREE BENEFITS on file MEDICARE 90 DEGREE BENEFITS on file MEDICARE 90 DEGREE BENEFITS on file MEDICARE 90 DEGREE BENEFITS on file
--- OUTSIDE RECORDS SUMMARY | 2024-12-16 11:55 | XMS_ITS | Encounter Summary ---
Author Organization [facility] and [facility] Address [address] [place] [phone] Care Team Providers Care Log Getter Name Role Phone Elias Santana MD Primary Care Provider + Encounter Details Date Type Department Care Team (Late st Contact Info) Description 09/19/2014 Scanned Document Cardiovascular Medicine at [address] [phone] Chris Stephens MD [address] [place] [phone] Social History Tobacco Use Types Packs/Day [...] MD LAB BLOOD ORDERABLES Final Re sult [facility] [place], [place], [place] * Lab Scan (09/18/2014) Blood specimen (specimen) us Chris Stephens MD LAB BLOOD ORDERABLES Final Re sult [facility] [place], [facility] documented in this encounter Visit Diagnoses Not on filedocumented in this encounter Care Teams Log Getter Relationship Specialty Start Date End Date Elias Santana MD 5 [address] [phone] PCP - General Gastroenterology 01/10/13 06/15/19 documented as of this encounter
--- OUTSIDE RECORDS SUMMARY | 2024-12-16 11:55 | XMS_ITS | Encounter Summary ---
Author Organization [facility] and [facility] Address [address] [place] [phone] Care Team Providers Care Turbine Attendant Name Role Phone Elias Santana MD Primary Care Provider + Encounter Details Date Type Department Care Team (Late st Contact Info) Description 02/04/2013 Abstract [facility] [address] [place], [place] [address] Chris Stephens MD [address] [place] [phone] Social History Tobacco Use Types Packs/Day Years [...] on filedocumented in this encounter Care Teams Turbine Attendant Relationship Specialty Start Date End Date Elias Santana MD [address] [place] [address] [address] [place] [phone] PCP - General Gastroenterology 01/10/13 06/15/19 documented as of this encounter
--- OUTSIDE RECORDS SUMMARY | 2024-12-16 11:55 | XMS_ITS | Encounter Summary ---
Author Organization [facility] Address [address] [place] [phone] Care Team Providers Care Unit Supervisor Name Role Phone Elias Santana MD Primary Care Provider + Encounter Details Date Type Department Care Team (Latest Contact Info) Description 04/04/2013 [place] [address] Chris Stephens MD [address] [place] [phone] Atrial fibrillation (Primary Dx); Dysuria Social History [...] Urine Culture, Routine Less than 10,000 cfu/mL [facility] Culture URINE SPECIMEN OBTAINED BY CLEAN CATCH PROCEDURE / Unknown 04/04/2013 2:00 PM EST us Chris Stephens MD MICROBIOLOGY - GENERAL ORDERA BLES Final Result [facility] [address] [place] [address] * (ABNORMAL) Urinalysis-macroscopic w/reflex microscopic ([facility]) (04/04/2013 2:00 PM EST) Urinalysis See Below [facility] Clarity, UA CLOUDY(A) CLEAR [facility] Color, UA YELLOW YELLOW [facility] Specific [place], UA 1.026 1.005 - 1.030 [facility] pH, UA 6.0 5.5 - 7.5 [facility] Protein, UA 2+(A) NEGATIVE [facility] Glucose, UA NEGATIVE NEGATIVE [facility] Ketones, UA NEGATIVE NEGATIVE [facility] Blood, UA LARGE(A) NEGATIVE [facility] Bilirubin, UA NEGATIVE NEGATIVE [facility] Leukocyte Esterase, UA POSITIVE(A) NEGATIVE [facility] Nitrite, UA NEGATIVE NEGATIVE [facility] Urobilinogen, UA 0.2 <=2.0 EU/DL [facility] 04/04/2013 2:00 PM EST Chris Stephens MD URINE ORDERABLES Final Result Performing Organization Address City/State/[facility] Co de Phone Number [facility] [address] [place] [phone] documented in this encounter Visit Diagnoses Diagnosis Atrial fibrillation (HC Code)- Primary Atrial fibrillation Dysuria documented in this encounter Care Teams Unit Supervisor Relationship Specialty Start Date End Date Elias Santana MD 5 [facility] [address] [place] [phone] PCP - General Gastroenterology 01/10/13 06/15/19 documented as of this encounter
--- OUTSIDE RECORDS SUMMARY | 2024-12-16 11:55 | XMS_ITS | Encounter Summary ---
Author Organization [facility] and [facility] Address [address] [place] [phone] Care Team Providers Care Pipe Racker Name Role Phone Elias Santana MD Primary Care Provider + Encounter Details Date Type Department Care Team (Late st Contact Info) Description 01/09/2013 Scanned Document Cardiovascular Medicine at [address] [place] [phone] External, Provider Social History Tobacco Use Types [...] on filedocumented in this encounter Care Teams Pipe Racker Relationship Specialty Start Date End Date Elias Santana MD [address] [place] [phone] PCP - General Gastroenterology 01/10/13 06/15/19 HILLARY HUDSON 01/04/13 01/09/13 documented as of this encounter
[2024-12-16 13:45] LABS: MANUAL DIFF FLAG NO
[2024-12-16 13:49] LABS: Hematocrit 39.5 % (37.0-47.0); Hemoglobin 13.0 g/dl (12.0-16.0); Imm Gran Abs Auto 0.03 X10*3/uL (0.00-0.03); Imm Gran Pct Auto 0.4 % (0.0-0.4); Lymphocytes Absolute Auto 1.2 X10*3/uL (1.2-4.9); Mean Corpuscular HGB Conc 32.9 g/dl (31.0-35.0); Mean Corpuscular Hemoglobin 30.4 pg (27.0-33.0); Mean Corpuscular Volume 92.5 fL (80.0-98.0); NRBC Abs Auto 0.000 X10*3/uL (0.0-0.012); NRBC Pct Auto 0.0 /100WBC (0.0-0.2); Platelet Count 246 X10*3/uL (160-400); Red Blood Count 4.27 X10*6/uL (4.20-5.50); White Blood Count 8.5 X10*3/uL (4.8-10.8)
== END 2024-12-16 11:53 | disposition home or self-care (01) ==
LOC: HO.HMGCLDS 11:52
PROVIDERS: PCP Internal Medicine; Visit Provider Physician Assistant Medical
DX: L20.89 Other atopic dermatitis (principal)
CPT/HCPCS: 36415; 85025

== ENCOUNTER 2024-12-19 14:21 | Outpatient (AMB) | payer MEDICARE, SELFPAY ==
[2024-12-19 14:24] VITALS: BP 144/62; PULSE 74; RESP 14; TEMP 36.7; O2SAT 98; BMI 26.5
--- NOTE | 2024-12-19 14:24 | MHC.PC.OV ---
Vital Signs 12/19/24 14:24 Height 5 ft 5 in Weight 159 lb BMI 26.5 BP 144/62 H Respiration 14 Pulse 74 Pulse Source Pulse Oximeter Temp 98.0 F Temp Source Temporal Artery Scan Pulse Oximetry (%) 98 Oxygen Delivery Method Room Air Intake Visit Reasons: 3 month f/u Manager Flight Required: No Accompanied by: Daughter Allergies albuterol Allergy (Intermediate, Verified 12/19/24 14:25) extreme facial flushing hydromorphone (From DILAUDID) Allergy (Intermediate, Verified 12/19/24 14:25) extreme facial flushing Penicillins (PENICILLINS) Allergy (Intermediate, Verified 12/19/24 14:25) RASH (states can take ampicillin) meperidine (From Demerol) Allergy (Verified 12/19/24 14:25) Nausea Tobacco use date assessed: 09/12/24 Dental Screening Dental Screen Date: 06/06/24 [facility] Medical History MCI (mild cognitive impairment) Atrial fibrillation with RVR Permanent atrial fibrillation Skin tear of upper extremity Contusion of head Fall Glaucoma Arthritis Anticoagulated GERD (gastroesophageal reflux disease) Renal calculi Forgetfulness Pseudogout Low back pain Bursitis of right hip Afib Surgical History History of total right knee replacement (TKR) Hx of bilateral cataract extraction H/O colonoscopy Hx of tonsillectomy History of back surgery Hx of hysterectomy History of total right knee replacement (~2014) History of bunionectomy History of total left knee replacement (~2017) Family History Mother No problems noted. Father Lung cancer Social History Household Members: None Household Members Other:: home alone Housing: Condominium Are you a primary primary health care nurse to a significant other at home: No Do you presently have visiting nurse or other home services: No Alcohol intake: current Alcohol intake frequency: a few times a week Comment: uses cane on occasion Patient Tobacco Use Status: Former Tobacco user Tobacco use type: Cigarette Years Smoked: 30 Second Hand Smoke Exposure: No service: No Current occupational status: retired Current occupation: Right Handed Cognitive needs: Yes (cane and walker) Hearing needs: No Vision needs: Yes (rx glasses) Questionnaire PHQ-9 Over the last 2 weeks, how often have you been bothered by any of the following problems? 1. Little interest or pleasure in doing things: not at all 2. Feeling down, depressed, or hopeless: not at all 3. Trouble falling or staying asleep, or sleeping too much: not at all 4. Feeling tired or having little energy: not at all 5. Poor appetite or overeating: not at all 6. Feeling bad about yourself - or that you are a failure or have let yourself or your family down: not at all 7. Trouble concentrating on things, such as reading the newspaper or watching television: not at all 8. Moving or speaking so slowly that other people could have noticed. Or the opposite - being so fidgety or restless that you have been moving around a lot more than usual: not at all 9. Thoughts that you would be better off or of hurting yourself in some way: not at all Total score: 0 Source: Developed by Drs. Fred Cabezas, Oxana Shaikh, Yosef Jamison and colleagues, with an educational ondina from [employer]. Thrive Questionnaire Date Thrive assessed: 06/06/24 I am a: Patient What is your living situation today?: I have a steady place to live Within the past 12 months, did the food you bought not last and you didn't have the money to get more?: Never true Within the past 12 months, did you worry whether your food would run out before you got money to buy more?: Never true Do you have trouble paying for medicines?: No Do you have trouble getting transportation to medical appointments?: No Do you have trouble paying your heating and electricity bill?: No Do you have trouble taking care of your child, family member or friend?: No Do you have trouble with day-to-day activities such as bathing, preparing meals, shopping, managing finances, etc.?: No Are you currently unemployed and looking for a job?: No Are you interested in more education?: No THRIVE Score: 0 AUDIT C Alcohol Use Questionnaire (AUDIT-C) 1. How often do you have a drink containing alcohol?: Never 3. How often do you have six or more drinks on one occasion?: Never Total Score: 0 NANCI-7 AMB Questionnaire NANCI-7 Date NANCI - 7 assessed: 06/06/24 Feeling nervous, anxious, or on edge: 0 = Not at all Not being able to stop or control worryin = Not at all Worrying too much about different things: 0 = Not at all Trouble relaxin = Not at all Being so restless that it is hard to sit still: 0 = Not at all Becoming easily annoyed or irritable: 0 = Not at all Feeling afraid as if something awful might happen: 0 = Not at all Total NANCI-7 score (0-4 normal; 5-9 mild; 10-14 moderate; 15-21 severe): 0 Source: Developed by Drs. Fred Cabezas, Oxana Shaikh, Yosef Jamison and colleagues, with an educational ondina from [employer]. Physical exam (Primary Care) Vital Signs: Last Vital Signs Temp 98.0 F 12/19/24 14:24 Pulse 74 12/19/24 14:24 Resp 14 12/19/24 14:24 BP 144/62 H 12/19/24 14:24 Pulse Ox 98 12/19/24 14:24 Oxygen Delivery Method Room Air 12/19/24 14:24 BMI result Body Mass Index 26.5 Tobacco/Smoking Status: Tobacco use Status Tobacco use date assessed 09/12/24 12/19/24 14:26 Patient Tobacco Use Status Former Tobacco user 12/19/24 14:26 Tobacco use type Cigarette 12/19/24 14:26 PHQ-9: PHQ-9 Score PHQ-9: Total score 0 12/19/24 14:34 Thrive Assessment: Date of Thrive Assessment Date Thrive assessed 06/06/24 12/19/24 14:26 Office Procedures Flu Questionnaire Does the patient have a severe egg allergy?: No Does the patient have severe life threatening allergies?: No Does the patient have a fever or illness today?: No Has the patient ever had Guillain-Frederick Syndrome?: No Has the patient ever had any past reaction to a flu shot?: No Immunizations Fluarix 4027-1264 (PF) 45 mcg (15 mcg x 3)/0.5 mL IM syringe Performing Provider: Sumeet Allison MD Per[facility] Administered by: WILLIAN Hester on 12/19/24 14:35 Dose Route Admin Location Dispensed Lot Number Expiration Date NDC Production Engineer 0.5 mL IM Left Deltoid 0.5 mL [id number] 09/25/25 [id number] [employer] VIS Given Date VIS Provided VIS Publication Date 12/19/24 Single Vaccine 24 Eligibility Eligibility Date Funding Source Not [facility] Eligible 12/19/24 Private Coding Level of Care Code Est Pt Level 4 (33305) Complex EM visit Add On G2211 Diagnoses Atrial fibrillation with RVR I48.91 Assessment & Plan Assessment & Plan (1) Atrial fibrillation with RVR: Code(s): I48.91 - Unspecified atrial fibrillation Category: Medical Plan: History of Present Illness - The patient is an 84-year-old female presenting with sinus congestion and atrial fibrillation management. - Sinus congestion: Reports sinus swelling causing dental pressure and toothache. Relief achieved with Noemi and nasal spray. - Atrial fibrillation: Scheduled for Watchman procedure on January 17, with CAT scan on January 09. Initially hesitant, agreed after consultation. - Cognitive impairment: Short-term memory decline noted, affecting medication adherence. Cognitive testing completed, considering assisted living. - Glaucoma: Timolol eye drops prescribed twice daily. - Depression: Managed with bupropion. - Hyperlipidemia: Managed with atorvastatin. - Hypothyroidism: Managed with levothyroxine. - Hypertension: Managed with metoprolol, 100 mg in the morning and 50 mg at bedtime. - Skin tag: Benign growth in the groin area assessed by advice clerk. Social History - Living situation: The patient lives independently with assistance from a auto cleaner twice a week and receives Meals on Wheels. She has a dog for companionship and does not drive following a fall last year. - Cognitive activities: Engages in crossword puzzles regularly. Review of Systems - Neurological: Reports short-term memory decline. Denies headaches or dizziness. - Respiratory: Reports sinus congestion with associated dental pressure and toothache. Denies cough or wheezing. Physical Exam General: Cooperative and healthy appearing Nutritional Appearance: Well nourished Orientation/consciousness: Patient oriented x3 Limitations: No limitations Head: Normal to inspection General: Appearance normal, both eyes and all related structures Neck: Normal visual inspection Chest: Normal palpation of entire chest wall Respiratory: N ormal respiratory effort Neurology: Patient oriented x3, but exhibits signs of cognitive impairment with declining short-term memory. Results - Scheduled CAT scan on January 09 for atrial fibrillation management. Plan - Continue Noemi and nasal spray for sinus congestion management. - Proceed with Watchman procedure for atrial fibrillation on January 17, with CAT scan on January 09. - Monitor cognitive function and consider assisted living transition as needed. - Continue timolol eye drops twice daily for glaucoma management. - Maintain current medication regimen for depression, hyperlipidemia, hypothyroidism, and hypertension. - No intervention needed for benign skin tag. Discussion Notes I discussed the management of sinus congestion with the patient, recommending continued use of Noemi and nasal spray. We reviewed the upcoming Watchman procedure for atrial fibrillation, emphasizing its importance and the scheduled CAT scan. We also talked about monitoring cognitive function and the potential need for assisted living. I confirmed the current medication regimen for her chronic conditions and reassured her about the benign nature of the skin tag. Patient Instructions - Continue taking Noemi and using nasal spray as directed for sinus congestion. - Attend the scheduled CAT scan on January 09 and the Watchman procedure on January 17. - Monitor memory and cognitive function, and discuss any changes with family or healthcare providers. - Continue all prescribed medications as directed. - No need for concern regarding the skin tag, but report any changes. Orders: Orders Influenza [id number] Immunization Today Z23 - Encounter for immunization
--- OUTSIDE RECORDS SUMMARY | 2024-12-19 17:36 | XMS_ITS ---
Author Organization [facility] Care Team Providers Care Management Lecturer Name Role Phone Elizabeth Brock Unavailable Unavailable Mehul Niño Unavailable Unavailable Shy German Unavailable Unavailable Nichole Quiroz Unavailable Unavailable Melanie Cheng Unavailable Unavailable Allergies and adverse reactions No Known Allergies Care Team Name Role Address Phone Organization Dates Adnan Delmy PCP [address] [place] [address], [facility] (Office): : [facility] 12/07/2023 - 12/18/2023 Mehul Niño [address] [place] [phone], [facility] (Office): : [facility] 12/07/2023 - 12/18/2023 Shy German [address] [place] [address], [facility] (Office): : [facility] 12/07/2023 - 12/18/2023 Nichole Quiroz [address] [place] [phone], [facility] (Office): : [facility] 12/07/2023 - 12/18/2023 Melanie Cheng [address] [facility] [address], [place], [address], [facility] (Office): : [facility] 12/07/2023 - 12/18/2023 Immunizations Immunization Status Vaccine Details Vaccine Code CodeSystem Date Notes (COVID-19) 1367-0131 Updated Pfizer Vaccine completed SARS-COV-2 (COVID-19) vaccine, mRNA, spike protein, LNP, preservative free, purnima-sucrose, 30 mcg/0.3 mL dose 309 CVX created date: 12/08/2023 administer ed date: 01/17/2023 (Tetanus, Diphtheria, and Acellular Pertussis) Tdap completed tetanus toxoid, reduced diphtheria toxoid, and acellular pertussis vaccine, adsorbed 115 CVX created date: 12/08/2023 administer ed date: 09/29/2021 (Pneumococcal) PCV20- Conjugate 20-valent Vaccine completed Pneumococcal conjugate vaccine 20-valent (PCV20), polysaccharide [id number] conjugate, adjuvant, preservative free 216 CVX created date: 12/08/2023 administer ed date: 10/31/2019 (Influenza) FLUAD - Adjuvanted - High Dose - 65+ completed Influenza, adjuvanted, inactivated, trivalent, injectable, preservative free lotNumber: [id number] expiry: 12/16/2023 Mfg: seqirus Given 0.5 ml Left Deltoid intramuscularly 168 CVX created date: 12/17/2023 consent date: 12/16/2023 administer ed date: 12/16/2023 Educated by IP on 12/16/2023 Mental Status Section Date Assessment Total Score Description 12/18/2023 BIMS 15 cognitively int act CAM 0 No delirium ind icated PHQ-9 00 12/13/2023 BIMS 15 cognitively int act CAM 0 No delirium ind icated PHQ-9 00 Problems Problem # Description Date of onset Resolved Date Code CodeSystem Concern Status 1 HYPERLIPIDEMIA, UNSPECIFIED 12/09/[address] active 2 GASTRO-ESOPHAGEAL REFLUX DISEASE WITHOUT ESOPHAGITIS 12/07/[address] active 3 HYPOTHYROIDISM, UNSPECIFIED 12/07/[address] active 4 LOW BACK PAIN, UNSPECIFIED 12/07/[address] active 5 MUSCLE WASTING AND ATROPHY, NOT ELSEWHERE CLASSIFIED, MULTIPLE SITES 12/07/[address] active 6 OTHER LACK OF COORDINATION 12/07/[address] active 7 TRAUMATIC SUBDURAL HEMORRHAGE WITH LOSS OF CONSCIOUSNESS OF UNSPECIFIED DURATION, SUBSEQUENT ENCOUNTER 12/07/[address] active 8 UNSPECIFIED ATRIAL FIBRILLATION 12/07/[address] active 9 UNSPECIFIED GLAUCOMA 12/07/[address] active 10 UNSPECIFIED MOOD [AFFECTIVE] DISORDER 12/07/[address] active Reason for Referral No Reasons for Referral Entered Social History Social History Observation Description Start Date End Date Code Code System Current Smoking Status Tobacco smoking consumption unknown 203995506 SNOMED CT Sex Assigned At Female 1940 62864-1 [facility] Gender Identity Sexual Orientation Vital Signs Code Code System Vitals Name Values and Units Timing Information 9279-1 [facility] Respiratory Rate Value=18.0 Units=/m in 12/18/2023 8462-4 [facility] Blood Pressure-Diastolic Value=71 Un its=mmHg 12/18/2023 8480-6 [facility] Blood Pressure-Systolic Qakmu=746 Un its=mmHg 12/18/2023 8310-5 [facility] Body Temperature Value=97.1 Units= F 12/18/2023 8867-4 [facility] Heart rate Value=76.0 Units=/min 86730-8 [facility] O2 % BldC Oximetry Value=94.0 Units= % 12/18/2023 73707-3 INC Pain Level Value=0.0 12/18/2023 8302-2 [facility] Height Value=68.0 Units=Inches 12/08/2023 94250-7 LOINC Weight Qicwl=385.0 Units=Lbs 01/2024
--- OUTSIDE RECORDS SUMMARY | 2024-12-19 17:38 | XMS_ITS | Encounter Summary ---
Author Organization [facility] Address [address] [place] [phone] Care Team Providers Care Motor Coach Supervisor Name Role Phone Elias Santana MD Primary Care Provider + Encounter Details Date Type Department Care Team (Late st Contact Info) Description 01/09/2013 Scanned Document Cardiovascular Medicine at [address] [place] [address] [phone] External, Provider Social History Tobacco Use Types [...] on filedocumented in this encounter Care Teams Motor Coach Supervisor Relationship Specialty Start Date End Date Elias Santana MD [address] [place] [phone] PCP - General Gastroenterology 01/10/13 06/15/19 HILLARY HUDSON 01/04/13 01/09/13 documented as of this encounter
--- OUTSIDE RECORDS SUMMARY | 2024-12-19 17:38 | XMS_ITS | Encounter Summary ---
Author Organization [facility] Address [address] [place] [phone] Care Team Providers Care Medical Communication Specialist Name Role Phone Elias Santana MD Primary Care Provider + Encounter Details Date Type Department Care Team (Late st Contact Info) Description 02/04/2013 Abstract [facility] at 5 [facility] 5 [facility] [address] [place], [place] [address] Chris Stephens MD [address] [place] [phone] Social History Tobacco Use Types Packs/Day Years [...] on filedocumented in this encounter Care Teams Medical Communication Specialist Relationship Specialty Start Date End Date Elias Santana MD [address] [place] [address] [address] [place] [phone] PCP - General Gastroenterology 01/10/13 06/15/19 documented as of this encounter
--- OUTSIDE RECORDS SUMMARY | 2024-12-19 17:38 | XMS_ITS | Clinical Summary ---
Author Organization [address] Address [address] [place] [phone] Phone Care Team Providers Care Broom Maker Name Role Phone Unavailable Primary Care Provider [...]
--- OUTSIDE RECORDS SUMMARY | 2024-12-19 17:38 | XMS_ITS | Encounter Summary ---
Author Organization [facility] and [facility] Address [address] [place] [phone] Care Team Providers Care Ticket Printer And Tagger Name Role Phone Elias Santana MD Primary Care Provider + Encounter Details Date Type Department Care Team (Late st Contact Info) Description 09/19/2014 Scanned Document Cardiovascular Medicine at [address] [place], [place] [address] Chris Stephens MD [address] [place] [phone] Social History Tobacco Use Types Packs/Day [...] MD LAB BLOOD ORDERABLES Final Re sult [facility] [place], [place] * Lab Scan (09/18/2014) Blood specimen (specimen) us Chris Stephens MD LAB BLOOD ORDERABLES Final Re sult [facility], [place], [facility] documented in this encounter Visit Diagnoses Not on filedocumented in this encounter Care Teams Ticket Printer And Tagger Relationship Specialty Start Date End Date Elias Santana MD [address] [phone] PCP - General Gastroenterology 01/10/13 06/15/19 documented as of this encounter
== END 2024-12-19 14:54 | disposition home or self-care (01) ==
LOC: HO.HMCSH 14:21
PROVIDERS: PCP Internal Medicine; Visit Provider Internal Medicine
DX: Z23 Encounter for immunization (principal); I48.91 Unspecified atrial fibrillation

== ENCOUNTER → 2024-12-19 14:21 | Outpatient (BNVA) | payer MEDICARE, SELFPAY | PROVIDERS: PCP Internal Medicine; Visit Provider Internal Medicine | DX: Z23 Encounter for immunization (principal); I48.91 Unspecified atrial fibrillation; Z87.891 Personal history of nicotine dependence | CPT/HCPCS: 90471; 90656; 99212 ==

== ENCOUNTER 2025-02-14 15:26 | Outpatient (AMB) | payer MEDICARE, SELFPAY ==
--- NOTE | 2025-02-14 15:29 | MHC.OFFVIS ---
Intake Visit Reasons: 3m Allergies albuterol Allergy (Intermediate, Verified 12/19/24 14:25) extreme facial flushing hydromorphone (From DILAUDID) Allergy (Intermediate, Verified 12/19/24 14:25) extreme facial flushing Penicillins (PENICILLINS) Allergy (Intermediate, Verified 12/19/24 14:25) RASH (states can take ampicillin) meperidine (From Demerol) Allergy (Verified 12/19/24 14:25) Nausea Medication List - Last Reconciled 02/14/25 by Frantz Guadalupe MD acetaminophen 650 mg (2 x 325 mg) PO Q6H PRN 30 days apixaban (Eliquis) 5 mg PO BID atorvastatin 10 mg PO DAILY 90 days bupropion HCl XL 300 mg PO DAILY 90 days celecoxib 200 mg PO DAILY 90 days cholecalciferol (vitamin D3) 25 mcg PO DAILY digoxin 125 mcg PO DAILY donepezil 10 mg PO BEDTIME 90 days duloxetine 60 mg PO DAILY 90 days fluticasone propionate 50 mcg/actuation (Flonase Allergy Relief) 1 spray intranasal DAILY levothyroxine 75 mcg PO DAILY@1200 melatonin 5 mg PO BEDTIME metoprolol succinate ER 50 mg PO DAILY omeprazole 20 mg PO DAILY@0630 timolol maleate 0.5% 1 drp ophthalmic (eye) BID trazodone 50 mg PO BEDTIME triamcinolone acetonide 0.1% 1 appl topical BID-TID vitamin E 670 mg PO DAILY HPI Comments Details: She was here with her daughter. According to daughter, She is deteriorating in terms of simple tasks and memory is worse. Some days she is more confused and disorientation to time. Daughter has noticed decline in memory over the last year. No further falls. Using cane and walker. She was living alone with her 14-year-old dog (Alexander) and had Meals on Wheels. She had [employer]AGEMENT [employer] for a few hours twice a week to help with housework. Sleep was up and down, but she was napping during the day. She had trouble remembering how to use the computer. She is on Donepezil 10 mg . She had 8 falls between 07/2023 - 01/2024. She had fall in 10/2023 that resulted in a small subdural hematoma and was seen at [facility], no evacuation was done. She fell again in 11/2023. She has been noted to have more short-term memory problems since the falls and has not driven since 10/2023. She has given over bill payments to her daughter. She had a breakdown from stress in 09/2016 when she moved from [place] to [place] to live near her daughter. [facility] Medical History MCI (mild cognitive impairment) Atrial fibrillation with RVR Permanent atrial fibrillation Skin tear of upper extremity Contusion of head Fall Glaucoma Arthritis Anticoagulated GERD (gastroesophageal reflux disease) Renal calculi Forgetfulness Pseudogout Low back pain Bursitis of right hip Afib Surgical History History of total right knee replacement (TKR) Hx of bilateral cataract extraction H/O colonoscopy Hx of tonsillectomy History of back surgery Hx of hysterectomy History of total right knee replacement (~2014) History of bunionectomy History of total left knee replacement (~2016) Family History Mother No problems noted. Father Lung cancer Social History Household Members: None Household Members Other:: home alone Housing: Condominium Are you a primary director of patient care to a significant other at home: No Do you presently have visiting nurse or other home services: No Alcohol intake: current Alcohol intake frequency: a few times a week Comment: uses cane on occasion Patient Tobacco Use Status: Former Tobacco user Tobacco use type: Cigarette Years Smoked: 30 Second Hand Smoke Exposure: No service: No Current occupational status: retired Current occupation: Right Handed Cognitive needs: Yes (cane and walker) Hearing needs: No Vision needs: Yes (rx glasses) Review of Systems Const Denies chills, Denies daytime sleepiness, Reports difficulty sleeping, Denies fatigue, Denies fever(s), Reports frequent falls, Denies headache(s), Denies increased appetite, Denies poor appetite, Denies snoring, Denies weakness, Denies weight gain and Denies weight loss Eyes Denies loss of vision ENT Denies vertigo, Denies dizziness, Denies headache(s) and Reports neck pain Card Denies chest pain at rest, Denies chest pain with activity, Denies syncope, Denies leg edema, Denies palpitations, Denies dyspnea and Denies dyspnea on exertion Resp Denies cough, Denies dyspnea, Denies dyspnea on exertion and Denies snoring GI Denies abdominal pain, Denies constipation, Denies heartburn, Denies diarrhea and Denies nausea Denies urinary frequency, Denies urinary incontinence and Denies urinary urgency Musc Denies abnormal gait, Denies back pain, Denies myalgias, Reports arthralgias, Reports neck pain, Denies numbness, Denies stiffness and Denies tingling Neuro Denies abnormal gait, Denies vertigo, Denies dizziness, Denies syncope, Reports frequent falls, Denies headache(s), Denies lack of coordination, Denies loss of vision, Reports memory loss, Denies numbness, Denies Other visual disturbances, Denies restless legs, Denies seizure-like activity, Denies tingling, Denies paresthesias, Denies tremor(s) and Denies weakness Psych Reports anxiety, Reports depression, Denies auditory hallucinations, Reports memory loss and Denies visual hallucinations Endo Denies fatigue and Denies palpitations Physical Exam Neuro Other: Neurological: Abnormal Neurological Findings:?MMSE 23/30, MoCA 17/30 with MIS 15. Walking with cane.?Mental Status:??alert, as below..?Cranial Nerves:??Pupils are equal, round and reactive to light. Fundoscopy shows normal disc bilaterally. External occular muscles are intact. Visual dixon are full, no ptosis. Face is symmetrical, no facial weakness or droop. Facial sensations are normal. Tongue protrudes in midline. Palate elevates symmetrically. Shoulder shrugging is normal..?Motor Examination:??Normal muscle tone, bulk and strength,?No atrophy or fasciculations,?No drift of the extended upper extremities,?Deep tendon reflexes are 2+?,?Plantars are flexor?.?Straight Leg Raising:??90 degrees.?Sensory Exam:??Normal light touch, temperature, pinprick, vibration and joint-position sensations?,?Rhomberg sign is absent.?Coordination:??no ataxia,?no titubation,?oxmwow-bi-pnkp, qwkv-islr-xiat test and rapid alternating movements were normal.?Gait Exam:??walking with cane.?Cerebellar Signs:??Gbawot-xp-epkt and sreq-il-mobg is normal,?no dysdiadochokinesia?.?Extrapyramidal System:??No tremor, rigidity with normal facial expressions,?No bradykinesia, no bradyphrenia. Normal arm swing and posture. No propulsion or retropulsion.?Speech:??Normal,?no dysphasia or dysarthria..? Mini Mental Status Exam: Level of Consciousness:??Alert.?Orientation:??Knows correct year, month, and , and Wednesday. Not exact date.?Knows correct city, county and state. Knows correct location and floor.?Registration:??Able to register 3 objects.?Attention:??Serial 7's performed accurately to 93.?Recall:??Able to recall 0 out of 3 objects.?Language:??Normal spontaneous speech, fluency, repetition,naming, comprehension, reading and writing.?Total Score:??23/30.? General Examination: GENERAL APPEARANCE:??normal,?in no acute distress.?HEART:??S1, S2 normal,?no murmurs.?LUNGS:??clear anteriorly and posteriorly.?MUSCULOSKELETAL:??normal.?EXTREMITIES:??no edema.?PSYCH:??alert, as above.? Assessment & Plan Assessment & Plan (1) MCI (mild cognitive impairment): Code(s): G31.84 - Mild cognitive impairment of uncertain or unknown etiology Category: Medical (2) Subdural hematoma: Code(s): S06.5XAA - Traumatic subdural hemorrhage with loss of consciousness status unknown, initial encounter Category: Medical Plan Continue Donepezil to 10mg a day . Will add Memantine 10mg bid on next visit. She needs additional help with her homehealth aide. Will repeat MOCA and MMSE in May. Medications: New memantine (Namenda) 10 mg PO BID 60 tabs 5RF Coding Level of Care Code Est Pt Level 4 (69440) Diagnoses MCI (mild cognitive impairment) G31.84 Subdural hematoma S06.5XAA
--- OUTSIDE RECORDS SUMMARY | 2025-02-15 04:00 | XMS_ITS | Encounter Summary ---
Author Organization [facility] and [facility] Address [address] [place] [phone] Care Team Providers Care Bacon Slicer Name Role Phone Elias Santana MD Primary Care Provider + Encounter Details Date Type Department Care Team (Latest Contact Info) Description 04/04/2013 Transcribed Orders [place] [address] Chris Stephens MD [address] [place] [phone] Atrial fibrillation (Primary Dx); Dysuria Social [...] Urine Culture, Routine Less than 10,000 cfu/mL [facility] Culture URINE SPECIMEN OBTAINED BY CLEAN CATCH PROCEDURE / Unknown 04/04/2013 2:00 PM EST us Chris Stephens MD MICROBIOLOGY - GENERAL ORDERA BLES Final Result [facility] [address] [place] [address] * (ABNORMAL) Urinalysis-macroscopic w/reflex microscopic ([facility]) (04/04/2013 2:00 PM EST) Urinalysis See Below [facility] Clarity, UA CLOUDY(A) CLEAR [facility] Color, UA YELLOW YELLOW [facility] Specific [place], UA 1.026 1.005 - 1.030 [facility] pH, UA 6.0 5.5 - 7.5 [facility] Protein, UA 2+(A) NEGATIVE [facility] Glucose, UA NEGATIVE NEGATIVE [facility] Ketones, UA NEGATIVE NEGATIVE [facility] Blood, UA LARGE(A) NEGATIVE [facility] Bilirubin, UA NEGATIVE NEGATIVE [facility] Leukocyte Esterase, UA POSITIVE(A) NEGATIVE [facility] Nitrite, UA NEGATIVE NEGATIVE [facility] Urobilinogen, UA 0.2 <=2.0 EU/DL [facility] 04/04/2013 2:00 PM EST Chris Stephens MD URINE ORDERABLES Final Result Performing Organization Address [facility]/State/[facility] Co de Phone Number [facility] [address] [place] [phone] documented in this encounter Visit Diagnoses Diagnosis Atrial fibrillation (HC Code) (HC CODE)- Primary Atrial fibrillation Dysuria documented in this encounter Care Teams Bacon Slicer Relationship Specialty Start Date End Date Elias Santana MD [address] [facility] [address] [place] [phone] PCP - General Gastroenterology 01/10/13 06/15/19 documented as of this encounter
--- OUTSIDE RECORDS SUMMARY | 2025-02-15 04:00 | XMS_ITS | Clinical Summary ---
Author Organization [address] Address [address] [place] [phone] Phone Care Team Providers Care Risk Management Professional Name Role Phone Unavailable Primary Care Provider [...] Diagnosed Date Resolved Date PAF (paroxysmal atrial fibrillation) 12/12/2014 11/13/2015 Social History Tobacco Use Types [...] Influenza vaccine 10/27/2024 Covid-19 vaccine series ( - 2024- season) 2024 Breast cancer screening Discontinued Cervical [...]
--- OUTSIDE RECORDS SUMMARY | 2025-02-15 04:00 | XMS_ITS | Encounter Summary ---
Author Organization [facility] and [facility] Address [address] [place] [phone] Care Team Providers Care Pharmacy Grad Intern Name Role Phone Elias Santana MD Primary Care Provider + Encounter Details Date Type Department Care Team (Late st Contact Info) Description 01/09/2013 Scanned Document Cardiovascular Medicine at [address] [place] [phone] External, Provider Social History Tobacco Use Types [...] on filedocumented in this encounter Care Teams Pharmacy Grad Intern Relationship Specialty Start Date End Date Elias Santana MD [address] [place] [phone] PCP - General Gastroenterology 01/10/13 06/15/19 HILLARY HUDSON 01/04/13 01/09/13 documented as of this encounter
--- OUTSIDE RECORDS SUMMARY | 2025-02-15 04:00 | XMS_ITS | Patient Health Record ---
Author Organization [facility] Address [address] [facility] [place] [phone] Care Team Providers Care Ship Officer Name Role Phone Fred Krause MD Primary Care Provider Unavail able Mary Kelley Unavailable [phone] Allergies Allergen (clinical drug ingredient) Drug/Non Drug [...] in the even ing Orally Once a day; Duration: 30 day(s) Active Levothyroxine Sodium 75 MCG 1 tablet in the morning on an empty stomach Orally Once a day; Duration: 30 day(s) Active Warfarin Sodium 5 MG 1 tablet Orally Onc e a day; Duration: 30 day(s) Active Vitamin E 400 UNIT 1 capsule Orally Onc e a day; Duration: 30 day(s) Unknown Omeprazole 20 MG 1 capsule 30 minutes before morning meal Orally Once a day; Duration: 30 day(s) Active Amoxicillin 500 MG 1 capsule Orally maura ry 8 hrs; Duration: 5 day(s) Unknown Timolol Maleate 0.5 % 1 drop into affect ed eye Ophthalmic Once a day Active CeleBREX 200 MG 1 capsule with food Orally Once a day; Duration: 30 day(s) Active DULoxetine HCl 60 MG 1 capsule Orally On ce a day; Duration: 30 day(s) Active Tylenol Active Ammonium Lactate 12 % 1 application Exte rnally Twice a day Active Metoprolol Succinate 100 MG 1 capsule Or ally Once a day; Duration: 30 day(s) Active Vitamin D3 25 MCG (1000 UT) 1 capsule Or ally Once a day; Duration: 30 day(s) Unknown buPROPion HCl ER (XL) 300 MG 1 tablet in the morning Orally Once a day; Duration: 30 day(s) Active Baby Oil Active traZODone HCl 50 MG 1 tablet at bedtime as needed Orally Once a day; Duration: 30 day(s) Active Social History Tobacco Use: [...] Insured Coverage Start Date Coverage End Date [id number] [address] [address] [place] [phone] [id number] Shira Montero Self - patient is the [...] x2 1991,1993 Thumb Surgery left knee replacement 2019 kidney stones cataract surgery left and right 2020 Anterior Posterior Vaginal Repair Hospitalization History Reason Date(Month/Year) x2
--- OUTSIDE RECORDS SUMMARY | 2025-02-15 04:00 | XMS_ITS | Encounter Summary ---
Author Organization [facility] Address [address] [place] [phone] Care Team Providers Care Manager Assurance Name Role Phone Elias Santana MD Primary Care Provider + Encounter Details Date Type Department Care Team (Late st Contact Info) Description 02/04/2013 Abstract [facility] Cardiovascular Medicine at [facility] [address] [place], [place] [address] Chris Stephens MD [address] [place] [phone] Social History Tobacco Use Types Packs/Day Years [...] on filedocumented in this encounter Care Teams Manager Assurance Relationship Specialty Start Date End Date Elias Santana MD [address] [place] [address] [address] [place] [phone] PCP - General Gastroenterology 01/10/13 06/15/19 documented as of this encounter
--- OUTSIDE RECORDS SUMMARY | 2025-02-15 04:00 | XMS_ITS | Encounter Summary ---
Author Organization [facility] and [facility] Address [address] [place] [phone] Care Team Providers Care Publication Designer Name Role Phone Elias Santana MD Primary Care Provider + Encounter Details Date Type Department Care Team (Late st Contact Info) Description 09/19/2014 Scanned Document Cardiovascular Medicine at [address] [phone] Chris Stephens MD [address] [place] [phone] Social History Tobacco Use Types Packs/Day [...] MD LAB BLOOD ORDERABLES Final Re sult [facility] [place], [place], [place] * Lab Scan (09/18/2014) Blood specimen (specimen) us Chris Stephens MD LAB BLOOD ORDERABLES Final Re sult [facility] [place], [place], [facility] documented in this encounter Visit Diagnoses Not on filedocumented in this encounter Care Teams Publication Designer Relationship Specialty Start Date End Date Elias Santana MD [address] Blanco [address] [phone] PCP - General Gastroenterology 01/10/13 06/15/19 documented as of this encounter
== END 2025-02-14 15:56 | disposition home or self-care (01) ==
PROVIDERS: PCP Internal Medicine; Visit Provider Psychiatry & Neurology Neurology
DX: G31.84 Mild cognitive impairment of uncertain or unknown etiology (principal); S06.5XAA Traumatic subdural hemorrhage with loss of consciousness status unknown, initial encounter
CPT/HCPCS: 99214

== ENCOUNTER → 2025-02-14 15:26 | Outpatient (BNVA) | payer MEDICARE, SELFPAY | PROVIDERS: PCP Internal Medicine; Visit Provider Psychiatry & Neurology Neurology | DX: S06.5XAD Traumatic subdural hemorrhage with loss of consciousness status unknown, subsequent encounter (principal); W01.0XXD Fall on same level from slipping, tripping and stumbling without subsequent striking against object, subsequent encounter | CPT/HCPCS: 99212 ==

== ENCOUNTER 2025-03-12 15:35 | Outpatient (AMB) | payer MEDICARE, SELFPAY ==
[2025-03-12 15:37] VITALS: BP 136/62; PULSE 60; RESP 14; TEMP 36.1; O2SAT 96; BMI 26.0
--- NOTE | 2025-03-12 15:37 | A.OFFPC_ITS ---
Vital Signs 03/12/25 15:37 Height 5 ft 5 in Weight 156 lb BMI 26.0 BP 136/62 Blood Pressure Location Rt brachial Position Sitting Respiration 14 Pulse 60 Pulse Source Pulse Oximeter Temp 96.9 F Temp Source Temporal Artery Scan Pulse Oximetry (%) 96 Oxygen Delivery Method Room Air Intake Visit Reasons: physical - see comments Branch Sales Manager Required: No Accompanied by: Daughter Allergies albuterol Allergy (Intermediate, Verified 03/12/25 15:37) extreme facial flushing hydromorphone (From DILAUDID) Allergy (Intermediate, Verified 03/12/25 15:37) extreme facial flushing Penicillins (PENICILLINS) Allergy (Intermediate, Verified 03/12/25 15:37) RASH (states can take ampicillin) meperidine (From Demerol) Allergy (Verified 03/12/25 15:37) Nausea Medication List - Last Reconciled 03/14/25 by Sumeet Allison MD acetaminophen 650 mg (2 x 325 mg) PO Q6H PRN 30 days apixaban (Eliquis) 5 mg PO BID atorvastatin 10 mg PO DAILY 90 days bupropion HCl XL 300 mg PO DAILY 90 days cholecalciferol (vitamin D3) 25 mcg PO DAILY digoxin 125 mcg PO DAILY donepezil 10 mg PO BEDTIME 90 days duloxetine 60 mg PO DAILY 90 days fluticasone propionate 50 mcg/actuation (Flonase Allergy Relief) 1 spray intranasal DAILY levothyroxine 75 mcg PO DAILY@1200 loratadine (Claritin) 10 mg PO DAILY melatonin 5 mg PO BEDTIME memantine (Namenda) 10 mg PO BID metoprolol succinate ER 50 mg PO DAILY metoprolol succinate ER 100 mg PO DAILY omeprazole 20 mg PO DAILY@0630 timolol maleate 0.5% 1 drp ophthalmic (eye) BID trazodone 50 mg PO BEDTIME triamcinolone acetonide 0.1% 1 appl topical BID-TID vitamin E 670 mg PO DAILY Tobacco use date assessed: 09/12/24 Dental Screening Dental Screen Date: 06/06/24 HPI HPI Comments History of Present Illness Details History of Present Illness - The patient is an 84-year-old female p resenting for a checkup. - The patient's daughter reports a signi ficant decline in her memory over the last six weeks, noting that the patient is not remembering to take her medications. - The patient has also been sleeping mor e. - An example of her memory loss is not r emembering her daughter's visit from the previous day. - Her medical history is notable for atr ial fibrillation, for which she is scheduled for a Watchman procedure but has not had it yet. - She has restarted Eliquis in preparati on for the procedure. - She was previously taken off the blood thinner in November of last year following a fall. - Past medical history includes glaucoma , depression, hypercholesterolemia, and a thyroid condition. - She also has a history of sinus conges tion, itchy arms, and a skin tag, for which she has been seeing a back grinder. - Her daughter manages her medications, which are filled by [facility] pharmacy, and sets them up in pill bottles. - However, the patient has been non-comp liant with taking them due to memory issues, with her daughter noting instances of missed morning doses. Social History - Housing: The patient lives alone. - Activities of Daily Living: She mainta ins personal hygiene, showering a few times a week. - Functional Status: The patient has exp erienced a decline in her ability to care for her dog, prompting plans to rehome him. - Support System: She receives Meals on Wheels daily, and has assistance with cleaning from the [facility] on Tuesdays and Fridays. - Nutritional Intake: She has Meals on W heels and primarily uses a microwave for food preparation, with minimal cooking on a stovetop. - Safety: She has an emergency call butt on in case she falls. - Future Plans: The patient and her glenny hter are exploring options for an assisted living facility due to her rapid decline. 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 Results - Labs: Blood work from November was no rmal. [facility] Medical History MCI (mild cognitive impairment) Atrial fibrillation with RVR Permanent atrial fibrillation Skin tear of upper extremity Contusion of head Fall Glaucoma Arthritis Anticoagulated GERD (gastroesophageal reflux disease) Renal calculi Forgetfulness Pseudogout Low back pain Bursitis of right hip Afib Surgical History History of total right knee replacement (TKR) Hx of bilateral cataract extraction H/O colonoscopy Hx of tonsillectomy History of back surgery Hx of hysterectomy History of total right knee replacement (~2015) History of bunionectomy History of total left knee replacement (~2017) Family History Mother No problems noted. Father Lung cancer Social History Household Members: None Household Members Other:: home alone [facility]: [facility] Are you a primary personal care service provider to a significant other at home: No Do you presently have visiting nurse or other home services: No Alcohol intake: current Alcohol intake frequency: a few times a week Comment: uses cane on occasion Patient Tobacco Use Status: Former Tobacco user Tobacco use type: Cigarette Years Smoked: 30 Second Hand Smoke Exposure: No service: No Current occupational status: retired Cognitive needs: Yes (cane and walker) Hearing needs: No Vision needs: Yes (rx glasses) Questionnaire PHQ-9 Over the last 2 weeks, how often have you been bothered by any of the following problems? 1. Little interest or pleasure in doing things: not at all 2. Feeling down, depressed, or hopeless: not at all 3. Trouble falling or staying asleep, or sleeping too much: not at all 4. Feeling tired or having little energy: not at all 5. Poor appetite or overeating: not at all 6. Feeling bad about yourself - or that you are a failure or have let yourself or your family down: not at all 7. Trouble concentrating on things, such as reading the newspaper or watching television: not at all 8. Moving or speaking so slowly that other people could have noticed. Or the opposite - being so fidgety or restless that you have been moving around a lot more than usual: not at all 9. Thoughts that you would be better off or of hurting yourself in some way: not at all Total score: 0 Source: Developed by Drs. Fred Cabezas, Oxana Shaikh, Yosef Jamison and colleagues, with an educational ondina from [employer]. Thrive Questionnaire Date Thrive assessed: 06/06/24 I am a: Patient What is your living situation today?: I have a steady place to live Within the past 12 months, did the food you bought not last and you didn't have the money to get more?: Never true Within the past 12 months, did you worry whether your food would run out before you got money to buy more?: Never true Do you have trouble paying for medicines?: No Do you have trouble getting transportation to medical appointments?: No Do you have trouble paying your heating and electricity bill?: No Do you have trouble taking care of your child, family member or friend?: No Do you have trouble with day-to-day activities such as bathing, preparing meals, shopping, managing finances, etc.?: No Are you currently unemployed and looking for a job?: No Are you interested in more education?: No THRIVE Score: 0 AUDIT C Alcohol Use Questionnaire (AUDIT-C) 1. How often do you have a drink containing alcohol?: Never 3. How often do you have six or more drinks on one occasion?: Never Total Score: 0 NANCI-7 AMB Questionnaire NANCI-7 Date NANCI - 7 assessed: 06/06/24 Feeling nervous, anxious, or on edge: 0 = Not at all Not being able to stop or control worryin = Not at all Worrying too much about different things: 0 = Not at all Trouble relaxin = Not at all Being so restless that it is hard to sit still: 0 = Not at all Becoming easily annoyed or irritable: 0 = Not at all Feeling afraid as if something awful might happen: 0 = Not at all Total NANCI-7 score (0-4 normal; 5-9 mild; 10-14 moderate; 15-21 severe): 0 Source: Developed by Drs. Fred Cabezas, Oxana Shaikh, Yosef Jamison and colleagues, with an educational ondina from [employer]. Review of Systems Narrative Review of Systems - Neurological: Reports a significant decline in short-term memory over the past 6 weeks and increased somnolence. - Constitutional: Reports feeling well and not sluggish or confused but acknowledges taking naps for relaxation. - Dermatologic: Reports itchy arms. Physical exam (Primary Care) Vital Signs: Last Vital Signs Temp 96.9 F 03/12/25 15:37 Pulse 60 03/12/25 15:37 Resp 14 12/15/25 15:37 BP 136/62 03/12/25 15:37 Pulse Ox 96 03/12/25 15:37 Oxygen Delivery Method Room Air 03/12/25 15:37 BMI result Body Mass Index 26.0 Tobacco/Smoking Status: Tobacco use Status Tobacco use date assessed 09/12/24 03/12/25 15:39 Patient Tobacco Use Status Former Tobacco user 03/12/25 15:39 Tobacco use type Cigarette 03/12/25 15:39 PHQ-9: PHQ-9 Score PHQ-9: Total score 0 03/12/25 15:53 Thrive Assessment: Date of Thrive Assessment Date Thrive assessed 06/06/24 03/12/25 15:39 Narrative Physical Exam General: Appearance normal, both eyes and all related structures Nutritional Appearance: Well nourished Orientation/consciousness: Patient oriented x3, but experiencing significant short-term memory decline Limitations: No limitations, but memory issues are affecting daily activities Head: Normal to inspection, CAT scan ordered to check for possible small strokes or bleeding Neck: Normal visual inspection Chest: Normal palpation of entire chest wall Respiratory: Normal respiratory effort Neurology: Patient oriented x3, but significant memory decline noted, possible small strokes suspected Office Procedures Flu Questionnaire Does the patient have a severe egg allergy?: No Does the patient have severe life threatening allergies?: No Does the patient have a fever or illness today?: No Has the patient ever had Guillain-Menoken Syndrome?: No Has the patient ever had any past reaction to a flu shot?: No Immunizations Fluarix [id number] (PF) 45 mcg (15 mcg x 3)/0.5 mL IM syringe Performing Provider: Sumeet Allison MD [facility] Documented (not given) by: WILLIAN Hester on 03/12/25 16:00 Reason Not Given: Received Previously Coding Level of Care Code Est Pt Level 4 (64935) Est Pt Prev Care >65y(97327) Diagnoses MCI (mild cognitive impairment) G31.84 Annual physical exam Z00.00 Assessment & Plan Assessment & Plan (1) MCI (mild cognitive impairment): Code(s): G31.84 - Mild cognitive impairment of uncertain or unknown etiology Category: Medical Plan: CT scan ordered (2) Annual physical exam: Code(s): Z00.00 - Encounter for general adult medical examination without abnormal findings Plan Plan - A CT scan of the head will be ordered to rule out intracranial bleeding or other acute changes as a cause for the patient's acute memory decline. - A urinalysis will be performed to rule out a urinary tract infection, which can present as confusion or changes in balance. - The patient will continue with social support services, including Meals on Wheels and assistance from the [facility]. - The patient and her family will explore placement in an assisted living facility. Discussion Notes I discussed with the patient and her daughter the recent significant decline in her memory, including forgetting entire events from the previous day. I explained that while we are not assuming she has had a stroke, it is a possibility that needs to be investigated given the acute change in her neurological status. I recommended a CT scan of the head to rule out any intracranial bleeding, which is a risk given her use of Eliquis. I explained that the results of this scan could help guide her treatment and determine if any of her current medications should be changed. We also discussed the possibility of a urinary tract infection as a cause for her confusion, and I will order a urinalysis to check for this. The patient and her daughter agreed to the proposed diagnostic tests, which will be scheduled. Patient Instructions - We are ordering a CT scan of your head to check for any bleeding or other issues that might explain your memory problems. Our office will arrange this for you. - We will also collect a urine sample today to test for an infection. - You will be contacted about scheduling your tests. - It is very important to continue taking all your prescribed medications as directed, even if you do not remember why they were prescribed. Orders: Orders UA and rflx microscopic 03/12/25 S06.5XAA - Traumatic subdural hemorrhage with loss of consciousness status unknown, initial encounter Influenza [id number] Immunization 03/12/25 Z23 - Encounter for immunization CT head/brain wo IV con 03/12/25 I63.9 - Cerebral infarction, unspecified
--- OUTSIDE RECORDS SUMMARY | 2025-03-12 22:02 | XMS_ITS | Encounter Summary ---
Author Organization [facility] and [facility] Address [address] [place] [phone] Care Team Providers Care Import Coordinator Name Role Phone Elias Santana MD Primary Care Provider + Encounter Details Date Type Department Care Team (Late st Contact Info) Description 01/09/2013 Scanned Document Cardiovascular Medicine at [address] [place] [address] [phone] External, Provider Social History Tobacco Use Types [...] on filedocumented in this encounter Care Teams Import Coordinator Relationship Specialty Start Date End Date Elias Santana MD [address] [place] [phone] PCP - General Gastroenterology 01/10/13 06/15/19 HILLARY HUDSON 01/04/13 01/09/13 documented as of this encounter
--- OUTSIDE RECORDS SUMMARY | 2025-03-12 22:02 | XMS_ITS | Encounter Summary ---
Author Organization [facility] and [facility] Address [address] [place] [phone] Care Team Providers Care Cardiopulmonary Physical Therapist Name Role Phone Elias Santana MD Primary Care Provider + Encounter Details Date Type Department Care Team (Late st Contact Info) Description 09/19/2014 Scanned Document Cardiovascular Medicine at [address] [place], [place] [phone] Chris Stephens MD [address] [place] [phone] Social History Tobacco Use Types Packs/Day [...] MD LAB BLOOD ORDERABLES Final Re sult [facility] [place], [place], [place] * Lab Scan (09/18/2014) Blood specimen (specimen) us Chris Stephens MD LAB BLOOD ORDERABLES Final Re sult [facility] [place], [place], [facility] documented in this encounter Visit Diagnoses Not on filedocumented in this encounter Care Teams Cardiopulmonary Physical Therapist Relationship Specialty Start Date End Date Elias Santana MD [address] [phone] PCP - General Gastroenterology 01/10/13 06/15/19 documented as of this encounter
--- OUTSIDE RECORDS SUMMARY | 2025-03-12 22:02 | XMS_ITS | Encounter Summary ---
Author Organization [facility] and [facility] Address [address] [place] [phone] Care Team Providers Care Hospital Scientist Name Role Phone Elias Santana MD Primary Care Provider + Encounter Details Date Type Department Care Team (Late st Contact Info) Description 02/04/2013 Abstract [facility] Cardiovascular Medicine at [address] [facility] [address] [facility] [address] [place], [place] [address] Chris Stephens MD [address] [place] [phone] Social History Tobacco Use Types Packs/Day Years [...] on filedocumented in this encounter Care Teams Hospital Scientist Relationship Specialty Start Date End Date Elias Santana MD [address] [place] [address] [address] [place] [phone] PCP - General Gastroenterology 01/10/13 06/15/19 documented as of this encounter
--- OUTSIDE RECORDS SUMMARY | 2025-03-12 22:02 | XMS_ITS | Clinical Summary ---
Author Organization [address] Address [address] [place] [phone] Phone Care Team Providers Care Bridge Repair Crew Person Name Role Phone Unavailable Primary Care Provider [...]
--- OUTSIDE RECORDS SUMMARY | 2025-03-12 22:02 | XMS_ITS | Encounter Summary ---
Author Organization [facility] Address [address] [place] [phone] Care Team Providers Care Induction Coordination Power Engineer Name Role Phone Elias Santana MD Primary Care Provider + Encounter Details Date Type Department Care Team (Latest Contact Info) Description 04/04/2013 Transcribed [place] [address] Chris Stephens MD [address] [place] [phone] Atrial fibrillation (Primary Dx); Dysuria Social [...] Culture, Routine Less than 10,000 cfu/mL [facility] Culture URINE SPECIMEN OBTAINED BY CLEAN CATCH PROCEDURE / Unknown 04/04/2013 2:00 PM EST us Chris Stephens MD MICROBIOLOGY - GENERAL ORDERA BLES Final Result [facility] [address] [place] [address] * (ABNORMAL) Urinalysis-macroscopic w/reflex microscopic ([facility]) (04/04/2013 2:00 PM EST) Urinalysis See Below [facility] Clarity, UA CLOUDY(A) CLEAR [facility] Color, UA YELLOW YELLOW [facility] Specific [place], UA 1.026 1.005 - 1.030 [facility] pH, UA 6.0 5.5 - 7.5 [facility] Protein, UA 2+(A) NEGATIVE [facility] Glucose, UA NEGATIVE NEGATIVE [facility] Ketones, UA NEGATIVE NEGATIVE [facility] Blood, UA LARGE(A) NEGATIVE [facility] Bilirubin, UA NEGATIVE NEGATIVE [facility] Leukocyte Esterase, UA POSITIVE(A) NEGATIVE [facility] Nitrite, UA NEGATIVE NEGATIVE [facility] Urobilinogen, UA 0.2 <=2.0 EU/DL [facility] 04/04/2013 2:00 PM EST Chris Stephens MD URINE ORDERABLES Final Result Performing Organization Address [facility]/State/[facility] Co de Phone Number [facility] [address] [place] [phone] documented in this encounter Visit Diagnoses Diagnosis Atrial fibrillation (HC Code) (HC CODE)- Primary Atrial fibrillation Dysuria documented in this encounter Care Teams Induction Coordination Power Engineer Relationship Specialty Start Date End Date Elias Santana MD [facility] [address] [place] [phone] PCP - General Gastroenterology 01/10/13 06/15/19 documented as of this encounter
== END 2025-03-12 16:24 | disposition home or self-care (01) ==
LOC: HO.HMCSH 15:35
PROVIDERS: PCP Internal Medicine; Visit Provider Internal Medicine
DX: Z23 Encounter for immunization (principal)

== ENCOUNTER → 2025-03-12 15:35 | Outpatient (BNVA) | payer MEDICARE, SELFPAY | PROVIDERS: PCP Internal Medicine; Visit Provider Internal Medicine | DX: Z00.00 Encounter for general adult medical examination without abnormal findings (principal); G31.84 Mild cognitive impairment of uncertain or unknown etiology | CPT/HCPCS: 90471; 99212; 99397 ==

== ENCOUNTER 2025-03-26 15:17 | Outpatient (AMB) | payer MEDICARE, SELFPAY ==
--- NOTE | 2025-03-26 15:19 | MHC.OFFVIS ---
Vital Signs 03/26/25 15:20 Height 5 ft 5 in Weight 154 lb 5.177 oz BMI 25.7 BP 120/68 Blood Pressure Location Lt brachial Position Sitting Pulse 72 Pulse Source Monitor Intake Visit Reasons: 6 mth f/up Allergies albuterol Allergy (Intermediate, Verified 03/12/25 15:37) extreme facial flushing hydromorphone (From DILAUDID) Allergy (Intermediate, Verified 03/12/25 15:37) extreme facial flushing Penicillins (PENICILLINS) Allergy (Intermediate, Verified 03/12/25 15:37) RASH (states can take ampicillin) meperidine (From Demerol) Allergy (Verified 03/12/25 15:37) Nausea Medication List - Last Reconciled 03/26/25 by Arnulfo Alatorre MD acetaminophen 650 mg (2 x 325 mg) PO Q6H PRN 30 days apixaban (Eliquis) 5 mg PO BID atorvastatin 10 mg PO DAILY 90 days bupropion HCl XL 300 mg PO DAILY 90 days cholecalciferol (vitamin D3) 25 mcg PO DAILY digoxin 125 mcg PO DAILY donepezil 10 mg PO BEDTIME 90 days duloxetine 60 mg PO DAILY 90 days fluticasone propionate 50 mcg/actuation (Flonase Allergy Relief) 1 spray intranasal DAILY levothyroxine 75 mcg PO DAILY@1200 loratadine (Claritin) 10 mg PO DAILY melatonin 5 mg PO BEDTIME memantine (Namenda) 10 mg PO BID metoprolol succinate ER 50 mg PO DAILY metoprolol succinate ER 100 mg PO DAILY omeprazole 20 mg PO DAILY@0630 timolol maleate 0.5% 1 drp ophthalmic (eye) BID trazodone 50 mg PO BEDTIME triamcinolone acetonide 0.1% 1 appl topical BID-TID vitamin E 670 mg PO DAILY HPI Comments Details: Shira returns for follow-up regarding various concerns. She has a history of atrial fibrillation as well as recurring falls leading to subdural hematoma. Subsequently, has seen EP and she recently underwent Watchman procedure. Overall, she states she is doing good. No new concerns. No cardiac symptoms. Getting around okay. Frailty from age. [facility] Medical History (Updated 03/26/25 @ 16:05 by Arnulfo Alatorre MD) Presence of Watchman left atrial appendage closure device MCI (mild cognitive impairment) Atrial fibrillation with RVR Permanent atrial fibrillation Skin tear of upper extremity Contusion of head Fall Glaucoma Arthritis Anticoagulated GERD (gastroesophageal reflux disease) Renal calculi Forgetfulness Pseudogout Low back pain Bursitis of right hip Afib Surgical History History of total right knee replacement (TKR) Hx of bilateral cataract extraction H/O colonoscopy Hx of tonsillectomy History of back surgery Hx of hysterectomy History of total right knee replacement (~2014) History of bunionectomy History of total left knee replacement (~2017) Family History Mother No problems noted. Father Lung cancer Social History Household Members: None Household Members Other:: home alone [facility] Are you a primary rn complex care to a significant other at home: No Do you presently have visiting nurse or other home services: No Alcohol intake: current Alcohol intake frequency: a few times a week Comment: uses cane on occasion Patient Tobacco Use Status: Former Tobacco user Tobacco use type: Cigarette Years Smoked: 30 Second Hand Smoke Exposure: No service: No Current occupational status: retired Cognitive needs: Yes (cane and walker) Hearing needs: No Vision needs: Yes (rx glasses) Review of Systems Const Denies weakness ENT Denies dizziness Card Denies chest pain, Denies chest pain with activity, Denies syncope, Denies rapid heart rate, Denies pedal edema, Denies edema, Denies leg edema, Denies lightheadedness, Denies palpitations, Denies dyspnea, Denies dyspnea on exertion and Denies orthopnea Resp Denies cough, Denies dyspnea and Denies dyspnea on exertion GI Denies hematochezia and Denies change in stool character Musc Denies abnormal gait, Denies muscle cramps, Denies muscle weakness, Denies numbness, Denies radiating pain into limb and Denies tingling Neuro Denies abnormal gait, Denies dizziness, Denies syncope, Denies numbness, Denies tingling and Denies weakness Endo Denies palpitations Physical Exam Vital Signs: Last Vital Signs Pulse 72 03/26/25 15:20 BP 120/68 03/26/25 15:20 BMI result Body Mass Index 25.7 Const General: comfortable and no acute distress Orientation/consciousness: patient oriented x3 HEENT Other: Unremarkable Head: Yes normal to inspection Neck Neck: Yes normal visual inspection Chest Chest palpation & inspection: normal inspection of the chest Resp Auscultation: clear to auscultation bilaterally Cardio Palpation: normal PMI Heart sounds: S1 normal heart sound present, S2 normal heart sound present, no gallops, no murmurs and no rubs GI Palpation (GI): Soft to palpation Back/Spine/Pelvis Other: unremarkable Skin General skin exam: no rashes or lesions noted Neuro General: patient oriented x3 Extrem General: Yes normal to inspection Psych Mental Status: mental status grossly normal Office Procedures EKG Details: EKG with atrial fibrillation at a rate of 72/Min; nonspecific ST-T changes. [id number], Complete Assessment & Plan Assessment & Plan (1) Persistent atrial fibrillation: Code(s): I48.19 - Other persistent atrial fibrillation Category: Medical (2) Subdural hematoma: Code(s): S06.5XAA - Traumatic subdural hemorrhage with loss of consciousness status unknown, initial encounter Category: Medical (3) Presence of Watchman left atrial appendage closure device: Code(s): Z95.818 - Presence of other cardiac implants and grafts Category: Medical Plan Overall, persistent atrial fibrillation, recurrent falls, subdural hematoma, status post Watchman device placement. In the Holter monitor, underlying rhythm is atrial fibrillation with an average rate of 70/Min. Thought to be adequately rate controlled. Echocardiogram from [facility]-LVEF 50%, in the setting of atrial fibrillation. No wall motion abnormalities. Calcified aortic valve with mild regurgitation. Mild mitral annular calcification. Left atrium mildly dilated. Currently on a combination of metoprolol ER 150 mg daily, digoxin. Digoxin levels. We discussed about this today. With regard to the Watchman device, she has follow-up appointments for the same. Protocol for switching from Eliquis to antiplatelet drugs per Watchman team. Otherwise, she seems stable clinically. We will follow up in 6 months time. Discussion Notes: I discussed the patient's progress following her Watchman device placement, which occurred in December. We reviewed the current anticoagulation plan, which involves continuing Eliquis until her follow-up CT scan in March. I advised that she should follow the protocol from EP team that performed the procedure, as they will manage the transition from Eliquis to likely aspirin and Plavix based on the scan results. I reinforced that the Watchman device's purpose is to prevent strokes and will not change how she feels. I will place an order for labs, including a digoxin level, to be completed in the next few months, and I instructed her to hold the digoxin pill on the day of the blood draw. We agreed on a follow-up appointment in this clinic in about six months. Patient was informed and verbally consented to the use of an ambient scribe for clinic note documentation during this visit. Orders: Orders Basic Metabolic Panel Today I48.19 - Other persistent atrial fibrillation Digoxin Today I48.19 - Other persistent atrial fibrillation Patient Instructions: - Please get bloodwork done in the next few months to check your digoxin level. - Do not take your digoxin pill on the morning of your blood test. - Schedule a follow-up appointment in this office in about six months. Coding Level of Care Code Est Pt Level 4 (70122) Add On Problem Visit Only Diagnoses Persistent atrial fibrillation I48.19 Subdural hematoma S06.5XAA Presence of Watchman left atrial appendage closure device Z95.818 CPT Codes EKG - CPT: 65741-[id number], Complete ([id number])
[2025-03-26 15:20] VITALS: BP 120/68; PULSE 72; BMI 25.7
--- OUTSIDE RECORDS SUMMARY | 2025-03-26 17:25 | XMS_ITS | Clinical Summary ---
Author Organization [address] Address [address] [place] [phone] Phone Care Team Providers Care Edge Gluer Name Role Phone Unavailable Primary Care Provider [...]
--- OUTSIDE RECORDS SUMMARY | 2025-03-26 17:25 | XMS_ITS | Encounter Summary ---
Author Organization [facility] and [facility] Address [address] [place] [phone] Care Team Providers Care Cigarette Machines Mechanic Name Role Phone Elias Santana MD Primary Care Provider + Encounter Details Date Type Department Care Team (Late st Contact Info) Description 02/04/2013 Abstract [facility] at [address] [facility] [address] [facility] [address] [place], [place] [id number] Chris Stephens MD [address] [place] [phone] Social History Tobacco Use Types Packs/Day Years [...] on filedocumented in this encounter Care Teams Cigarette Machines Mechanic Relationship Specialty Start Date End Date Elias Santana MD [address] [place] [address] [address] [place] [phone] PCP - General Gastroenterology 01/10/13 06/15/19 documented as of this encounter
--- OUTSIDE RECORDS SUMMARY | 2025-03-26 17:25 | XMS_ITS | Encounter Summary ---
Author Organization [facility] and [facility] Address [address] [place] [phone] Care Team Providers Care Cloth Desizing Range Tender Name Role Phone Elias Santana MD Primary Care Provider + Encounter Details Date Type Department Care Team (Late st Contact Info) Description 01/09/2013 Scanned Document Cardiovascular Medicine at [address] [place] [address] [phone] External, Provider Social History Tobacco Use Types [...] on filedocumented in this encounter Care Teams Cloth Desizing Range Tender Relationship Specialty Start Date End Date Elias Santana MD [address] [place] [phone] PCP - General Gastroenterology 01/10/13 06/15/19 HILLARY HUDSON 01/04/13 01/09/13 documented as of this encounter
--- OUTSIDE RECORDS SUMMARY | 2025-03-26 17:25 | XMS_ITS | Encounter Summary ---
Author Organization [facility] and [facility] Address [address] [place] [phone] Care Team Providers Care Checkout Operator Name Role Phone Elias Santana MD Primary Care Provider + Encounter Details Date Type Department Care Team (Late st Contact Info) Description 09/19/2014 Scanned Document Cardiovascular Medicine at [address] [facility] [address] [place], [place] [address] Chris Stephens MD [address] [place] [phone] Social History Tobacco Use Types Packs/Day [...] MD LAB BLOOD ORDERABLES Final Re sult [facility] [place], [place], [place] * Lab Scan (09/18/2014) Blood specimen (specimen) us Chris Stephens MD LAB BLOOD ORDERABLES Final Re sult [facility] [place], [place], [facility] documented in this encounter Visit Diagnoses Not on filedocumented in this encounter Care Teams Checkout Operator Relationship Specialty Start Date End Date Elias Santana MD [address] Krishna Blanco [address] [phone] PCP - General Gastroenterology 01/10/13 06/15/19 documented as of this encounter
--- OUTSIDE RECORDS SUMMARY | 2025-03-26 17:25 | XMS_ITS | Encounter Summary ---
Author Organization [facility] and [facility] Address [address] [place] [phone] Care Team Providers Care Staple Cutter Name Role Phone Elias Santana MD Primary Care Provider + Encounter Details Date Type Department Care Team (Latest Contact Info) Description 04/04/2013 Transcribed [place] [address] Chris Stephens MD [address] [place] [phone] Atrial fibrillation (Primary Dx); Dysuria Social [...] Urine Culture, Routine Less than 10,000 cfu/mL [facility] Culture URINE SPECIMEN OBTAINED BY CLEAN CATCH PROCEDURE / Unknown 04/04/2013 2:00 PM EST us Chris Stephens MD MICROBIOLOGY - GENERAL ORDERA BLES Final Result [facility] [address] [place] [address] * (ABNORMAL) Urinalysis-macroscopic w/reflex microscopic (YH) (04/04/2013 2:00 PM EST) Urinalysis See Below [facility] Clarity, UA CLOUDY(A) CLEAR [facility] Color, UA YELLOW YELLOW [facility] Specific [place], UA 1.026 1.005 - 1.030 [facility] pH, UA 6.0 5.5 - 7.5 [facility] Protein, UA 2+(A) NEGATIVE [facility] Glucose, UA NEGATIVE NEGATIVE [facility] Ketones, UA NEGATIVE NEGATIVE [facility] Blood, UA LARGE(A) NEGATIVE [facility] Bilirubin, UA NEGATIVE NEGATIVE [facility] Leukocyte Esterase, UA POSITIVE(A) NEGATIVE [facility] Nitrite, UA NEGATIVE NEGATIVE [facility] Urobilinogen, UA 0.2 <=2.0 EU/DL [facility] 04/04/2013 2:00 PM EST Chris Stephens MD URINE ORDERABLES Final Result Performing Organization Address [facility]/State/[facility] Co de Phone Number [facility] [address] [place] [phone] documented in this encounter Visit Diagnoses Diagnosis Atrial fibrillation (HC Code) (HC CODE)- Primary Atrial fibrillation Dysuria documented in this encounter Care Teams Staple Cutter Relationship Specialty Start Date End Date Elias Santana MD [address] [facility] [address] [place] [phone] PCP - General Gastroenterology 01/10/13 06/15/19 documented as of this encounter
== END 2025-03-26 15:42 | disposition home or self-care (01) ==
LOC: HO.HCS 15:18
PROVIDERS: PCP Internal Medicine; Visit Provider Internal Medicine
DX: I48.19 Other persistent atrial fibrillation (principal); S06.5XAA Traumatic subdural hemorrhage with loss of consciousness status unknown, initial encounter; Z95.818 Presence of other cardiac implants and grafts
CPT/HCPCS: 93010; 99214; G2211

== ENCOUNTER → 2025-03-26 15:17 | Outpatient (BNVA) | payer MEDICARE, SELFPAY | PROVIDERS: PCP Internal Medicine; Visit Provider Internal Medicine | DX: I48.19 Other persistent atrial fibrillation (principal); S06.5X0A Traumatic subdural hemorrhage without loss of consciousness, initial encounter; W18.30XA Fall on same level, unspecified, initial encounter; Y93.9 Activity, unspecified; Y92.9 Unspecified place or not applicable; Y99.9 Unspecified external cause status; Z95.818 Presence of other cardiac implants and grafts | CPT/HCPCS: 93005; 99212 ==